=== PATIENT | female | born 1935 | race African-American/Black ===

== ENCOUNTER 2022-04-06 08:30 | Outpatient (CLI) | payer MEDICARE, SELFPAY ==
--- NOTE | ~2022-04-06 | XR_ITS ---
XR lumbar spine 2-3V 04/06/2022 09:54 Indication: Low back pain. Osteoporosis Procedure: 3 views lumbar spine Comparison: No prior studies for comparison. Findings: There is no mild disc narrowing at multiple levels. There is lower lumbar facet hypertrophy . There is grade 1 degenerative spondylolisthesis at L4-5. Sacral foramen are symmetric. There are ch olecystectomy clips. No acute fracture is identified. There is mild wedge deformity of T12 and L1, li robi chronic. Impression: 1: Mild wedge deformities of T12 and L1, most likely chronic. Consider correlation with CT or MRI if there is concern for acute fracture. 2: Moderate lumbar spondylosis. Reviewed, dictated and finalized at location B. Impression: 1: Mild wedge deformities of T12 and L1, most likely chronic. Consider correlat ion with CT or MRI if there is concern for acute fracture. 2: Moderate lumbar spondylosis.
--- NOTE | ~2022-04-06 | MM_ITS ---
EXAMINATION: MM screening keren BI w cem HISTORY: Screening mammogram TECHNIQUE: Craniocaudal and mediolateral oblique 3-D tomosynthesis images were obtained and synthetic 2-D images were generated. CAD analysis was submitted and interpreted. COMPARISON: No prior mammogram is available for comparison at this institution. BREAST PARENCHYMAL COMPOSITION: The breasts are almost entirely fatty. FINDINGS: There are scattered benign calcifications. There is no evidence of suspicious mass, calcifi cation, or architectural distortion to suggest malignancy in either breast. There has been no suspici ous interval change. IMPRESSION: 1. No mammographic evidence of malignancy. 2. Recommend routine screening mammography in one year. BI-RADS Category 2: Benign finding(s). Reviewed, dictated and finalized at location A.
--- NOTE | ~2022-04-06 | XR_ITS ---
EXAMINATION: XR foot LT standing 2V DATE: 04/06/2022 09:54 INDICATION: Age-related osteoporosis without current pathologic fracture. TECHNIQUE: 2 views of left foot standing were obtained. COMPARISON: None. FINDINGS: Pes planus is noted. No fracture. There is mild osteoarthritis of some of the midfoot joint s and interphalangeal joints. There is an enthesophyte at plantar aspect of calcaneal tuberosity. IMPRESSION: 1. Pes planus. 2. Mild polyarticular osteoarthritis. Reviewed, dictated and finalized at location A.
--- NOTE | ~2022-04-06 | XR_ITS ---
XR foot RT standing 2V 04/06/2022 09:54 Indication: Age-related osteoporosis. Procedure: 2 views of the right foot Comparison: No prior studies for comparison. Findings: Osteopenia. There is moderate osteoarthritis of the first MTP joint with hallux valgus. The re is a healed fifth metatarsal fracture. Lisfranc joint intact. There is pes planus. Small degenerat marixa calcaneal enthesophyte at the plantar surface. 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 2: Osteopenia. 3: Pes planus. Reviewed, dictated and finalized at location B. 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 2: Osteopenia. 3: Pes planus.
--- NOTE | ~2022-04-06 | XR_ITS ---
EXAMINATION: XR hand BI arthritis min 3V DATE: 04/06/2022 09:54 INDICATION: Age-related osteoporosis without current pathologic fracture. TECHNIQUE: 4 views of right hand and 4 views of left hand on a total of 7 radiographs were obtained. COMPARISON: None. FINDINGS: RIGHT HAND: There is radial subluxation of third distal phalanx with respect to the middle phalanx. N o fracture. There is mild osteoarthritis of triscaphe joint and severe osteoarthritis of first carpom etacarpal joint. There is mild osteoarthritis of many of the metacarpophalangeal joints and interphal angeal joints. There is moderate osteoarthritis of second metacarpophalangeal joint, fifth proximal i nterphalangeal joint, and second and fourth distal interphalangeal joints. There is severe osteoarthr itis of third distal interphalangeal joint. LEFT HAND: There is ulnar subluxation of second distal phalanx with respect to the middle phalanx and radial subluxation of third and fourth distal phalanges with respect to the middle phalanges. No fra cture. There is mild osteoarthritis of triscaphe joint and severe osteoarthritis of first carpometaca rpal joint. There is mild osteoarthritis of many of the metacarpophalangeal joints and interphalangea l joints. There is moderate osteoarthritis of third metacarpophalangeal joint and fourth distal inter phalangeal joint and severe osteoarthritis of second and third distal interphalangeal joints. IMPRESSION: 1. Particular osteoarthritis. Reviewed, dictated and finalized at location A.
[2022-04-06 10:48] LABS: Basophils Percent Auto 0.4 % (0.2-1.2); Eosinophils Absolute Auto 0.1 K/mm3 (0-0.3); Eosinophils Percent Auto 1.2 % (0-4.4); Hematocrit 35.9 % (37.0-47.0); Hemoglobin 10.9 g/dL (12.0-15.0); Immature Granulocyte Absolute 0.04 K/mm3 (0.00-0.031); Immature Granulocyte Percent A 0.8 % (0-0.5); Lymphocytes Absolute Auto 1.13 K/mm3 (0.9-3.2); Lymphocytes Percent Auto 22.3 % (18.3-44.2); Mean Corpuscular HGB Conc 30.4 g/dl (32-36); Mean Corpuscular Hemoglobin 29.3 pg (26-34); Mean Corpuscular Volume 96.5 fl (80-100); Mean Platelet Volume 9.9 fl (7.4-10.4); Monocytes Absolute Auto 0.6 K/mm3 (0.1-0.6); Monocytes Percent Auto 11.2 % (2.6-8.5); Neutrophils Absolute Auto 3.3 K/mm3 (1.3-6.7); Neutrophils Percent Auto 64.1 % (45.5-73.1); Platelet Count Result 209 k/mm3 (150-375); Red Blood Count 3.72 M/mm3 (4.2-5.4); Red Cell Distribution Width 15.2 % (11.5-14.5); White Blood Count 5.1 K/mm3 (4.5-10.0)
[2022-04-06 10:54] LABS: Alanine Aminotransferase 8 U/L (6-35); Albumin Level 3.8 g/dL (3.5-5.1); Alkaline Phosphatase 56 U/L (38-126); Anion Gap 6 mmol/L (8-16); Aspartate Amino Transferase 21 U/L (14-36); Bilirubin,Total 0.4 mg/dL (0.2-1.3); Blood Urea Nitrogen 15 mg/dL (7-17); CRP < 0.5 mg/dL (<1.0); Calcium 9.1 mg/dL (8.4-10.2); Carbon Dioxide 32 mmol/L (22-30); Chloride 102 mmol/L (98-107); Creatine Kinase 76 U/L (30-135); Estimated Glomerular Filt Rate > 60; Glucose 91 mg/dL (65-110); Lactate Dehydrogenase 180 U/L (120-246); Potassium 4.2 mmol/L (3.4-5.0); Sodium 140 mmol/L (137-145)
[2022-04-06 11:18] LABS: Vitamin D 25 Hydroxy 58.7 ng/mL
[2022-04-06 11:36] LABS: Rheumatoid Factor 14.1 IU/ML (<12)
[2022-04-06 11:51] LABS: Hepatitis C Virus Antibody Negative (Negative)
[2022-04-06 11:57] LABS: Folic Acid 19.7 ng/mL (2.76->20)
[2022-04-06 12:21] LABS: Erythrocyte Sedimentation Rate 47 mm/hr (0-20)
[2022-04-09 19:41] LABS: SM Antibody <1.0; SM/RNP Antibody <1.0; SS-A <1.0; SS-B <1.0
[2022-04-10 18:53] LABS: Hepatitis B Core Ab Total Nonreactive (Nonreactive)
[2022-04-10 22:07] LABS: Anti Cyclic Citrullinated Pept <16 Units (<20)
[2022-04-14 04:23] LABS: Aldolase 6.8 U/L (<=8.1)
== END 2022-04-06 08:31 | disposition home or self-care (01) ==
PROVIDERS: PCP Internal Medicine; Referring Provider Internal Medicine; Visit Provider Internal Medicine
DX: M05.79 Rheumatoid arthritis with rheumatoid factor of multiple sites without organ or systems involvement (principal); M81.0 Age-related osteoporosis without current pathological fracture; Z12.31 Encounter for screening mammogram for malignant neoplasm of breast; M21.42 Flat foot [pes planus] (acquired), left foot; M15.9 Polyosteoarthritis, unspecified; M21.41 Flat foot [pes planus] (acquired), right foot; M47.816 Spondylosis without myelopathy or radiculopathy, lumbar region; M43.8X4 Other specified deforming dorsopathies, thoracic region
CPT/HCPCS: 36415; 72100; 73130; 73620; 77063; 77067; 80053; 82085; 82306; 82550; 82746; 83615; 85025; 85652; 86038; 86140; 86200; 86225; 86235; 86430; 86704; 86803

== ENCOUNTER 2022-04-26 16:59 | Outpatient (CLI) | payer MEDICARE, SELFPAY ==
--- NOTE | ~2022-04-26 | DEXA_ITS ---
Bone Density Report Name: MELINDA MORALES Age: 86 Sex: Female Ethnicity: White Date of : 1935 Indication: hyperparathyroidism; height loss; inflammatory bowel disease; cancer; hysterectomy; rheumatoid arthritis; postmenopausal Referring Provider: LUCIO SEGURA Study: Bone densitometry was performed. Exam Date: April 26, 2022 Accession number: [id number] Bone Density: Region BMD T-score Z-score Classification AP Spine(L1-L4) 0.853 -1.8 1.1 Osteopenia Femoral Neck (Left) 0.695 -1.4 1.1 Osteopenia Total Hip (Left) 0.841 -0.8 1.5 Normal Femoral Neck (Right) 0.678 -1.5 1.0 Osteopenia Total Hip (Right) 0.830 -0.9 1.4 Normal Total Hip Mean 0.836 -0.9 1.5 Normal World Health Organization criteria for BMD impression classify patients as: Normal (T-score at or above -1.0), Osteopenia (T-score between -1.0 and -2.5), or Osteoporosis (T-score at or below -2.5). 10-year Fracture Risk: FRAX not reported because: Treated for osteoporosis Clinical Information Provided by Patient: Has rheumatoid arthritis Is being treated for osteoporosis Has used the following medications: Fosamax (i.e. alendronate), Vitamin D Has the following medical conditions: Cancer, Inflammatory bowel diseases, Hyperparathyroidism, Hysterectomy Patient maximum height was 62 Menopause Age: 51 No regular weight bearing exercise Drinks caffeinated beverages Onset of menses at age 15 Number of children 6 Impression: The patient has low bone mass, based on the Total Spine T-score. Discussion: It is important to ask patients whether they are taking their medications and to encourage continued and appropriate compliance with their osteoporosis therapies to reduce fracture risk. It is also important to review their risk factors and encourage appropriate calcium and vitamin D intakes, exercise, fall prevention and other lifestyle measures. Follow-Up: Consider a repeat BMD and Vertebral Fracture Assessment (VFA) exam in 2 years or sooner if medically necessary, to reassess this patient's status. Reported by: NICOLAS on 04/26/2022 5:29:00 PM. Reviewed, dictated and finalized at location APadmaja MACHADO
== END 2022-04-26 17:00 | disposition home or self-care (01) ==
PROVIDERS: Visit Provider Internal Medicine
DX: M81.0 Age-related osteoporosis without current pathological fracture (principal); M85.89 Other specified disorders of bone density and structure, multiple sites
CPT/HCPCS: 77080

== ENCOUNTER 2022-05-26 12:45 | Outpatient (CLI) | payer MEDICARE, SELFPAY ==
--- NOTE | ~2022-05-26 | XR_ITS ---
XR ankle RT min 3V 05/26/2022 13:10 Indication: Right ankle pain Procedure: 4 views right ankle Comparison: 04/06/2022 Findings: There is a large amount of soft tissue swelling. Osteopenia. There is a degenerative calcan eal enthesophyte at the plantar surface. There is atherosclerosis. Ankle mortise intact. Impression: 1: No acute bone or joint abnormality. Reviewed, dictated and finalized at location A. Impression: 1: No acute bone or joint abnormality.
[2022-05-26 13:47] LABS: Basophils Percent Auto 0.2 % (0.2-1.2); Eosinophils Absolute Auto 0.1 K/mm3 (0-0.3); Hematocrit 35.2 % (37.0-47.0); Hemoglobin 10.7 g/dL (12.0-15.0); Immature Granulocyte Absolute 0.04 K/mm3 (0.00-0.031); Immature Granulocyte Percent A 0.7 % (0-0.5); Immature Reticulocyte Fraction 6.9 % (3.0-15.9); Lymphocytes Absolute Auto 1.21 K/mm3 (0.9-3.2); Lymphocytes Percent Auto 19.9 % (18.3-44.2); Mean Corpuscular HGB Conc 30.4 g/dl (32-36); Mean Corpuscular Hemoglobin 29.9 pg (26-34); Mean Corpuscular Volume 98.3 fl (80-100); Monocytes Absolute Auto 0.4 K/mm3 (0.1-0.6); Monocytes Percent Auto 7.1 % (2.6-8.5); Neutrophils Absolute Auto 4.3 K/mm3 (1.3-6.7); Neutrophils Percent Auto 71.1 % (45.5-73.1); Platelet Count Result 164 k/mm3 (150-375); Red Blood Count 3.58 M/mm3 (4.2-5.4); Red Cell Distribution Width 14.3 % (11.5-14.5); Reticulocyte Hemoglobin Conten 32.4 pg (28.2-35.7); Reticulocytes Absolute 0.05 B/L (32.2-175.7); White Blood Count 6.1 K/mm3 (4.5-10.0)
[2022-05-26 14:07] LABS: Iron 80 ug/dL (37-170)
[2022-05-26 14:17] LABS: Percent Iron Saturation 29 % (20-50)
[2022-05-26 15:02] LABS: Folic Acid > 20.0 ng/mL (2.76->20)
== END 2022-05-26 12:46 | disposition home or self-care (01) ==
LOC: ANHIMG 12:51
PROVIDERS: PCP Internal Medicine; Referring Provider Internal Medicine; Visit Provider Internal Medicine Hematology & Oncology
DX: D64.9 Anemia, unspecified (principal); M25.571 Pain in right ankle and joints of right foot
CPT/HCPCS: 36415; 73610; 82607; 82728; 82746; 83540; 83550; 84443; 85025; 85046

== ENCOUNTER 2022-06-03 10:20 | Outpatient (CLI) | payer MEDICARE, SELFPAY ==
[2022-06-03 11:10] LABS: Basophils Percent Auto 0.4 % (0.2-1.2); Eosinophils Percent Auto 0.8 % (0-4.4); Hematocrit 35.1 % (37.0-47.0); Hemoglobin 10.6 g/dL (12.0-15.0); Immature Granulocyte Absolute 0.02 K/mm3 (0.00-0.031); Immature Granulocyte Percent A 0.4 % (0-0.5); Immature Reticulocyte Fraction 11.9 % (3.0-15.9); Lymphocytes Absolute Auto 1.11 K/mm3 (0.9-3.2); Lymphocytes Percent Auto 21.3 % (18.3-44.2); Mean Corpuscular HGB Conc 30.2 g/dl (32-36); Mean Corpuscular Hemoglobin 29.7 pg (26-34); Mean Corpuscular Volume 98.3 fl (80-100); Mean Platelet Volume 9.4 fl (7.4-10.4); Monocytes Absolute Auto 0.6 K/mm3 (0.1-0.6); Monocytes Percent Auto 11.7 % (2.6-8.5); Neutrophils Absolute Auto 3.4 K/mm3 (1.3-6.7); Neutrophils Percent Auto 65.4 % (45.5-73.1); Platelet Count Result 188 k/mm3 (150-375); Red Blood Count 3.57 M/mm3 (4.2-5.4); Red Cell Distribution Width 14.1 % (11.5-14.5); Reticulocyte Hemoglobin Conten 31.4 pg (28.2-35.7); Reticulocyte Percent 1.43 % (0.7-4.3); Reticulocytes Absolute 0.05 B/L (32.2-175.7); White Blood Count 5.2 K/mm3 (4.5-10.0)
[2022-06-03 11:23] LABS: Alanine Aminotransferase 13 U/L (6-35); Albumin Level 3.7 g/dL (3.5-5.1); Alkaline Phosphatase 56 U/L (38-126); Anion Gap 4 mmol/L (8-16); Aspartate Amino Transferase 22 U/L (14-36); Bilirubin,Total 0.4 mg/dL (0.2-1.3); Blood Urea Nitrogen 18 mg/dL (7-17); Carbon Dioxide 33 mmol/L (22-30); Chloride 106 mmol/L (98-107); Cholesterol 186 mg/dL (0-200); Estimated Glomerular Filt Rate > 60; Glucose 87 mg/dL (65-110); HDL Direct 47 mg/dL; Potassium 4.3 mmol/L (3.4-5.0); Sodium 143 mmol/L (137-145); Triglycerides 90 mg/dL (<150)
[2022-06-03 11:34] LABS: LDL Cholesterol Direct 93 mg/dL
[2022-06-06 13:32] LABS: NIL 0.06 IU/mL; Quantiferon TB Plus, 1T NEGATIVE (NEGATIVE); TB1-NIL <0.00 IU/mL; TB2-NIL <0.00 IU/mL
== END 2022-06-03 10:21 | disposition home or self-care (01) ==
PROVIDERS: PCP Internal Medicine; Referring Provider Internal Medicine Hematology & Oncology; Visit Provider Internal Medicine
DX: C20 Malignant neoplasm of rectum (principal); M81.0 Age-related osteoporosis without current pathological fracture; M05.79 Rheumatoid arthritis with rheumatoid factor of multiple sites without organ or systems involvement; E78.5 Hyperlipidemia, unspecified; D64.9 Anemia, unspecified
CPT/HCPCS: 36415; 80053; 80061; 82378; 85025; 85046; 86480

== ENCOUNTER 2022-10-07 09:10 | Outpatient (CLI) | payer MEDICARE, SELFPAY ==
[2022-10-07 10:32] LABS: Hematocrit 36.9 % (37.0-47.0); Hemoglobin 11.4 g/dL (12.0-15.0); Mean Corpuscular HGB Conc 30.9 g/dl (32-36); Mean Corpuscular Hemoglobin 29.7 pg (26-34); Mean Corpuscular Volume 96.1 fl (80-100); Mean Platelet Volume 9.9 fl (7.4-10.4); Platelet Count Result 186 k/mm3 (150-375); Red Blood Count 3.84 M/mm3 (4.2-5.4); Red Cell Distribution Width 14.1 % (11.5-14.5); White Blood Count 4.6 K/mm3 (4.5-10.0)
[2022-10-07 10:52] LABS: Alanine Aminotransferase 14 U/L (6-35); Albumin Level 4.1 g/dL (3.5-5.1); Alkaline Phosphatase 48 U/L (38-126); Anion Gap 2 mmol/L (8-16); Aspartate Amino Transferase 27 U/L (14-36); Bilirubin,Total 0.7 mg/dL (0.2-1.3); Blood Urea Nitrogen 19 mg/dL (7-17); Calcium 8.8 mg/dL (8.4-10.2); Carbon Dioxide 29 mmol/L (22-30); Chloride 105 mmol/L (98-107); Estimated Glomerular Filt Rate > 60; Glucose 86 mg/dL (65-110); Potassium 4.3 mmol/L (3.4-5.0); Sodium 136 mmol/L (137-145)
[2022-10-07 11:02] LABS: Appearance Urine Slightly Cloudy (Clear); Bilirubin Urine Negative (Negative); Blood Urine Negative (Negative); Color Urine Yellow (Yellow); Glucose Urine UA Negative (Negative); Ketones Urine Negative (Negative); Leukocyte Esterase Ur Trace LEU/UL (Negative); Nitrate Urine Negative (Negative); Protein Urine Trace mg/dL (Negative); Specific Grav Ur >= 1.030 (1.001-1.035); Urobilinogen Urine 0.2 mg/dL (<2.0); pH Urine 5.5 (5.0-9.0)
[2022-10-07 11:08] LABS: CRP < 0.5 mg/dL (<1.0)
[2022-10-07 11:10] LABS: Mucus Urine Rare /lpf; Squamous Epithelial Cell Urine Rare /hpf (Few); WBC Urine 0-3 /hpf
[2022-10-07 11:13] LABS: Add Urine Microscopic? YES
[2022-10-07 11:58] LABS: Erythrocyte Sedimentation Rate 25 mm/hr (0-20)
== END 2022-10-07 09:11 | disposition home or self-care (01) ==
LOC: ANHLAB 09:16
PROVIDERS: PCP Internal Medicine; Visit Provider Internal Medicine
DX: M05.79 Rheumatoid arthritis with rheumatoid factor of multiple sites without organ or systems involvement (principal); M19.90 Unspecified osteoarthritis, unspecified site
CPT/HCPCS: 36415; 80053; 81001; 85027; 85652; 86140

== ENCOUNTER 2022-10-24 13:31 | Outpatient (CLI) | payer MEDICARE, SELFPAY ==
[2022-10-24 14:38] LABS: Basophils Percent Auto 0.5 % (0.2-1.2); Eosinophils Absolute Auto 0.1 K/mm3 (0-0.3); Eosinophils Percent Auto 1.4 % (0-4.4); Hematocrit 35.4 % (37.0-47.0); Hemoglobin 10.8 g/dL (12.0-15.0); Immature Granulocyte Absolute 0.01 K/mm3 (0.00-0.031); Immature Granulocyte Percent A 0.2 % (0-0.5); Lymphocytes Absolute Auto 1.43 K/mm3 (0.9-3.2); Lymphocytes Percent Auto 32.2 % (18.3-44.2); Mean Corpuscular HGB Conc 30.5 g/dl (32-36); Mean Corpuscular Hemoglobin 28.9 pg (26-34); Mean Corpuscular Volume 94.7 fl (80-100); Mean Platelet Volume 9.8 fl (7.4-10.4); Monocytes Absolute Auto 0.6 K/mm3 (0.1-0.6); Monocytes Percent Auto 12.6 % (2.6-8.5); Neutrophils Absolute Auto 2.4 K/mm3 (1.3-6.7); Neutrophils Percent Auto 53.1 % (45.5-73.1); Platelet Count Result 204 k/mm3 (150-375); Red Blood Count 3.74 M/mm3 (4.2-5.4); Red Cell Distribution Width 14.4 % (11.5-14.5); White Blood Count 4.4 K/mm3 (4.5-10.0)
[2022-10-24 14:56] LABS: Appearance Urine Cloudy (Clear); Bacteria Urine None Seen /hpf; Bilirubin Urine Negative (Negative); Blood Urine Negative (Negative); Color Urine Dark Yellow (Yellow); Glucose Urine UA Negative (Negative); Hyaline Casts Urine Present /lpf; Ketones Urine Trace mg/dL (Negative); Leukocyte Esterase Ur 2+ LEU/UL (NEGATIVE); Need Manual Microscopic Reviewed; Nitrate Urine Negative (Negative); Protein Urine 1+ mg/dL (Negative); Specific Grav Ur 1.025 (1.001-1.035); Squamous Epithelial Cell Urine Occasional /hpf (Few); WBC Urine >100 /hpf (0-3); pH Urine 5.5 (5.0-9.0)
[2022-10-24 15:00] LABS: Add Urine Microscopic? YES
[2022-10-24 15:32] LABS: Iron 36 ug/dL (37-170)
[2022-10-24 15:41] LABS: Percent Iron Saturation 13 % (20-50)
[2022-10-26 23:23] LABS: Albumin 3.5 g/dL (3.8-4.8); Alpha 1 Globulin 0.3 g/dL (0.2-0.3); Alpha 2 Globulin 0.8 g/dL (0.5-0.9); Beta 1 Globulin 0.4 g/dL (0.4-0.6); Protein, Total 6.3 g/dL (6.1-8.1)
[2022-10-28 07:10] LABS: Creatinine, Random Urine 279 mg/dL (20-275); Total Protein/Creatinine Ratio 111 mg/g creat (24-184)
== END 2022-10-24 13:32 | disposition home or self-care (01) ==
PROVIDERS: PCP Internal Medicine; Visit Provider Internal Medicine
DX: R31.29 Other microscopic hematuria (principal); Z13.0 Encounter for screening for diseases of the blood and blood-forming organs and certain disorders involving the immune mechanism; R53.83 Other fatigue
CPT/HCPCS: 36415; 81001; 82570; 82728; 83540; 83550; 83880; 84155; 84156; 84165; 84166; 84443; 85025

== ENCOUNTER 2022-11-15 08:04 | Outpatient (CLI) | payer MEDICARE, SELFPAY ==
--- NOTE | ~2022-11-15 | CT_ITS ---
Clinical Indication: Rectal cancer CT Scan of the Chest, Abdomen, and Pelvis with Contrast: Technique: Contiguous sections were acquired throughout the chest, abdomen, and pelvis after intraven ous administration of 100 cc of Omnipaque 350. Dose reduction technique was used on this scan by sukhwinder houser automated exposure control and iterative reconstruction technique. The dose-length product (DL P) was 545.55 mGy-cm. Findings: There is no evidence of any significant mediastinal, hilar or axillary lymphadenopathy. No pulmonary embolus seen. No aortic aneurysm dissection. Coronary artery calcifications are present. There is no evidence of pleural or pericardial effusion. The lungs are clear. No pulmonary nodules or infiltrates are noted. The liver, spleen, pancreas, gallbladder, adrenals and kidneys are within normal limits. There are at herosclerotic calcifications of the aorta. No lymphadenopathy. No bowel obstruction or bowel wall thickening. There is evidence of prior partial colectomy with left lower quadrant ostomy present. Urinary bladder is unremarkable. No definite pelvic mass seen. No ascites. Impression: No evidence for active malignancy or metastatic disease. Prior partial colectomy with left lower quadrant ostomy. Reviewed, dictated and finalized at [facility]. Impression: No evidence for active malignancy or metastatic disease. Prior partial colectomy with left lower quadrant ostomy.
[2022-11-15 08:33] LABS: Estimated Glomerular Filt Rate > 60
== END 2022-11-15 08:05 | disposition home or self-care (01) ==
PROVIDERS: PCP Internal Medicine; Visit Provider Internal Medicine Hematology & Oncology
DX: C20 Malignant neoplasm of rectum (principal)
CPT/HCPCS: 71260; 74177; Q9967

== ENCOUNTER 2022-11-28 13:36 | Outpatient (CLI) | payer MEDICARE, SELFPAY ==
[2022-11-28 14:13] LABS: Basophils Percent Auto 0.5 % (0.2-1.2); Eosinophils Absolute Auto 0.1 K/mm3 (0-0.3); Eosinophils Percent Auto 1.6 % (0-4.4); Hematocrit 34.2 % (37.0-47.0); Hemoglobin 10.3 g/dL (12.0-15.0); Immature Granulocyte Absolute 0.02 K/mm3 (0.00-0.031); Immature Granulocyte Percent A 0.5 % (0-0.5); Lymphocytes Absolute Auto 1.21 K/mm3 (0.9-3.2); Lymphocytes Percent Auto 27.8 % (18.3-44.2); Mean Corpuscular HGB Conc 30.1 g/dl (32-36); Mean Corpuscular Hemoglobin 30.2 pg (26-34); Mean Corpuscular Volume 100.3 fl (80-100); Mean Platelet Volume 9.8 fl (7.4-10.4); Monocytes Absolute Auto 0.6 K/mm3 (0.1-0.6); Monocytes Percent Auto 14.5 % (2.6-8.5); Neutrophils Absolute Auto 2.4 K/mm3 (1.3-6.7); Neutrophils Percent Auto 55.1 % (45.5-73.1); Platelet Count Result 177 k/mm3 (150-375); Red Blood Count 3.41 M/mm3 (4.2-5.4); Red Cell Distribution Width 15.2 % (11.5-14.5); White Blood Count 4.4 K/mm3 (4.5-10.0)
[2022-11-28 14:16] LABS: Appearance Urine Clear (Clear); Bilirubin Urine 1+ (Negative); Blood Urine Trace-intact (Negative); Color Urine Yellow (Yellow); Glucose Urine UA Negative (Negative); Ketones Urine Trace mg/dL (Negative); Leukocyte Esterase Ur Trace LEU/UL (NEGATIVE); Nitrate Urine Negative (Negative); Protein Urine 1+ mg/dL (Negative); Specific Grav Ur >= 1.030 (1.001-1.035); pH Urine 5.5 (5.0-9.0)
[2022-11-28 14:25] LABS: Alanine Aminotransferase 14 U/L (6-35); Albumin Level 3.6 g/dL (3.5-5.1); Alkaline Phosphatase 53 U/L (38-126); Anion Gap 2 mmol/L (8-16); Aspartate Amino Transferase 23 U/L (14-36); Bilirubin,Total 0.4 mg/dL (0.2-1.3); Blood Urea Nitrogen 15 mg/dL (7-17); Calcium 8.6 mg/dL (8.4-10.2); Carbon Dioxide 36 mmol/L (22-30); Chloride 102 mmol/L (98-107); Estimated Glomerular Filt Rate > 60; Glucose 95 mg/dL (65-110); Potassium 4.2 mmol/L (3.4-5.0); Sodium 140 mmol/L (137-145)
[2022-11-28 14:34] LABS: Iron 54 ug/dL (37-170)
[2022-11-28 14:36] LABS: Add Urine Microscopic? YES; NT Pro B Type Natriuretic Pept 439 pg/mL (19.9-100); RBC Urine None seen /hpf (0-2); WBC Urine 0-3 /hpf (0-3)
[2022-11-28 14:37] LABS: Bacteria Urine None Seen /hpf; Squamous Epithelial Cell Urine Few /hpf (Few)
[2022-11-28 14:45] LABS: Percent Iron Saturation 19 % (20-50)
[2022-11-28 14:57] LABS: Carcinoembryonic Antigen 1.9 ng/mL (0.0-3.0); Thyroid Stimulating Hormone 0.047 uIU/mL (0.465-4.680)
[2022-11-30 18:14] LABS: Albumin 3.2 g/dL (3.8-4.8); Alpha 1 Globulin 0.3 g/dL (0.2-0.3); Alpha 2 Globulin 0.7 g/dL (0.5-0.9); Beta 1 Globulin 0.4 g/dL (0.4-0.6); Protein, Total 5.9 g/dL (6.1-8.1)
[2022-12-06 09:34] LABS: Creatinine, Random Urine 468 mg/dL (20-275); Total Protein/Creatinine Ratio 83 mg/g creat (24-184)
== END 2022-11-28 13:37 | disposition home or self-care (01) ==
LOC: ANHLAB 13:40
PROVIDERS: PCP Internal Medicine; Visit Provider Internal Medicine Hematology & Oncology
DX: R31.29 Other microscopic hematuria (principal); Z13.0 Encounter for screening for diseases of the blood and blood-forming organs and certain disorders involving the immune mechanism; R53.83 Other fatigue; D50.9 Iron deficiency anemia, unspecified
CPT/HCPCS: 36415; 80053; 81001; 82378; 82570; 82728; 83540; 83550; 83880; 84155; 84156; 84165; 84166; 84443; 85025

== ENCOUNTER 2022-12-20 00:22 | Day surgery (SDC) | payer MEDICARE, SELFPAY ==
[2022-12-16 10:52] VITALS: BMI 27.1
[2022-12-20 09:00] VITALS: BP 172/96; PULSE 77; RESP 20; TEMP 36.4; O2SAT 96
[2022-12-20] MEDS: LACTATED RINGERS 1,000 ML 150 ML IV CONT (09:13)
--- NOTE | 2022-12-20 09:29 | WPDHPUPDATE1 ---
History and Physical Update Update Date/Time: 12/20/22 09:29 History and Physical has been reviewed, including an updated exam of the patient. There are NO changes in the patient's condition. Risks, benefits, and alternatives have been discussed and questions answered. Patient agrees to proceed with procedure.
--- NOTE | 2022-12-20 09:52 | WPDANESEPPF ---
Anes - Initial Pre Proc Eval Procedure: Operation Date: 12/20/22 10:00 Proposed Procedures p Esophagogastroduodenoscopy - Fredis Clarke MD Date/Time: 12/20/22 09:52 Surgeon: Fredis Clarke MD Pre Op Diagnosis: hx of stomach ca, GAGAN Patient Data Age: 87 Gender: F Height: 1.55 m Weight: 67 kg Last Vital Signs Temp 97.5 F L 12/20/22 09:00 Pulse 77 12/20/22 09:00 Resp 20 12/20/22 09:00 BP 172/96 H 12/20/22 09:00 Pulse Ox 96 12/20/22 09:00 O2 Del Method Room Air 12/20/22 09:00 Allergies Allergy/AdvReac Type Severity Reaction Status Date / Time Penicillins AdvReac Intermediate Swelling Verified 12/20/22 08:59 of Lip/Tongue/Throat Home Medications Medication Instructions Recorded Confirmed Type acetaminophen 500 mg tablet 500 mg PO Q6H PRN Pain 03/29/22 12/16/22 History (Tylenol Extra Strength) ascorbic acid (vitamin C) 500 mg 500 mg PO DAILY 03/29/22 12/16/22 History capsule losartan 25 mg tablet 25 mg PO DAILY 03/29/22 12/16/22 History vitamin B complex (Vitamins B 1 cap PO DAILY 03/29/22 12/16/22 History Complex capsule) folic acid 1 mg tablet 1 mg PO DAILY #90 tabs 11/23/22 12/16/22 Rx methotrexate sodium 2.5 mg tablet 17.5 mg PO WEEKLY #28 tabs 11/23/22 12/16/22 Rx docusate sodium 100 mg capsule 100 mg PO DAILY 12/12/22 12/16/22 History vitamin B12 0.5 mg-folic acid 1 mg 1 tablet PO DAILY 12/12/22 12/16/22 History tablet hydroxychloroquine 200 mg tablet 200 mg PO DAILY #90 tabs 12/13/22 12/16/22 Rx (Plaquenil) calcium carbonate 600 mg-vitamin 1 tablet PO DAILY 12/16/22 12/16/22 History D3 20 mcg (800 unit) chewable tablet (Caltrate 600 plus D) ferrous sulfate 325 mg (65 mg 325 mg PO DAILY 12/16/22 12/16/22 History iron) tablet zczqvkvbyias-jhbodrpb-utdfzt tablet 1 tablet PO DAILY 12/16/22 12/16/22 History Patient hx anesthesia problems: none Family hx anesthesia problems: none Results Review: All pre-operative results and documents have been reviewed as part of the pre-operative evaluation. 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 Arthritis Cancer Congestive heart failure Encounter for medication adjustment GERD (gastroesophageal reflux disease) History of rectal cancer History of stomach cancer Hypertension GAGAN (iron deficiency anemia) Long-term use of immunosuppressant medication Rheumatoid arthritis with rheumatoid factor of multiple sites without organ or systems involvement Family History Family History Father Heart disease Alcoholism Mother Hypertension Heart disease Cerebrovascular accident Thyroid disorder Sibling Cancer Hypertension Heart disease Son Asthma Diabetes mellitus Hypertension Depression Heart disease Thyroid disorder Grandparent Cancer Social History Social History Smoking status: Never smoker Alcohol intake: never Living arrangements: with family Spiritual care concerns: No Anes - Eval Final PreProcedure Day of Procedure 12/20/22 09:52 Patient weight: normal Heart: regular rate and rhythm Lungs: clear to auscultation Airway: Mallampati scale class II Neurological: alert and oriented Last oral intake: >/= 8 hours ASA classification: III Emergent: no Anesthetic plan: proceed Anesthesia type and monitoring: general GIVS and standard monitoring Results Review: All pre-operative results and documents have been reviewed as part of the pre-operative evaluation. Informed Consent: The patient's anesthetic plan and its attendant risks and benefits were discussed with the patient/family/POA. Questions were solicited and answers prov
[2022-12-20] MEDS: SIMETHICONE ORAL SUSPENSION 20 MG/0.3 ML 30 ML BOTTLE 0.6 ML IRRIGATION (09:58)
[2022-12-20 10:03] VITALS: BP 143/72; PULSE 71; RESP 18; O2SAT 98
[2022-12-20 10:13] VITALS: BP 168/69; PULSE 76; RESP 18; O2SAT 98
[2022-12-20 10:23] VITALS: BP 153/66; PULSE 78; RESP 18; O2SAT 98
== END 2022-12-20 10:42 | disposition home or self-care (01) ==
PROVIDERS: PCP Internal Medicine; Visit Provider Internal Medicine Gastroenterology
PROC: 0DJ08ZZ Inspection of Upper Intestinal Tract, Via Natural or Artificial Opening Endoscopic (ICD-10-PCS; CPT 43235; principal; 2022-12-20 10:00)
DX: D64.9 Anemia, unspecified (principal); Z93.4 Other artificial openings of gastrointestinal tract status; Z90.3 Acquired absence of stomach [part of]; Z85.028 Personal history of other malignant neoplasm of stomach; K21.9 Gastro-esophageal reflux disease without esophagitis; M05.79 Rheumatoid arthritis with rheumatoid factor of multiple sites without organ or systems involvement; M81.0 Age-related osteoporosis without current pathological fracture; I11.0 Hypertensive heart disease with heart failure; I50.9 Heart failure, unspecified; Z92.21 Personal history of antineoplastic chemotherapy; Z85.048 Personal history of other malignant neoplasm of rectum, rectosigmoid junction, and anus
CPT/HCPCS: 43235; J2704; J7120

== ENCOUNTER 2023-01-04 09:51 | Outpatient (CLI) | payer MEDICARE, SELFPAY ==
[2023-01-04 10:36] LABS: Basophils Percent Auto 0.5 % (0.2-1.2); Eosinophils Absolute Auto 0.1 K/mm3 (0-0.3); Eosinophils Percent Auto 1.8 % (0-4.4); Hematocrit 34.8 % (37.0-47.0); Hemoglobin 10.5 g/dL (12.0-15.0); Immature Granulocyte Absolute 0.02 K/mm3 (0.00-0.031); Immature Granulocyte Percent A 0.5 % (0-0.5); Lymphocytes Absolute Auto 1.39 K/mm3 (0.9-3.2); Mean Corpuscular HGB Conc 30.2 g/dl (32-36); Mean Corpuscular Hemoglobin 29.4 pg (26-34); Mean Corpuscular Volume 97.5 fl (80-100); Mean Platelet Volume 9.9 fl (7.4-10.4); Monocytes Absolute Auto 0.5 K/mm3 (0.1-0.6); Monocytes Percent Auto 12.2 % (2.6-8.5); Neutrophils Absolute Auto 2.3 K/mm3 (1.3-6.7); Platelet Count Result 168 k/mm3 (150-375); Red Blood Count 3.57 M/mm3 (4.2-5.4); Red Cell Distribution Width 14.2 % (11.5-14.5); White Blood Count 4.4 K/mm3 (4.5-10.0)
[2023-01-04 11:58] LABS: Iron 55 ug/dL (37-170)
[2023-01-04 12:07] LABS: Percent Iron Saturation 18 % (20-50)
== END 2023-01-04 09:52 | disposition home or self-care (01) ==
PROVIDERS: PCP Internal Medicine; Visit Provider Internal Medicine
DX: D50.9 Iron deficiency anemia, unspecified (principal)
CPT/HCPCS: 36415; 82728; 83540; 83550; 85025

== ENCOUNTER 2023-04-11 14:45 | Emergency (ER) | payer MEDICARE, SELFPAY ==
--- NOTE | 2023-04-11 14:50 | ED.EAR ---
HPI - Ear Problem General Chief complaint: Ear Stated complaint: CLOGGED EAR/DIZZY/PAIN Source: patient and RN notes reviewed Mode of arrival: ambulatory Limitations: no limitations History of Present Illness HPI Narrative: Patient is an 87-year-old female who presents to the [facility] with ear pain for the past 2 weeks. Patient states that the pain is worse on the right than left. She states that she has a sensation of something being in her ear which causes decreased hearing. Patient states that she has been using organic ear oil for the past couple days which has helped. She denies ear drainage. Denies recent fevers. Denies recent illness, cough, congestion. Related Data Home Medications Medication Instructions Recorded Confirmed acetaminophen 500 mg tablet 500 mg PO Q6H PRN Pain 03/29/22 12/16/22 (Tylenol Extra Strength) ascorbic acid (vitamin C) 500 mg 500 mg PO DAILY 03/29/22 12/16/22 capsule losartan 25 mg tablet 25 mg PO DAILY 03/29/22 12/16/22 vitamin B complex (Vitamins B 1 cap PO DAILY 03/29/22 12/16/22 Complex capsule) docusate sodium 100 mg capsule 100 mg PO DAILY 12/12/22 12/16/22 vitamin B12 0.5 mg-folic acid 1 mg 1 tablet PO DAILY 12/12/22 12/16/22 tablet calcium carbonate 600 mg-vitamin 1 tablet PO DAILY 12/16/22 12/16/22 D3 20 mcg (800 unit) chewable tablet (Caltrate 600 plus D) ferrous sulfate 325 mg (65 mg 325 mg PO DAILY 12/16/22 12/16/22 iron) tablet ygxonovabtxa-oyoikbzd-awxvut tablet 1 tablet PO DAILY 12/16/22 12/16/22 Allergies Allergy/AdvReac Type Severity Reaction Status Date / Time Penicillins AdvReac Intermediate Swelling Verified 12/20/22 08:59 of Lip/Tongue/Throat Review of Systems Review of Systems: CONSTITUTIONAL: Denies fever, chills, or sweats. EYES: Denies visual changes, redness, or discharge. ENT: Denies sore throat. Reports bilateral ear pain. CARDIOVASCULAR: Denies chest pain, palpitations, or edema. RESPIRATORY: Denies cough or dyspnea. GASTROINTESTINAL: Denies abdominal pain, nausea, vomiting, or diarrhea. GENITOURINARY: Denies dysuria or hematuria. SKIN: Denies rash or itching. MUSCULOSKELETAL: Denies back pain, joint pain, or myalgia. NEUROLOGIC: Denies headache, numbness, or weakness. Pertinent positives per HPI. 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 Arthritis Cancer Congestive heart failure Encounter for medication adjustment GERD (gastroesophageal reflux disease) History of rectal cancer History of stomach cancer Hypertension GAGAN (iron deficiency anemia) Long-term use of immunosuppressant medication Rheumatoid arthritis with rheumatoid factor of multiple sites without organ or systems involvement Family History Family History Father Heart disease Alcoholism Mother Hypertension Heart disease Cerebrovascular accident Thyroid disorder Sibling Cancer Hypertension Heart disease Son Asthma Diabetes mellitus Hypertension Depression Heart disease Thyroid disorder Grandparent Cancer Social History Social History Smoking status: Never smoker Alcohol intake: never Living arrangements: with family Spiritual care concerns: No Comments At the time of my signature, I reviewed and agree with the nursing past medical, surgical, social, and family history. There is no relevant family history pertinent to the patient complaint. Exam Narrative: GENERAL: This is a well-nourished, well-developed patient, in no apparent distress. HEAD: normocephalic, atraumatic. EYES: Sclera clear/white. Vision is grossly intact. EARS: External ears normal. Right ear wit
[2023-04-11 14:56] VITALS: BP 136/64; PULSE 85; RESP 16; TEMP 36.7; O2SAT 100
== END 2023-04-11 15:11 | disposition home or self-care (01) ==
PROVIDERS: Emergency Provider Nurse Practitioner; PCP Internal Medicine
DX: H66.93 Otitis media, unspecified, bilateral (principal); H61.21 Impacted cerumen, right ear; M81.0 Age-related osteoporosis without current pathological fracture; M19.90 Unspecified osteoarthritis, unspecified site; I11.0 Hypertensive heart disease with heart failure; I10 Essential (primary) hypertension; M05.9 Rheumatoid arthritis with rheumatoid factor, unspecified; Z85.048 Personal history of other malignant neoplasm of rectum, rectosigmoid junction, and anus; Z85.028 Personal history of other malignant neoplasm of stomach; Z92.21 Personal history of antineoplastic chemotherapy; D50.9 Iron deficiency anemia, unspecified
CPT/HCPCS: 69210; 99213; G0463

== ENCOUNTER 2023-04-12 10:49 | Outpatient (CLI) | payer MEDICARE, SELFPAY ==
[2023-04-12 11:40] LABS: Appearance Urine Cloudy (Clear); Bacteria Urine Rare /hpf; Bilirubin Urine 1+ (Negative); Blood Urine Negative (Negative); Color Urine Dark Yellow (Yellow); Glucose Urine UA Negative (Negative); Ketones Urine Trace mg/dL (Negative); Leukocyte Esterase Ur 2+ LEU/UL (Negative); Need Manual Microscopic Reviewed; Nitrate Urine Negative (Negative); Protein Urine 1+ mg/dL (Negative); RBC Urine 0-2 /hpf (0-2); Specific Grav Ur 1.032 (1.001-1.035); Squamous Epithelial Cell Urine Few /hpf (Few); WBC Urine 21-50 /hpf
[2023-04-12 11:41] LABS: Add Urine Microscopic? YES
[2023-04-12 12:00] LABS: Basophils Percent Auto 0.4 % (0.2-1.2); Eosinophils Absolute Auto 0.1 K/mm3 (0-0.3); Eosinophils Percent Auto 2.9 % (0-4.4); Hematocrit 34.7 % (37.0-47.0); Hemoglobin 10.3 g/dL (12.0-15.0); Immature Granulocyte Absolute 0.01 K/mm3 (0.00-0.031); Immature Granulocyte Percent A 0.2 % (0-0.5); Lymphocytes Absolute Auto 1.11 K/mm3 (0.9-3.2); Lymphocytes Percent Auto 22.7 % (18.3-44.2); Mean Corpuscular HGB Conc 29.7 g/dl (32-36); Mean Corpuscular Hemoglobin 29.3 pg (26-34); Mean Corpuscular Volume 98.6 fl (80-100); Mean Platelet Volume 10.3 fl (7.4-10.4); Monocytes Absolute Auto 0.6 K/mm3 (0.1-0.6); Monocytes Percent Auto 11.5 % (2.6-8.5); Neutrophils Absolute Auto 3.1 K/mm3 (1.3-6.7); Neutrophils Percent Auto 62.3 % (45.5-73.1); Platelet Count Result 173 k/mm3 (150-375); Red Blood Count 3.52 M/mm3 (4.2-5.4); Red Cell Distribution Width 14.1 % (11.5-14.5); White Blood Count 4.9 K/mm3 (4.5-10.0)
[2023-04-12 12:21] LABS: Alanine Aminotransferase 15 U/L (6-35); Albumin Level 3.4 g/dL (3.5-5.1); Alkaline Phosphatase 55 U/L (38-126); Anion Gap 3 mmol/L (8-16); Aspartate Amino Transferase 22 U/L (14-36); Bilirubin,Total 0.5 mg/dL (0.2-1.3); Blood Urea Nitrogen 16 mg/dL (7-17); CRP 0.6 mg/dL (<1.0); Calcium 8.7 mg/dL (8.4-10.2); Carbon Dioxide 33 mmol/L (22-30); Chloride 105 mmol/L (98-107); Estimated Glomerular Filt Rate > 60; Glucose 102 mg/dL (65-110); Potassium 4.4 mmol/L (3.4-5.0); Sodium 141 mmol/L (137-145)
[2023-04-12 12:38] LABS: Hypochromasia 1+ (NORMAL); Platelet Estimate Adequate (Adequate); Schistocytes None Seen (NORMAL)
[2023-04-12 12:53] LABS: Erythrocyte Sedimentation Rate 28 mm/hr (0-20)
== END 2023-04-12 10:50 | disposition home or self-care (01) ==
LOC: ANHLAB 10:50
PROVIDERS: PCP Internal Medicine; Visit Provider Internal Medicine
DX: M06.9 Rheumatoid arthritis, unspecified (principal); Z11.59 Encounter for screening for other viral diseases; Z79.899 Other long term (current) drug therapy
CPT/HCPCS: 36415; 80053; 81001; 85025; 85652; 86140; 87086

== ENCOUNTER 2023-06-15 10:08 | Outpatient (CLI) | payer MEDICARE, SELFPAY ==
[2023-06-15 11:06] LABS: Basophils Percent Auto 0.3 % (0.2-1.2); Eosinophils Percent Auto 0.3 % (0-4.4); Hematocrit 35.2 % (37.0-47.0); Hemoglobin 10.6 g/dL (12.0-15.0); Immature Granulocyte Absolute 0.14 K/mm3 (0.00-0.031); Immature Granulocyte Percent A 1.5 % (0-0.5); Lymphocytes Absolute Auto 2.06 K/mm3 (0.9-3.2); Lymphocytes Percent Auto 22.7 % (18.3-44.2); Mean Corpuscular HGB Conc 30.1 g/dl (32-36); Mean Corpuscular Hemoglobin 29.2 pg (26-34); Mean Platelet Volume 9.9 fl (7.4-10.4); Monocytes Percent Auto 10.7 % (2.6-8.5); Neutrophils Absolute Auto 5.9 K/mm3 (1.3-6.7); Neutrophils Percent Auto 64.5 % (45.5-73.1); Platelet Count Result 248 k/mm3 (150-375); Red Blood Count 3.63 M/mm3 (4.2-5.4); Red Cell Distribution Width 14.7 % (11.5-14.5); White Blood Count 9.1 K/mm3 (4.5-10.0)
[2023-06-15 11:25] LABS: Alanine Aminotransferase 16 U/L (6-35); Albumin Level 3.6 g/dL (3.5-5.1); Alkaline Phosphatase 54 U/L (38-126); Anion Gap 2 mmol/L (8-16); Aspartate Amino Transferase 22 U/L (14-36); Bilirubin,Total 0.6 mg/dL (0.2-1.3); Blood Urea Nitrogen 29 mg/dL (7-17); Carbon Dioxide 34 mmol/L (22-30); Chloride 103 mmol/L (98-107); Estimated Glomerular Filt Rate > 60; Glucose 95 mg/dL (65-110); Potassium 4.2 mmol/L (3.4-5.0); Sodium 139 mmol/L (137-145)
[2023-06-15 11:26] LABS: Iron 71 ug/dL (37-170)
[2023-06-15 11:37] LABS: Percent Iron Saturation 26 % (20-50)
[2023-06-15 11:50] LABS: Carcinoembryonic Antigen 2.5 ng/mL (0.0-3.0)
== END 2023-06-15 10:09 | disposition home or self-care (01) ==
LOC: ANHLAB 10:13
PROVIDERS: PCP Internal Medicine; Visit Provider Internal Medicine Hematology & Oncology
DX: C20 Malignant neoplasm of rectum (principal); D64.9 Anemia, unspecified
CPT/HCPCS: 36415; 80053; 82378; 82607; 82728; 83540; 83550; 85025

== ENCOUNTER 2023-07-27 10:23 | Outpatient (CLI) | payer MEDICARE, SELFPAY ==
[2023-07-27 11:24] LABS: Alanine Aminotransferase 10 U/L (6-35); Albumin Level 3.6 g/dL (3.5-5.1); Alkaline Phosphatase 61 U/L (38-126); Anion Gap 1 mmol/L (8-16); Aspartate Amino Transferase 24 U/L (14-36); Bilirubin,Total 0.5 mg/dL (0.2-1.3); Blood Urea Nitrogen 15 mg/dL (7-17); Carbon Dioxide 34 mmol/L (22-30); Chloride 106 mmol/L (98-107); Cholesterol 203 mg/dL (0-200); Estimated Glomerular Filt Rate > 60; Glucose 92 mg/dL (65-110); HDL Direct 46 mg/dL; Potassium 4.2 mmol/L (3.4-5.0); Sodium 141 mmol/L (137-145); Triglycerides 101 mg/dL (<150)
[2023-07-27 11:35] LABS: LDL Cholesterol Direct 96 mg/dL
[2023-07-27 13:02] LABS: Free T4 Free Thyroxine 1.11 ng/mL (0.78-2.19)
[2023-07-27 14:15] LABS: Creatinine Urine 120.1 mg/dL
[2023-07-27 14:20] LABS: MALB Creatinine Ratio 12.9 mg/g (0-30); Microalbumin Urine Random 15.5 mg/L (0-16.7)
== END 2023-07-27 10:24 | disposition home or self-care (01) ==
PROVIDERS: PCP Internal Medicine; Visit Provider Internal Medicine
DX: E78.5 Hyperlipidemia, unspecified (principal); I10 Essential (primary) hypertension; M85.80 Other specified disorders of bone density and structure, unspecified site; R94.6 Abnormal results of thyroid function studies
CPT/HCPCS: 36415; 80053; 80061; 82043; 84439; 84443

== ENCOUNTER 2023-09-04 11:13 | Emergency (ER) | payer MEDICARE, SELFPAY ==
--- NOTE | ~2023-09-04 | XR_ITS ---
Clinical Indication: Shortness of breath PA and lateral views of the chest: Comparison: None Findings: There are extensive right middle lobe pneumonia. Left lung clear. Cardiomediastinal silhou ette is within normal limits. Bones and soft tissues are unremarkable. Impression: Extensive right middle lobe pneumonia. Possible right lower lobe involvement as well. Reviewed, dictated and finalized at location . ARTIS[facility] Impression: Extensive right middle lobe pneumonia. Possible right lower lobe involvement as well.
[2023-09-04 11:22] VITALS: BP 94/65; PULSE 123; RESP 16; TEMP 36.8; O2SAT 91
--- NOTE | 2023-09-04 12:15 | ED.SOB ---
HPI - SOB/Dyspnea General Chief Complaint: Shortness of Breath/Dyspnea Stated Complaint: Shortness of breath Time Seen by Provider: 09/04/23 11:35 Source: patient, RN notes reviewed and old records reviewed Mode of arrival: ambulatory Limitations: no limitations History of Present Illness HPI Narrative: 88-year-old female who [facility] accompanied by her daughter with complaints of increasing weakness and fatigue since . Daughter states today patient seemed to be more short of breath than usual and continues to be very weak, Patient does have a history of congestive heart failure, minimal swelling noted to left foot, no tachypnea noted,O2 saturation ranging 91-92 on room air. Patient does have crackles noted on auscultation 1/2 way up on right lung. Daughter states that mother has not had a cough or any sinus drainage or any temperatures. MD elicited complaint: shortness of breath (weakness and fatigue) Pertinent past history: congestive heart failure Onset (ago): day(s) (increased fatigue and weakness 5 days with increased dyspnea one day) Severity: moderate Known history of: congestive heart failure and other (Rheumatoid arthritis, stomach and rectal cancer) Treatment prior to arrival: none Related Data Home Medications Medication Instructions Recorded Confirmed acetaminophen 500 mg tablet 500 mg PO Q6H PRN Pain 03/29/22 09/04/23 (Tylenol Extra Strength) ascorbic acid (vitamin C) 500 mg 500 mg PO DAILY 03/29/22 09/04/23 capsule losartan 25 mg tablet 25 mg PO DAILY 03/29/22 09/04/23 vitamin B complex (Vitamins B 1 cap PO DAILY 03/29/22 09/04/23 Complex capsule) vitamin B12 0.5 mg-folic acid 1 mg 1 tablet PO DAILY 12/12/22 09/04/23 tablet calcium carbonate 600 mg-vitamin 1 tablet PO DAILY 12/16/22 09/04/23 D3 20 mcg (800 unit) chewable tablet (Caltrate 600 plus D) ferrous sulfate 325 mg (65 mg 325 mg PO DAILY 12/16/22 09/04/23 iron) tablet noutgadjgosc-lqldwxev-edklxc tablet 1 tablet PO DAILY 12/16/22 09/04/23 pantoprazole 20 mg tablet,delayed 20 mg PO QAM 08/01/23 09/04/23 release Allergies Allergy/AdvReac Type Severity Reaction Status Date / Time Penicillins AdvReac Intermediate Swelling Verified 09/04/23 11:24 of Lip/Tongue/Throat Review of Systems Review of Systems: CONSTITUTIONAL: Denies malaise, chills, sweats, or fever. EYES: Denies visual changes, redness, or discharge. ENT: Reports no rhinorrhea, congestion, sinus pain, otalgia or sore throat. CARDIOVASCULAR: Denies chest pain, palpitations, or edema. RESPIRATORY: Reports no acute cough.? Reports incereased dyspnea. GASTROINTESTINAL: Denies abdominal pain, nausea, vomiting, diarrhea SKIN: Denies rash or itching. MUSCULOSKELETAL: Denies myalgia. NEUROLOGIC: Denies headache. 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 Arthritis Cancer Congestive heart failure Encounter for medication adjustment GERD (gastroesophageal reflux disease) History of rectal cancer History of stomach cancer Hypertension GAGAN (iron deficiency anemia) Long-term use of immunosuppressant medication Rheumatoid arthritis with rheumatoid factor of multiple sites without organ or systems involvement Surgical History Surgical History (Updated 09/05/23 @ 20:47 by Nidia Mcnair NP) History of hysterectomy Family History Family History Father Heart disease Alcoholism Mother Hypertension Heart disease Cerebrovascular accident Thyroid disorder Sibling Cancer Hypertension Heart disease Son Asthma Diabetes mellitus Hypertension Depression
[2023-09-04 12:16] VITALS: PULSE 116; RESP 16; O2SAT 96
== END 2023-09-04 12:18 | disposition short-term general hospital (02) ==
LOC: EXPGOSH 11:16
PROVIDERS: Emergency Provider Registered Nurse; PCP Internal Medicine
DX: J18.1 Lobar pneumonia, unspecified organism (principal); I11.0 Hypertensive heart disease with heart failure; I50.9 Heart failure, unspecified; K21.9 Gastro-esophageal reflux disease without esophagitis; M81.0 Age-related osteoporosis without current pathological fracture; M05.79 Rheumatoid arthritis with rheumatoid factor of multiple sites without organ or systems involvement; Z85.028 Personal history of other malignant neoplasm of stomach; Z85.048 Personal history of other malignant neoplasm of rectum, rectosigmoid junction, and anus; D50.9 Iron deficiency anemia, unspecified
CPT/HCPCS: 71046; 99213; G0463

== ENCOUNTER 2023-11-06 09:51 | Outpatient (CLI) | payer MEDICARE, SELFPAY ==
[2023-11-06 10:10] LABS: Basophils Percent Auto 0.4 % (0.2-1.2); Eosinophils Absolute Auto 0.1 K/mm3 (0-0.3); Eosinophils Percent Auto 1.5 % (0-4.4); Hematocrit 38.3 % (37.0-47.0); Hemoglobin 11.8 g/dL (12.0-15.0); Immature Granulocyte Absolute 0.01 K/mm3 (0.00-0.031); Immature Granulocyte Percent A 0.2 % (0-0.5); Lymphocytes Absolute Auto 1.42 K/mm3 (0.9-3.2); Lymphocytes Percent Auto 26.7 % (18.3-44.2); Mean Corpuscular HGB Conc 30.8 g/dl (32-36); Mean Corpuscular Hemoglobin 29.4 pg (26-34); Mean Corpuscular Volume 95.5 fl (80-100); Mean Platelet Volume 9.8 fl (7.4-10.4); Monocytes Absolute Auto 0.5 K/mm3 (0.1-0.6); Neutrophils Absolute Auto 3.3 K/mm3 (1.3-6.7); Neutrophils Percent Auto 61.2 % (45.5-73.1); Platelet Count Result 166 k/mm3 (150-375); Red Blood Count 4.01 M/mm3 (4.2-5.4); White Blood Count 5.3 K/mm3 (4.5-10.0)
[2023-11-06 14:27] LABS: Alanine Aminotransferase 12 U/L (6-35); Albumin Level 3.8 g/dL (3.5-5.1); Alkaline Phosphatase 72 U/L (38-126); Anion Gap 1 mmol/L (8-16); Aspartate Amino Transferase 25 U/L (14-36); Bilirubin,Total 0.5 mg/dL (0.2-1.3); Blood Urea Nitrogen 17 mg/dL (7-17); Calcium 9.4 mg/dL (8.4-10.2); Carbon Dioxide 35 mmol/L (22-30); Chloride 105 mmol/L (98-107); Estimated Glomerular Filt Rate > 60; Glucose 98 mg/dL (65-110); Potassium 3.9 mmol/L (3.4-5.0); Sodium 141 mmol/L (137-145)
[2023-11-06 14:41] LABS: Iron 108 ug/dL (37-170)
[2023-11-06 14:51] LABS: Percent Iron Saturation 36 % (20-50)
[2023-11-06 14:59] LABS: Carcinoembryonic Antigen 2.7 ng/mL (0.0-3.0)
[2023-11-06 15:36] LABS: Folic Acid > 20.0 ng/mL (2.76->20)
== END 2023-11-06 09:52 | disposition home or self-care (01) ==
LOC: ANHLAB 09:53
PROVIDERS: PCP Internal Medicine; Visit Provider Internal Medicine Hematology & Oncology
DX: C20 Malignant neoplasm of rectum (principal); D64.9 Anemia, unspecified
CPT/HCPCS: 36415; 80053; 82378; 82607; 82728; 82746; 83540; 83550; 85025

== ENCOUNTER 2023-12-13 15:10 | Outpatient (CLI) | payer MEDICARE, SELFPAY ==
--- NOTE | ~2023-12-13 | XR_ITS ---
XR chest 2V 12/13/2023 15:36 Indication: Cough Procedure: 2 view chest Comparison: 09/04/2023 Findings: Improving right basilar airspace disease, consistent with resolving pneumonia. Borderline h eart size. No pleural effusion or pneumothorax. Impression: 1: Improving right basilar airspace disease, consistent with resolving pneumonia. Reviewed, dictated and finalized at location B. Impression: 1: Improving right basilar airspace disease, consistent with resolving pneumoni a.
[2023-12-13 16:01] LABS: Hematocrit 38.1 % (37.0-47.0); Hemoglobin 11.7 g/dL (12.0-15.0); Mean Corpuscular HGB Conc 30.7 g/dl (32-36); Mean Corpuscular Hemoglobin 28.6 pg (26-34); Mean Corpuscular Volume 93.2 fl (80-100); Mean Platelet Volume 9.5 fl (7.4-10.4); Platelet Count Result 157 k/mm3 (150-375); Red Blood Count 4.09 M/mm3 (4.2-5.4); Red Cell Distribution Width 14.4 % (11.5-14.5); White Blood Count 8.9 K/mm3 (4.5-10.0)
[2023-12-13 16:11] LABS: Anion Gap 5 mmol/L (4-12); Blood Urea Nitrogen 41 mg/dL (7-17); Calcium 10.4 mg/dL (8.4-10.2); Carbon Dioxide 28 mmol/L (22-30); Chloride 107 mmol/L (98-107); Estimated Glomerular Filt Rate 43; Glucose 101 mg/dL (65-110); Potassium 3.9 mmol/L (3.4-5.0); Sodium 140 mmol/L (137-145)
[2023-12-13 16:32] LABS: Band Neutrophils Percent 1 % (0-6); Eosinophils Absolute Manual 0.35 K/mm3 (0.02-0.50); Eosinophils Percent Manual 4 % (0-4); Lymphocytes Absolute Manual 2.67 K/mm3 (1.1-4.5); Monocytes Percent Manual 18 % (3-9); Neutrophils Absolute Manual 4.27 K/mm3 (1.7-7.2); Neutrophils Percent Manual 47 % (46-73); Platelet Estimate Adequate (Adequate); Schistocytes None Seen; Total Cells Counted 100
[2023-12-13 17:18] LABS: Folic Acid > 20.0 ng/mL (2.76->20); Vitamin B12 > 1000.0 pg/mL (239-931)
[2023-12-13 17:26] LABS: Iron 43 ug/dL (37-170)
[2023-12-13 17:37] LABS: Percent Iron Saturation 18 % (20-50)
== END 2023-12-13 15:11 | disposition home or self-care (01) ==
PROVIDERS: PCP Internal Medicine; Visit Provider Internal Medicine
DX: R05.9 Cough, unspecified (principal); D64.9 Anemia, unspecified; E86.0 Dehydration; L65.9 Nonscarring hair loss, unspecified; R91.8 Other nonspecific abnormal finding of lung field
CPT/HCPCS: 36415; 71046; 80048; 82607; 82728; 82746; 83540; 83550; 84443; 85025

== ENCOUNTER 2024-01-24 00:24 | Day surgery (SDC) | payer MEDICARE, SELFPAY ==
[2024-01-08 12:37] VITALS: BMI 28.3
[2024-01-24 06:25] VITALS: BP 169/79; PULSE 85; RESP 18; TEMP 36.3; O2SAT 100
[2024-01-24] MEDS: LACTATED RINGERS 1,000 ML 150 ML IV CONT (06:37)
--- NOTE | 2024-01-24 07:17 | WPDANESEPPF ---
Anes - Initial Pre Proc Eval Procedure: Operation Date: 01/24/24 07:30 Proposed Procedures p Esophagogastroduodenoscopy & Colonoscopy - Elvin Clark MD Date/Time: 01/24/24 07:17 Surgeon: Elvin Clark MD Pre Op Diagnosis: dysphagia unspecified, personal history malignant Patient Data Age: 88 Gender: F Height: 1.52 m Weight: 63.4 kg Last Vital Signs Temp 97.3 F L 01/24/24 06:25 Pulse 85 01/24/24 06:25 Resp 18 01/24/24 06:25 BP 169/79 H 01/24/24 06:25 Pulse Ox 100 01/24/24 06:25 O2 Del Method Room Air 01/24/24 06:25 Allergies Allergy/AdvReac Type Severity Reaction Status Date / Time Penicillins AdvReac Intermediate Swelling Verified 01/24/24 06:24 of Lip/Tongue/Throat Home Medications Medication Instructions Recorded Confirmed Type acetaminophen 500 mg tablet 500 mg PO Q6H PRN Pain 03/29/22 01/24/24 History (Tylenol Extra Strength) ascorbic acid (vitamin C) 500 mg 500 mg PO DAILY 03/29/22 01/08/24 History capsule losartan 25 mg tablet 25 mg PO DAILY 03/29/22 01/08/24 History vitamin B complex (Vitamins B 1 cap PO DAILY 03/29/22 01/08/24 History Complex capsule) vitamin B12 0.5 mg-folic acid 1 mg 1 tablet PO DAILY 12/12/22 01/08/24 History tablet calcium carbonate 600 mg-vitamin 1 tablet PO DAILY 12/16/22 01/08/24 History D3 20 mcg (800 unit) chewable tablet (Caltrate 600 plus D) ferrous sulfate 325 mg (65 mg 325 mg PO DAILY 12/16/22 01/08/24 History iron) tablet xnfxqnytcmmd-gfozxumj-xzmlfv tablet 1 tablet PO DAILY 12/16/22 01/08/24 History pantoprazole 20 mg tablet,delayed 20 mg PO QAM 08/01/23 01/08/24 History release folic acid 1 mg tablet 1 mg PO DAILY #90 tabs 12/07/23 01/08/24 Rx hydroxychloroquine 200 mg tablet 300 mg PO DAILY #135 tabs 04/18/24 05/20/24 Rx (Plaquenil) methotrexate sodium 2.5 mg tablet 25 mg PO WEEKLY #120 tabs 12/07/23 01/24/24 Rx prednisone 2.5 mg tablet 2.5 mg PO DAILY #40 tabs 12/07/23 01/08/24 Rx Patient hx anesthesia problems: none Family hx anesthesia problems: none Results Review: All pre-operative results and documents have been reviewed as part of the pre-operative evaluation. 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 treated with erythropoietin Arthritis Cancer Congestive heart failure Encounter for medication adjustment GERD (gastroesophageal reflux disease) History of rectal cancer History of stomach cancer Hypertension GAGAN (iron deficiency anemia) Long-term use of immunosuppressant medication Rheumatoid arthritis with rheumatoid factor of multiple sites without organ or systems involvement Surgical History Surgical History History of hysterectomy Family History Family History Father Heart disease Alcoholism Mother Hypertension Heart disease Cerebrovascular accident Thyroid disorder Sibling Cancer Hypertension Heart disease Son Asthma Diabetes mellitus Hypertension Depression Heart disease Thyroid disorder Grandparent Cancer Social History Social History Smoking status: Never smoker Alcohol intake: never Substance use: never Substance use type: does not use Living arrangements: with family Spiritual care concerns: No Anes - Eval Final PreProcedure Day of Procedure 01/24/24 07:17 Patient weight: normal Heart: regular rate and rhythm Lungs: clear to auscultation Airway: Mallampati scale class III Neurological: alert and oriented Last oral intake: >/= 8 hours ASA classification: III Emergent: no Anesthetic plan: proceed Anesthesia type and monitoring: g
--- NOTE | 2024-01-24 07:29 | PM.HPGS ---
History of Present Illness History of Present Illness Consent: Risks, benefits, and alternatives have been discussed and questions answered. Patient agrees to proceed with procedure. Chief complaint: dysphagia unspecified, personal history malignant Narrative: Kirti Barr is a 88 year old female here for egd and colonoscopy, history of of GAGAN s/p gastric and rectal cancer, PMH significant for hx of stomach adenocarcinoma in 2018 s/p subtotal colectomy and chemo, last colonoscopy 2021. EGD 2022 with sutbtotal gastrectomy, lately with dysphagia. Review of Systems Review of Systems: All systems reviewed & are unremarkable except as noted in HPI and below PMFSH Past Medical History Medical History (Updated 01/24/24 @ 07:33 by Elvin Clark MD) Age related osteoporosis Age-related osteoporosis without current pathological fracture Allergies Anemia due to chemotherapy for gastric cancer treated with erythropoietin Arthritis Cancer Congestive heart failure Dysphagia Encounter for medication adjustment GERD (gastroesophageal reflux disease) History of rectal cancer History of stomach cancer Hypertension GAGAN (iron deficiency anemia) Long-term use of immunosuppressant medication Rheumatoid arthritis with rheumatoid factor of multiple sites without organ or systems involvement Surgical History Surgical History History of hysterectomy Family History Family History Father Heart disease Alcoholism Mother Hypertension Heart disease Cerebrovascular accident Thyroid disorder Sibling Cancer Hypertension Heart disease Son Asthma Diabetes mellitus Hypertension Depression Heart disease Thyroid disorder Grandparent Cancer Social History Social History Smoking status: Never smoker Alcohol intake: never Substance use: never Substance use type: does not use Living arrangements: with family Spiritual care concerns: No Meds Home Medications and Allergies Home Medications Medication Instructions Recorded Confirmed Type acetaminophen 500 mg tablet 500 mg PO Q6H PRN Pain 03/29/22 01/24/24 History (Tylenol Extra Strength) ascorbic acid (vitamin C) 500 mg 500 mg PO DAILY 03/29/22 01/08/24 History capsule losartan 25 mg tablet 25 mg PO DAILY 03/29/22 01/08/24 History vitamin B complex (Vitamins B 1 cap PO DAILY 03/29/22 01/08/24 History Complex capsule) vitamin B12 0.5 mg-folic acid 1 mg 1 tablet PO DAILY 12/12/22 01/08/24 History tablet calcium carbonate 600 mg-vitamin 1 tablet PO DAILY 12/16/22 01/08/24 History D3 20 mcg (800 unit) chewable tablet (Caltrate 600 plus D) ferrous sulfate 325 mg (65 mg 325 mg PO DAILY 12/16/22 01/08/24 History iron) tablet lhspxyjkdbud-omxfrzcd-vwhurz tablet 1 tablet PO DAILY 12/16/22 01/08/24 History pantoprazole 20 mg tablet,delayed 20 mg PO QAM 08/01/23 01/08/24 History release folic acid 1 mg tablet 1 mg PO DAILY #90 tabs 12/07/23 01/08/24 Rx hydroxychloroquine 200 mg tablet 300 mg PO DAILY #135 tabs 12/07/23 01/08/24 Rx (Plaquenil) methotrexate sodium 2.5 mg tablet 25 mg PO WEEKLY #120 tabs 12/07/23 01/24/24 Rx prednisone 2.5 mg tablet 2.5 mg PO DAILY #40 tabs 12/07/23 01/08/24 Rx Allergies Allergy/AdvReac Type Severity Reaction Status Date / Time Penicillins AdvReac Intermediate Swelling Verified 01/24/24 06:24 of Lip/Tongue/Throat Vital Signs Vital Signs - 24 hr 01/24/24 06:25 Temperature 97.3 F L Pulse Rate 85 Respiratory Rate 18 Blood Pressure 169/79 H Pulse Oximetry 100 Oxygen Delivery Room Air Exam Const: General: comfortable and no acute distress HENMT: Face/Nose/Sinus: Normal nares present Eyes: General: appearance normal, both eyes and all related structures Neck: Neck: no JVD Resp: Auscultation: c
--- NOTE | 2024-01-24 07:43 | SUR.OPER ---
EGD start 738 end 740. Colonoscopy start 746.
--- NOTE | 2024-01-24 08:01 | SUR.OPER ---
Oral suction used by GLENROY Guerrero for excess secretions.
[2024-01-24 08:06] VITALS: BP 134/81; PULSE 79; RESP 24; O2SAT 100
[2024-01-24 08:16] VITALS: BP 130/80; PULSE 80; RESP 20; O2SAT 100
[2024-01-24 08:26] VITALS: BP 137/82; PULSE 79; RESP 23; O2SAT 100
== END 2024-01-24 08:56 | disposition home or self-care (01) ==
PROVIDERS: PCP Internal Medicine; Visit Provider Internal Medicine Gastroenterology
PROC: 0DJ08ZZ Inspection of Upper Intestinal Tract, Via Natural or Artificial Opening Endoscopic (ICD-10-PCS; CPT 43235; principal; 2024-01-24 07:30)
DX: Z08 Encounter for follow-up examination after completed treatment for malignant neoplasm (principal); K57.30 Diverticulosis of large intestine without perforation or abscess without bleeding; Z85.048 Personal history of other malignant neoplasm of rectum, rectosigmoid junction, and anus; K44.9 Diaphragmatic hernia without obstruction or gangrene; Z93.4 Other artificial openings of gastrointestinal tract status; Z85.028 Personal history of other malignant neoplasm of stomach; D64.81 Anemia due to antineoplastic chemotherapy; I11.0 Hypertensive heart disease with heart failure; I50.9 Heart failure, unspecified; M81.0 Age-related osteoporosis without current pathological fracture; K21.9 Gastro-esophageal reflux disease without esophagitis; M05.79 Rheumatoid arthritis with rheumatoid factor of multiple sites without organ or systems involvement; Z79.631 Long term (current) use of antimetabolite agent; Z90.49 Acquired absence of other specified parts of digestive tract; Z90.3 Acquired absence of stomach [part of]
CPT/HCPCS: 45378; 43235; J2704; J7120

== ENCOUNTER 2024-05-03 15:30 | Outpatient (CLI) | payer MEDICARE, SELFPAY ==
[2024-05-03 16:22] LABS: Albumin Level 3.8 g/dL (3.5-5.1); Anion Gap 6 mmol/L (4-12); Blood Urea Nitrogen 27 mg/dL (7-17); Calcium 9.4 mg/dL (8.4-10.2); Carbon Dioxide 33 mmol/L (22-30); Chloride 100 mmol/L (98-107); Estimated Glomerular Filt Rate 52; Glucose 101 mg/dL (65-110); Phosphorus 4.1 mg/dL (2.5-4.5); Potassium 4.3 mmol/L (3.4-5.0); Sodium 139 mmol/L (137-145)
== END 2024-05-03 15:31 | disposition home or self-care (01) ==
LOC: ANHLAB 15:34
PROVIDERS: PCP Internal Medicine; Visit Provider Internal Medicine
DX: N28.9 Disorder of kidney and ureter, unspecified (principal)
CPT/HCPCS: 36415; 80069

== ENCOUNTER 2024-06-12 13:13 | Outpatient (CLI) | payer MEDICARE, SELFPAY ==
--- NOTE | ~2024-06-12 | MM_ITS ---
EXAMINATION: MM screening kerne BI w cem HISTORY: Screening TECHNIQUE: Craniocaudal and mediolateral oblique 3-D tomosynthesis images were obtained and synthetic 2-D images were generated. CAD analysis was submitted and interpreted. COMPARISON: 04/06/2022 BREAST PARENCHYMAL COMPOSITION: Not dense: There are scattered areas of fibroglandular density. FINDINGS: There is no evidence of suspicious mass, calcification, or architectural distortion to sugg est malignancy in either breast. There has been no suspicious interval change. IMPRESSION: 1. No mammographic evidence of malignancy. 2. Recommend routine screening mammography in one year. BI-RADS Category 1: Negative Reviewed, dictated and finalized at location B.
== END 2024-06-12 13:14 | disposition home or self-care (01) ==
LOC: MICIMG 13:14
PROVIDERS: PCP Internal Medicine; Visit Provider Internal Medicine
DX: Z12.31 Encounter for screening mammogram for malignant neoplasm of breast (principal)
CPT/HCPCS: 77063; 77067

== ENCOUNTER 2024-06-15 09:31 | Outpatient (CLI) | payer MEDICARE, SELFPAY ==
--- NOTE | ~2024-06-15 | MR_ITS ---
EXAMINATION: MR MRCP wo/w con/w 3D wo ind DATE: 06/15/2024 11:19 INDICATION: Pancreatic lesion. TECHNIQUE: Magnetic resonance imaging (MRI) of the abdomen was performed without and with 12 mL Multi Sara intravenous contrast. Sequences included coronal T2-weighted FS FSE, coronal T2-weighted FSE, a xial T1-weighted LAVA, coronal FS FIESTA, axial dual-echo T1-weighted SPGR, coronal lava-FLEX, sagitt al T2-weighted FSE, axial T2-weighted FSE, and axial DWI. Thick-slab T2-weighted FSE images were obta ined for magnetic resonance cholangiopancreatography (MRCP). Maximum intensity projection 3-D reconst ructions of the volumetric data were created by the technologist. Postcontrast sequences included cor onal LAVA-flex and time course of axial T1-weighted LAVA. COMPARISON: CT 11/15/2022 FINDINGS: ABDOMEN MRI: There are at least 3 enhancing masses in right hepatic lobe measuring up to 12 mm. There are gallstones in the gallbladder, which is normal in size. There are multiple cysts in the pancreas measuring up to 7 mm. The pancreatic duct is normal in caliber. The spleen and adrenal glands are no rmal. There are cysts in the kidneys measuring up to 2.1 cm on the right. There is a small sliding hi atal hernia. There are no dilated loops of bowel. ABDOMEN MRCP: The common duct is normal and measures 6 mm. IMPRESSION: 1. At least 3 enhancing masses in the liver measuring up to 12 mm, consistent with metastatic disease . 2. Low-risk cystic lesions of the pancreas measuring up to 7 mm, likely benign. No follow-up is neede d. Reviewed, dictated and finalized at location A. IMPRESSION: 1. At least 3 enhancing masses in the liver measuring up to 12 mm, consistent w ith metastatic disease. 2. Low-risk cystic lesions of the pancreas measuring up to 7 mm, likely benign. No follow-up is needed.
== END 2024-06-15 09:32 | disposition home or self-care (01) ==
LOC: ANHIMG 09:37
PROVIDERS: PCP Internal Medicine; Visit Provider Internal Medicine
DX: K86.2 Cyst of pancreas (principal); R16.0 Hepatomegaly, not elsewhere classified
CPT/HCPCS: 74183; 76376; A9577

== ENCOUNTER 2024-06-21 15:44 | Outpatient (CLI) | payer MEDICARE, SELFPAY ==
[2024-06-21 16:23] LABS: Basophils Percent Auto 0.3 % (0.2-1.2); Eosinophils Absolute Auto 0.1 K/mm3 (0-0.3); Eosinophils Percent Auto 0.8 % (0-4.4); Hematocrit 35.4 % (37.0-47.0); Immature Granulocyte Absolute 0.02 K/mm3 (0.00-0.031); Immature Granulocyte Percent A 0.3 % (0-0.5); Lymphocytes Absolute Auto 1.54 K/mm3 (0.9-3.2); Lymphocytes Percent Auto 26.1 % (18.3-44.2); Mean Corpuscular HGB Conc 31.1 g/dl (32-36); Mean Corpuscular Hemoglobin 29.3 pg (26-34); Mean Corpuscular Volume 94.1 fl (80-100); Mean Platelet Volume 9.8 fl (7.4-10.4); Monocytes Absolute Auto 0.6 K/mm3 (0.1-0.6); Monocytes Percent Auto 10.3 % (2.6-8.5); Neutrophils Absolute Auto 3.7 K/mm3 (1.3-6.7); Neutrophils Percent Auto 62.2 % (45.5-73.1); Platelet Count Result 146 k/mm3 (150-375); Red Blood Count 3.76 M/mm3 (4.2-5.4); Red Cell Distribution Width 14.6 % (11.5-14.5); White Blood Count 5.9 K/mm3 (4.5-10.0)
[2024-06-21 16:37] LABS: Alanine Aminotransferase 29 U/L (6-35); Alkaline Phosphatase 157 U/L (38-126); Anion Gap 5 mmol/L (4-12); Aspartate Amino Transferase 38 U/L (14-36); Bilirubin,Total 0.5 mg/dL (0.2-1.3); Blood Urea Nitrogen 26 mg/dL (7-17); Calcium 9.4 mg/dL (8.4-10.2); Carbon Dioxide 34 mmol/L (22-30); Chloride 103 mmol/L (98-107); Estimated Glomerular Filt Rate 57; Glucose 80 mg/dL (65-110); Potassium 4.1 mmol/L (3.4-5.0); Sodium 142 mmol/L (137-145)
[2024-06-21 16:52] LABS: Iron 72 ug/dL (37-170)
[2024-06-21 17:01] LABS: Percent Iron Saturation 24 % (20-50)
[2024-06-21 17:07] LABS: Carcinoembryonic Antigen 3.7 ng/mL (0.0-3.0)
== END 2024-06-21 15:45 | disposition home or self-care (01) ==
PROVIDERS: PCP Internal Medicine; Visit Provider Internal Medicine
DX: C78.7 Secondary malignant neoplasm of liver and intrahepatic bile duct (principal); C20 Malignant neoplasm of rectum
CPT/HCPCS: 36415; 80053; 82378; 82728; 83540; 83550; 85025

== ENCOUNTER 2024-07-04 09:05 | Outpatient (CLI) | payer MEDICARE, SELFPAY ==
--- NOTE | ~2024-07-04 | PE_ITS ---
EXAMINATION: PET skull to mid thigh DATE: 07/04/2024 12:32 INDICATION: Cancer metastatic to liver. TECHNIQUE: Blood glucose level was 54 mg/dL. 10.540 mCi of 18-fluorodeoxyglucose (18-FDG) was adminis tered i.v. Low dose computed tomography (CT) images were acquired from the base of the brain to the p roximal thighs for attenuation correction and anatomic localization. Automated exposure control was e mployed. Dose-length product (DLP) was 816 mGy-cm. Positron emission tomography (PET) images were acq uired in the same distribution. COMPARISON: MRCP 06/15/2024 FINDINGS: Head/neck: There are no pathologically enlarged lymph nodes. Chest: The lungs demonstrate mild atelectasis. No pleural effusion. Cardiomegaly is noted. There are coronary artery calcifications. No pericardial effusion. There is a small sliding hiatal hernia. Abdomen/pelvis/proximal thighs: There are greater than 10 masses in the liver with increased activity . The largest mass measures 3.5 cm in left hepatic lobe with maximum SUV of 12.8. There are gallstone s in the gallbladder, which is normal in size. The spleen, pancreas, adrenal glands, and kidneys are normal. There are no dilated loops of bowel. There is an end colostomy on the left. There are no path ologically enlarged lymph nodes. There is no free intraperitoneal fluid. There is no osseous malignan cy. IMPRESSION: 1. Greater than 10 liver masses with increased activity, consistent with metastatic disease. Reviewed, dictated and finalized at location A. EL ARCHITECT IMPRESSION: 1. Greater than 10 liver masses with increased activity, consistent with metast atic disease.
[2024-07-04 11:04] LABS: Glucose Point of Care 54 mg/dl (65-105)
== END 2024-07-04 09:06 | disposition home or self-care (01) ==
LOC: ANHIMG 09:06
PROVIDERS: PCP Internal Medicine; Visit Provider Internal Medicine Hematology & Oncology
DX: C78.7 Secondary malignant neoplasm of liver and intrahepatic bile duct (principal)
CPT/HCPCS: 78815; A9552

== ENCOUNTER 2024-07-09 08:19 | Outpatient (CLI) | payer MEDICARE, SELFPAY ==
[2024-07-01 13:51] VITALS: BMI 26.6
--- NOTE | 2024-07-01 13:52 | PC.NURSE ---
Pre Radiology instructions Report to the outpatient feroz wallis on date __07/09/24___ at time __8:30AM for procedure Time: _10:30AM___ YOU MAY BE MONITORED AT HOSPITAL FOR UP TO 4 HOURS AFTER YOUR PROCEDURE. A visitor will be allowed to accompany the patient into the hospital. You and your visitor will be asked to self-screen and do not enter if you have any COVID symptoms. A mask is OPTIONAL within the hospital. Patients are to have no food or drink 6 hours prior to procedure time Driving will be restricted after the procedure, you must have a person to drive you home. Labs will be drawn in preop area and once reviewed, you will be taken to radiology area for procedure. When the procedure is completed, you will be taken to outpatient where you will be monitored for several hours. You may have one visitor in this area. Other than holding anti-coagulants, patient may take other medication(s) as scheduled. Prior to your appointment date patients are instructed to hold anti-coagulants after discussing with ordering provider to stop. If unable to discontinue anti-coagulants please notify radiologist. ? No aspirin or warfarin (Coumadin) for 7 days prior to the procedure. ? No clopidogrel (Plavix), ticagrelor (Brilinta), prasugrel (Effient) or dabigatran (Pradaxa) for 5 days prior to the procedure. ? No rivaroxaban (Xarelto), apixaban (Eliquis), dipyridamole (Aggrenox or Persantine) or cilostazol (Pletal) for 2 days prior to the procedure. Medications to discontinue per physician: ___NONE Date to take last dose: Please leave all valuables, including medications, at home the day of procedure. The hospital will not accept responsibility for valuables. Wear comfortable, loose fitting clothing.? Follow any additional instructions given to you from ordering provider. Telephone instructions given to ____PATIENT and asked if any additional questions and then verbalized understanding. Patient advised to call scheduling provider office or registration scheduling [phone] if any additional questions.
[2024-07-09] VITALS (13 sets, daily range): BP systolic 120–191; BP diastolic 55–93; PULSE 62–80; RESP 14–16; TEMP 36.1; O2SAT 97–100
--- NOTE | ~2024-07-09 | US_ITS ---
EXAMINATION: US biopsy liver DATE: 07/09/2024 12:57 INDICATION: Hepatic metastases TECHNIQUE: The procedure including the risks and benefits was discussed with the patient. Risks discu ssed included bleeding and infection. The patient understood the risks and agreed to proceed. The sk in overlying the right hepatic lobe was prepped and draped in usual sterile fashion. Anesthetic was administered with 1% lidocaine subcutaneously. An 18 gauge core biopsy needle was advanced under con tinuous ultrasound observation to the lesion of interest. 3 core biopsy specimens were obtained. The needle was removed and the entry site was cleaned and dressed. Post procedure ultrasound demonstra liseth no hemorrhage. FINDINGS: Ultrasound images demonstrate a 1.6 cm hypoechoic nodule at the lateral aspect of the infer ior right hepatic lobe. Subsequent images demonstrate biopsy needle advanced into the nodule. IMPRESSION: 1. Successful Ultrasound-guided biopsy of a 1.6 cm hypoechoic hepatic nodule suspicious for metastati c disease. Reviewed, dictated and finalized at location B. RECORDIST IMPRESSION: 1. Successful Ultrasound-guided biopsy of a 1.6 cm hypoechoic hepatic nodule morgan spicious for metastatic disease.
[2024-07-09 09:08] LABS: Mean Platelet Volume 10.6 fl (7.4-10.4); Platelet Count Result 170 k/mm3 (150-375)
[2024-07-09 09:19] LABS: Prothrombin Time 13.5 Seconds (11.1-14.7)
== END 2024-07-09 16:35 | disposition home or self-care (01) ==
PROVIDERS: Radiology Diagnostic Radiology; PCP Internal Medicine; Referring Provider Internal Medicine; Visit Provider Radiology Diagnostic Radiology
DX: Z01.812 Encounter for preprocedural laboratory examination (principal); C78.7 Secondary malignant neoplasm of liver and intrahepatic bile duct
CPT/HCPCS: 36415; 47000; 76942; 85049; 85610; 88307

== ENCOUNTER 2024-07-15 10:08 | Outpatient (CLI) | payer MEDICARE, SELFPAY ==
[2024-07-15 10:36] LABS: Kit Draw Collected
== END 2024-07-15 10:09 | disposition home or self-care (01) ==
LOC: ANHLAB 10:10
PROVIDERS: PCP Internal Medicine; Visit Provider Internal Medicine Hematology & Oncology
DX: C78.7 Secondary malignant neoplasm of liver and intrahepatic bile duct (principal)
CPT/HCPCS: 36415

== ENCOUNTER 2024-07-31 13:27 | Outpatient (CLI) | payer MEDICARE, SELFPAY ==
[2024-07-31 14:52] LABS: Basophils Percent Auto 0.4 % (0.2-1.2); Eosinophils Absolute Auto 0.1 K/mm3 (0-0.3); Eosinophils Percent Auto 2.6 % (0-4.4); Hematocrit 35.7 % (37.0-47.0); Hemoglobin 10.8 g/dL (12.0-15.0); Immature Granulocyte Absolute 0.02 K/mm3 (0.00-0.031); Immature Granulocyte Percent A 0.4 % (0-0.5); Lymphocytes Absolute Auto 1.14 K/mm3 (0.9-3.2); Lymphocytes Percent Auto 23.1 % (18.3-44.2); Mean Corpuscular HGB Conc 30.3 g/dl (32-36); Mean Corpuscular Hemoglobin 29.3 pg (26-34); Mean Corpuscular Volume 96.7 fl (80-100); Mean Platelet Volume 10.7 fl (7.4-10.4); Monocytes Absolute Auto 0.5 K/mm3 (0.1-0.6); Monocytes Percent Auto 9.7 % (2.6-8.5); Neutrophils Absolute Auto 3.1 K/mm3 (1.3-6.7); Neutrophils Percent Auto 63.8 % (45.5-73.1); Platelet Count Result 183 k/mm3 (150-375); Red Blood Count 3.69 M/mm3 (4.2-5.4); Red Cell Distribution Width 14.7 % (11.5-14.5); White Blood Count 4.9 K/mm3 (4.5-10.0)
[2024-07-31 15:03] LABS: INR 1.2
[2024-07-31 16:26] LABS: Alanine Aminotransferase 35 U/L (6-35); Albumin Level 3.9 g/dL (3.5-5.1); Alkaline Phosphatase 334 U/L (38-126); Anion Gap 0 mmol/L (4-12); Aspartate Amino Transferase 41 U/L (14-36); Bilirubin,Total 0.6 mg/dL (0.2-1.3); Blood Urea Nitrogen 26 mg/dL (7-17); Calcium 9.5 mg/dL (8.4-10.2); Carbon Dioxide 36 mmol/L (22-30); Chloride 102 mmol/L (98-107); Estimated Glomerular Filt Rate 51; Glucose 95 mg/dL (65-110); Phosphorus 3.7 mg/dL (2.5-4.5); Potassium 4.3 mmol/L (3.4-5.0); Sodium 138 mmol/L (137-145)
[2024-08-03 06:29] LABS: ANCA Screen NEGATIVE (NEGATIVE)
== END 2024-07-31 13:28 | disposition home or self-care (01) ==
LOC: ANHLAB 13:31
PROVIDERS: PCP Internal Medicine; Visit Provider Internal Medicine
DX: R23.3 Spontaneous ecchymoses (principal)
CPT/HCPCS: 36415; 80053; 80069; 82248; 85025; 85610; 85730; 86036

== ENCOUNTER 2024-08-29 14:36 | Outpatient (CLI) | payer MEDICARE, SELFPAY ==
[2024-08-29 14:56] LABS: Basophils Percent Auto 0.5 % (0.2-1.2); Eosinophils Absolute Auto 0.1 K/mm3 (0-0.3); Eosinophils Percent Auto 1.7 % (0-4.4); Hematocrit 32.7 % (37.0-47.0); Hemoglobin 10.1 g/dL (12.0-15.0); Immature Granulocyte Absolute 0.02 K/mm3 (0.00-0.031); Immature Granulocyte Percent A 0.3 % (0-0.5); Lymphocytes Absolute Auto 1.49 K/mm3 (0.9-3.2); Mean Corpuscular HGB Conc 30.9 g/dl (32-36); Mean Corpuscular Hemoglobin 30.6 pg (26-34); Mean Corpuscular Volume 99.1 fl (80-100); Mean Platelet Volume 9.9 fl (7.4-10.4); Monocytes Absolute Auto 0.7 K/mm3 (0.1-0.6); Monocytes Percent Auto 11.4 % (2.6-8.5); Neutrophils Absolute Auto 3.6 K/mm3 (1.3-6.7); Neutrophils Percent Auto 61.1 % (45.5-73.1); Platelet Count Result 137 k/mm3 (150-375); Red Cell Distribution Width 17.1 % (11.5-14.5)
[2024-08-29 17:14] LABS: Alanine Aminotransferase 25 U/L (6-35); Albumin Level 3.4 g/dL (3.5-5.1); Alkaline Phosphatase 253 U/L (38-126); Anion Gap 3 mmol/L (4-12); Aspartate Amino Transferase 35 U/L (14-36); Bilirubin,Total 0.5 mg/dL (0.2-1.3); Blood Urea Nitrogen 23 mg/dL (7-17); Calcium 9.3 mg/dL (8.4-10.2); Carbon Dioxide 32 mmol/L (22-30); Chloride 105 mmol/L (98-107); Estimated Glomerular Filt Rate > 60; Glucose 93 mg/dL (65-110); Potassium 4.4 mmol/L (3.4-5.0); Sodium 140 mmol/L (137-145)
== END 2024-08-29 14:37 | disposition home or self-care (01) ==
LOC: ANHLAB 14:37
PROVIDERS: PCP Internal Medicine; Visit Provider Internal Medicine Hematology & Oncology
DX: C78.7 Secondary malignant neoplasm of liver and intrahepatic bile duct (principal)
CPT/HCPCS: 36415; 80053; 85025

== ENCOUNTER 2024-09-30 09:14 | Outpatient (CLI) | payer MEDICARE, SELFPAY ==
[2024-09-30 09:27] LABS: Basophils Percent Auto 0.5 % (0.2-1.2); Eosinophils Absolute Auto 0.1 K/mm3 (0-0.3); Eosinophils Percent Auto 1.5 % (0-4.4); Hematocrit 34.5 % (37.0-47.0); Hemoglobin 10.7 g/dL (12.0-15.0); Immature Granulocyte Absolute 0.02 K/mm3 (0.00-0.031); Immature Granulocyte Percent A 0.3 % (0-0.5); Lymphocytes Percent Auto 33.3 % (18.3-44.2); Mean Corpuscular Hemoglobin 30.4 pg (26-34); Mean Platelet Volume 9.7 fl (7.4-10.4); Monocytes Absolute Auto 0.6 K/mm3 (0.1-0.6); Monocytes Percent Auto 8.3 % (2.6-8.5); Neutrophils Absolute Auto 3.7 K/mm3 (1.3-6.7); Neutrophils Percent Auto 56.1 % (45.5-73.1); Platelet Count Result 170 k/mm3 (150-375); Red Blood Count 3.52 M/mm3 (4.2-5.4); White Blood Count 6.6 K/mm3 (4.5-10.0)
[2024-09-30 09:32] LABS: Blood Urea Nitrogen 19 mg/dL (8-26); Carbon Dioxide 29 mmol/L (22-30); Chloride 104 mmol/L (98-109); Estimated Glomerular Filt Rate 57; Glucose 94 mg/dL (70-105); Ionized Calcium (POC) 1.22 mmol/L (1.11-1.31); Potassium 4.2 mmol/L (3.5-4.9); Sodium 142 mmol/L (138-146)
--- OUTSIDE RECORDS SUMMARY | 2024-09-30 09:41 | XMS_ITS ---
Author Organization [facility] Address [address] [place] [id number] Care Team Providers Care Elevator Examiner And Adjuster Name Role Phone Luis TsaiD Unavailable Zainab Moses MD Unavailable [phone] Pcp Outside [facility], Unknown Primary Care Provider U navailable Active Problems Problem Noted Date Diagnosed Date Nonrheumatic aortic valve stenosis 09/28/2021 Assessment & Plan (09/28/2021 11:01 AM SNUFF MAKER): Has mild aortic stenosis with mean gradient of 10 mmHg on 2D echo done July 2021 Chronic hypoxemic respiratory failure (CMD) 03/2022 Assessment & Plan (09/28/2021 10:46 AM SNUFF MAKER): On Home O2 Hospital discharge follow-up 08/11/2021 Obesity (BMI 30-39.9) 08/11/2021 Sinus tachycardia 08/11/2021 Hypoxia 08/11/2021 Rheumatoid arthritis with positive rheumatoid fa ctor (CMD) 08/11/2021 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 Sensorineural hearing loss (SNHL) of both ears 0 04/17/2020 Chronic diastolic (congestive) heart failure (CM D) 03/04/2020 Assessment & Plan (09/28/2021 11:01 AM SNUFF MAKER): Congestive heart failure compensated. There is no volume overload. 2D echo showed preserved ejection fraction with diastolic dysfunction Assessment & Plan (01/04/2021 10:08 AM CDT): Congestive heart failure compensated Assessment & Plan (03/04/2020 12:06 PM CDT): Congestive heart failure compensated Pulmonary hypertension, mild (CMD) 11/17/2019 Assessment & Plan (09/28/2021 11:01 AM SNUFF MAKER): WHO group 2 and 3 Assessment & Plan (01/04/2021 10:07 AM CDT): WHO 2 Assessment & Plan (03/04/2020 12:05 PM CDT): WHO 2 Rheumatoid arthritis involving ankle (CMD) 10/28 Gastroesophageal reflux disease without esophagi tis 10/28/2019 Osteoporosis 10/28/2019 Shortness of breath 10/28/2019 Gastric adenocarcinoma (CMD) 10/16/2017 Rectal adenocarcinoma (CMD) 10/16/2017 Labile blood pressure 01/30/2015 Assessment & Plan (09/28/2021 11:00 AM SNUFF MAKER): Patient does have history of hypertension but her blood pressure has been lately labile. I change losartan to 25 mg daily and advised her to hold it if systolic blood pressure is 100 or less Assessment & Plan (01/04/2021 10:06 AM CDT): BP controlled Assessment & Plan (03/04/2020 12:05 PM CDT): BP controlled Tinnitus 01/30/2015 Current Oncology Plans No current plan information found. Past Plans No past plan information found. Radiation Treatments * No radiation treatments are documented for this patient in [facility]. Treatments may have been administered in another system. Lifetime Dose Tracking * Chemical Lifetime Dose Automatic Entry Manual Entr y CTDI 57.16 mGy 57.16 mGy 0 mGy DLP 1,334.21 mGy-cm 1,334.21 mGy-cm 0 mGy-cm Resolved Problems Problem Noted Date Diagnosed Date Resolved Date Primary hypertension 08/11/2021 022
--- OUTSIDE RECORDS SUMMARY | 2024-09-30 09:41 | XMS_ITS | CCD ---
Author Name Interface, [id number] lity Address [address] [facility] [address] [place] [address] Organization [facility] Address [address] [facility] [address] [place] [address] Care Team Providers Care Service Attendant Cafeteria Name Role Phone Javier Peck Unavailable Unavailable Care Plan Date Type Value APPOINTMENT Lab APPOINTMENT Lab APPOINTMENT Lab APPOINTMENT RTC MD APPOINTMENT Lab APPOINTMENT RTC MD APPOINTMENT Lab APPOINTMENT RTC MD APPOINTMENT RTC MD APPOINTMENT Lab APPOINTMENT Lab APPOINTMENT CT abdomen/pelvi s w/ contrast APPOINTMENT RTC MD APPOINTMENT Lab APPOINTMENT RTC MD APPOINTMENT Lab APPOINTMENT RTC MD APPOINTMENT CT chest/abdomen /pelvis w/ contrast APPOINTMENT RTC MD APPOINTMENT Lab APPOINTMENT RTC MD APPOINTMENT Lab APPOINTMENT RTC MD APPOINTMENT RTC MD APPOINTMENT CT chest/abdomen /pelvis w/ contrast APPOINTMENT Lab APPOINTMENT RTC MD APPOINTMENT Lab APPOINTMENT CT chest/abdomen /pelvis w/ contrast APPOINTMENT RTC MD APPOINTMENT RTC MD APPOINTMENT PET/CT scan, sku ll base/mid thigh APPOINTMENT RTC MD APPOINTMENT CT chest/abdomen /pelvis w/ contrast APPOINTMENT CT chest/abdomen /pelvis w/ contrast APPOINTMENT RTC MD APPOINTMENT RTC MD APPOINTMENT Esophagogastrodu odenoscopy (procedure) APPOINTMENT Colonoscopy (pro cedure) APPOINTMENT RTC MD APPOINTMENT CT chest/abdomen /pelvis w/ contrast APPOINTMENT CT neck/chest/ab domen/pelvis w/ contrast to all areas APPOINTMENT Lab APPOINTMENT RTC MD APPOINTMENT Lab APPOINTMENT Lab 05/16/2024 APPOINTMENT Follow Up 11/06/2017 LABORDER PET/CT scan, sku ll base/mid thigh 03/08/[address] chest/abdomen /pelvis w/ contrast 06/07/[address] chest/abdomen /pelvis w/ contrast 08/30/2018 LABORDER Vitamin B12 08/30/2018 LABORDER Folate, serum 10/04/[address] chest/abdomen /pelvis w/ contrast 12/24/2018 LABORDER CMP 12/24/2018 LABORDER CBC w/ auto diff 03/04/2019 LABORDER Iron profile 03/04/2019 LABORDER CMP 03/04/2019 LABORDER Vitamin B12 03/04/2019 LABORDER CBC w/ auto diff 03/04/2019 LABORDER Ferritin 03/04/2019 LABORDER Folate, serum 06/03/[address] neck/chest/ab domen/pelvis w/ contrast to all areas 06/14/[address] chest/abdomen /pelvis w/ contrast 09/16/2019 LABORDER Ferritin 09/16/2019 LABORDER Vitamin B12 09/16/2019 LABORDER CMP 09/16/2019 LABORDER CBC w/ auto diff 09/16/2019 LABORDER Iron profile 09/16/2019 LABORDER Folate, serum 09/30/2019 LABORDER CBC w/ auto diff 09/30/2019 LABORDER LDH 09/30/2019 LABORDER CMP 01/17/2020 LABORDER Iron profile 01/17/2020 LABORDER LDH 01/17/2020 LABORDER CMP 01/17/2020 LABORDER CEA 01/17/2020 LABORDER CBC w/ auto diff 01/17/2020 LABORDER Folate, serum 01/17/2020 LABORDER Vitamin B12 01/17/2020 LABORDER Ferritin 04/02/2020 LABORDER Iron profile 04/02/2020 LABORDER Folate, serum 04/02/2020 LABORDER CBC w/ auto diff 04/02/2020 LABORDER CBC w/ man diff 04/02/2020 LABORDER CEA 04/02/2020 LABORDER Ferritin 04/02/2020 LABORDER Vitamin B12 04/16/2020 LABORDER Folate, serum 04/16/2020 LABORDER Ferritin 04/16/2020 LABORDER LDH 04/16/2020 LABORDER CMP 04/16/2020 LABORDER Vitamin B12 04/16/2020 LABORDER CEA 04/16/2020 LABORDER CBC w/ auto diff 04/16/2020 LABORDER Iron profile 07/13/2020 LABORDER CEA 07/13/2020 LABORDER Ferritin 07/13/2020 LABORDER Iron profile 07/13/2020 LABORDER Vitamin B12 07/13/2020 LABORDER CMP 07/13/2020 LABORDER CBC w/ auto diff 07/13/2020 LABORDER Folate, serum 10/12/2020 LABORDER CMP 10/12/2020 LABORDER CBC w/ auto diff 10/12/2020 LABORDER CEA 10/12/2020 LABORDER Ferritin 10/12/2020 LABORDER Vitamin B12 01/11/[address] abdomen/pelvi s w/ contrast 01/11/2021 LABORDER CMP 01/11/2021 LABORDER CBC w/ auto diff 01/11/2021 LABORDER CEA 04/12/2021 LABORDER CEA 04/12/2021 LABORDER Folate, serum 04/12/2021 LABORDER CBC w/ auto diff 04/12/2021 LABORDER Iron profile 04/12/2021 LABORDER Vitamin B12 04/12/2021 LABORDER Ferritin 04/12/2021 LABORDER CMP 06/10/2021 LABORDER CBC w/ auto diff 06/10/2021 LABORDER Ferritin 06/10/2021 LABORDER Vitamin B12 06/10/2021 LABORDER Folate, serum 06/10/2021 LABORDER CMP 06/10/2021 LABORDER LDH 06/10/2021 LABORDER CEA 09/09/2021 LABORDER CBC w/ auto diff 09/09/2021 LABORDER Vitamin B12 09/09/2021 LABORDER Ferritin 09/09/2021 LABORDER Folate, serum 09/09/2021 LABORDER CEA 09/09/[address] chest/abdomen /pelvis w/ contrast 09/09/2021 LABORDER CMP 05/16/2024 LABORDER CEA 05/16/2024 LABORDER CMP 05/16/2024 LABORDER LDH 05/16/2024 LABORDER CBC w/ auto diff Reason for Visit Follow Up Encounters Date Name 05/16/2024 Rectal cancer Functional Status Date Name Score 10/12/2020 ECOG performance status - grade 1 1 04/16/2020 ECOG performance status - grade 1 1 Diagnostic Results Date Type Test Units Lower Limit Upper Limit Result Flag Comments Status Ordered By Specimen Source Lab Address 05/17 ALT/S GPT IU/L 9.0 52.0 11 FINAL [facility], [address] [place] [address] 05/17 A/G ratio 1.4 FINAL [facility], [address] [place] [address] 05/17 ASPAR APOLLO AMINO TRANS FERAS E, SERUM - FINAL [facility], [address] [facility] [address] 05/17 Gluco se MG/DL 70.0 105.0 163 High FINAL [facility], [address] [facility] [address] 05/17 Globu jo ann G/DL 1.9 3.7 2.6 FINAL [facility], [address] [facility] [address] 05/17 Anion gap, mmol/ L MMOL/L 8.0 16.0 9.24 FINAL [facility], [address] [facility] [address] 05/17 Total prote in G/DL 6.2 8.1 6.1 Low FINAL [facility], [address] [facility] [address] 05/17 CREAT ININE , SERUM - FINAL [facility], [address] [facility] [address] 05/17 AST/S GOT IU/L 14.0 36.0 23 FINAL [facility], [address] [place] [address] 05/17 GLUCO SE, PLASM A OR SERUM - FINAL [facility], [address] [facility] [address] 05/17 BRANDON ZARATE AMINO TRANS FERAS E, SERUM - FINAL [facility], [address] [place] [address] 05/17 GFR Afric an Ameri can, estim ated 61 FINAL [facility], [address] [place] [address] 05/17 Bilir ubin, total MG/DL 0.0 1.0 0.5 FINAL [facility], [address] [place] [address] 05/17 TOTAL PROTE IN - FINAL [facility], [address] [place] [address] 05/17 Sodiu m MMOL/L 134.0 145.0 144 FINAL [facility], [address] [place] [address] 05/17 ALBUM IN, SERUM - FINAL [facility], [address] [place] [address] 05/17 BLOOD UREA NITRO GEN (BUN) - FINAL [facility], [address] [place] [address] 05/17 CALCI UM, TOTAL - FINAL [facility], [address] [place] [address] 05/17 Alkal ine phosp hatas e IU/L 33.0 130.0 70 FINAL [facility], [address] [place] [address] 05/17 GFR estim ate 50 Low FINAL [facility], [address] [place] [address] 05/17 Calci um MG/DL 8.2 10.4 9.4 FINAL [facility], [address] [place] [address] 05/17 Anion gap - FINAL [facility], [address] [place] [address] 05/17 CO2 MMOL/L 21.0 29.0 31 High FINAL [facility], [address] [place] [address] 05/17 BILIR UBIN, TOTAL - FINAL [facility], [address] [place] [address] 05/17 ALKAL INE PHOSP HATAS E - FINAL [facility], [address] [place] [address] 05/17 Chlor ilene MMOL/L 96.0 108.0 108 FINAL [facility], [address] [place] [address] 05/17 BUN MG/DL 0.0 23.0 21.5 FINAL [facility], [address] [place] [address] 05/17 CHELSY Chun, SERUM - FINAL [facility], [address] [place] [address] 05/17 Creat inine MG/DL 0.6 1.1 1.09 FINAL [facility], [address] [place] [address] 05/17 Album in G/DL 3.5 5.2 3.6 FINAL [facility], [address] [place] [address] 05/17 POTAS SIUM, SERUM - FINAL [facility], [address] [place] [address] 05/17 BUN/C reati nine ratio 20 FINAL [facility], [address] [place] [address] 05/17 CARBO N DIOXI DE - FINAL [facility], [address] [place] [address] 05/17 Potas sium MMOL/L 3.6 5.2 4.2 FINAL [facility], [address] [place] [address] 05/17 CHLOR ILENE - FINAL [facility], [address] [place] [address] 05/17 Sybil # (ANC) X103/U L 1.67 8.47 2.86 FINAL [facility], [address] [place] [address] 05/17 MCV FL 81.0 100.0 95 FINAL [facility], [address] [place] [address] 05/17 MO # X103/U L 0.27 0.98 0.48 FINAL [facility], [address] [place] [address] 05/17 IG % % 0.0 0.4 0.2 FINAL [facility], [address] [place] [address] 05/17 MO % % 4.0 13.0 9 FINAL [facility], [address] [place] [address] 05/17 IG # X103/U L 0.0 0.04 0.01 FINAL [facility], [address] [place] [address] 05/17 EO # X103/U L 0.11 0.55 0.08 Low FINAL [facility], [address] [place] [address] 05/17 EO % % 1.0 6.0 2 FINAL [facility], [address] [place] [address] 05/17 RBC X106/U L 3.7 5.4 3.88 FINAL [facility], [address] [place] [address] 05/17 MPV FL 9.4 12.4 10 FINAL [facility], [address] [place] [address] 05/17 BA % % 0.0 1.0 0 FINAL [facility], [address] [place] [address] 05/17 BA # X103/U L 0.02 0.1 0.02 FINAL [facility], [address] [place] [address] 05/17 HGB G/DL 11.4 15.4 11.6 FINAL [facility], [address] [place] [address] 05/17 MCHC G/DL 30.0 36.0 31.4 FINAL [facility], [address] [place] [address] 05/17 HCT % 35.0 47.0 36.9 FINAL [facility], [address] [place] [address] 05/17 WBC X103/U L 4.0 11.0 5.3 FINAL [facility], [address] [place] [address] 05/17 PLT X103/U L 150.0 450.0 154 FINAL [facility], [address] [place] [address] 05/17 RDW % 12.2 15.2 14 FINAL [facility], [address] [place] [address] 05/17 LY % % 23.0 44.0 35 FINAL [facility], [address] [place] [address] 05/17 MCH PG 27.0 34.0 29.9 FINAL [facility], [address] [place] [address] 05/17 LY # X103/U L 1.03 4.84 1.85 FINAL [facility], [address] [place] [address] 05/17 Sybil % % 37.0 77.0 54 FINAL [facility], [address] [place] [address] 05/17 CARCI NOEMB RYONI C ANTIG EN (CEA) - FINAL [facility], [address] [place] [address] 05/17 CEA, mg/dL MG/DL 0.0 5.0 2.56 FINAL [facility], [address] [place] [address] 05/17 LDH IU/L 100.0 250.0 183.7 FINAL [facility], [address] [place] [address] 05/17 LACTI C ACID DEHYD ROGEN ASE (LDH) - FINAL [facility], [address] [facility] [address] Medications Date Name Route Dose Frequency Instructions Start Date End Date Status Methotrexate Oral 6.0 weekly, on stopped Pantoprazole (Sodium ) Oral Delayed Release daily inactive Vitamin [id number] Ac id Oral 500 mcg-400 mcg daily active Methotrexate Oral daily inactive Alendronate Oral (Weekly) 75.0 weekly inactive Calcium-Cholecalcife ro l Oral 600 mg-10 mcg (400 unit) daily stopped Ferrous Sulfate Oral daily stopped Hydrocodone-Acetamin op hen Oral 5 mg-325 mg prn inactive Hydrochlorothiazide Oral daily inactive Lidocaine Topical Cream 4 % prn active Naproxen Oral prn sto pped Acetaminophen Oral prn inactive Alendronate Oral (Weekly) weekly stopped Ferrous Sulfate Oral tid stopped Folic Acid Oral daily a ctive Losartan Oral 2 in am, 1 in pm = 75mg daily active Methotrexate Oral active Amlodipine Oral daily i nactive Hydrocodone-Acetamin op hen Oral 5 mg-325 mg daily active Folic Acid Oral daily s topped Pantoprazole (Sodium ) Oral Delayed Release prn stopped Problems Diagnosis Status Date of Diagnosi s Congestive heart failure (disorder) Active Rectal pain Active Anemia Active Pancreatic cyst Active Supplemental oxygen dependence Active Pulmonary hypertension Active Folliculitis Active Anemia (disorder) Active Rectal cancer Active HTN Active Arthritis Active Gastric cancer Active Procedures Date Category Name Instructions Status 11/13/2024 Physician Order RTC MD Ordered Social History Date Name Value Sex Female Vital Signs Date Type Value 05/16/2024 Height 62.00 05/16/2024 Weight 137.60 05/16/2024 Intravascular Systolic 146 05/16/2024 Intravascular Diastolic 76 05/16/2024 Respiratory Rate 20.00 05/16/2024 Heart Beat 76.00 05/16/2024 Body Temperature 97.60 05/16/2024 Pain Scale 7.00 05/16/2024 Oxygen Saturation 99.00 05/16/2024 BMI 25.17
--- OUTSIDE RECORDS SUMMARY | 2024-09-30 09:41 | XMS_ITS | Encounter Summary ---
Author Organization [facility] Address [address] [place] [address] Care Team Providers Care Social Work Administrator Name Role Phone Smitha Harrison MD Primary Care Provider + Smitha Harrison MD Primary Care Provider + Smitha Harrison MD Unavailable [phone] Luis Tsai PHARMD Unavailable [phone] Zainab Moses MD Unavailable [phone] Pcp Outside [facility], Unknown Primary Care Provider U navailable Reason for Visit * Reason Comments Message Contact Ctr Nurse Triage Palpitations Hypertension Encounter Details Date Type Department Care Team (Late st Contact Info) Description 08/10/2021 Nurse Triage [facility] [address] [facility] [address] [place] [address] Group, [facility] [address] [place] [address] Message; Contact Ctr Nurse Triage; Palpitations; Hypertension Social History Tobacco Use Types Packs/Day Years Used Date Smoking Tobacco: Never Smokeless Tobacco: Never Alcohol Use Standard Drinks/Week Comments Not Currently 0 (1 standard drink = 0.6 oz pur e alcohol) PHQ-2 Answer Date Recorded PHQ-2 Score 0 04/30/2021 Interpersonal Safety Answer Date Record ed RETIRE In the past year, hav e you ever been physically hurt, threatened, controlled or made to feel afraid by someone close to you? No 08/11/2021 RETIRE Currently, are you in a relationship where you are being physically hurt, threatened, controlled or made to feel afraid? No 08/11/2021 Alcohol Use Answer Date Recorded Audit C Total Score 0 08/11/2021 Inadequate Housing Answer Date Recorded Social Determinants: Housing (Overall Score Help er) 0 04/19/2019 Sex and Gender Information Value Date Recorded Sex Assigned at Not on file Gender Identity Not on file Sexual Orientation Not on file Job Start Date Occupation Industry Not on file Not on file Not on file COVID-19 Exposure Response Date Recorded In the last month, have you been in contact with someone who was confirmed or suspected to have Coronavirus / COVID-19? No / Unsure 08/11/2021 9:48 PM CIVIL ENGINEERING INTERN documented as of this encounter Functional Status Functional Status Response Date of Assess ment RETIRED Are you deaf or do y ou have serious difficulty hearing? No 12/07/2020 RETIRED Are you blind or do you have serious difficulty seeing, even when wearing glasses? No 12/07/2020 Do you have serious difficul ty walking or climbing stairs? No 12/07/2020 Do you have difficulty dressing or bathing? No 12/07/2020 Because of a physical, menta l, or emotional condition, do you have difficulty doing errands alone? No 12/07/2020 Cognitive Status Response Date of Assessm ent Because of a physical, menta l, or emotional condition, do you have serious difficulty concentrating, remembering or making decisions? No 12/07/2020 documented as of this encounter Miscellaneous Notes * Telephone Encounter - Petrona Conklin RN - 08/10/2021 4:25 PM CST Onset: Today Location / description: Heart rate this morning 114 this afternoon 111 Precipitating Factors: Congestive heart failure Pain Scale (1-10), 10 highest: 2/10 - arthritis pain Associated Symptoms: chest pressure last night, shortness of breath on exertion, feels head pressure LMP : No LMP recorded. Patient is postmenopausal. PLAN: Advised to go to ER for further assessment. Patient/daughter verbalized understanding. Patient/Caller to follow recommendations. Reason for Disposition ??? History of heart disease (i.e., heart attack, bypass surgery, angina, angioplasty, CHF) (Exception: brief heartbeat symptoms that went away and now feels well) Protocols used: HEART RATE AND HEARTBEAT [id number] L ENGINEERING INTERN * Telephone Encounter - Patsy Ace - 08/10/2021 4:18 PM CST -- DO NOT REPLY / DO NOT REPLY ALL -- -- Message is from the [facility]-- General Patient Message Reason for Call: physical therapy from [facility] for assessment. Patient had elevated heart rate 114 and 4pm it is 111. Caller Information Type Contact Phone 08/10/2021 04:18 PM CIVIL ENGINEERING INTERN Phone (Incoming) ROSEANNE BARR (Emergency Contact) [phone] Alternative phone number: Did the caller agree that this message can wait until the office reopens in the morning? YES - The Message Can Wait Send a message to the provider???s clinical support pool. Turnaround time given to caller: This message will be sent to [state Provider's name]. The clinical team will fulfill your request as soon as they review your message when the office opens tomorrow. L ENGINEERING INTERN documented in this encounter Plan of Treatment Not on file documented as of this encounter Visit Diagnoses Not on filedocumented in this encounter Additional Health Concerns Infection Onset Date Last Indicated Resolved Time COVID/Flu/RSV (rule out) 08/11/2021 08/11/2021 12:31 PM CIVIL ENGINEERING INTERN documented as of this encounter Care Teams Social Work Administrator Relationship Specialty Start Date End Date Smitha Harrison MD [address] [place] [address] PCP - General Family Practice 03/04/20 08/10/21 Smitha Harrison MD [address] [place] [address] PCP - General Family Practice 08/11/21 05/17/22 Pcp Outside [facility], Unknown NO KNOWN ADDRESS ON FILE PCP - General 05/18/22 Smitha Harrison MD [address] [place] [address] Family Practice 08/11/21 05/17/22 Luis Tsai PHARMD [address] [place] [address] CDM Heart Failure Cardiology 04/28/20 Zainab Moses MD [address] [place] [address] Dementia Program Director Gastroenterology 12/16/20 documented as of this encounter
--- OUTSIDE RECORDS SUMMARY | 2024-09-30 09:41 | XMS_ITS | Encounter Summary ---
Author Organization [facility] Address [address] [place] [address] Care Team Providers Care Marketing/Sales Person Name Role Phone Smitha Harrison MD Primary Care Provider + Smitha Harrison MD Primary Care Provider + Smitha Harrison MD Unavailable [phone] Luis Tsai PHARMD Unavailable [phone] Zainab Moses MD Unavailable [phone] Pcp Outside [facility], Unknown Primary Care Provider U navailable Encounter Details Date Type Department Care Team (Late st Contact Info) Description 03/04/2020 Telephone [facility] [address] [facility] [address] [place] [address] Group, [facility] [address] [place] [address] Social History Tobacco Use Types Packs/Day Years Used Date Smoking Tobacco: Former Smokeless Tobacco: Never Alcohol Use Standard Drinks/Week Comments Not Currently 0 (1 standard drink = 0.6 oz pur e alcohol) PHQ-2 Answer Date Recorded PHQ-2 Score 0 11/22/2018 Inadequate Housing Answer Date Recorded Social Determinants: Housing (Overall Score Help er) 0 04/19/2019 Sex and Gender Information Value Date Recorded Sex Assigned at Not on file Gender Identity Not on file Sexual Orientation Not on file Job Start Date Occupation Industry Not on file Not on file Not on file documented as of this encounter Functional Status Functional Status Response Date of Assess ment RETIRED Are you deaf or do y ou have serious difficulty hearing? No 10/28/2019 RETIRED Are you blind or do you have serious difficulty seeing, even when wearing glasses? No 10/28/2019 Do you have serious difficul ty walking or climbing stairs? No 10/28/2019 Do you have difficulty dressing or bathing? No 10/28/2019 Because of a physical, menta l, or emotional condition, do you have difficulty doing errands alone? No 10/28/2019 Cognitive Status Response Date of Assessm ent Because of a physical, menta l, or emotional condition, do you have serious difficulty concentrating, remembering or making decisions? No 10/28/2019 documented as of this encounter Plan of Treatment Not on file documented as of this encounter Visit Diagnoses Not on filedocumented in this encounter Additional Health Concerns Infection Onset Date Last Indicated Resolved Time COVID/Flu/RSV (rule out) 08/11/2021 08/11/2021 12:31 PM SUPERVISOR ELECTRONICS TESTING documented as of this encounter Care Teams Marketing/Sales Person Relationship Specialty Start Date End Date Smitha Harrison MD [address] [place], [place] [address] PCP - General Family Practice 03/04/20 08/10/21 Smitha Harrison MD [address] [place] [address] PCP - General Family Practice 08/11/21 05/17/22 Pcp Outside [facility], Unknown NO KNOWN ADDRESS ON FILE PCP - General 05/18/22 Smitha Harrison MD [address] [place] [address] Family Practice 08/11/21 05/17/22 Luis Tsai PHARMD [address], [place] [address] CDM Heart Failure Cardiology 04/28/20 Zainab Moses MD [address] [place], [place] [id number] Black Oxide Operator Gastroenterology 12/16/20 documented as of this encounter
--- OUTSIDE RECORDS SUMMARY | 2024-09-30 09:41 | XMS_ITS | Encounter Summary ---
Author Organization [facility] Address [address] [place] [address] Care Team Providers Care Tower Air Traffic Control Specialist Name Role Phone Smitha Harrison MD Primary Care Provider + Encounter Details Date Type Department Care Team (Late st Contact Info) Description 03/14/2020 12:35 AM CDT [place] [address] [facility] [address] [place] [address] Social History Tobacco Use Types Packs/Day Years Used Date Smoking Tobacco: Former Cigarettes Q uit: 08/21/1954 Smokeless Tobacco: Never Alcohol Use Standard Drinks/Week [...] COVID/Flu/RSV (rule out) 08/11/2021 08/11/2021 12:31 PM WE[employer]ER [employer] documented as of this encounter Care Teams Tower Air Traffic Control Specialist Relationship Specialty Start Date End Date Smitha Harrison MD [address] [place] [address] PCP - General Family Practice 03/04/20 08/10/21 documented as of this encounter
--- OUTSIDE RECORDS SUMMARY | 2024-09-30 09:41 | XMS_ITS | Encounter Summary ---
Author Organization [facility] Address [address] [place] [address] Care Team Providers Care Geographic Information System Surveyor Name Role Phone Smitha Harrison MD Primary Care Provider + Smitha Harrison MD Primary Care Provider + Smitha Harrison MD Unavailable [phone] Luis Tsai PHARMD Unavailable [phone] Zainab Moses MD Unavailable [phone] Pcp Outside [facility], Unknown Primary Care Provider U navailable Encounter Details Date Type Department Care Team (Late st Contact Info) Description 04/29/2020 E-Advice [facility] [address] [place] [id number] Kristine Sanon CMA updated Referral Social History Tobacco Use Types Packs/Day Years [...] have Coronavirus / COVID-19? No / Unsure 04/17/2020 9:55 AM CDT documented as of this encounter Functional Status [...] COVID/Flu/RSV (rule out) 08/11/2021 08/11/2021 12:31 PM WREATH MAKER documented as of this encounter Care Teams Geographic Information System Surveyor Relationship Specialty Start Date End Date Smitha Harrison MD [address] [place] [address] PCP - General Family Practice 03/04/20 08/10/21 Smitha Harrison MD [address] [place] [address] PCP - General Family Practice 08/11/21 05/17/22 Pcp Outside [facility], Unknown NO KNOWN ADDRESS ON FILE PCP - General 05/18/22 Smitha Harrison MD [address] [place] [address] Family Practice 08/11/21 05/17/22 Luis Tsai, ANETTED [address] [place] [address] CDM Heart Failure Cardiology 04/28/20 Zainab Moses MD [address] [place], [place] [id number] Inventory Control Associate Gastroenterology 12/16/20 documented as of this encounter
--- OUTSIDE RECORDS SUMMARY | 2024-09-30 09:41 | XMS_ITS | Encounter Summary ---
Author Organization [facility] Address [address] [place] [address] Care Team Providers Care Solar Maintenance Technician Name Role Phone Smitha Harrison MD Primary Care Provider + Smitha Harrison MD Primary Care Provider + Smitha Harrison MD Unavailable [phone] Luis Tsai PHARMD Unavailable [phone] Zainab Moses MD Unavailable [phone] Pcp Outside [facility], Unknown Primary Care Provider U navailable Encounter Details Date Type Department Care Team (Late st Contact Info) Description 07/06/2021 Telephone [facility] [address] [facility] [address] [place] [address] Group, [facility] [address] [place] [address] Social History Tobacco Use Types Packs/Day Years Used Date Smoking Tobacco: Never Smokeless Tobacco: Never Alcohol Use Standard Drinks/Week Comments Not Currently 0 (1 standard drink = 0.6 oz pur e alcohol) PHQ-2 Answer Date Recorded PHQ-2 Score 0 04/30/2021 Inadequate Housing Answer Date Recorded Social Determinants: [...] encounter Miscellaneous Notes * Telephone Encounter - Gretta Munoz RN - 07/06/2021 6:31 PM CST Rn called patient back regarding physical therapy order. Pts daughter stated she was supposed to have physical therapy at home and wasnot started yet. Orderstate just physical therapy. Advised that I will speak to dr. Nasir marcelino regarding this matter and I will follow up tomorrow Pt daughter verbalized understanding ING TABLE OPERATOR FIRST * Telephone Encounter - Bouchra Callaway - 07/06/2021 12:13 PM CST -- DO NOT REPLY / DO NOT REPLY ALL -- -- Message is from the [facility]-- General Patient Message Reason for Call: daughter of patient calling to follow up with previous call in regards to patient receiving home physical therapy. Please contact Stephenie Morales. Caller Information Type Contact Phone 07/06/2021 12:10 PM CUTTING TABLE OPERATOR FIRST Phone (Incoming) STEPHENIE MORALES (Emergency Contact) [phone] Alternative phone number: none Turnaround time given to caller: This message will be sent to [state Provider's name]. The clinical team will fulfill your request as soon as they review your message. ING TABLE OPERATOR FIRST documented in this encounter Plan of Treatment Not on file documented as of this encounter Visit Diagnoses Not on filedocumented in this encounter Additional Health Concerns Infection Onset Date Last Indicated Resolved Time COVID/Flu/RSV (rule out) 08/11/2021 08/11/2021 12:31 PM CUTTING TABLE OPERATOR FIRST documented as of this encounter Care Teams Solar Maintenance Technician Relationship Specialty Start Date End Date Smitha Harrison MD [address] [place] [address] PCP - General Family Practice 03/04/20 08/10/21 Smitha Harrison MD [address] [place] [address] PCP - General Family Practice 08/11/21 05/17/22 Pcp Outside [facility], Unknown NO KNOWN ADDRESS ON FILE PCP - General 05/18/22 Smitha Harrison MD [address] [place] [address] Family Practice 08/11/21 05/17/22 Luis Tsai, ANETTED [address] [place] [address] CDM Heart Failure Cardiology 04/28/20 Zainab Moses MD [address] [place] [address] Jewel Bearing Driller Gastroenterology 12/16/20 documented as of this encounter
--- OUTSIDE RECORDS SUMMARY | 2024-09-30 09:41 | XMS_ITS | Encounter Summary ---
Author Organization [facility] Address [address] [place] [address] Care Team Providers Care Churn Operator Margarine Name Role Phone Smitha Harrison MD Primary Care Provider + Smitha Harrison MD Primary Care Provider + Smitha Harrison MD Unavailable [phone] Luis Tsai PHARMD Unavailable [phone] Zainab Moses MD Unavailable [phone] Pcp Outside [facility], Unknown Primary Care Provider U navailable Encounter Details Date Type Department Care Team (Late st Contact Info) Description 06/12/2020 Telephone [facility] [address] [employer] [facility] [address] [place] [address] Group, [facility] [address] [place] [address] Social History Tobacco Use Types Packs/Day Years [...] have Coronavirus / COVID-19? No / Unsure 06/04/2020 10:01 AM CDT documented as of this encounter [...] COVID/Flu/RSV (rule out) 08/11/2021 08/11/2021 12:31 PM STOREPERSON documented as of this encounter Care Teams Churn Operator Margarine Relationship Specialty Start Date End Date Smitha Harrison MD [address] [place] [address] PCP - General Family Practice 03/04/20 08/10/21 Smitha Harrison MD [address] [place] [address] PCP - General Family Practice 08/11/21 05/17/22 Pcp Outside [facility], Unknown NO KNOWN ADDRESS ON FILE PCP - General 05/18/22 Smitha Harrison MD [address] [place] [address] Family Practice 08/11/21 05/17/22 Luis Tsai, ANETTED [address] [place] [address] CDM Heart Failure Cardiology 04/28/20 Zainab Moses MD [address] [place], [place] [id number] Blueprint Duplicator Gastroenterology 12/16/20 documented as of this encounter
--- OUTSIDE RECORDS SUMMARY | 2024-09-30 09:41 | XMS_ITS | Encounter Summary ---
Author Organization [facility] Address [address] [place] [address] Care Team Providers Care Making Line Worker Name Role Phone Smitha Harrison MD Primary Care Provider + Luis Tsai PHARMD Unavailable [phone] Encounter Details Date Type Department Care Team (Late st Contact Info) Description 05/23/2020 12:31 AM CDT [facility]a Kamara MD [address] [place] [address] Social History Tobacco Use Types Packs/Day Years [...] COVID/Flu/RSV (rule out) 08/11/2021 08/11/2021 12:31 PM RECORD PRESS TENDER documented as of this encounter Care Teams Making Line Worker Relationship Specialty Start Date End Date Smitha Harrison MD [address] [place] [address] PCP - General Family Practice 03/04/20 08/10/21 Luis Tsai PHARMD [address] [place] [address] CDM Heart Failure Cardiology 04/28/20 documented as of this encounter
--- OUTSIDE RECORDS SUMMARY | 2024-09-30 09:41 | XMS_ITS | CCD ---
Author Name Interface, [id number] lity Address [address] [facility] [address] [place] [address] Organization [facility] Address [address] [facility] [address] [place] [address] Care Team Providers Care Rate Clerk Name Role Phone Javier Peck Unavailable Unavailable [...] ALT/S GPT IU/L 9.0 52.0 11 FINAL [facility], [address] [place] [address] 05/17 A/G ratio 1.4 FINAL [facility], [address] [place] [address] 05/17 ASPAR APOLLO AMINO TRANS FERAS E, SERUM - FINAL [facility], [address] [facility] [address] 05/17 Gluco se MG/DL 70.0 105.0 [address] [facility], [address] [facility] [address] 05/17 Globu jo ann G/DL 1.9 3.7 2.6 FINAL [facility], [address] [facility] [address] 05/17 Anion gap, mmol/ L MMOL/L 8.0 16.[address] [facility], [address] [facility] [address] 05/17 Total prote in G/DL 6.2 8.1 6.[address] [facility], [address] [facility] [address] 05/17 CREAT ININE , SERUM - FINAL [facility], [address] [facility] [address] 05/17 AST/S GOT IU/L 14.0 36.[address] [facility], [address] [place] [address] 05/17 GLUCO SE, PLASM A OR SERUM - FINAL [facility], [address] [facility] [address] 05/17 BRANDON ZARATE AMINO TRANS FERAS E, SERUM - FINAL [facility], [address] [place] [address] 05/17 GFR Afric an Ameri can, estim ated [address] [facility], [address] [place] [address] 05/17 Bilir ubin, total MG/DL 0.0 1.[address] [facility], [address] [place] [address] 05/17 TOTAL PROTE IN - FINAL [facility], [address] [place] [address] 05/17 Sodiu m MMOL/L 134.0 145.0 144 FINAL [facility], [address] [place] [address] 05/17 ALBUM IN, SERUM - FINAL [facility], [address] [place] [address] 05/17 BLOOD UREA NITRO GEN (BUN) - FINAL [facility], [address] [place] [address] 05/17 CALCI UM, TOTAL - FINAL [facility], [address] [place] [address] 05/17 Alkal ine phosp hatas e IU/L 33.0 130.0 70 FINAL [facility], [address] [place] [address] 05/17 GFR estim ate 50 Low FINAL [facility], [address] [place] [address] 05/17 Calci um MG/DL 8.2 10.4 9.4 FINAL [facility], [address] [place] [address] 05/17 Anion gap - FINAL [facility], [address] [place] [address] 05/17 CO2 MMOL/L 21.0 29.0 31 High FINAL [facility], [address] [place] [address] 05/17 BILIR UBIN, TOTAL - FINAL [facility], [address] [place] [address] 05/17 ALKAL INE PHOSP HATAS E - FINAL [facility], [address] [place] [address] 05/17 Chlor ilene MMOL/L 96.0 108.0 108 FINAL [facility], [address] [place] [address] 05/17 BUN MG/DL 0.0 23.0 21.5 FINAL [facility], [address] [place] [address] 05/17 CHELSY Chun, SERUM - FINAL [facility], [address] [place] [address] 05/17 Creat inine MG/DL 0.6 1.1 1.09 FINAL [facility], [address] [place] [address] 05/17 Album in G/DL 3.5 5.[address] [facility], [address] [place] [address] 05/17 POTAS SIUM, SERUM - FINAL [facility], [address] [place] [address] 05/17 BUN/C reati nine ratio 20 FINAL [facility], [address] [place] [address] 05/17 CARBO N DIOXI DE - FINAL [facility], [address] [place] [address] 05/17 Potas sium MMOL/L 3.6 5.2 4.2 FINAL [facility], [address] [place] [address] 05/17 CHLOR ILENE - FINAL [facility], [address] [place] [address] 05/17 Sybil # (ANC) X103/U L 1.67 8.[address] [facility], [address] [place] [address] 05/17 MCV FL 81.0 100.[address] [facility], [address] [place] [address] 05/17 MO # X103/U L 0.27 0.98 0.48 FINAL [facility], [address] [place] [address] 05/17 IG % % 0.0 0.4 0.2 FINAL [facility], [address] [place] [address] 05/17 MO % % 4.0 13.0 9 FINAL [facility], [address] [place] [address] 05/17 IG # X103/U L 0.0 0.04 0.01 FINAL [facility], [address] [place] [address] 05/17 EO # X103/U L 0.11 0.55 0.08 Low FINAL [facility], [address] [place] [address] 05/17 EO % % 1.0 6.0 2 FINAL [facility], [address] [place] [address] 05/17 RBC X106/U L 3.7 5.4 3.88 FINAL [facility], [address] [place] [address] 05/17 MPV FL 9.4 12.4 10 FINAL [facility], [address] [place] [address] 05/17 BA % % 0.0 1.0 0 FINAL [facility], [address] [place] [address] 05/17 BA # X103/U L 0.02 0.1 0.02 FINAL [facility], [address] [place] [address] 05/17 HGB G/DL 11.4 15.4 11.6 FINAL [facility], [address] [place] [address] 05/17 MCHC G/DL 30.0 36.0 31.4 FINAL [facility], [address] [place] [address] 05/17 HCT % 35.0 47.0 36.9 FINAL [facility], [address] [place] [address] 05/17 WBC X103/U L 4.0 11.0 5.3 FINAL [facility], [address] [place] [address] 05/17 PLT X103/U L 150.0 450.0 154 FINAL [facility], [address] [place] [address] 05/17 RDW % 12.2 15.[address] [facility], [address] [place] [address] 05/17 LY % % 23.0 44.[address] [facility], [address] [place] [address] 05/17 MCH PG 27.0 34.0 29.9 FINAL [facility], [address] [place] [address] 05/17 LY # X103/U L 1.03 4[address] [facility], [address] [place] [address] 05/17 Sybil % % 37.0 77.[address] [facility], [address] [place] [address] 05/17 CARCI NOEMB RYONI C ANTIG EN (CEA) - FINAL [facility], [address] [place] [address] 05/17 CEA, mg/dL MG/DL 0.0 5.[address] [facility], [address] [place] [address] 05/17 LDH IU/L 100.0 250.[address] [facility], [address] [place] [address] 05/17 LACTI C ACID DEHYD ROGEN ASE (LDH) - FINAL [facility], [address] [facility] [address] Medications Date Name Route Dose Frequency Instructions Start Date End Date Status Methotrexate Oral 6.0 weekly, on stopped Pantoprazole (Sodium ) Oral Delayed Release daily inactive Vitamin [id number] Ac id Oral 500 mcg-400 mcg daily [...]
--- OUTSIDE RECORDS SUMMARY | 2024-09-30 09:42 | XMS_ITS | Encounter Summary ---
Author Organization [facility] Address [address] [place] [address] Care Team Providers Care Tieing Machine Operator Name Role Phone Smitha Harrison MD Primary Care Provider + Smitha Harrison MD Unavailable [phone] Luis Tsai PHARMD Unavailable [phone] Zainab Moses MD Unavailable [phone] Pcp Outside [facility], Unknown [facility] Encounter Details Date Type Department Care Team (Late st Contact Info) Description 10/06/2021 Med Info Forms [facility] [address] [place] [address] [place] [address] Provider, Outside Social History Tobacco Use Types Packs/Day Years Used Date Smoking Tobacco: Former Cigarettes Q uit: 08/21/1954 Smokeless Tobacco: Never Alcohol Use Standard Drinks/Week Comments Not Currently 0 (1 standard drink = 0.6 oz pur e alcohol) PHQ-2 Answer Date Recorded PHQ-2 Score 0 08/15/2021 Interpersonal Safety Answer Date Record ed RETIRE [...] have Coronavirus / COVID-19? No / Unsure 09/24/2021 1:41 PM GAS TURBINE POWERPLANT MECHANIC documented as of this encounter Functional Status Functional Status Response Date of Assess ment RETIRED Are you deaf or do y ou have serious difficulty hearing? Yes 08/11/2021 RETIRED Are you blind or do you have serious difficulty seeing, even when wearing glasses? Yes 08/11/2021 Do you have serious difficul ty walking or climbing stairs? Yes 08/11/2021 Do you have difficulty dressing or bathing? Yes 08/11/2021 Because of a physical, menta l, or emotional condition, do you have difficulty doing errands alone? No 08/11/2021 Cognitive Status Response Date of Assessm ent Because of a physical, menta l, or emotional condition, do you have serious difficulty concentrating, remembering or making decisions? No 08/11/2021 documented as of this encounter Plan of Treatment Not on file documented as of this encounter Visit Diagnoses Not on filedocumented in this encounter Care Teams Tieing Machine Operator Relationship Specialty Start Date End Date Smitha Harrison MD [address] [place] [address] PCP - General Family Practice 08/11/21 05/17/22 Pcp Outside [facility], Unknown NO KNOWN ADDRESS ON FILE PCP - General 05/18/22 Smitha Harrison MD [address] [place] [address] Family Practice 08/11/21 05/17/22 Luis Tsai PHARMD [address] [place] [address] CDM Heart Failure Cardiology 04/28/20 Zainab Moses MD [address] [place] [address] Primer Powder Blender Wet Gastroenterology 12/16/20 documented as of this encounter
--- OUTSIDE RECORDS SUMMARY | 2024-09-30 09:42 | XMS_ITS | Encounter Summary ---
Author Organization [facility] Address [address] [place] [address] Care Team Providers Care Food Processing Scientist Name Role Phone Smitha Harrison MD Primary Care Provider + Smitha Harrison MD Primary Care Provider + Smitha Harrison MD Unavailable [phone] Luis Tsai PHARMD Unavailable [phone] Zainab Moses MD Unavailable [phone] Pcp Outside [facility], Unknown Primary Care Provider U navailable Encounter Details Date Type Department Care Team (Late st Contact Info) Description 01/05/2021 Telephone [facility] [address] [facility] [address] [place] [address] Group, [facility] [address] [place] [address] Social History Tobacco Use Types Packs/Day Years Used Date Smoking Tobacco: Never Smokeless Tobacco: Never Alcohol Use Standard Drinks/Week Comments Not Currently 0 (1 standard drink = 0.6 oz pur e alcohol) PHQ-2 Answer Date Recorded PHQ-2 Score 0 12/16/2020 Inadequate Housing Answer Date Recorded Social Determinants: [...] have Coronavirus / COVID-19? No / Unsure 12/07/2020 1:04 PM CDT documented as of this encounter Functional [...] No 12/07/2020 documented as of this encounter Plan of Treatment Not on file documented as of this encounter Visit Diagnoses Not on filedocumented in this encounter Additional Health Concerns Infection Onset Date Last Indicated Resolved Time COVID/Flu/RSV (rule out) 08/11/2021 08/11/2021 12:31 PM FISHING WORKER documented as of this encounter Care Teams Food Processing Scientist Relationship Specialty Start Date End Date Smitha Harrison MD [address] [place] [address] PCP - General Family Practice 03/04/20 08/10/21 Smitha Harrison MD [address] [place] [address] PCP - General Family Practice 08/11/21 05/17/22 Pcp Outside [facility], Unknown NO KNOWN ADDRESS ON FILE PCP - General 05/18/22 Smitha Harrison MD [address] [place] [address] Family Practice 08/11/21 05/17/22 Luis Tsai PHARMD [address] [place] [address] CDM Heart Failure Cardiology 04/28/20 Zainab Moses MD [address] [place] [address] Synthetic Filament Extruder Gastroenterology 12/16/20 documented as of this encounter
--- OUTSIDE RECORDS SUMMARY | 2024-09-30 09:42 | XMS_ITS | Encounter Summary ---
Author Organization [facility] Address [address] [place] [address] Care Team Providers Care German Professor Name Role Phone Smitha Harrison MD Primary Care Provider + Smitha Harrison MD Unavailable [phone] Luis Tsai PHARMD Unavailable [phone] Zainab Moses MD Unavailable [phone] Pcp Outside [facility], Unknown Primary Care Provider U navailable Encounter Details Date Type Department Care Team (Late st Contact Info) Description 08/17/2021 Telephone [facility] [address] [facility] [address] [place] [address] Group, [facility] [place] [address] Social History Tobacco Use Types Packs/Day Years [...] COVID-19? No / Unsure 08/11/2021 9:48 PM DOUBLE END SEWER documented as of this encounter Functional Status [...] on filedocumented in this encounter Care Teams German Professor Relationship Specialty Start Date End Date Smitha Harrison MD [address] [place] [address] PCP - General Family Practice 08/11/21 05/17/22 Pcp Outside [facility], Unknown NO KNOWN ADDRESS ON FILE PCP - General 05/18/22 Smitha Harrison MD [address] [place] [address] Family Practice 08/11/21 05/17/22 Luis Tsai, ANETTED [address] [place] [address] CDM Heart Failure Cardiology 04/28/20 Zainab Moses MD [address] [place], [place] [address] Body Straightener Gastroenterology 12/16/20 documented as of this encounter
--- OUTSIDE RECORDS SUMMARY | 2024-09-30 09:42 | XMS_ITS | Clinical Summary ---
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 Active losartan (COZAAR) 25 mg tablet Take 25 mg by mouth daily. Active ascorbic acid, vitamin C, (VITAMIN C) 500 mg tablet Take 500 mg by mouth daily. Active ferrous sulfate 325 mg (65 mg iron) tablet TAKE 1 TABLET BY MOUTH ON MONDAYS, WEDNESDAYS, AND Fridays10/28/2022 Active cholecalciferol , vitamin D3, 1,000 unit Take 25 mcg by mouth daily. Active hydroxychloroqu ine (PLAQUENIL) 200 mg tablet Take 200 mg by mouth daily. 06/10/2023 Active pantoprazole (PROTONIX) 20 mg Tablet, Delayed Release (E.C.) Take 1 Tablet by mouth daily. Active cyanocobalamin 1,000 mcg Tablet Take 1,000 mcg by mouth daily. Active megestroL (MEGACE) 400 mg/10 mL (40 mg/mL) suspension Take 5 mL (200 mg) by mouth daily. 150 mL 1 07/30/2024 Active sotorasib (LUMAKRAS) 320 mg Tablet Take 3 Tablets (960 mg) by mouth daily. 90 Tablet 3 08/12/2024 Active capecitabine (Xeloda) 500 mg tablet Take 2 Tablets (1,000 mg) by mouth 2 times daily with meals for 14 days on, 7 days off. Take along with 4-150mg tablets to equal 1,600mg twice daily. Repeat every 21 days. 56 Tablet 6 08/15/2024 Active capecitabine (XELODA) 150 mg tablet Take 4 Tablets (600 mg) by mouth 2 times daily with meals for 14 days on, 7 days off. Take along with 2-500mg tablets to equal 1,600mg twice daily. Repeat every 21 days. 112 Tablet 6 08/15/2024 Active Active Problems No known active problems Encounters Date Type Department Care Team Description 09/30/2024 9:00 AM BARREL WATERER Office Visit [facility] Oncology and Hematology - Michael [address] [place] [address] Catrachito Macias MD Arrived 09/17/2024 External Device Data STL ABSTRACTION Provider, Abstract 09/11/2024 External Device Data [facility] ABSTRACTION Provider, Abstract 09/11/2024 External Device Data ST[facility] ABSTRACTION Provider, Abstract 09/05/2024 Abstract [facility] Oncology and Hematology - [address] [place] [address] Catrachito Macias MD 09/02/2024 Orders Only [facility] Oncology and Hematology - [address] [place] [address] Catrachito Macias MD 08/30/2024 Orders Only [facility] Oncology and Hematology - Michael [address] [place] [address] Catrachito Macias MD 08/29/2024 2:00 PM BARREL WATERER Office Visit [facility] Oncology and Hematology - [address] [place] [address] Catrachito Macias MD Cancer, metastatic to liver (CMS/HCC) (Primary Dx) 08/27/2024 Orders Only [facility] Oncology and Hematology - [address] [place] [phone] Catrachito Macias MD Cancer, metastatic to liver (CMS/HCC) (Primary Dx) 08/15/2024 Specialty Pharmacy [facility] [address] [place] [address] [place] [address] Pennie Correa, PHARMACIST 08/15/2024 Specialty Pharmacy [facility] [address] [place] [address] [place] [address] Pennie Correa, PHARMACIST 08/15/2024 Refill [facility] Oncology and Hematology - [address] [place] [phone] Kaveh Vargas MD 08/15/2024 Telephone [facility] Oncology and Hematology - [address] [place] [address] Kaveh Vargas MD Medication Problem 08/12/2024 Refill [facility] Oncology and Hematology - [address] [place] [phone] Catrachito Macias MD 08/08/2024 Specialty Pharmacy [facility] [address] [place] [address] [place] [address] Pennie Correa, PHARMACIST Specialty Pharmacy Prior Auth Coordination 08/06/2024 Specialty Pharmacy [facility] [address] [place] [address] [place] [address] Coby Patricio PHARMACIST 08/02/2024 Telephone [facility] Oncology and Hematology - [address] [place] [address] Catrachito Macias MD Appointment follow up 08/01/2024 4:30 PM BARREL WATERER Telephone Check Up [facility] Oncology and Hematology - [address] [place] [phone] Catrachito Macias MD 07/30/2024 Telephone [facility] Oncology and Hematology - [address] [place] [phone] Catrachito Macias MD Medication Review 07/19/2024 Specialty Pharmacy [facility] [address] [place] [phone] Stephanie Rosen, PHARMACIST Specialty Pharmacy Clinical Assessment 07/19/2024 Specialty Pharmacy [facility] [address] [place] [phone] Stephanie Rosen, PHARMACIST Specialty Pharmacy Refill Coordination 07/19/2024 Specialty Pharmacy [facility] [address] [place] [phone] Stephanie Rosen, PHARMACIST Specialty Pharmacy Clinical Intervention 07/19/2024 Specialty Pharmacy [facility] [address] [place] [phone] Stephanie Rosen, PHARMACIST Specialty Pharmacy Prior Auth Coordination 07/16/2024 Orders Only [facility] Oncology and Hematology - [address] Catrachito Macias MD 07/15/2024 9:15 AM BARREL WATERER Office Visit [facility] Oncology and Hematology - [address] [place] [phone] Catrachito Macias MD Cancer, metastatic to liver (CMS/HCC) (Primary Dx) 07/11/2024 Orders Only [facility] Oncology and Hematology - [address] [place] [address] Catrachito Macias MD 07/05/2024 Orders Only [facility] Oncology and Hematology - [address] [place] [phone] Catrachito Macias MD from Last 3 Months Social History Tobacco Use Types Packs/Day Years Used Date Smoking Tobacco: Former Cigarettes Tobacco Cessation:Counseling Given: Not Answered Comments Unknown Sex and Gender Information Value Date Recorded Sex Assigned at Not on file Legal Sex Female 4:09 PM CDT Gender Identity Not on file Sexual Orientation Not on file Last Filed Vital Signs Vital Sign Reading Time Taken Comments Blood Pressure 122/74 09/30/2024 9:33 AM BARREL WATERER Pulse 91 09/30/2024 9:33 AM BARREL WATERER Temperature 37.3 C (99.2 F) 09/30/2024 9:33 AM BARREL WATERER Respiratory Rate 15 09/30/2024 9:33 AM BARREL WATERER Oxygen Saturation 96% 09/30/2024 9:33 AM BARREL WATERER Inhaled Oxygen Concentration - - Weight 58.3 kg (128 lb 9.6 oz) 09/30/2024 9:33 A M BARREL WATERER Height 154.9 cm (5' 1 ) 07/15/2024 9:17 AM BARREL WATERER Body Mass Index 24.3 07/15/2024 9:17 AM BARREL WATERER Plan of Treatment Health Maintenance Due Date Last Done Comments DTAP/TDAP/TD VACCINES (1 - Tdap) 1954 PNEUMOCOCCAL VACCINE 65+ YEA RS (1 of 2 - PCV) 1955 ZOSTER VACCINE (1 of 2) 1955 RSV VACCINE (60+ or ) (1 - 1-dose 75+ series) 2011 INFLUENZA VACCINE (#1) 2024 04/28/2020, 2018 COVID-19 Vaccine ( season) 2024 12/22/2021, 06/22/2021, 06/01/2021 [place] ([place]) Prev entative Visit/Annual Wellness Visit 08/21/2024 OSTEOPOROSIS SCREENING Completed 08/15/2020 Procedures Procedure Name Priority Date/Time Associated Diagnosis Comments COMPREHENSIVE METABOLIC PANEL Routine 08/29/2024 3:50 PM BARREL WATERER CBC WITH DIFFERENTIAL Routine 08/29/2024 9:51 AM BARREL WATERER [facility] XF Routine 07/26/2024 11:07 PM BARREL WATERER Cancer, metastatic to liver (CMS/HCC) [facility] XT DNA AND RNA Routine 07/15/2024 10:29 AM BARREL WATERER Cancer, metastatic to liver (CMS/HCC) [facility] NORMAL BLOOD Routine 10:29 AM BARREL WATERER Cancer, metastatic to liver (CMS/HCC) [facility] DNA AND RNA SOLID TUMOR Routine 07/15/2024 10:29 AM BARREL WATERER Cancer, metastatic to liver (CMS/HCC) US BIOPSY LIVER Routine 07/09/2024 1:38 PM BARREL WATERER GLUCOSE LEVEL Routine 07/04/2024 12:08 PM BARREL WATERER PET BONE IMG W CT SKL BSE MID THG Routine 07/04/2024 12:05 PM BARREL WATERER from Last 3 Months Results * COMPREHENSIVE METABOLIC PANEL (08/29/2024 3:50 PM BARREL WATERER) Blood us Catrachito Macias MD CHEMISTRY ORDERABLES Final Resu lt * CBC WITH DIFFERENTIAL (08/29/2024 9:51 AM BARREL WATERER) Blood us Catrachito Macias MD HEMATOLOGY ORDERABLES Final Res ult * [facility] XF (07/26/2024 11:07 PM BARREL WATERER) Reason for Study To identify mutations relevant to patient's cancer. 07/26/2024 11:07 PM BARREL WATERER [facility] Genetic Diseases Assessed Cancer 07/26/2024 11:07 PM BARREL WATERER [facility] Description of Ranges of DNA Sequences Examined 105 gene liquid biopsy 07/26/2024 11:07 PM BARREL WATERER [facility] Overall Interpretation positive 07/26/2024 11:07 PM BARREL WATERER [facility] [email or web address] 07/26/2024 11:07 PM BARREL WATERER [facility] Comment:[facility] link Low Coverage Regions ERRFI1, JAK1, MSH3, SPOP, TERT, TSC2 07/26/2024 11:07 PM BARREL WATERER [facility] Therapy Count 2 07/26/2024 11:07 PM BARREL WATERER [facility] Tempus: Potential Therapy 1 Gene: 6407^KRAS^HGNC Variant: p.G12C Match Type: snvIndel Match Type Description: KRAS p.G12C Agent: Adagrasib Drug Class: KRAS G12C Inhibitor Tissue: Non-Small Cell Lung Cancer Association: Response Evidence Status: Consensus Evidence ID: NCCN [id number] Variant: G12C - GOF Label: FDA Off Label FDA Approved?: Yes On label?: No 07/26/2024 11:07 PM BARREL WATERER [facility]: Potential Therapy 2 Gene: 6407^KRAS^HGNC Variant: p.G12C Match Type: snvIndel Match Type Description: KRAS p.G12C Agent: Sotorasib Drug Class: KRAS G12C Inhibitor Tissue: Non-Small Cell Lung Cancer Association: Response Evidence Status: Consensus Evidence ID: NCCN KDB Variant: G12C - GOF Label: FDA Off Label FDA Approved?: Yes On label?: No 07/26/2024 11:07 PM BARREL WATERER [facility] Trial Count 3 07/26/2024 11:07 PM BARREL WATERER [facility]: Clinical Trial Match 1 Clinical Trial NCT ID: [id number] Clinical Trial Title: Sotorasib Activity in Subjects With Advanced Solid Tumors With KRAS p.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 Mutation (CodeBreak 101) Clinical Trial URL: https://clinica ltrials.gov/ct2 /show/QKR474951 83 Clinical Phase: Phase 1 Clinical Trial Matches: KRAS p.G12C mutation Clinical Trial Distance and Location: [address] [place], [place] 07/26/2024 11:07 PM BARREL WATERER [facility]: Clinical Trial Match 2 Clinical Trial NCT ID: [id number] Clinical Trial Title: Tumor-Agnostic Precision Immuno-Oncology and Somatic Targeting Rational for You (TAPISTRY) Platform Study Clinical Trial URL: https://clinica ltrials.gov/ct2 /show/AQT246223 45 Clinical Phase: Phase 2 Clinical Trial Matches: KRAS p.G12C mutation Clinical Trial Distance and Location: [address] [place], [place] 07/26/2024 11:07 PM BARREL WATERER [facility]: Clinical Trial Match 3 Clinical Trial NCT ID: [id number] Clinical Trial Title: Study of ATRN-119 in Patients with Advanced Solid Tumors Clinical Trial URL: https://clinica [facility].gov/ct2 /show/[email or web address] 14 Clinical Phase: Phase 1/Phase 2 Clinical Trial Matches: TP53 p.Y205C mutation, TP53 p.E286K mutation Clinical Trial Distance and Location: [address] [place] [address] 07/26/2024 11:07 PM BARREL WATERER [facility] Tumor Mutational [place] 8.6 m/MB 07/26/2024 11:07 PM BARREL WATERER [facility] Microsatellite Instability Note MSI-High not detected 07/26/2024 11:07 PM BARREL WATERER [facility] Variants of Unknown Significance Note No reportable variants of unknown significance (VUSs) were found. 07/26/2024 11:07 PM BARREL WATERER [facility] Blood specimen (specimen) 07/19/2024 9:34 PM BARREL WATERER Narrative This result has genomic variants that were not included in this document. us Catrachito Macias MD MOLECULAR ORDERABLES Final Resu lt Performing Organization Address [facility]/ZIP Co de Phone Number [facility] [address], [address] [place] [address], [facility] [address], [address] [place] [phone] * [facility] NORMAL BLOOD (07/15/2024 10:29 AM BARREL WATERER) [facility] 07/15/2024 11:01 PM BARREL WATERER [facility] Comment:See NGS Report for R esults. Blood specimen (specimen) 07/15/2024 10:29 AM BARREL WATERER 07/15/2024 10:31 AM BARREL WATERER us Catrachito Macias MD MOLECULAR ORDERABLES Final Resu Performing Organization Address City/[facility]/ZIP Co de Phone Number [facility] [address], [address] [place] [address], [place] [phone] [facility] [address], [address] [place] [address] * [facility] DNA AND RNA SOLID TUMOR (07/15/2024 10:29 AM BARREL WATERER) Reason for Study To identify somatic and germline mutations relevant to patient's cancer. 07/30/2024 7:32 PM BARREL WATERER [facility] Genetic Diseases Assessed Cancer 07/30/2024 7:32 PM BARREL WATERER [facility] Description of Ranges of DNA Sequences Examined 648 gene panel 07/30/2024 7:32 PM BARREL WATERER [facility] Overall Interpretation positive 07/30/2024 7:32 PM BARREL WATERER [facility] MSI Stable 07/30/2024 7:32 PM BARREL WATERER [facility] TMB 1.1 m/MB 07/30/2024 7:32 PM BARREL WATERER [facility] [id number] [id number] 07/30/2024 7:32 PM BARREL WATERER [facility] Comment:[facility] link MMR Overall Result normal 07/30/2024 7:32 PM BARREL WATERER [facility] MLH1 Presence or Absence present 07/30/2024 7:32 PM BARREL WATERER [facility] PMS2 Presence or Absence present 07/30/2024 7:32 PM BARREL WATERER [facility] MSH2 Presence or Absence present 07/30/2024 7:32 PM BARREL WATERER [facility] MSH6 Presence or Absence present 07/30/2024 7:32 PM BARREL WATERER [facility] Low Coverage Regions KDM5D 07/30/2024 7:32 PM BARREL WATERER [facility] Therapy Count 2 07/30/2024 7:32 PM BARREL WATERER [facility]: Potential Therapy 1 Gene: 6407^KRAS^HGNC Variant: p.G12C Match Type: snvIndel Match Type Description: KRAS p.G12C Agent: Adagrasib Drug Class: KRAS G12C Inhibitor Tissue: Non-Small Cell Lung Cancer Association: Response Evidence Status: Consensus Evidence ID: NCCN KDB Variant: G12C - GOF Label: FDA Off Label FDA Approved?: Yes On label?: No 07/30/2024 7:32 PM BARREL WATERER [facility]: Potential Therapy 2 Gene: 6407^KRAS^HGNC Variant: p.G12C Match Type: snvIndel Match Type Description: KRAS p.G12C Agent: Sotorasib Drug Class: KRAS G12C Inhibitor Tissue: Non-Small Cell Lung Cancer Association: Response Evidence Status: Consensus Evidence ID: NCCN KDB Variant: G12C - GOF Label: FDA Off Label FDA Approved?: Yes On label?: No 07/30/2024 7:32 PM BARREL WATERER [facility] Trial Count 4 07/30/2024 7:32 PM BARREL WATERER [facility]: Clinical Trial Match 1 Clinical Trial NCT ID: [id number] Clinical Trial Title: Targeted Therapy Directed by Genetic Testing in Treating Patients With Locally Advanced or Advanced Solid Tumors, The [facility] [place] Screening Trial Clinical Trial URL: https://clinicalt rials.gov/ct2/rafael w/[email or web address] Clinical Phase: Phase 2 Clinical Trial Matches: KRAS p.G12C mutation Clinical Trial Distance and Location: [address] [place], [place] 07/30/2024 7:32 PM BARREL WATERER [facility]: Clinical Trial Match 2 Clinical Trial NCT ID: [id number] Clinical Trial Title: Sotorasib Activity in Subjects With Advanced Solid Tumors With KRAS p.G12C Mutation (CodeBreak 101) Clinical Trial URL: https://clinicalt rials.gov/ct2/rafael w/[email or web address] Clinical Phase: Phase 1 Clinical Trial Matches: KRAS p.G12C mutation Clinical Trial Distance and Location: [address] [place], [place] 07/30/2024 7:32 PM BARREL WATERER [facility]: Clinical Trial Match 3 Clinical Trial NCT ID: [id number] Clinical Trial Title: Study of ATRN-119 in Patients with Advanced Solid Tumors Clinical Trial URL: https://clinicalt rials.gov/ct2/rafael siegel/[email or web address] Clinical Phase: Phase 1/Phase 2 Clinical Trial Matches: TP53 p.Y205C mutation, MTAP deletion, CDKN2A deletion Clinical Trial Distance and Location: [address] [place], [place] 07/30/2024 7:32 PM BARREL WATERER [facility]: Clinical Trial Match 4 Clinical Trial NCT ID: [id number] Clinical Trial Title: Testing the Combination of Two Anti-cancer Drugs, Peposertib (M3814) and M1774 for Advanced Solid Tumors Clinical Trial URL: https://clinicalt rials.gov/ct2/rafael siegel/[email or web address] Clinical Phase: Phase 1 Clinical Trial Matches: ARID2 p.Q1404* mutation Clinical Trial Distance and Location: [address] 07/30/2024 7:32 PM BARREL WATERER [facility] xR Result 1 NEGATIVE Negative - This report is being issued to report the results of gene rearrangement and altered splicing analysis from RNA sequencing. No gene rearrangements nor reportable altered splicing events were identified from RNA sequencing. 07/30/2024 7:32 PM BARREL WATERER [facility] Germline Variant Note No potential germline variants were found in the limited set of genes on which we report. 07/30/2024 7:32 PM BARREL WATERER [facility] Variants of Unknown Significance Note No reportable variants of unknown significance (VUSs) were found. 07/30/2024 7:32 PM BARREL WATERER [facility] Tissue specimen (specimen) 07/15/2024 10:29 AM BARREL WATERER 07/17/2024 12:35 PM BARREL WATERER Narrative This result has genomic variants that were not included in this document. us Catrachito Macias MD MOLECULAR ORDERABLES Final Resu lt [facility] [address] [facility] [address], [address] [place] [address], [facility] [address], [address] [place] [address] * US BIOPSY LIVER (07/09/2024 1:38 PM BARREL WATERER) Anatomical Region Laterality Modality Abdomen Other us Catrachito Macias MD US ORDERABLES Final Result * GLUCOSE LEVEL (07/04/2024 12:08 PM BARREL WATERER) Blood us Catrachito Macias MD CHEMISTRY ORDERABLES Final Resu lt * PET BONE IMG W CT SKB TH (07/04/2024 12:05 PM BARREL WATERER) Anatomical Region Laterality Modality Other Catrachito Macias MD PE ORDERABLES Final Result from Last [address] [facility] [id number] RX [employer] RX Member Subscriber Plan / Payer (Ef fective 2023-Present) Name:Kirti Barr Relation to Subscriber:Self Name:Kirti Barr Payer ID:Not on file Group ID:[id number] Type:RX Medicare Part D Address: [place] Care Teams Microfilm Operator Relationship Specialty Start Date End Date Cindy Nguyen MD [address] [place] [phone] PCP - General Internal Medicine 06/01/22
--- OUTSIDE RECORDS SUMMARY | 2024-09-30 09:42 | XMS_ITS ---
Author Name Interface, [id number] lity Address [address] [facility] [address] [place] [address] Organization [facility] Address [address] [facility] [address] [place] [address] Care Team Providers Care Presentation Designer Name Role Phone Javier Peck Unavailable Unavailable Allergies and Adverse Reactions Medication/Group Name Reaction Severity Date Penicillins 05/16/2024 Plan Date Type Value 05/16/2024 APPOINTMENT Follow Up 05/16/2024 LABORDER CEA 05/16/2024 LABORDER CMP 05/16/2024 LABORDER LDH 05/16/2024 LABORDER CBC w/ auto diff Reason for Visit Follow Up Encounters Date Name 05/16/2024 Pancreatic cyst 05/16/2024 Pulmonary hypertensi on 05/16/2024 Rectal cancer Diagnostic Results Date Type Test Units Lower Limit Upper Limit Result Flag Comments Status Ordered By Specimen Source Lab Address 05/17 WBC X103/U L 4.0 11.0 5.3 FINAL Javier Peck [facility], [address] [place] [address] 05/17 RBC X106/U L 3.7 5.4 3.88 FINAL Javier Peck [facility], [address] [place] [address] 05/17 HGB G/DL 11.4 15.4 11.6 FINAL Javier Peck [facility], [address] [place] [address] 05/17 HCT % 35.0 47.0 36.9 FINAL Javier Peck [facility], [address] [place] [address] 05/17 MCV FL 81.0 100.0 95 FINAL [facility], [address] [place] [address] 05/17 MCH PG 27.0 34.0 29.9 FINAL [facility], [address] [place] [address] 05/17 MCHC G/DL 30.0 36.0 31.4 FINAL [facility], [address] [place] [address] 05/17 Sybil % % 37.0 77.0 54 FINAL [facility], [address] [place] [address] 05/17 LY % % 23.0 44.0 35 FINAL [facility], [address] [place] [address] 05/17 MO % % 4.0 13.0 9 FINAL [facility], [address] [place] [address] 05/17 EO % % 1.0 6.0 2 FINAL [facility], [address] [place] [address] 05/17 BA % % 0.0 1.[address] [facility], [address] [place] [address] 05/17 PLT X103/U L 150.0 450.0 154 FINAL [facility], [address] [place] [address] 05/17 RDW % 12.2 15.2 14 FINAL [facility], [address] [place] [address] 05/17 Sybil # (ANC) X103/U L 1.67 8.[address] [facility], [address] [place] [address] 05/17 LY # X103/U L 1.03 4.84 1.85 FINAL [facility], [address] [place] [address] 05/17 MO # X103/U L 0.27 0.98 0.48 FINAL [facility], [address] [place] [address] 05/17 EO # X103/U L 0.11 0.55 0.[address] [facility], [address] [place] [address] 05/17 BA # X103/U L 0.02 0.1 0.02 FINAL [facility], [address] [place] [address] 05/17 MPV FL 9.4 12.[address] [facility], [address] [place] [address] 05/17 IG % % 0.0 0.4 0.2 FINAL [facility], [address] [place] [address] 05/17 IG # X103/U L 0.0 0.04 0.01 FINAL [facility], [address] [place] [address] 05/17 CARCI NOEMB RYONI C ANTIG EN (CEA) - FINAL [facility], [address] [place] [address] 05/17 CEA, mg/dL MG/DL 0.0 5.0 2.56 FINAL [facility], [address] [place] [address] 05/17 LACTI C ACID DEHYD ROGEN ASE (LDH) - FINAL [facility], [address] [place] [address] 05/17 LDH IU/L 100.0 250.[address] [facility], [address] [place] [address] 05/17 GLUCO SE, PLASM A OR SERUM - FINAL [facility], [address] [place] [address] 05/17 BLOOD UREA NITRO GEN (BUN) - FINAL [facility], [address] [place] [address] 05/17 CREAT ININE , SERUM - FINAL [facility], [address] [place] [address] 05/17 BUN/C reati nine ratio 20 FINAL [facility], [address] [place] [address] 05/17 SODIU M, SERUM - FINAL [facility], [address] [place] [address] 05/17 POTAS SIUM, SERUM - FINAL [facility], [address] [place] [address] 05/17 CHLOR ILENE - FINAL [facility], [address] [place] [address] 05/17 CARBO N DIOXI DE - FINAL [facility], [address] [place] [address] 05/17 CALCI UM, TOTAL - FINAL [facility], [address] [place] [address] 05/17 TOTAL PROTE IN - FINAL [facility], [address] [place] [address] 05/17 ALBUM IN, SERUM - FINAL [facility], [address] [place] [address] 05/17 Globu jo ann G/DL 1.9 3.7 2.6 FINAL [facility], [address] [place] [address] 05/17 A/G ratio 1.[address] [facility], [address] [place] [address] 05/17 BILIR UBIN, TOTAL - FINAL [facility], [address] [place] [address] 05/17 ALKAL INE PHOSP HATAS E - FINAL [facility], [address] [place] [address] 05/17 ASPAR BUSTILLOS AMINO TRANS FERAS E, SERUM - FINAL [facility], [address] [place] [address] 05/17 BRANDON NE AMINO TRANS FERAS E, SERUM - FINAL [facility], [address] [place] [address] 05/17 GFR estim ate 50 Low FINAL [facility], [address] [place] [address] 05/17 GFR Afric an Ameri can, estim ated 61 FINAL [facility], [address] [place] [address] 05/17 Anion gap - FINAL [facility], [address] [place] [address] 05/17 BUN MG/DL 0.0 23.0 21.5 FINAL [facility], [address] [place] [address] 05/17 Creat inine MG/DL 0.6 1.1 1.09 FINAL [facility], [address] [place] [address] 05/17 Sodiu m MMOL/L 134.0 145.0 144 FINAL [facility], [address] [place] [address] 05/17 Potas sium MMOL/L 3.6 5.2 4.2 FINAL [facility], [address] [place] [address] 05/17 Chlor ilene MMOL/L 96.0 108.0 108 FINAL [facility], [address] [place] [address] 05/17 CO2 MMOL/L 21.0 29.0 31 High FINAL [facility], [address] [place] [address] 05/17 Total prote in G/DL 6.2 8.1 6.1 Low FINAL [facility], [address] [facility] [address] 05/17 Album in G/DL 3.5 5.2 3.6 FINAL [facility], [address] [facility] [address] 05/17 Bilir ubin, total MG/DL 0.0 1.0 0.5 FINAL [facility], [address] [facility] [address] 05/17 Alkal ine phosp hatas e IU/L 33.0 130.0 70 FINAL [facility], [address] [facility] [address] 05/17 AST/S GOT IU/L 14.0 36.0 23 FINAL [facility], [address] [facility] [address] 05/17 ALT/S GPT IU/L 9.0 52.0 11 FINAL [facility], [address] [facility] [address] 05/17 Anion gap, mmol/ L MMOL/L 8.0 16.[address] [facility], [address] [facility] [address] 05/17 Gluco se MG/DL 70.0 105.[address] [facility], [address] [facility] [address] 05/17 Calci um MG/DL 8.2 10.[address] [facility], [address] [facility] [address] Medications Date Name Route Dose Frequency Instructions Start Date End Date Status Folic Acid Oral daily a ctive Losartan Oral 2 in am, 1 in pm = 75mg daily active Hydrocodone-Neio taminophen Oral 5 mg-325 mg daily active Lidocaine Topical Cream 4 % prn active Vitamin E76-Bulpn Acid Oral 500 mcg-400 mcg daily active Methotrexate Oral active 018 capecitabine 500 MG Oral Tablet orally 2.0 tablet 2 times per day 05/24/20 18 active 018 capecitabine 500 MG Oral Tablet orally 500.0 mg 2 times per day 12/23/19 18 active Problems Diagnosis Status Date of Diagnosi s Congestive heart failure (disorder) Active Rectal pain Active Anemia Active Pancreatic cyst Active Supplemental oxygen dependence Active Pulmonary hypertension Active Folliculitis Active Anemia (disorder) Active Rectal cancer Active HTN Active Arthritis Active Gastric cancer Active Vital Signs Date Type Value 05/16/2024 Body Temperature 97.60 05/16/2024 Heart Beat 76.00 05/16/2024 Respiratory Rate 20.00 05/16/2024 Oxygen Saturation 99.00 05/16/2024 BSA 1.63 05/16/2024 Pain Scale 7.00 05/16/2024 Weight 137.60 05/16/2024 Height 62.00 05/16/2024 BMI 25.17 05/16/2024 Intravascular Systolic 146 05/16/2024 Intravascular Diastolic 76
--- OUTSIDE RECORDS SUMMARY | 2024-09-30 09:42 | XMS_ITS | Encounter Summary ---
Author Organization [facility] Address [address] [place] [address] Care Team Providers Care Drug Safety Physician Name Role Phone Tom Mueller MD Primary Care Provider [phone] Smitha Harrison MD Primary Care Provider + Smitha Harrison MD Primary Care Provider + Smitha Harrison MD Unavailable [phone] Luis Tsai PHARMD Unavailable [phone] Zainab Moses MD Unavailable [phone] Pcp Outside [facility], Unknown Primary Care Provider U navailable Encounter Details Date Type Department Care Team (Late st Contact Info) Description 11/28/2019 Telephone [facility] [address] [facility] [address] [place] [address] Group, [facility] [address] [place] [address] Social History Tobacco Use Types Packs/Day Years [...] No 10/28/2019 documented as of this encounter Miscellaneous Notes * Telephone Encounter - Susy Kruger - 11/28/2019 9:13 AM CDT -- DO NOT REPLY / DO NOT REPLY ALL -- -- Message is from the [facility]-- COVID-19 Cooks Screening: Negative General Patient Message Reason for Call: Pt is returning a call to Iman Townsend's nurse please call her when this message is received Caller Information Type Contact Phone 11/28/2019 09:13 AM Phone (Incoming) Kirti Barr (Self) [phone] (H) Alternative phone number: no Turnaround time given to caller: This message will be sent to [state Provider's name]. The clinical team will fulfill your request as soon as they review your message. 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 documented as of this encounter Care Teams Drug Safety Physician Relationship Specialty Start Date End Date Tom Mueller MD PCP - General 07/14/18 03/03/20 Smitha Harrison MD [address] [place] [address] PCP - General Family Practice 03/04/20 08/10/21 Smitha Harrison MD [address] [place] [address] PCP - General Family Practice 08/11/21 05/17/22 Pcp Outside [facility], Unknown NO KNOWN ADDRESS ON FILE PCP - General 05/18/22 Smitha Harrison MD [address] [place] [address] Family Practice 08/11/21 05/17/22 Luis Tsai, PHARMD [address] [place] [address] CDM Heart Failure Cardiology 04/28/20 Zainab Moses MD [address] [place], [place] [address] Tools Administrator Gastroenterology 12/16/20 documented as of this encounter
--- OUTSIDE RECORDS SUMMARY | 2024-09-30 09:42 | XMS_ITS ---
Author Name Interface, [id number] lity Address [address] [facility] [address] [place] [address] Organization [facility] Address [address] [facility] [address] [place] [address] Care Team Providers Care Insurance Collector Name Role Phone aJvier Peck Unavailable Unavailable Allergies and Adverse Reactions [...] L 4.0 11.0 5.3 FINAL Javier Peck [facility], [address] [place] [address] 05/17 RBC X106/U L 3.7 5.4 3.88 FINAL Javier Peck [facility], [address] [place] [address] 05/17 HGB G/DL 11.4 15.4 11.6 FINAL Javier Peck [facility], [address] [place] [address] 05/17 HCT % 35.0 47.0 36.9 FINAL Javier Peck [facility], [address] [place] [address] 05/17 MCV FL 81.0 100.0 95 FINAL [facility], [address] [place] [address] 05/17 MCH PG 27.0 34.0 29.9 FINAL [facility], [address] [place] [address] 05/17 MCHC G/DL 30.0 36.0 31.4 FINAL [facility], [address] [place] [address] 05/17 Sybil % % 37.0 77.0 54 FINAL [facility], [address] [place] [address] 05/17 LY % % 23.0 44.0 35 FINAL [facility], [address] [place] [address] 05/17 MO % % 4.0 13.0 9 FINAL [facility], [address] [place] [address] 05/17 EO % % 1.0 6.0 2 FINAL [facility], [address] [place] [address] 05/17 BA % % 0.0 1.0 0 FINAL [facility], [address] [place] [address] 05/17 PLT X103/U L 150.0 450.0 154 FINAL [facility], [address] [place] [address] 05/17 RDW % 12.2 15.2 14 FINAL [facility], [address] [place] [address] 05/17 Sybil # (ANC) X103/U L 1.67 8.47 2.86 FINAL [facility], [address] [place] [address] 05/17 LY # X103/U L 1.03 4.84 1.85 FINAL [facility], [address] [place] [address] 05/17 MO # X103/U L 0.27 0.98 0.48 FINAL [facility], [address] [place] [address] 05/17 EO # X103/U L 0.11 0.55 0.08 Low FINAL [facility], [address] [place] [address] 05/17 BA # X103/U L 0.02 0.1 0.02 FINAL [facility], [address] [place] [address] 05/17 MPV FL 9.4 12.4 10 FINAL [facility], [address] [place] [address] 05/17 IG % % 0.0 0.4 0.2 FINAL [facility], [address] [place] [address] 05/17 IG # X103/U L 0.0 0.04 0.01 FINAL [facility], [address] [place] [address] 05/17 CARCI NOEMB RYONI C ANTIG EN (CEA) - FINAL [facility], [address] [place] [address] 05/17 CEA, mg/dL MG/DL 0.0 5.0 2.56 FINAL [facility], [address] [place] [address] 05/17 LACTI C ACID DEHYD ROGEN ASE (LDH) - FINAL [facility], [address] [place] [address] 05/17 LDH IU/L 100.0 250.0 183.7 FINAL [facility], [address] [place] [address] 05/17 GLUCO SE, PLASM A OR SERUM - FINAL [facility], [address] [place] [address] 05/17 BLOOD UREA NITRO GEN (BUN) - FINAL [facility], [address] [place] [address] 05/17 CREAT ININE , SERUM - FINAL [facility], [address] [place] [address] 05/17 BUN/C reati nine ratio 20 FINAL [facility], [address] [place] [address] 05/17 SODIU M, SERUM - FINAL [facility], [address] [place] [address] 05/17 POTAS SIUM, SERUM - FINAL [facility], [address] [place] [address] 05/17 CHLOR ILENE - FINAL [facility], [address] [place] [address] 05/17 CARBO N DIOXI DE - FINAL [facility], [address] [place] [address] 05/17 CALCI UM, TOTAL - FINAL [facility], [address] [place] [address] 05/17 TOTAL PROTE IN - FINAL [facility], [address] [place] [address] 05/17 ALBUM IN, SERUM - FINAL [facility], [address] [place] [address] 05/17 Globu jo ann G/DL 1.9 3.7 2.6 FINAL [facility], [address] [place] [address] 05/17 A/G ratio 1.4 FINAL [facility], [address] [place] [address] 05/17 BILIR UBIN, TOTAL - FINAL [facility], [address] [place] [address] 05/17 ALKAL INE PHOSP HATAS E - FINAL [facility], [address] [place] [address] 05/17 ASPAR BUSTILLOS AMINO TRANS FERAS E, SERUM - FINAL [facility], [address] [place] [address] 05/17 BRANDON NE AMINO TRANS FERAS E, SERUM - FINAL [facility], [address] [place] [address] 05/17 GFR estim ate 50 Low FINAL [facility], [address] [place] [address] 05/17 GFR Afric an Ameri can, estim ated 61 FINAL [facility], [address] [place] [address] [place] [address] 05/17 Anion gap - FINAL [facility], [address] [place] [address] 05/17 BUN MG/DL 0.0 23.0 21.5 FINAL [facility], [address] [place] [address] 05/17 Creat inine MG/DL 0.6 1.1 1.09 FINAL [facility], [address] [place] [address] 05/17 Sodiu m MMOL/L 134.0 145.0 144 FINAL [facility], [address] [place] [address] 05/17 Potas sium MMOL/L 3.6 5.2 4.2 FINAL [facility], [address] [place] [address] 05/17 Chlor ilene MMOL/L 96.0 108.0 108 FINAL [facility], [address] [place] [address] 05/17 CO2 MMOL/L 21.0 29.0 31 High FINAL [facility], [address] [place] [address] 05/17 Total prote in G/DL 6.2 8.1 6.1 Low FINAL [facility], [address] [facility] [address] 05/17 Album in G/DL 3.5 5.2 3.6 FINAL [facility], [address] [facility] [address] 05/17 Bilir ubin, total MG/DL 0.0 1.0 0.5 FINAL [facility], [address] [facility] [address] 05/17 Alkal ine phosp hatas e IU/L 33.0 130.0 70 FINAL [facility], [address] [facility] [address] 05/17 AST/S GOT IU/L 14.0 36.0 23 FINAL [facility], [address] [facility] [address] 05/17 ALT/S GPT IU/L 9.0 52.0 11 FINAL [facility], [address] [facility] [address] 05/17 Anion gap, mmol/ L MMOL/L 8.0 16.0 9.24 FINAL [facility], [address] [facility] [address] 05/17 Gluco se MG/DL 70.0 105.0 163 High FINAL [facility], [address] [facility] [address] 05/17 Calci um MG/DL 8.2 10.4 9.4 FINAL [facility], [address] [facility] [address] Medications Date Name Route Dose Frequency Instructions Start Date End Date Status Folic Acid Oral daily a ctive Losartan Oral 2 in am, 1 in pm = 75mg daily active Hydrocodone-Enio taminophen Oral 5 mg-325 mg daily active Lidocaine Topical Cream 4 % prn active Vitamin S09-Pcdoy Acid Oral 500 mcg-400 mcg daily active [...]
--- OUTSIDE RECORDS SUMMARY | 2024-09-30 09:42 | XMS_ITS | Clinical Summary ---
Author Organization [facility] System Address [facility] [place] [address] Care Team Providers Care Director Business Development Name Role Phone Cindy Nguyen MD Primary Care Provider [phone] Allergies Active Allergy Reactions Criticality Noted Date Comments Penicillins Anaphylaxis High 09/04/2023 Medications losartan (COZAAR) 25 MG tabletIndicati ons:Hypertensi on Take 1 tablet by mouth every morning. Indications: High Blood Pressure Disorder 25 mg in AM & 50mg at HS Active methotrexate (TREXALL) 2.5 MG tabletIndicati ons:Rheumatoid Arthritis Take 10 tablets by mouth once a week. Indications: Rheumatoid Arthritis Monday's Patient currently holding for 2 weeks after COVID vaccine adminstration. Active vitamin C (ASCORBIC ACID) 1000 MG tabletIndicati ons:Vitamin C Imbalance Take 1 tablet by mouth daily. Indications: Excess or Deficiency of Vitamin C Active hydroxychloroq uine (PLAQUENIL) 200 MG tabletIndicati ons:Rheumatoid Arthritis Take 2 tablets by mouth every other day. Indications: Rheumatoid Arthritis Acti ve folic acid (FOLVITE) 1 MG tabletIndicati ons:Anemia Take 1 tablet by mouth daily. Indications: Anemia Activ e pantoprazole EC (PROTONIX) 20 MG tabletIndicati ons:Gastroesop hageal Reflux Disease Take 1 tablet by mouth daily. Indications: Gastroesophageal Reflux Disease Active ferrous sulfate, 65 mg elemental, 325 (65 FE) MG tabletIndicati ons:Anemia Take 1 tablet by mouth daily with breakfast. Indications: Anemia Activ e calcium carb-cholecalc iferol (CALTRATE 600+D) 600-20 MG-MCG tabletIndicati ons:Nutritiona l Support Take 1 tablet by mouth daily. Indications: Nutritional Support Caltrate 600 D-3 Active losartan (COZAAR) 25 MG tabletIndicati ons:Hypertensi on Take 2 tablets by mouth every evening. Indications: High Blood Pressure Disorder 25 mg in AM & 50mg at HS Active Cyanocobalamin (VITAMIN B-12) 50 MCG TabIndications :Anemia Take 1 tablet by mouth daily. Indications: Anemia Activ e Multiple Vitamins-Snead als (CENTRUM SILVER 50+WOMEN OR)Indications :Nutritional Support Take 1 tablet by mouth daily. Indications: Nutritional Support 09/15/19 24 Active acetaminophen (TYLENOL) 500 MG tabletIndicati ons:Pain Take 1,000 mg by mouth every 8 (eight) hours as needed. Indications: Pain 09/15/19 Active albuterol sulfate HFA 108 (90 Base) MCG/ACT inhalerIndicat ions:Wheezing Inhale 1 puff into the lungs every 4 (four) hours as needed. Inhale 1-2 puffs every 4-6 hours as needed for wheezing Indications: Wheezing 09/15/19 24 Active Active Problems Problem Noted Date Diagnosed Date Pneumonia 09/04/2023 Chronic hypoxemic respiratory failure ([facility]) 09/28/2021 Overview (09/05/2023): Last Assessment & Plan: On Home O2 Nonrheumatic aortic valve stenosis 09/28/2021 Overview (09/05/2023): Last Assessment & Plan: Has mild aortic stenosis with mean gradient of 10 mmHg on 2D echo done July 2021 Diastolic heart failure seco ndary to hypertension (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) 08/11/2021 Vertigo 12/07/2020 Sebaceous cyst 07/13/2020 Sensorineural hearing loss (SNHL) of both ears 0 04/17/2020 Chronic diastolic (congestiv e) heart failure ([facility]) 03/04/2020 Overview (09/05/2023): Last Assessment & Plan: Congestive heart failure compensated. There is no volume overload. 2D echo showed preserved ejection fraction with diastolic dysfunction Pulmonary hypertension, mild ([facility]) 0 11/17/2019 Overview (09/05/2023): Last Assessment & Plan: WHO group 2 and 3 Rheumatoid arthritis involving ankle ([facility]) 10/29/2019 Gastroesophageal reflux disease without esophagi tis 10/28/2019 Osteoporosis 10/28/2019 Gastric adenocarcinoma ([facility]) 018 Rectal adenocarcinoma ([facility]) 10/16/19 18 Labile blood pressure 01/30/2015 Overview (09/05/2023): Last Assessment & Plan: Patient does have history of hypertension but her blood pressure has been lately labile. I change losartan to 25 mg daily and advised her to hold it if systolic blood pressure is 100 or less Tinnitus 01/30/2015 Social History Tobacco Use Types Packs/Day Years Used Date Smoking Tobacco: Former Cigarettes Smokeless Tobacco: Never Alcohol Use Standard Drinks/Week Comments Never 0 (1 standard drink = 0.6 oz pur e alcohol) OASIS D0700: Social Isolation Answer Da te Recorded Frequency of experiencing loneliness or isolatio n Never 10/11/2023 OASIS A1250: Transportation Answer Date Recorded Lack of Transportation (Medical) No 10/11/2023 Lack of Transportation (Non-Medical) No 10/11/2023 Patient Unable or Declines to Respond No 10/11/2023 OASIS B1300: Health Literacy Answer Roberto e Recorded Frequency of needing help to read materials from doctor or pharmacy Rarely 10/11/2023 [facility] Utilities Answer Date Recorded In the past 12 months has th e [employer], gas, oil, or water [employer] threatened to shut off services in your home? No 09/04/2023 Humiliation, Afraid, Rape, and Kick questionnair e Answer Date Recorded Within the last year, have y ou been afraid of your partner or ex-partner? No 09/04/2023 Within the last year, have y ou been humiliated or emotionally abused in other ways by your partner or ex-partner? No Within the last year, have y ou been kicked, hit, slapped, or otherwise physically hurt by your partner or ex-partner? No 09/04/2023 Within the last year, have y ou been raped or forced to have any kind of sexual activity by your partner or ex-partner? No 09/04/2023 Overall Financial Resource Strain (CARDIA) Answe r Date Recorded How hard is it for you to pa y for the very basics like food, housing, medical care, and heating? Not hard at all 09/04/2023 Hunger Vital Sign Answer Date Recorded Within the past 12 months, y ou worried that your food would run out before you got the money to buy more. Never true 09/04/19 24 Within the past 12 months, t he food you bought just didn't last and you didn't have money to get more. Never true 09/04/2023 PRAPARE - Transportation Answer Date Re corded In the past 12 months, has l ack of transportation kept you from medical appointments or from getting medications? No 08/21 In the past 12 months, has l ack of transportation kept you from meetings, work, or from getting things needed for daily living? No 09/04/2023 Housing Stability Vital Sign Answer Roberto e Recorded In the last 12 months, was t here a time when you were not able to pay the mortgage or rent on time? No 09/04/2023 In the last 12 months, how many places have you lived? 1 09/04/2023 In the last 12 months, was t here a time when you did not have a steady place to sleep or slept in a alf (including now)? No 09/04/2023 Comments No Sex and Gender Information Value Date Recorded Sex Assigned at Not on file Legal Sex Female 12:54 PM [employer]IN CAN [employer] Gender Identity Not on file Sexual Orientation Not on file Last Filed Vital Signs Vital Sign Reading Time Taken Comments Blood Pressure 143/70 12/08/2023 8:00 PM CDT Pulse 88 12/08/2023 6:00 PM CDT Temperature 36.7 C (98 F) 12/08/2023 5:41 PM CDT Respiratory Rate 16 12/08/2023 5:41 PM CDT Oxygen Saturation 91% 12/08/2023 8:00 PM CDT Inhaled Oxygen Concentration - - Weight 66.2 kg (146 lb) 12/08/2023 5:41 PM CDT Height 154.9 cm (5' 1 ) 12/08/2023 5:41 PM CDT Body Mass Index 27.59 12/08/2023 5:41 PM CDT Plan of Treatment Health Maintenance Due Date Last Done Comments Pneumococcal Vaccine: 65+ Years (1 of 2 - PCV) 1942 DTaP, Tdap and Td Vaccines (1 - Tdap) 1955 Zoster Vaccines (1 of 2) 1986 Annual Medicare Wellness Visit 2001 RSV Immunization or 60+ Years (1 - 1-dose 75+ series) 2011 COVID-19 Vaccine ( season) 2024 08/30/2023, 06/25/2022, 12/22/2021, Additional history exists Influenza Adult (#1) 2024 04/28/2020, 05/27/20 19 Meningococcal B Vaccine Aged Out No l onger eligible based on patient's age to complete this topic Meningococcal Vaccine Aged Out No han valeria eligible based on patient's age to complete this topic RSV Immunizations Under 20 Months Aged Out No longer eligible based on patient's age to complete this topic Insurance [facility] Advance Directives * Full Code (Latest Code Status on File) Date Activated Date Inactivated Comments 09/15/2023 9:53 PM 12/08/2023 5:25 PM * Full Code Date Activated Date Inactivated Comments 09/04/2023 4:48 PM 09/07/2023 3:05 PM Care Teams Director Business Development Relationship Specialty Start Date End Date Cindy Nguyen MD [address] [address] PCP - General INTERNAL MEDICINE 09/06/23
--- OUTSIDE RECORDS SUMMARY | 2024-09-30 09:42 | XMS_ITS | Encounter Summary ---
Author Organization [facility] Info [facility] Address [address] [place] [address] Care Team Providers Care Calculus Professor Name Role Phone Cindy Nguyen MD Primary Care Provider [phone] Encounter Details Date Type Department Care Team (Late st Contact Info) Description 09/30/2024 9:00 AM MATCHER Office Visit [facility] Oncology and Hematology - Michael [address] [facility] [address] [address] Catrachito Macias MD [address] [facility] [address] [place] [address] Arrived Social History Tobacco Use Types Packs/Day Years Used Date Smoking Tobacco: Former Cigarettes Tobacco Cessation:Counseling Given: Not Answered Comments Unknown Sex and Gender Information Value Date Recorded Sex Assigned at Not on file Legal Sex Female 4:09 PM CDT Gender Identity Not on file Sexual Orientation Not on file documented as of this encounter Last Filed Vital Signs Vital Sign Reading Time Taken Comments Blood Pressure 122/74 09/30/2024 9:33 AM MATCHER Pulse 91 09/30/2024 9:33 AM MATCHER Temperature 37.3 C (99.2 F) 09/30/2024 9:33 AM MATCHER Respiratory Rate 15 09/30/2024 9:33 AM MATCHER Oxygen Saturation 96% 09/30/2024 9:33 AM MATCHER Inhaled Oxygen Concentration - - Weight 58.3 kg (128 lb 9.6 oz) 09/30/2024 9:33 A M MATCHER Height - - Body Mass Index 24.3 07/15/2024 9:17 AM MATCHER documented in this encounter Plan of Treatment Not on file documented as of this encounter Visit Diagnoses Not on filedocumented in this encounter Care Teams Calculus Professor Relationship Specialty Start Date End Date Cindy Nguyen MD [address] [place] [address] PCP - General Internal Medicine 06/01/22 documented as of this encounter
--- OUTSIDE RECORDS SUMMARY | 2024-09-30 09:42 | XMS_ITS | Encounter Summary ---
Author Organization [facility] Address [address] [place] [address] Care Team Providers Care Religion Teacher Name Role Phone Smitha Harrison MD Primary Care Provider + Smitha Harrison MD Unavailable [phone] Luis Tsai PHARMD Unavailable [phone] Zainab Moses MD Unavailable [phone] Pcp Outside [facility], Unknown Primary Care Provider U navailable Reason for Visit * Reason Comments Transitional Care Management Encounter Details Date Type Department Care Team (Late st Contact Info) Description 08/17/2021 Nurse Triage [facility] [address] [facility] [facility] [address] [place] [address] Group, [facility] [place] [address] Transitional Care Management Social History Tobacco Use Types Packs/Day Years [...] COVID-19? 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 Appointment date: TCM appointment scheduled on 08/26/[address] Smitha Alexander ANICAL SERVICE TECHNICIAN documented in this encounter Plan of Treatment Not on file documented as of this encounter Visit Diagnoses Not on filedocumented in this encounter Care Teams Religion Teacher Relationship Specialty Start Date End Date Smitha Harrison MD [address] [place] [address] PCP - General Family Practice 08/11/21 05/17/22 Pcp Outside [facility], Unknown NO KNOWN ADDRESS ON FILE PCP - General 05/18/22 Smitha Harrison MD [address] [place] [address] Family Practice 08/11/21 05/17/22 Luis Tsai, ANETTED [address] [place], [place] [id number] CDM Heart Failure Cardiology 04/28/20 Zainab Moses MD [address] [place] [address] Ged Instructor Gastroenterology 12/16/20 documented as of this encounter
--- OUTSIDE RECORDS SUMMARY | 2024-09-30 09:42 | XMS_ITS | Referral Summary ---
Author Organization [facility] Address [address] [place] [address] Care Team Providers Care Diver Assistant Name Role Phone Luis TsaiD Unavailable [phone] Zainab Moses MD Unavailable [phone] Pcp Outside [facility], Unknown Primary Care Provider U navailable Allergies Active Allergy Reactions Criticality Noted Date Comments Penicillins Other (See Comments) 06/25/2014 Tongue swell Penicillins ANAPHYLAXIS High 08/11/2021 Medications Medication Sig Dispensed Refills Start Date End Date Status alendronate (FOSAMAX) 70 MG tablet Take 70 mg by mouth every 7 days. Active methotrexate 2.5 MG Tab Take 7 tablets by mouth 1 day a week. Active folic acid (FOLATE) 1 MG tablet Take 1 mg by mouth daily. Active Multiple Vitamins-Minerals (MULTIVITAMIN ADULT PO) Take 1 tablet by mouth daily. Active losartan (COZAAR) 25 MG tablet TAKE 2 TABLETS IN THE AM AND 1 TABLET IN THE PM 270 tablet 3 08/31/2021 Active alendronate (FOSAMAX) 70 MG tablet Take 70 mg by mouth every 7 days. Takes on Active folic acid (FOLATE) 1 MG tablet Take 1 mg by mouth daily. Active methotrexate (RHEUMATREX) 2.5 MG tablet Take 17.5 mg by mouth 1 day a week. Takes on Monday Active acetaminophen (TYLENOL) 500 MG tablet Take 500 mg by mouth every 6 hours as needed for Pain. Do not start before August 15, 2021. 08/15/2021 Active B Cjteqfc-[id number]-Zn (EQL STRESS B-COMPLEX C/ZINC PO) Take 1 tablet by mouth daily. Active cholecalciferol (cholecalciferol) 25 mcg (1,000 units) tablet Take 25 mcg by mouth daily. Active losartan (COZAAR) 25 MG tablet Take 25 mg by mouth every evening. Active oxygen (O2) gas Inhale 2 L/min into the lungs continuous. 08/14/2021 Active Active Problems Problem Noted Date Diagnosed Date Nonrheumatic aortic valve stenosis 09/28/2021 Assessment & Plan (09/28/2021 11:01 AM OPTICIAN APPRENTICE DISPENSING): Has mild aortic stenosis with mean gradient of 10 mmHg on 2D echo done July 2021 Chronic hypoxemic respiratory failure (CMD) 03/2022 Assessment & Plan (09/28/2021 10:46 AM OPTICIAN APPRENTICE DISPENSING): On Home O2 Hospital discharge follow-up 08/11/2021 [...] 03/04/2020 Assessment & Plan (09/28/2021 11:01 AM OPTICIAN APPRENTICE DISPENSING): Congestive heart failure compensated. There is no volume overload. 2D echo showed preserved ejection fraction with diastolic dysfunction Assessment & Plan (01/04/2021 10:08 AM CDT): Congestive heart failure compensated Assessment & Plan (03/04/2020 12:06 PM CDT): Congestive heart failure compensated Pulmonary hypertension, mild (CMD) 11/17/2019 Assessment & Plan (09/28/2021 11:01 AM OPTICIAN APPRENTICE DISPENSING): WHO group 2 and 3 Assessment & Plan (01/04/2021 10:07 AM CDT): WHO 2 Assessment & Plan (03/04/2020 12:05 PM CDT): WHO 2 Rheumatoid arthritis involving ankle (CMD) 10/28 Gastroesophageal reflux disease without esophagi tis 10/28/2019 Osteoporosis 10/28/2019 Shortness of breath 10/28/2019 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 I change losartan to 25 mg daily and advised her to hold it if systolic blood pressure is 100 or less Assessment & Plan (01/04/2021 10:06 AM CDT): BP controlled Assessment & Plan (03/04/2020 12:05 PM CDT): BP controlled Tinnitus 01/30/2015 Resolved Problems Problem Noted Date Diagnosed Date Resolved Date Primary hypertension 08/11/2021 022 Immunizations Name Administration Dates Next Due COVID Pfizer 12Y+ 12/22/2021 COVID Pfizer 12Y+ (Requires Dilution) 06/22/2021 ,06/01/2021 Influenza, high-dose, trivalent, PF 04/28/2020,1 Social History Tobacco Use Types Packs/Day Years [...] file Not on file Not on file Last Filed Vital Signs Vital Sign Reading Time Taken Comments Blood Pressure 96/56 09/28/2021 10:47 AM OPTICIAN APPRENTICE DISPENSING only took 1 tab of Losartan Pulse 80 09/28/2021 10:38 AM OPTICIAN APPRENTICE DISPENSING Temperature 36.4 C (97.5 F) 09/27/2021 11:38 AM OPTICIAN APPRENTICE DISPENSING Respiratory Rate 14 09/27/2021 12:0 8 PM OPTICIAN APPRENTICE DISPENSING Oxygen Saturation 99% 09/27/2021 12: 08 PM OPTICIAN APPRENTICE DISPENSING Inhaled Oxygen Concentration - - Weight 72.1 kg (159 lb) 09/28/2021 10:3 8 AM OPTICIAN APPRENTICE DISPENSING Height 152.4 cm (5') 09/28/2021 10:38 AM OPTICIAN APPRENTICE DISPENSING Body Mass Index 31.05 09/28/2021 10:38 AM OPTICIAN APPRENTICE DISPENSING Functional Status Functional Status Response Date of [...] concentrating, remembering or making decisions? 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 Expl anation [id number] 01/01/2019 3:56 PM MISSING PAGE 4 * Full Resuscitation (Latest Code Status on File) Date Activated Date Inactivated Comments 08/15/2021 3:52 PM [place] Call 911 a nd attempt Resuscitation/CPR as indicated by: Patient Verbalized Wishes (contact provider) * Full Resuscitation Date Activated Date Inactivated Comments 08/11/2021 9:13 PM 08/13/2021 11:15 PM Care Teams Diver Assistant Relationship Specialty Start Date End Date Pcp Outside [facility], Unknown NO KNOWN ADDRESS ON FILE PCP - General 05/18/22 Luis Tsai PHARMD [address] [place] [address] CDM Heart Failure Cardiology 04/28/20 Zainab Moses MD [address] [place] [address] Tunnel Elastic Operator Lockstitch Gastroenterology 12/16/20
--- OUTSIDE RECORDS SUMMARY | 2024-09-30 09:42 | XMS_ITS | Continuity of Care Document ---
Author Organization [facility] Address [address] [place] [address] Care Team Providers Care Air Tank Assembler Name Role Phone Luis TsaiD Unavailable Zainab Moses MD Unavailable Pcp Outside [facility], Unknown Primary Care Provider U navailable Encounters Date Type Department Care Team Description 04/18/2022 Telephone [facility] [address] [place] [phone] Group, [facility] Message 12/22/2021 4:45 PM CDT Immunization [facility] [place] [address] [place] [phone] Need for vaccination (Primary Dx) 11/01/2021 7:47 AM CDT - 11/01/2021 11:59 PM CDT Hospital Encounter [facility] SCAN [address] [place] [address] Javier Peck MD Discharge Disposition: Home or Self Care 10/12/2021 Telephone [facility] [address] [place] [address] Group, [facility] Message 10/11/2021 Telephone [facility] [address] [place] [phone] Group, [facility] Message 10/08/2021 Telephone [facility] [address] [place] [phone] Smitha Harrison MD 10/06/2021 Med Info Forms [address] [place] [phone] Provider, Outside 09/28/2021 10:30 AM BONE CHAR OPERATOR Office Visit [facility] [address] [place] [phone] Isaac Roberts MD Chronic diastolic (congestive) heart failure (CMS/HCC) (Primary Dx); Nonrheumatic aortic valve stenosis; Chronic hypoxemic respiratory failure (CMS/HCC); Labile blood pressure; Pulmonary hypertension, mild (CMS/HCC) 09/27/2021 11:15 AM BONE CHAR OPERATOR Anesthesia Event [facility] [address] [place] [phone] Nurys Germain MD 09/27/2021 10:35 AM BONE CHAR OPERATOR - 09/27/2021 12:59 PM BONE CHAR OPERATOR Hospital Encounter [facility] [address] [place] [phone] Zainab Moses MD Discharge Disposition: Home or Self Care 09/25/2021 11:30 AM BONE CHAR OPERATOR Lab Services ACL Lab - [facility] [place] [address] [place] [address] Pre-procedural laboratory examination (Primary Dx) 09/24/2021 Travel 09/20/2021 Telephone [facility] [address] [place] [address] [place] [phone] Munoz, Gretta, utility bill complaints investigator PreAuthorization (Losartan) 09/11/2021 1:25 PM BONE CHAR OPERATOR - 09/11/2021 3:14 PM BONE CHAR OPERATOR Hospital Encounter [facility] [address] [place] [phone] Panfilo Fragoso CNP Discharge Disposition: Home or Self Care 09/10/2021 Telephone [facility] [address] [place] [address] Group, [facility] Appointment 09/09/2021 10:30 AM BONE CHAR OPERATOR Lab Services ACL Lab - [facility] [place] [address] [place] [address] Pre-procedural laboratory examination (Primary Dx) 09/02/2021 Telephone [facility] [address] [place] [address] Group, [facility] Message 09/01/2021 Refill [facility] [place] [address] [place] [address] [place] [phone] Smitha Harrison MD Refill Request 09/01/2021 Telephone [facility] [address] [place] [address] Group, [facility] Refill Request; Message 08/31/2021 Refill [facility] [address] [place] [phone] Smitha Harrison MD Refill Request 08/29/2021 Refill [facility] [place] [address] [facility] [address] [place] [phone] Isaac Roberts MD Refill Request 08/25/2021 Telephone [facility] [place] [address] [address] Yazmin Robledo, NERY Telemonitoring (clinical outreach) 08/25/2021 6:00 PM BONE CHAR OPERATOR Home Care Visit [facility] [address] [facility] [address] [place] [address] Lane Holden, PT PT - DISCIPLINE DISCHARGE 08/25/2021 9:00 AM BONE CHAR OPERATOR Home Care Visit [place] [address] [address] Vernon Romero, RN SN - OASIS DISCHARGE 08/23/2021 3:00 PM BONE CHAR OPERATOR Home Care Visit [place] [address] [address] Holden, PT PT - HOME VISIT 08/23/2021 1:30 PM BONE CHAR OPERATOR Home Care Visit [place] [address] [address] Shonna Becker, RN RN - VV VIDEO ASSESSMENT 08/20/2021 10:30 AM BONE CHAR OPERATOR Home Care Visit [place] [address] [address], PT PT - HOME VISIT 08/19/2021 2:00 PM BONE CHAR OPERATOR Home Care Visit [place] [address] [address] Vernon Romero, RN SN - ROUTINE VISIT 08/17/2021 Home Care Visit [place] [address] [address] Dalia Smiley, RN CARE CONFERENCE 08/17/2021 Telephone [facility] [address] [place] [address] Group, [facility] 08/17/2021 Nurse Triage [facility] [address] [place] [address] Group, [facility] Transitional Care Management 08/17/2021 10:00 AM BONE CHAR OPERATOR Home Care Visit [place] [address] [address] [address], PT PT - INITIAL EVALUATION 08/16/2021 Telephone [facility] [address] [place] [address] Group, [facility] Appointment (post hosp follow, pcp not available and message sent for sooner appt.) 08/15/2021 Plan of Care Documentation [facility] [address] [address] 08/15/2021 10:00 AM BONE CHAR OPERATOR Home Care Visit [facility] [address] [address] Sierra Oleary RN SN - OASIS START OF CARE 08/14/2021 Telephone [facility] Smitha Harrison MD 08/11/2021 10:57 AM BONE CHAR OPERATOR - 08/13/2021 8:30 PM BONE CHAR OPERATOR Hospital [facility] 2 MEDICAL SURGICAL [address] [phone] Miguel Montez, Jailene Rincon MD Degenhardt, NERY Jain, Virginie Lopez, NERY Martinez, Josefa Ayala, Renetta Pelaez Ruth A, RN Murray, Olivia L, RN Rosalba Saucedo, NERY Norris, Negar Lopez RN Tadros, Zaid M Lofton, Khalilah R, [facility] Milana Easton, Kamille Castañeda, Sony Baker Deborah, Yaquelin Garcia, INFORMATION ENGINEER Angi Martinez, MATERNAL FETAL PHYSICIAN Gina Leonard, MATERNAL FETAL PHYSICIAN Boubacar Carroll MD Corley, Cheree A, RN Wrobel, Kinga, Marquis Jordan, [facility] Mable Sotelo RN Rodriguez, Leslieann A, RN Aguirre, Julian, [facility] Joann Hi, [facility] Barbara Husain RN Acosta, Elaine, MATERNAL FETAL PHYSICIAN Cheryle German, [facility] Kelly Cardoso, INFORMATION ENGINEER Haily Bills, MATERNAL FETAL PHYSICIAN Steve Malone MD Rivera, Brenda I, [facility] Discharge Disposition: Home-Health Care Services 08/11/2021 Telephone [facility] [address] [place] [address] Group, [facility] 08/11/2021 Travel 08/11/2021 9:30 AM BONE CHAR OPERATOR Office Visit [facility] [address] [place] [phone] Maribel Stanley CNP Hospital discharge follow-up (Primary Dx); Chronic diastolic (congestive) heart failure (CMS/HCC); Essential hypertension; Pulmonary hypertension, mild (CMS/HCC); Obesity (BMI 30-39.9); Sinus tachycardia 08/10/2021 7:21 PM BONE CHAR OPERATOR - 08/11/2021 8:21 AM BONE CHAR OPERATOR Emergency [facility] [address] [place] [phone] Discharge Disposition: Home or Self Care 08/10/2021 Travel 08/10/2021 Nurse Triage [facility] [address] [place] [address] Group, [facility] Message; Contact Ctr Nurse Triage; Palpitations; Hypertension 08/02/2021 Telephone [facility] [address] [place] [phone] Group, [facility] Information Only 08/02/2021 9:30 AM BONE CHAR OPERATOR Telephonic Visit [facility] [address] [place] [phone] Luis Tsai, PHARMD Essential hypertension (Primary Dx) 07/10/2021 11:02 AM BONE CHAR OPERATOR - 07/10/2021 11:59 PM BONE CHAR OPERATOR Hospital Encounter [facility] [address] [place] [phone] Smitah Harrison MD Discharge Disposition: Home or Self Care 07/07/2021 Orders Only [facility] [address] [place] [address] Smitha Harrison MD Dizziness (Primary Dx); Vertigo 07/06/2021 Telephone [facility] [address] [place] [address] [facility] 07/01/2021 Telephone [facility] [address] [place] [address] [facility] Message 06/24/2021 8:00 AM CDT Office Visit [facility] [address] [place] [address] Smitha Harrison MD Chronic diastolic (congestive) heart failure (CMS/HCC) (Primary Dx); Essential hypertension; Gastroesophageal reflux disease without esophagitis; Gastric adenocarcinoma (CMS/HCC) 06/22/2021 11:15 AM CDT Pharmacist Clinic Visit [facility] [address] [place] [address] Luis Tsai, ANETTED Essential hypertension (Primary Dx) 06/22/2021 11:00 AM CDT Immunization [facility] [address] [place] [address] Estevan Molina MD Need for vaccination (Primary Dx) 06/08/2021 Refill [facility] [address] [place] [address] Isaac Roberts MD Refill Request 06/01/2021 1:00 PM CDT Immunization [facility] [address] [place] [address] Need for vaccination (Primary Dx) 05/31/2021 Orders Only [facility] [address] [place] [phone] Javier Peck MD Rectal cancer (CMS/HCC) (Primary Dx); Anemia, unspecified type; Malignant neoplasm of stomach, unspecified location (CMS/HCC) 05/31/2021 12:30 PM CDT - 05/31/2021 11:59 PM CDT Hospital Encounter [facility] [address] [place] [phone] Javier Peck MD Discharge Disposition: Home or Self Care 05/20/2021 Telephone [facility] [address] [place] [address] Gretta Munoz RN 05/14/2021 1:30 PM CDT Telephonic Visit [facility] [address] [place] [address] Luis Tsai, ANETTED Chronic diastolic (congestive) heart failure (CMS/HCC) (Primary Dx) 05/10/2021 7:54 AM CDT - 05/10/2021 11:59 PM CDT Hospital Encounter [facility] SCAN [address] [place] [phone] Smitha Harrison MD Discharge Disposition: Home or Self Care 05/07/2021 Telephone [facility] [address] [address] Group, [facility] Information Only 05/07/2021 1:00 PM CDT Telephonic Visit [facility] [address] [place] [address] [place] [address] Luis Tsai, PHARMRohan Chronic diastolic (congestive) heart failure (CMS/HCC) (Primary Dx) 05/04/2021 Telephone [facility] [address] [facility] [address] [place] [address] Group, [facility] Appointment 04/30/2021 Telephone [facility] [facility] [address] [place] [address] Group, [facility] Information Only 04/30/2021 Telephone [facility] [address] [address] Group, [facility] Message 04/30/2021 10:00 AM CDT Office Visit [facility] [address] [place] [address] Luis Tsai PHARMD Chronic diastolic (congestive) heart failure (CMS/HCC) (Primary Dx) 04/30/2021 9:40 AM CDT Office Visit [facility] [place] [address] [place] [address] Smitha Harrison MD Essential hypertension (Primary Dx); Right upper quadrant abdominal tenderness, rebound tenderness presence not specified; Gastroesophageal reflux disease without esophagitis; Gastric adenocarcinoma (CMS/HCC); Vertigo 04/29/2021 Refill [facility] [place] [address] [place] [address] Smitha Harrison MD Refill Request 04/27/2021 8:26 AM CDT - 04/27/2021 11:59 PM CDT Hospital Encounter [facility] MRI [address] [place] [phone] Zainab Moses MD Discharge Disposition: Home or Self Care 04/21/2021 11:50 AM CDT - 04/21/2021 11:59 PM CDT Hospital Encounter [facility] [address] [place] [phone] Javier Peck MD Discharge Disposition: Home or Self Care 04/19/2021 Telephone [facility] [address] [facility] [address] [place] [address] Group, [facility] Information Only 04/19/2021 10:30 AM CDT Office Visit [facility] [place] [address] [facility] [place] [address] Tyrone Moore MD Sensorineural hearing loss (SNHL) of both ears (Primary Dx); Tinnitus of both ears 04/19/2021 11:00 AM CDT Office Visit [facility] [address] [facility] [place] [address] Allie Prince AUD Sensorineural hearing loss (SNHL) of both ears (Primary Dx) 04/01/2021 Refill [facility] [address] [place] [address] [place] [address] Smitha Harrison MD Refill Request 03/30/2021 7:44 AM CDT - 03/30/2021 11:59 PM CDT Hospital Encounter [facility] SCAN [address] [place] [phone] Javier Peck MD Discharge Disposition: Home or Self Care 03/06/2021 11:40 AM CDT - 03/06/2021 11:59 PM CDT Hospital Encounter [facility] [address] [place] [phone] Javier Peck MD Discharge Disposition: Home or Self Care 03/03/2021 [facility] [address] [place] [address] Smitha Harrison MD Refill Request 02/05/2021 Travel 02/05/2021 6:35 AM CDT - 02/05/2021 8:01 AM CDT Hospital Encounter [facility] [address] [place] [phone] Zainab Moses MD Rudnick, David A, MD Discharge Disposition: Home or Self Care 02/05/2021 6:58 AM CDT Anesthesia Event [facility] [address] [place] [phone] Tian Ashley MD 02/04/2021 Travel 02/03/2021 11:00 AM CDT Lab Services ACL Lab - [facility] [place] [address] [place] [address] Pre-procedure lab exam (Primary Dx) 02/02/2021 Refill [facility] [address] [place] [address] Smitha Harrison MD Refill Request 01/27/2021 [facility] [address] [place] [address] Group, [facility] Appointment 01/12/2021 8:30 AM CDT Office Visit [facility] [place] [address] [place] [address] Tyrone Moore MD Sensorineural hearing loss (SNHL) of both ears (Primary Dx) 01/08/2021 Telephone [facility] [address] [place] [address] Group, [facility] Appointment 01/07/2021 Refill [facility] [address] [place] [phone] Smitha Harrison MD Refill Request 01/05/2021 Telephone [facility] [address] [place] [address] Group, [facility] 01/04/2021 10:00 AM CDT Office Visit [facility] [address] [place] [address] Isaac Roberts MD Essential hypertension (Primary Dx); Pulmonary hypertension, mild (CMS/HCC); Chronic diastolic (congestive) heart failure (CMS/HCC) 12/26/2020 11:20 AM CDT - 12/26/2020 11:59 PM CDT Hospital Encounter [facility] [address] [place] [address] Smitha Harrison MD Discharge Disposition: Home or Self Care 12/25/2020 Orders Only [facility] Scheduling Javier Peck MD Rectal cancer (CMS/HCC) (Primary Dx) 12/16/2020 9:00 AM CDT Office Visit [facility] [address] [place] [phone] Rafia Mckinney CNP Gastroesophageal reflux disease, unspecified whether esophagitis present (Primary Dx); Disorder of right eustachian tube; Chronic diastolic (congestive) heart failure (CMS/HCC) 12/15/2020 Telephone [facility] [address] [facility] [address] [place] [address] Group, [facility] Appointment 12/14/2020 Telephone [facility] [place] [address] [place] [address] Isaac Roberts MD 12/14/2020 Telephone [facility] [address] [facility] [address] [place] [address] Group, [facility] Message 12/14/2020 12:10 PM CDT Nurse Only [facility] [place] [address] [place] [address] [place] [address] Problem of both ears (Primary Dx) 12/11/2020 Telephone [facility] [address] [place] [address] Group, [facility] Triage 12/07/2020 Travel 12/07/2020 12:30 PM CDT Office Visit [facility] [place] [address] [place] [address] Hilario Mohan MD Dizziness (Primary Dx); Essential hypertension; 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); Impacted cerumen of right ear 12/07/2020 Telephone [facility] [address] [place] [address] Group, [facility] Appointment 10/29/2020 Orders Only [facility] [address] [place] [address] Rod Rondon MD Need for vaccination 10/10/2020 9:29 AM BONE CHAR OPERATOR - 10/10/2020 11:59 PM BONE CHAR OPERATOR Hospital Encounter [facility] [address] [place] [phone] Smitha Harrison MD Discharge Disposition: Home or Self Care 10/07/2020 3:07 PM BONE CHAR OPERATOR - 10/07/2020 11:59 PM BONE CHAR OPERATOR Hospital Encounter [facility] [address] [place] [phone] Andree Hansen CNP Discharge Disposition: Home or Self Care 09/15/2020 Telephone [facility] [address] [place] [address] Group, [facility] 09/14/2020 Travel 09/14/2020 9:35 AM BONE CHAR OPERATOR Anesthesia Event [facility] [address] [place] [phone] Charles Larsen MD 09/14/2020 9:02 AM BONE CHAR OPERATOR - 09/14/2020 10:45 AM BONE CHAR OPERATOR Hospital Encounter [facility] [address] [place] [phone] Zainab Moses MD Discharge Disposition: Home or Self Care 09/13/2020 External Record Outside Facility Provider, Outside 09/12/2020 8:40 AM BONE CHAR OPERATOR Lab Services [facility] [address] [place] [phone] Pre-procedural laboratory examination (Primary Dx) 09/11/2020 Travel 08/21/2020 External Record [address] [place] [address] Provider, Outside 08/19/2020 Telephone [facility] [address] [place] [address] [place] [address] Gretta Munoz RN 08/19/2020 Telephone [facility] [address] [place] [address] Gretta Munoz RN 08/15/2020 9:54 AM BONE CHAR OPERATOR - 08/15/2020 11:59 PM BONE CHAR OPERATOR Hospital Encounter [facility] MAMMOGRAPHY [address] [place] [address] Smitha Harrison MD Discharge Disposition: Home or Self Care 08/07/2020 Telephone [facility] [address] [place] [address] [facility], [facility] Information Only 08/07/2020 Travel 08/07/2020 3:20 PM BONE CHAR OPERATOR Telephonic Visit [facility] [address] [place] [address] Smitha Harrison MD Chronic diastolic (congestive) heart failure (CMS/HCC) (Primary Dx); Essential hypertension; Sensorineural hearing loss (SNHL) of both ears; Pulmonary hypertension, mild (CMS/HCC); Gastroesophageal reflux disease without esophagitis; 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); Gastric adenocarcinoma (CMS/HCC) 08/05/2020 Telephone [facility] [address] [place] [address] Smitha Harrison MD 08/03/2020 Telephone [facility] [address] [place] [phone] Group, [facility] Message 07/14/2020 9:15 AM BONE CHAR OPERATOR Office Visit [facility] [address] [place] [phone] Lito Haynes MD Sebaceous cyst (Primary Dx); Postop check 07/07/2020 Refill [facility] [address] [place] [phone] Isaac Roberts MD Refill Request 07/06/2020 10:45 AM BONE CHAR OPERATOR Office Visit [facility] [address] [place] [address] Isaac Roberts MD Chronic diastolic (congestive) heart failure (CMS/HCC) (Primary Dx); Pulmonary hypertension, mild (CMS/HCC); Essential hypertension 06/30/2020 7:00 AM BONE CHAR OPERATOR - 06/30/2020 8:00 AM BONE CHAR OPERATOR [facility] [address] [place] [phone] Lito Haynes MD excision sebaceous cyst abdominal wall 06/30/2020 5:51 AM BONE CHAR OPERATOR - 06/30/2020 7:26 AM BONE CHAR OPERATOR Hospital Encounter [facility] [address] [place] [phone] Lito Haynes MD Discharge Disposition: Home or Self Care 06/29/2020 Travel 06/28/2020 9:40 AM BONE CHAR OPERATOR Lab Services [facility] UN[facility] [address] [place] [phone] Encounter for preprocedure screening laboratory testing for COVID-19 (Primary Dx) 06/17/2020 Prep for Building Services Engineer [facility] [address] [place] [address] [address] [place] [address] Lito Haynes MD Sebaceous cyst (Primary Dx) 06/17/2020 Prep for Building Services [facility] [address] [place] [address] [address] [place] [address] Lito Haynes MD 06/16/2020 12:30 PM CDT Office Visit [facility] [address] [place] [address] [address] [place] [address] Lito Haynes MD Gastric adenocarcinoma (CMS/HCC) (Primary Dx) 06/12/2020 Telephone [facility] [address] [facility] [address] [place] [address] Group, [facility] 06/12/2020 Telephone [facility] [address] [facility] [address] [place] [address] Group, [facility] Information Only 06/11/2020 Telephone [facility] [address] [place] [address] Isaac Roberts MD 06/10/2020 2:20 PM CDT Imaging Services [facility] [address] [address] [place] [address] Javier Peck MD Rectal cancer (CMS/HCC); Gastric cancer (CMS/HCC) 06/10/2020 2:00 PM CDT Imaging Services [facility] [address] [place] [address] Javier Peck MD Rectal cancer (CMS/HCC); Gastric cancer (CMS/HCC) 06/06/2020 Telephone [facility] [address] [place] [address] Group, [facility] Message 06/05/2020 Telephone [facility] [address] [place] [address] Group, [facility] Message 06/04/2020 Orders Only [facility] [place] [address] [place] [address] Smitha Harrison MD Rectal adenocarcinoma ([facility]/HCC) (Primary Dx); Gastric adenocarcinoma ([facility]/HCC) 06/04/2020 Telephone [facility] [address] [place] [address] Group, [facility] Triage 06/04/2020 Telephone [facility] [address] [facility] [address] [place] [address] Group, [facility] Triage 06/04/2020 Travel 06/04/2020 9:42 AM CDT - 06/04/2020 11:40 AM CDT Emergency [facility] [address] [phone] Soy Flynn, Reji Vora, RN Thiago Cardoso Angelina L Local skin infection (Primary Dx) Discharge Disposition: Home or Self Care 06/03/2020 Travel 06/03/2020 6:45 PM CDT Office Visit [facility] [address] [address] Glenny Rodrigez, ELLYN Right upper quadrant abdominal tenderness without rebound tenderness (Primary Dx) 06/03/2020 Telephone [facility] [address] [place] [address] Group, [facility] Appointment 05/25/2020 Telephone [facility] [address] [place] [address] Group, [facility] Referral 05/23/2020 12:31 AM CDT Hospital [facility] Smitha Kamara MD 04/29/2020 E-Advice [facility] [address] [place] [address] Kristine Sanon CMA updated Referral 04/29/2020 Telephone [facility] [address] [place] [address] Group, [facility] Message 04/28/2020 10:45 AM CDT Office Visit [facility] [address] [place] [address] Luis Tsai, PHARMD Chronic diastolic (congestive) heart failure (CMS/HCC) (Primary Dx) 04/28/2020 9:40 AM CDT Office Visit [facility] [address] [place] [address] Smitha Harrison MD Need for influenza vaccination (Primary Dx); Abnormal gait; 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); Essential hypertension; Pulmonary hypertension, mild (CMS/HCC) 04/17/2020 Travel 04/17/2020 11:00 AM CDT Office Visit [facility] [place] [address] [facility] [place] [address] Allie Prince AUD Sensorineural hearing loss (SNHL) of both ears (Primary Dx); Tinnitus of both ears 04/17/2020 10:30 AM CDT Office Visit [facility] [place] [address] [facility] [place] [address] Tyrone Moore MD Bilateral impacted cerumen (Primary Dx); Sensorineural hearing loss (SNHL) of both ears 04/11/2020 Orders Only [facility] [address] [place] [address] Smitha Harrison MD 04/11/2020 Orders Only [facility] [address] [place] [address] Smitha Harrison MD 04/11/2020 Orders Only [facility] [address] [place] [address] Smitha Harrison MD 04/11/2020 Orders Only [facility] [address] [place] [address] Smitha Harrison MD 04/11/2020 Orders Only [facility] [address] [place] [address] Smitha Harrison MD 04/11/2020 12:45 AM CDT Hospital [facility] Smitha Ordaz MD Discharge Disposition: Home or Self Care 03/26/2020 Telephone [facility] [address] [place] [address] Luis Tsai, PHARMD CHF; Referral 03/19/2020 Telephone [facility] [address] [facility] [address] [place] [address] Group, [facility] Information Only 03/17/2020 Telephone [facility] [address] [facility] [address] [place] [address] Group, [facility] Information Only 03/17/2020 9:20 AM CDT Office Visit [facility] [address] [place] [address] Smitha Harrison MD Need for vaccination (Primary Dx); Postmenopausal status (age-related) (natural); Essential hypertension; Pulmonary hypertension, mild (CMS/HCC); Chronic diastolic (congestive) heart failure (CMS/HCC); Gastroesophageal reflux disease without esophagitis; 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) 03/14/2020 12:35 AM CDT Hospital [facility] Javier Norton MD 03/06/2020 Telephone [facility] [place] [address] [place] [address] Kim Rod RN 03/06/2020 Telephone [facility] [address] [place] [address] Group, [facility] Information Only 03/04/2020 Telephone [facility] [address] [place] [address] Group, [facility] Message 03/04/2020 Telephone [facility] [address] [place] [address] Group, [facility] 03/04/2020 Telephone [facility] [address] [place] [address] Group, [facility] Message ([place] COVID-19 Screening-Negative) 03/04/2020 11:15 AM CDT Office Visit [facility] [place] [address] [place] [address] Isaac Roberts MD Essential hypertension (Primary Dx); Shortness of breath; Chronic diastolic (congestive) heart failure (CMS/HCC); Pulmonary hypertension, mild (CMS/HCC) 03/02/2020 Telephone [facility] [address] [place] [address] Group, [facility] Message ([place] COVID-19 Screening Negative) 03/02/2020 E-Advice [facility] [place] [address] [place] [address] Kristine Sanon CMA Medical information 03/02/2020 Telephone [facility] [address] [place] [address] Group, [facility] Information Only 03/02/2020 E-Advice [facility] [address] [place] [address] Smitha Harrison MD Upcoming Appointment 03/02/2020 Telephone [facility] [address] [place] [address] Group, [facility] Information Only (COVID-19 Screening [NEGATIVE}) 03/02/2020 2:20 PM CDT V-Visit [facility] [address] [place] [address] [place] [address] Smitha Harrison MD Heart failure, unspecified HF chronicity, unspecified heart failure type (CMS/HCC) (Primary Dx) 03/01/2020 Telephone [facility] [address] [place] [address] Group, [facility] Appointment (COVID_NEGATIVE) 02/18/2020 Telephone [facility] [address] [place] [address] Group, [facility] Transitional Care Management 02/15/2020 Telephone [facility] Nurse Navigator [address] [place] [address] Laz Judd MD Convey Results (COVID-19) 02/14/2020 Telephone [facility] [address] [place] [address] Group, [facility] Message ([place] COVID-19 Screening negative) 02/13/2020 Diagnostic Trans [facility] CONVERSION Soy Flynn DO 02/13/2020 Orders Only [facility] CONVERSION System, Provider Not In 02/13/2020 7:40 PM CDT Hospital [facility] TAMARA CONVERSION Provider, [facility] Historical Conversion Laz Judd MD Salman, Alicja, MD Discharge Disposition: Home or Self Care 02/13/2020 Telephone [facility] [address] [place] [address] Group, [facility] Contact Ctr Nurse Triage ([place] COVID-19 Screening Negative); Appointment 01/22/2020 Travel 01/22/2020 2:00 PM CDT Office Visit [facility] [place] [address] [facility] [facility] [place] [address] Tom Mueller MD Arthritis of left shoulder region (Primary Dx); Essential hypertension 01/21/2020 Telephone [facility] [address] [facility] [address] [place] [address] Group, [facility] Information Only (COVID-19 Screening [NEGATIVE];) 01/21/2020 Telephone [facility] [address] [place] [address] [address] [place] [address] Group, [facility] Appointment (COVID SCREENING-NEGATIVE ) 01/17/2020 [facility] [address] [place] [address] [place] [address] Group, [facility] Message (COVID-19 Screening [NEGATIVE]; Call Patient @ [id number]; [insert reason for visit] INFORMED OF ZOOM); Message (UNIVERS[place] COVID-19 SCREENING NEGATIVE) 01/09/2020 Telephone [facility] [address] [place] [address] [address] [place] [address] Group, [facility] Message (UNIVERS[place] COVID-19 SCREENING POSITIVE) 01/09/2020 [facility] [address] [place] [address] [place] [address] Group, [facility] Appointment (COVID-19 Screening [POSITIVE];) 01/09/2020 [facility] [address] [place] [address] [address] [place] [address] Group, [facility] Appointment (COVID-19 Screening [NEGATIVE];) 01/07/2020 Orders Only [facility] CONVERSION Javier Peck MD 01/07/2020 Orders Only [facility] CONVERSION Javier Peck MD 01/07/2020 Orders Only [facility] Javier Lazcano MD 01/07/2020 12:53 AM CDT Hospital [facility] CERNER CONVERSION Javier Peck MD Discharge Disposition: Home or Self Care 12/16/2019 Telephone [facility] [address] [place] [address] Group, [facility] Information Only ([place] COVID-19 Screening - Negative) 11/29/2019 12:45 PM CDT Office Visit [facility] [address] [place] [address] Christin Townsend MD 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); PAH (pulmonary artery hypertension) (CMS/HCC); Hypertension secondary to other renal disorders; Rectal adenocarcinoma (CMS/HCC); Gastric adenocarcinoma (CMS/HCC) 11/28/2019 Telephone [facility] [address] [place] [address] Group, [facility] 11/27/2019 Telephone [facility] [address] [facility] [address] [place] [address] Group, [facility] Message 11/27/2019 Telephone [facility] [address] [phone] Group, [facility] Information Only 11/25/2019 Refill [facility] [address] [facility] [address] [place] [address] Cecile Alcantara CMA 11/15/2019 Telephone [facility] [address] [place] [address] Group, [facility] Appointment ([place] Screening COVID-19: Negative ) 11/11/2019 Telephone [facility] [address] [place] [address] Ro Martini RN 11/08/2019 1:15 PM CDT Office Visit [facility] [address] [place] [address] Christin Townsend MD 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); Osteoporosis with current pathological fracture, unspecified osteoporosis type, initial encounter; Hypertension, unspecified type; Rectal adenocarcinoma (CMS/HCC); Gastric adenocarcinoma (CMS/HCC); Shortness of breath; PAH (pulmonary artery hypertension) (CMS/HCC) 11/07/2019 Telephone [facility] [address] [place] [address] [place] [address] Ro Martini RN 11/04/2019 1:00 PM CDT Ancillary Procedure [facility] [address] [place] [address] Shortness of breath 10/31/2019 7:25 PM CDT Lab Services [address] [address] Shortness of breath (Primary Dx); Hypertension due to endocrine disorder; Gastroesophageal reflux disease without esophagitis; Osteoporosis with current pathological fracture, unspecified osteoporosis type, initial encounter; Rheumatoid arthritis involving ankle, unspecified laterality, unspecified rheumatoid factor presence (CMS/HCC); Gastric adenocarcinoma (CMS/HCC); Rectal adenocarcinoma (CMS/HCC) 10/31/2019 8:15 AM CDT Imaging Services [facility] [address] [place] [address] [place] [address] Rheumatoid arthritis involving ankle, unspecified laterality, unspecified rheumatoid factor presence ([facility]/HCC); Shortness of breath 10/31/2019 8:10 AM CDT Lab Services [facility] [address] [place] [address] [place] [address] Gastric adenocarcinoma (CMS/HCC); Shortness of breath; Rheumatoid arthritis involving ankle, unspecified laterality, unspecified rheumatoid factor presence (CMS/HCC) 10/29/2019 Telephone [facility] [address] [facility] [address] [place] [address] [facility], [facility] [facility] 10/28/2019 1:30 PM CDT Office Visit [facility] [address] [place] [address] Christin Townsend MD Shortness of breath (Primary Dx); Gastric adenocarcinoma (CMS/HCC); Rheumatoid arthritis involving ankle, unspecified laterality, unspecified rheumatoid factor presence (CMS/HCC); Rectal adenocarcinoma (CMS/HCC); Osteoporosis with current pathological fracture, unspecified osteoporosis type, initial encounter; Hypertension, unspecified type 10/21/2019 Telephone [facility] [address] [place] [address] Group, [facility] Information Only 10/09/2019 Telephone [facility] [address] [place] [address] Group, [facility] Appointment 09/19/2019 Orders Only [facility]VERSION Javier Peck MD 09/19/2019 Orders Only [facility] CONVERSION Javier Peck MD 09/19/2019 Orders Only [facility] CONVERSION Javier Peck MD 09/19/2019 Orders Only [facility] CONVERSION Javier Peck MD 09/19/2019 Orders Only [facility] CON[facility] Javier Peck MD 09/19/2019 1:24 PM [facility] Hospital [facility] CERNER CONVERSION Javier Peck MD Discharge Disposition: Home or Self Care 09/10/2019 Telephone [facility] [address] [facility] [address] [place] [address] Group, [facility] Other 08/26/2019 Orders Only [facility] CON[facility] Zainab Moses MD 08/26/2019 1:01 AM [facility] Hospital [facility] CERNER CONVERSION Zainab Moses MD Discharge Disposition: Home or Self Care 08/21/2019 External Record [facility] [address] [place] [address] [place] [address] Provider, Outside 07/17/2019 Orders Only [facility] [address] [place] [address] Tom Mueller MD 07/17/2019 12:42 AM [facility] Hospital ADVOCATE CERNER Javier Lazcano MD Provider, [employer] [employer] Historical Conversion Discharge Disposition: Home or Self Care 06/14/2019 Orders Only [facility] CON[facility] Andree Hansen CNP 06/14/2019 12:51 AM T Hospital [facility] CERNER CONVERSION Provider, [employer] Historical Conversion Andree Hansen CNP Discharge Disposition: Home or Self Care 05/28/2019 External Record [facility] [address] [place] [address] [place] [address] Provider, Outside 05/28/2019 Orders Only [facility] CONVERSION Javier Peck MD 05/28/2019 Orders Only [facility] CONVERSION Javier Peck MD 05/28/2019 Orders Only [facility] CONVERSION Javier Peck MD 05/28/2019 Orders Only [facility] CONVERSION Javier Peck MD 05/28/2019 Orders Only [facility] CONVERSION Javier Peck MD 05/28/2019 10:44 AM [facility] Hospital AD[facility]ATE CERNER CONVERSION Javier Peck MD Discharge Disposition: Home or Self Care 05/27/2019 Orders Only [facility] [address] [facility] [address] [place] [address] Erica Noble [facility] 05/27/2019 9:00 AM CDT Office Visit [facility] [address] [facility] [place] [address] [place] [address] Tom Mueller MD Chronic left shoulder pain (Primary Dx); Breast screening; Essential hypertension; Rheumatoid arthritis, involving unspecified site, unspecified rheumatoid factor presence (CMS/HCC); History of rectal cancer; History of gastric cancer; Need for immunization against influenza 03/07/2019 11:20 AM CDT Office Visit [facility] [address] [facility] [address] [place] [address] Tom Mueller MD Acute right-sided low back pain without sciatica (Primary Dx); Back strain, initial encounter 03/04/2019 Telephone [facility] [address] [facility] [place] [address] [place] [address] Tom Mueller MD Message (Back pain) 01/21/2019 10:16 AM [facility] Hospital [facility] CERNER CONVERSION Javier Peck MD Discharge Disposition: Home or Self Care 01/21/2019 Orders Only [facility] CONVERSION Javier Peck MD 01/21/2019 Orders Only [facility] CONVERSION Javier Peck MD 11/22/2018 1:00 PM CDT Office Visit [facility] [address] [place] [address] Tom Mueller MD Essential hypertension (Primary Dx); Rheumatoid arthritis, involving unspecified site, unspecified rheumatoid factor presence (CMS/HCC); History of gastric cancer; History of rectal cancer 11/01/2018 5:49 AM [facility] Hospital AD[facility]ATE CERNER CONVERSION Javier Peck MD Discharge Disposition: Home or Self Care 11/01/2018 Orders Only [facility] CONVERSION Javier Peck MD 10/22/2018 Orders Only [facility] CONVERSION Javier Peck MD 10/22/2018 Orders Only [facility] CONVERSION Javier Peck MD 10/22/2018 Orders Only [facility] CONVERSION Javier Peck MD 10/19/2018 7:00 AM [facility] Hospital ADVOCATE CERNER CONVERSION Javier Peck MD Discharge Disposition: Home or Self Care 10/15/2018 Orders Only [facility] CONVERSION Javier Peck MD 10/08/2018 Orders Only [facility] CONVERSION Javier Peck MD 10/01/2018 Orders Only [facility] CONVERSION Javier Peck MD 10/01/2018 Orders Only [facility] CONVERSION Javier Peck MD 10/01/2018 Orders Only [facility] CONVERSION Javier Peck MD 09/24/2018 Abstract [facility] [address] [place] [address] Provider, [facility] Historical Conversion 09/24/2018 Orders Only [facility] Javier Lazcano MD 09/21/2018 7:00 AM [facility] Hospital ADVOCATE CERNER Javier Lazcano MD Discharge Disposition: Home or Self Care 09/17/2018 Orders Only [facility] CONVERSION Javier Peck MD 09/10/2018 Orders Only [facility] CONVERSION Javier Peck MD 09/10/2018 Orders Only [facility] CONVERSION Javier Peck MD 09/10/2018 Orders Only [facility] CONVERSION Javier Peck MD 09/04/2018 Orders Only [facility] CONVERSION Javier Peck MD 09/04/2018 Orders Only [facility] CONVERSION Javier Peck MD 08/28/2018 Orders Only [facility] CONVERSION Javier Peck MD 08/22/2018 Orders Only [facility] CONVERSION Javier Peck MD 08/22/2018 Orders Only [facility] CONVERSION Javier Peck MD 08/22/2018 Orders Only [facility] CONVERSION Javier Peck MD 08/21/2018 7:00 AM [facility] Hospital ADVOCATE CERNER Javier Lazcano MD Discharge Disposition: Home or Self Care 08/21/2018 External Record [facility] [address] [place] [address] [place] [address] Provider, Outside 08/17/2018 Orders Only [facility] [place] [address] [place] [address] Erica Noble, ACACIA Hypertension, unspecified type (Primary Dx) 08/17/2018 Orders Only [facility] [place] [address] [place] [address] Erica Noble CMA 08/17/2018 Telephone [facility] [place] [address] [place] [address] Tom Mueller MD Refill Request 08/15/2018 Orders Only [facility] CONVERSION Javier Peck MD 08/07/2018 Orders Only [facility] CONVERSION Javier Peck MD 07/31/2018 Orders Only [facility] CONVERSION Javier Peck MD 07/31/2018 Orders Only [facility] CONVERSION Javier Peck MD 07/31/2018 Orders Only [facility] CONVERSION Javier Peck MD 07/24/2018 Orders Only [facility] CONVERSION Javier Peck MD 07/24/2018 Orders Only [facility] CONVERSION Javier Peck MD 07/24/2018 Orders Only [facility] CONVERSION Javier Peck MD 07/21/2018 1:00 AM [facility] Hospital ADVOCATE CERNER Javier Lazcano MD Discharge Disposition: Home or Self Care 07/21/2018 Prior Original Records [facility] [address] [place] [address] [place] [address] Provider, Outside 07/09/2018 6:58 AM [facility] ADVOCATE CERNER Javier Lazcano MD Discharge Disposition: Home or Self Care 07/09/2018 Imaging Services [facility] CONVERSION Javier Peck MD 06/30/2018 1:40 PM [facility] ADVOCATE CERNER Javier Lazcano MD Discharge Disposition: Home or Self Care 05/28/2018 Prior Original Records [facility] MOSAIQ CONVERSION Donald Ware MD 05/28/2018 Prior Original Records [facility] MOSAIQ CONVERSION Provider, [facility] Historical Conversion Provider 05/28/2018 1:27 AM [facility] ADVOCATE CERNER CONVERSION Donald Ware MD Discharge Disposition: Home or Self Care 05/01/2018 8:15 AM [facility] ADVOCATE CERNER CONVERSION Fidel Bhatia MD Prasad, Neenu, MD Balash, Paul R, MD Discharge Disposition: Home-Health Care Services 04/04/2018 10:54 AM [facility] ADVOCATE CERNER CONVERSION Donald [place] MD Discharge Disposition: Home or Self Care 04/04/2018 Diagnostic Trans [facility] CONVERSION Donald [place] MD 04/04/2018 Lab Services [facility] CONVERSION Donald [place] MD 04/04/2018 Lab Services [facility] CONVERSION Donald [place] MD 03/19/2018 12:46 AM T Hospital ADVOCATE CERNER CONVERSION Javier Peck MD Discharge Disposition: Home or Self Care 03/12/2018 Prior Original Records [facility] MOSAIQ CONVERSION Donald Ware MD 03/12/2018 Prior Original Records [facility] MOSAIQ CONVERSION Provider, [facility] Historical Conversion Provider 03/05/2018 Prior Original Records [facility] MOSAIQ CONVERSION Donald Ware MD 02/26/2018 Prior Original Records [facility] MOSAIQ CONVERSION Donald Ware MD 02/26/2018 Prior Original Records [facility] MOSAIQ CONVERSION Provider, [facility] Historical Conversion Provider 02/19/2018 Prior Original Records [facility] MOSAIQ CONVERSION Donald Ware MD 02/19/2018 Prior Original Records [facility] MOSAIQ CONVERSION Provider, [facility] Historical Conversion Provider 02/18/2018 1:00 AM T Hospital ADVOCATE CERNER CONVERSION Javier Peck MD Discharge Disposition: Home or Self Care 02/18/2018 1:00 AM [facility] Hospital ADVOCATE CERNER CONVERSION Donald Ware MD Discharge Disposition: Home or Self Care 02/12/2018 Prior Original Records [facility] MOSAIQ CONVERSION Donald Ware MD 02/12/2018 Prior Original Records [facility] MOSAIQ CONVERSION Provider, [facility] Historical Conversion Provider 02/05/2018 Prior Original Records [facility] MOSAIQ CONVERSION Doanld Ware MD 02/05/2018 Prior Original Records [facility] MOSAIQ CONVERSION Provider, [facility] Historical Conversion Provider 02/01/2018 Prior Original Records [facility] MOSAIQ CONVERSION Provider, [facility] Historical Conversion Provider 01/29/2018 Prior Original Records [facility] MOSAIQ CONVERSION Donald Ware MD 01/29/2018 Prior Original Records [facility] MOSAIQ CONVERSION Provider, [facility]mg [facility] Historical Conversion Provider 01/24/2018 Prior Original Records ADVOCATE MOS[facility] CONVERSION Provider, [facility] Historical Conversion Provider 01/22/2018 Prior Original Records ADVOCATE [facility] CONVERSION Donald Ware MD 01/22/2018 Prior Original Records ADVOCATE [facility] CONVERSION Provider, [facility] Historical Conversion Provider 01/19/2018 9:13 AM T Hospital ADV[facility]ATE [facility] CONVERSION Javier Peck MD Discharge Disposition: Home or Self Care 01/19/2018 1:00 AM CDT Hospital ADVOCATE [facility] CONVERSION Donald Ware MD Discharge Disposition: Home or Self Care 01/18/2018 Prior Original Records ADVOCATE MOS[facility] CONVERSION Donald Ware MD 01/18/2018 Prior Original Records AD[facility]ATE [facility] [facility] [place] Conversion Provider 12/28/2017 Prior Original Records ADVOCATE MOS[facility] CONVERSION Donald Ware MD 12/21/2017 Prior Original Records ADVOCATE [facility] CONVERSION Donald Ware MD 12/21/2017 Prior Original Records ADVOCATE [facility] CON[place] [facility] [place] Conversion Provider 12/21/2017 12:44 PM [facility] ADVOCATE CERNER CONVERSION Donald Ware MD Discharge Disposition: Home or Self Care 12/14/2017 Diagnostic Trans [facility]IPTS CONVERSION Provider, [facility] Historical Conversion 12/14/2017 Imaging Services [facility]CRIPTS CONVERSION Provider, [facility] Historical Conversion 12/13/2017 9:53 PM [facility] ADVOCATE CERNER CONVERSION Smiley Garcia MD Provider, [facility] Historical Conversion Discharge Disposition: Home-Health Care Services 12/13/2017 Lab Services ALLSCRIPTS CONVERSION Soy Flynn, DO 12/13/2017 Lab Services ALLSCRIPTS CONVERSION Soy Flynn, DO 12/13/2017 Lab Services ALLSCRIPTS CONVERSION Soy Flynn, DO 11/25/2017 Imaging Services ALLSCRIPTS CONVERSION Provider, [facility] Historical Conversion 11/23/2017 10:11 AM [facility] ADVOCATE CERNER CONVERSION Kirstie Edwards MD Mesleh, Marc G, MD Discharge Disposition: [facility] Facility Including SNF Care for Subacute and Rehab 11/09/2017 1:07 AM [facility] ADVOCATE CERNER CONVERSION Javier Peck MD Discharge Disposition: Home or Self Care 11/06/2017 1:00 PM [facility] ADVOCATE CERNER CONVERSION Donald Sevilla MD Discharge Disposition: Home or Self Care 11/06/2017 Diagnostic Trans ALLSCRIPTS CONVERSION Donald Sevilla MD 11/06/2017 Lab Services ALLSCRIPTS CONVERSION Donald Sevilla MD 10/27/2017 12:51 AM [facility] Hospital ADVOCATE CERNER CONVERSION Donald Sevilla MD Discharge Disposition: Home or Self Care 10/27/2017 Imaging Services ALLSCRIPTS CONVERSION Donald Sevilla MD 10/23/2017 12:56 AM [facility] Hospital ADVOCATE [facility] Willy Griffin MD Discharge Disposition: Home or Self Care 10/17/2017 Lab Services Donald Valentin MD 10/17/2017 Lab Services ANIA CONVERSION Donald Sevilla MD 10/05/2017 12:27 AM [facility] Hospital ADVOCATE [facility] Karen Fox MD Discharge Disposition: Home or Self Care Allergies Active Allergy Reactions Criticality Noted Date [...] before August 15, 2021. 08/15/2021 Active B [id number] (EQL STRESS B-COMPLEX C/ZINC PO) Take 1 [...] 09/28/2021 Assessment & Plan (09/28/2021 11:01 AM [facility]): Has mild aortic stenosis with mean gradient of 10 mmHg on 2D echo done July 2021 Chronic hypoxemic respiratory failure (CMD) 02/0 03/2022 Assessment & Plan (09/28/2021 10:46 AM BONE CHAR OPERATOR): On Home O2 Hospital discharge follow-up 08/11/2021 [...] 03/04/2020 Assessment & Plan (09/28/2021 11:01 AM BONE CHAR OPERATOR): Congestive heart failure compensated. There is no volume overload. 2D echo showed preserved ejection fraction with diastolic dysfunction Assessment & Plan (01/04/2021 10:08 AM CDT): Congestive heart failure compensated Assessment & Plan (03/04/2020 12:06 PM CDT): Congestive heart failure compensated Pulmonary hypertension, mild (CMD) 11/17/2019 Assessment & Plan (09/28/2021 11:01 AM BONE CHAR OPERATOR): WHO group 2 and 3 Assessment & Plan (01/04/2021 10:07 AM CDT): WHO 2 Assessment & Plan (03/04/2020 12:05 PM CDT): WHO 2 Rheumatoid arthritis involving ankle (CMD) 10/28 Gastroesophageal reflux disease without esophagi tis 10/28/2019 Osteoporosis 10/28/2019 Shortness of breath 10/28/2019 Gastric adenocarcinoma (CMD) 10/16/2017 Rectal adenocarcinoma (CMD) 10/16/2017 Labile blood pressure 01/30/2015 Assessment & Plan (09/28/2021 11:00 AM BONE CHAR OPERATOR): Patient does have history of hypertension but [...] 06/22/2021 ,06/01/2021 Influenza, high-dose, trivalent, PF 04/28/2020,1 Family History Medical History Relation Comments Heart disease Father Heart disease Mother Hypertension Mother Relation Status Comments Father Mother Social History Smoking Status as of 09/30/2024 Tobacco Use Types Packs/Day Years Used Date Smoking Tobacco: Never Assessed PHQ-2 Answer Date Recorded PHQ-2 Score 0 [...] Comments Blood Pressure 96/56 09/28/2021 10:47 AM BONE CHAR OPERATOR only took 1 tab of Losartan Pulse 80 09/28/2021 10:38 AM BONE CHAR OPERATOR Temperature 36.4 C (97.5 F) 09/27/2021 11:38 AM BONE CHAR OPERATOR Respiratory Rate 14 09/27/2021 12:0 8 PM BONE CHAR OPERATOR Oxygen Saturation 99% 09/27/2021 12: 08 PM BONE CHAR OPERATOR Inhaled Oxygen Concentration - - Weight 72.1 kg (159 lb) 09/28/2021 10:3 8 AM BONE CHAR OPERATOR Height 152.4 cm (5') 09/28/2021 10:38 AM BONE CHAR OPERATOR Body Mass Index 31.05 09/28/2021 10:38 AM BONE CHAR OPERATOR Plan of Treatment Not on file Procedures Procedure Name Priority Date/Time Associated Diagnosis Comments CT CHEST ABDOMEN PELVIS W CONTRAST Routine 11/01/2021 8:18 AM CDT Rectal cancer (CMS/HCC) Pancreas cyst Gastric cancer (CMS/HCC) CBC WITH AUTOMATED DIFFERENTIAL (PERFORMABLE ONLY) Routine 10/30/2021 10:28 AM BONE CHAR OPERATOR Malignant neoplasm of rectum (CMS/HCC) 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 VITAMIN B12 AND FOLATE Routine 10:28 AM BONE CHAR OPERATOR Malignant neoplasm of rectum (CMS/HCC) 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 FERRITIN Routine 10/30/2021 10:28 AM BONE CHAR OPERATOR Malignant neoplasm of rectum (CMS/HCC) 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 COMPREHENSIVE METABOLIC PANEL Routine 10:28 AM BONE CHAR OPERATOR Malignant neoplasm of rectum (CMS/HCC) 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 CARCINOEMBRYONIC ANTIGEN Routine 022 10:28 AM BONE CHAR OPERATOR Malignant neoplasm of rectum (CMS/HCC) 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 CBC WITH DIFFERENTIAL Routine 10/30/2021 10:28 AM BONE CHAR OPERATOR Malignant neoplasm of rectum (CMS/HCC) 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 COLONOSCOPY Routine 09/27/2021 11:33 AM BONE CHAR OPERATOR Personal history of colonic polyps SURGICAL PATHOLOGY Routine 09/27/2021 11:28 AM BONE CHAR OPERATOR Personal history of colonic polyps 2019 NOVEL CORONAVIRUS (SARS-COV-2) Routine 09/25/2021 11:30 AM BONE CHAR OPERATOR Pre-procedural laboratory examination 2019 NOVEL CORONAVIRUS (SARS-COV-2) Routine 09/09/2021 10:08 AM BONE CHAR OPERATOR Pre-procedural laboratory examination STRESS TEST, REGADENOSON W MYOCARDIAL PERFUSION SPECT (MULTI STUDY) Routine 08/13/2021 12:08 PM BONE CHAR OPERATOR TRANSTHORACIC ECHO (TTE) COMPLETE W/ DOPPLER & COLOR Routine 08/12/2021 1:31 PM BONE CHAR OPERATOR URINE, BACTERIAL CULTURE STAT 021 2:24 AM BONE CHAR OPERATOR URINALYSIS WITH MICROSCOPY & CULTURE IF INDICATED STAT 08/12/2021 2:24 AM BONE CHAR OPERATOR CTA CHEST PULMONARY EMBOLISM STAT 1:20 PM BONE CHAR OPERATOR XR CHEST AP OR PA STAT 08/11/2021 11:27 AM BONE CHAR OPERATOR COVID/FLU/RSV PANEL STAT 08/11/2021 11:17 AM BONE CHAR OPERATOR ABO/RH GROUP AND TYPE (D) STAT 2020 11:16 AM BONE CHAR OPERATOR RAINBOW DRAW STAT 08/11/2021 11:16 AM BONE CHAR OPERATOR CBC WITH AUTOMATED DIFFERENTIAL (PERFORMABLE ONLY) STAT 08/11/2021 11:16 AM BONE CHAR OPERATOR NT PROBNP STAT 08/11/2021 11:16 AM BONE CHAR OPERATOR PARTIAL THROMBOPLASTIN TIME (PTT) STAT 08/11/2021 11:16 AM BONE CHAR OPERATOR PROTHROMBIN TIME (INR/PT) STAT 2020 11:16 AM BONE CHAR OPERATOR TROPONIN I, HIGH SENSITIVITY STAT 11:16 AM BONE CHAR OPERATOR LACTIC ACID VENOUS WITH REFLEX STAT 08/11/2021 11:16 AM BONE CHAR OPERATOR COMPREHENSIVE METABOLIC PANEL STAT 11:16 AM BONE CHAR OPERATOR CBC WITH DIFFERENTIAL STAT 08/11/2021 11:16 AM BONE CHAR OPERATOR BLOOD CULTURE STAT 08/11/2021 11:15 AM BONE CHAR OPERATOR TYPE/SCREEN STAT 08/11/2021 11:11 AM BONE CHAR OPERATOR ELECTROCARDIOGRAM 12-LEAD STAT 2020 11:00 AM BONE CHAR OPERATOR CBC WITH AUTOMATED DIFFERENTIAL (PERFORMABLE ONLY) STAT 08/10/2021 9:22 PM BONE CHAR OPERATOR NT PROBNP STAT 08/10/2021 9:22 PM BONE CHAR OPERATOR TROPONIN I, HIGH SENSITIVITY STAT 9:22 PM BONE CHAR OPERATOR COMPREHENSIVE METABOLIC PANEL STAT 9:22 PM BONE CHAR OPERATOR CBC WITH DIFFERENTIAL STAT 08/10/2021 9:22 PM BONE CHAR OPERATOR XR CHEST PA AND LATERAL 2 VIEWS STAT 08/10/2021 8:06 PM BONE CHAR OPERATOR ELECTROCARDIOGRAM 12-LEAD STAT 2020 7:35 PM BONE CHAR OPERATOR CBC WITH AUTOMATED DIFFERENTIAL (PERFORMABLE ONLY) Routine 07/10/2021 11:21 AM BONE CHAR OPERATOR Rectal adenocarcinoma (CMS/HCC) Anemia, unspecified type Pancreatic cyst VITAMIN B12 Routine 07/10/2021 11:21 AM BONE CHAR OPERATOR Rectal adenocarcinoma (CMS/HCC) Anemia, unspecified type Pancreatic cyst LACTATE DEHYDROGENASE Routine 07/10/2021 11:21 AM BONE CHAR OPERATOR Rectal adenocarcinoma (CMS/HCC) Anemia, unspecified type Pancreatic cyst FOLATE Routine 07/10/2021 11:21 AM BONE CHAR OPERATOR Rectal adenocarcinoma (CMS/HCC) Anemia, unspecified type Pancreatic cyst FERRITIN Routine 07/10/2021 11:21 AM BONE CHAR OPERATOR Rectal adenocarcinoma (CMS/HCC) Anemia, unspecified type Pancreatic cyst COMPREHENSIVE METABOLIC PANEL Routine 11:21 AM BONE CHAR OPERATOR Rectal adenocarcinoma (CMS/HCC) Anemia, unspecified type Pancreatic cyst CARCINOEMBRYONIC ANTIGEN Routine 021 11:21 AM BONE CHAR OPERATOR Rectal adenocarcinoma (CMS/HCC) Anemia, unspecified type Pancreatic cyst CBC WITH DIFFERENTIAL Routine 07/10/2021 11:21 AM BONE CHAR OPERATOR Rectal adenocarcinoma (CMS/HCC) Anemia, unspecified type Pancreatic cyst COVID VACCINE PFIZER MENDOZA 06/22/2021 10:36 AM CDT CBC WITH AUTOMATED DIFFERENTIAL (PERFORMABLE ONLY) Routine 05/31/2021 1:52 PM CDT Rectal cancer (CMS/HCC) Anemia, unspecified type Malignant neoplasm of stomach, unspecified location (CMS/HCC) IRON AND TOTAL IRON BINDING CAPACITY Routine 05/31/2021 1:52 PM CDT Rectal cancer (CMS/HCC) Anemia, unspecified type Malignant neoplasm of stomach, unspecified location (CMS/HCC) VITAMIN B12 AND FOLATE Routine 1:52 PM CDT Rectal cancer (CMS/HCC) Anemia, unspecified type Malignant neoplasm of stomach, unspecified location (CMS/HCC) FERRITIN Routine 05/31/2021 1:52 PM CDT Rectal cancer (CMS/HCC) Anemia, unspecified type Malignant neoplasm of stomach, unspecified location (CMS/HCC) COMPREHENSIVE METABOLIC PANEL Routine 1:52 PM CDT Rectal cancer (CMS/HCC) Anemia, unspecified type Malignant neoplasm of stomach, unspecified location (CMS/HCC) CARCINOEMBRYONIC ANTIGEN Routine 021 1:52 PM CDT Rectal cancer (CMS/HCC) Anemia, unspecified type Malignant neoplasm of stomach, unspecified location (CMS/HCC) CBC WITH DIFFERENTIAL Routine 05/31/2021 1:52 PM CDT Rectal cancer (CMS/HCC) Anemia, unspecified type Malignant neoplasm of stomach, unspecified location (CMS/HCC) CT HEAD W WO CONTRAST Routine 05/10/2021 9:06 AM CDT Gastric adenocarcinoma (CMS/HCC) MRI MRCP AND ABDOMEN W WO CONTRAST Routine 04/27/2021 9:[address] scan CBC WITH AUTOMATED DIFFERENTIAL (PERFORMABLE ONLY) Routine 04/21/2021 12:33 PM CDT Rectal cancer (CMS/HCC) Cancer of fundus of stomach (CMS/HCC) IRON AND TOTAL IRON BINDING CAPACITY Routine 04/21/2021 12:33 PM CDT Rectal cancer (CMS/HCC) Cancer of fundus of stomach (CMS/HCC) VITAMIN B12 AND FOLATE Routine 12:33 PM CDT Rectal cancer (CMS/HCC) Cancer of fundus of stomach (CMS/HCC) FERRITIN Routine 04/21/2021 12:33 PM CDT Rectal cancer (CMS/HCC) Cancer of fundus of stomach (CMS/HCC) COMPREHENSIVE METABOLIC PANEL Routine 12:33 PM CDT Rectal cancer (CMS/HCC) Cancer of fundus of stomach (CMS/HCC) CARCINOEMBRYONIC ANTIGEN Routine 021 12:33 PM CDT Rectal cancer (CMS/HCC) Cancer of fundus of stomach (CMS/HCC) CBC WITH DIFFERENTIAL Routine 04/21/2021 12:33 PM CDT Rectal cancer (CMS/HCC) Cancer of fundus of stomach (CMS/HCC) CT ABDOMEN PELVIS W CONTRAST Routine 05/2021 8:50 AM CDT Rectal cancer (CMS/HCC) CBC WITH AUTOMATED DIFFERENTIAL (PERFORMABLE ONLY) Routine 03/06/2021 11:57 AM CDT Rectal cancer (CMS/HCC) COMPREHENSIVE METABOLIC PANEL Routine 11:57 AM CDT Rectal cancer (CMS/HCC) CARCINOEMBRYONIC ANTIGEN Routine 021 11:57 AM CDT Rectal cancer (CMS/HCC) CBC WITH DIFFERENTIAL Routine 03/06/2021 11:57 AM CDT Rectal cancer (CMS/HCC) SURGICAL PATHOLOGY Routine 02/05/2021 7:07 AM CDT Vomiting without nausea, intractability of vomiting not specified, unspecified vomiting type Gastroesophageal reflux disease without esophagitis Malignant neoplasm of stomach, unspecified location (CMS/HCC) ESOPHAGOGASTRODUODENOSCOPY (EGD) Routine 02/05/2021 7:06 AM CDT Vomiting without nausea, intractability of vomiting not specified, unspecified vomiting type Gastroesophageal reflux disease without esophagitis Malignant neoplasm of stomach, unspecified location (CMS/HCC) 2019 NOVEL CORONAVIRUS (SARS-COV-2) Routine 02/03/2021 11:00 AM CDT Pre-procedure lab exam CBC WITH AUTOMATED DIFFERENTIAL (PERFORMABLE ONLY) Routine 12/26/2020 11:34 AM CDT Rectal adenocarcinoma (CMS/HCC) Gastric adenocarcinoma (CMS/HCC) VITAMIN B12 Routine 12/26/2020 11:34 AM CDT Rectal adenocarcinoma (CMS/HCC) Gastric adenocarcinoma (CMS/HCC) FERRITIN Routine 12/26/2020 11:34 AM CDT Rectal adenocarcinoma (CMS/HCC) Gastric adenocarcinoma (CMS/HCC) COMPREHENSIVE METABOLIC PANEL Routine 11:34 AM CDT Rectal adenocarcinoma (CMS/HCC) Gastric adenocarcinoma (CMS/HCC) CARCINOEMBRYONIC ANTIGEN Routine 021 11:34 AM CDT Rectal adenocarcinoma (CMS/HCC) Gastric adenocarcinoma (CMS/HCC) CBC WITH DIFFERENTIAL Routine 12/26/2020 11:34 AM CDT Rectal adenocarcinoma (CMS/HCC) Gastric adenocarcinoma (CMS/HCC) MAMMO SCREENING BILATERAL W WINSOME Routine 10/10/2020 9:42 AM BONE CHAR OPERATOR Screening mammogram, encounter for CBC WITH AUTOMATED DIFFERENTIAL (PERFORMABLE ONLY) Routine 10/07/2020 3:16 PM BONE CHAR OPERATOR Rectal cancer (CMS/HCC) IRON AND TOTAL IRON BINDING CAPACITY Routine 10/07/2020 3:16 PM BONE CHAR OPERATOR Rectal cancer (CMS/HCC) VITAMIN B12 AND FOLATE Routine 3:16 PM BONE CHAR OPERATOR Rectal cancer (CMS/HCC) FERRITIN Routine 10/07/2020 3:16 PM BONE CHAR OPERATOR Rectal cancer (CMS/HCC) COMPREHENSIVE METABOLIC PANEL Routine 3:16 PM BONE CHAR OPERATOR Rectal cancer (CMS/HCC) CARCINOEMBRYONIC ANTIGEN Routine 021 3:16 PM BONE CHAR OPERATOR Rectal cancer (CMS/HCC) CBC WITH DIFFERENTIAL Routine 10/07/2020 3:16 PM BONE CHAR OPERATOR Rectal cancer (CMS/HCC) COLONOSCOPY Routine 09/14/2020 9:51 AM BONE CHAR OPERATOR Personal history of malignant neoplasm SURGICAL PATHOLOGY Routine 09/14/2020 9:47 AM BONE CHAR OPERATOR Personal history of malignant neoplasm 2019 NOVEL CORONAVIRUS (SARS-COV-2) Routine 09/12/2020 8:54 AM BONE CHAR OPERATOR Pre-procedural laboratory examination BD DEXA AXIAL SKELETON Routine 0 10:18 AM BONE CHAR OPERATOR Postmenopausal status (age-related) (natural) 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) SURGICAL PATHOLOGY Routine 06/30/2020 7:39 AM BONE CHAR OPERATOR EXCISION, LESION 06/30/2020 6:58 AM BONE CHAR OPERATOR Sebaceous cyst Special Needs LOCAL 2019 NOVEL CORONAVIRUS (SARS-COV-2) Routine 06/28/2020 9:37 AM BONE CHAR OPERATOR Encounter for preprocedure screening laboratory testing for COVID-19 CT CHEST W CONTRAST Routine 06/10/2020 2:37 PM CDT Rectal cancer (CMS/HCC) Gastric cancer (CMS/HCC) CT ABDOMEN PELVIS W CONTRAST Routine 2:37 PM CDT Rectal cancer (CMS/HCC) Gastric cancer (CMS/HCC) LIPASE STAT 06/04/2020 2:03 AM CDT COMPREHENSIVE METABOLIC PANEL Today 2:03 AM CDT HB CBC W/AUTO DIFF STAT 06/04/2020 2:03 AM CDT VITAMIN B12 AND FOLATE Routine 0 11:06 AM CDT CARCINOEMBRYONIC ANTIGEN Routine 020 11:06 AM CDT IRON AND TIBC Routine 04/11/2020 11:06 AM CDT FERRITIN Routine 04/11/2020 11:06 AM CDT CBC & AUTO DIFFERENTIAL Routine 04/11/20 11:06 AM CDT XR ADVOCATE PROCEDURE Routine 04/11/2020 10:37 AM CDT XR ADVOCATE PROCEDURE Routine 04/11/2020 10:37 AM CDT THYROID STIMULATING HORMONE Routine 01/20 8:01 AM CDT FERRITIN Routine 02/14/2020 8:01 AM CDT URINALYSIS WITH MICRO & CULTURE IF INDICATED Routine 02/14/2020 7:27 AM CDT BASIC METABOLIC PANEL Routine 02/14/2020 6:20 AM CDT 2019 NOVEL CORONAVIRUS (SARS-COV-2) Routine 02/13/2020 9:45 PM CDT CD ADVOCATE PROCEDURE Routine 02/13/2020 9:27 PM CDT TROPONIN I ULTRA SENSITIVE Routine 02/12 7:20 PM CDT XR ADVOCATE PROCEDURE Routine 02/13/2020 6:56 PM CDT XR ADVOCATE PROCEDURE Routine 02/13/2020 6:56 PM CDT NT PROBNP Routine 02/13/2020 6:10 PM CDT MAGNESIUM LEVEL Routine 02/13/2020 6:10 PM CDT COMPREHENSIVE METABOLIC PANEL Routine 6:10 PM CDT TROPONIN I ULTRA SENSITIVE Routine 02/12 6:10 PM CDT CBC & AUTO DIFFERENTIAL Routine 02/13/20 6:10 PM CDT ELECTROCARDIOGRAM 12-LEAD 2019 5:09 PM CDT LACTATE DEHYDROGENASE TOTAL Routine 12/19 9:54 AM CDT COMPREHENSIVE METABOLIC PANEL Routine 9:54 AM CDT CBC & AUTO DIFFERENTIAL Routine 01/07/20 9:54 AM CDT TRANSTHORACIC ECHO (TTE) COMPLETE W/ DOPPLER & COLOR W/ STRAIN Routine 11/04/2019 2:29 PM CDT Shortness of breath XR ADVOCATE PROCEDURE Routine 10/31/2019 8:30 AM CDT XR ADVOCATE PROCEDURE Routine 10/31/2019 8:30 AM CDT CYCLIC CITRULLINATED PEPTIDE ANTIBODY IGG & IGA Routine 10/31/2019 8:08 AM CDT Shortness of breath Hypertension due to endocrine disorder Gastroesophageal reflux disease without esophagitis Osteoporosis with current pathological fracture, unspecified osteoporosis type, initial encounter Rheumatoid arthritis involving ankle, unspecified laterality, unspecified rheumatoid factor presence (CMS/HCC) Gastric adenocarcinoma (CMS/HCC) Rectal adenocarcinoma (CMS/HCC) RHEUMATOID FACTOR Routine 10/31/2019 8:08 AM CDT Rheumatoid arthritis involving ankle, unspecified laterality, unspecified rheumatoid factor presence (CMS/HCC) VITAMIN D -25 HYDROXY Routine 10/31/2019 8:08 AM CDT Shortness of breath Gastric adenocarcinoma (CMS/HCC) Rheumatoid arthritis involving ankle, unspecified laterality, unspecified rheumatoid factor presence (CMS/HCC) THYROID STIMULATING HORMONE REFLEX Routine 10/31/2019 8:08 AM CDT Gastric adenocarcinoma (CMS/HCC) LIPID PANEL WITH REFLEX Routine 10/31/19 8:08 AM CDT Gastric adenocarcinoma (CMS/HCC) COMPREHENSIVE METABOLIC PANEL Routine 8:08 AM CDT Gastric adenocarcinoma (CMS/HCC) CBC NO DIFFERENTIAL Routine 10/31/2019 8:08 AM CDT Gastric adenocarcinoma (CMS/HCC) VITAMIN B12 AND FOLATE Routine 0 2:03 PM BONE CHAR OPERATOR IRON AND TIBC Routine 09/19/2019 2:03 PM BONE CHAR OPERATOR FERRITIN Routine 09/19/2019 2:03 PM BONE CHAR OPERATOR COMPREHENSIVE METABOLIC PANEL Routine 2:03 PM BONE CHAR OPERATOR CBC & AUTO DIFFERENTIAL Routine 09/19/19 20 2:03 PM BONE CHAR OPERATOR SURGICAL PATHOLOGY Routine 08/26/2019 12:30 PM BONE CHAR OPERATOR MAMMO ADVOCATE PROCEDURE Routine 019 9:14 AM BONE CHAR [address] ADVOCATE PROCEDURE Routine 06/14/2019 4:20 PM CDT VITAMIN B12 AND FOLATE Routine 9 11:08 AM CDT COMPREHENSIVE METABOLIC PANEL Routine 11:08 AM CDT IRON AND TIBC Routine 05/28/2019 11:08 AM CDT FERRITIN Routine 05/28/2019 11:08 AM CDT CBC & AUTO DIFFERENTIAL Routine 05/28/20 19 11:08 AM CDT LAB Routine 05/28/2019 COMPREHENSIVE METABOLIC PANEL Routine 10:43 AM CDT CBC & AUTO DIFFERENTIAL Routine 01/22/20 19 10:[address] ADVOCATE PROCEDURE Routine 11/01/2018 11:45 AM CDT CBC & AUTO DIFFERENTIAL Routine 10/23/19 7:30 PM BONE CHAR OPERATOR COMPREHENSIVE METABOLIC PANEL Routine 7:30 PM BONE CHAR OPERATOR LACTATE DEHYDROGENASE TOTAL Routine 11/2018 7:30 PM BONE CHAR OPERATOR LACTATE DEHYDROGENASE TOTAL Routine 11/2018 1:30 PM BONE CHAR OPERATOR COMPREHENSIVE METABOLIC PANEL Routine 1:30 PM BONE CHAR OPERATOR CBC & AUTO DIFFERENTIAL Routine 10/23/19 1:30 PM BONE CHAR OPERATOR CBC & AUTO DIFFERENTIAL Routine 10/15/19 4:00 PM BONE CHAR OPERATOR CBC & AUTO DIFFERENTIAL Routine 10/15/19 10:00 AM BONE CHAR OPERATOR CBC & AUTO DIFFERENTIAL Routine 10/08/19 4:50 PM BONE CHAR OPERATOR CBC & AUTO DIFFERENTIAL Routine 10/08/19 10:50 AM BONE CHAR OPERATOR CBC & AUTO DIFFERENTIAL Routine 10/01/19 6:16 PM BONE CHAR OPERATOR COMPREHENSIVE METABOLIC PANEL Routine 6:16 PM BONE CHAR OPERATOR LACTATE DEHYDROGENASE TOTAL Routine 09/21 6:16 PM BONE CHAR OPERATOR LACTATE DEHYDROGENASE TOTAL Routine 09/21 12:16 PM BONE CHAR OPERATOR COMPREHENSIVE METABOLIC PANEL Routine 12:16 PM BONE CHAR OPERATOR CBC & AUTO DIFFERENTIAL Routine 10/01/19 12:16 PM BONE CHAR OPERATOR CBC & AUTO DIFFERENTIAL Routine 09/24/19 5:40 PM BONE CHAR OPERATOR CBC & AUTO DIFFERENTIAL Routine 09/24/19 11:40 AM BONE CHAR OPERATOR CBC & AUTO DIFFERENTIAL Routine 09/17/19 6:20 PM BONE CHAR OPERATOR CBC & AUTO DIFFERENTIAL Routine 09/17/19 12:20 PM BONE CHAR OPERATOR CBC & AUTO DIFFERENTIAL Routine 09/10/19 11:15 AM BONE CHAR OPERATOR COMPREHENSIVE METABOLIC PANEL Routine 11:15 AM BONE CHAR OPERATOR LACTATE DEHYDROGENASE TOTAL Routine 08/22 11:15 AM BONE CHAR OPERATOR LACTATE DEHYDROGENASE TOTAL Routine 08/22 11:15 AM BONE CHAR OPERATOR COMPREHENSIVE METABOLIC PANEL Routine 11:15 AM BONE CHAR OPERATOR CBC & AUTO DIFFERENTIAL Routine 09/10/19 11:15 AM BONE CHAR OPERATOR CBC & AUTO DIFFERENTIAL Routine 09/04/19 1:25 PM BONE CHAR OPERATOR VITAMIN B12 AND FOLATE Routine 9 1:25 PM BONE CHAR OPERATOR VITAMIN B12 AND FOLATE Routine 9 1:25 PM BONE CHAR OPERATOR CBC & AUTO DIFFERENTIAL Routine 09/04/19 1:25 PM BONE CHAR OPERATOR CBC & AUTO DIFFERENTIAL Routine 08/28/19 11:40 AM BONE CHAR OPERATOR CBC & AUTO DIFFERENTIAL Routine 08/28/19 11:40 AM BONE CHAR OPERATOR CBC & AUTO DIFFERENTIAL Routine 08/22/19 1:00 PM BONE CHAR OPERATOR COMPREHENSIVE METABOLIC PANEL Routine 1:00 PM BONE CHAR OPERATOR LACTATE DEHYDROGENASE TOTAL Routine 09/2018 1:00 PM BONE CHAR OPERATOR LACTATE DEHYDROGENASE TOTAL Routine 09/2018 1:00 PM BONE CHAR OPERATOR COMPREHENSIVE METABOLIC PANEL Routine 1:00 PM BONE CHAR OPERATOR CBC & AUTO DIFFERENTIAL Routine 08/22/19 1:00 PM BONE CHAR OPERATOR CBC & AUTO DIFFERENTIAL Routine 08/15/20 12:49 PM BONE CHAR OPERATOR CBC & AUTO DIFFERENTIAL Routine 08/15/20 12:49 PM BONE CHAR OPERATOR CBC & AUTO DIFFERENTIAL Routine 08/07/20 12:34 PM BONE CHAR OPERATOR CBC & AUTO DIFFERENTIAL Routine 08/07/20 12:34 PM BONE CHAR OPERATOR CBC & AUTO DIFFERENTIAL Routine 07/31/20 10:33 AM BONE CHAR OPERATOR COMPREHENSIVE METABOLIC PANEL Routine 10:33 AM BONE CHAR OPERATOR LACTATE DEHYDROGENASE TOTAL Routine 07/21 10:33 AM BONE CHAR OPERATOR LACTATE DEHYDROGENASE TOTAL Routine 07/21 10:33 AM BONE CHAR OPERATOR COMPREHENSIVE METABOLIC PANEL Routine 10:33 AM BONE CHAR OPERATOR CBC & AUTO DIFFERENTIAL Routine 07/31/20 10:33 AM BONE CHAR OPERATOR COMPREHENSIVE METABOLIC PANEL Routine 10:43 AM BONE CHAR OPERATOR LACTATE DEHYDROGENASE TOTAL Routine 11/2017 10:43 AM BONE CHAR OPERATOR CBC & AUTO DIFFERENTIAL Routine 07/24/20 10:43 AM BONE CHAR OPERATOR LACTATE DEHYDROGENASE TOTAL Routine 11/2017 10:43 AM BONE CHAR OPERATOR COMPREHENSIVE METABOLIC PANEL Routine 10:43 AM BONE CHAR OPERATOR CBC & AUTO DIFFERENTIAL Routine 07/24/20 10:43 AM BONE CHAR O[address] CT ADVOCATE PROCEDURE Routine 07/09/2018 9:45 AM BONE CHAR O[address] CT HISTORICAL PROCEDURE Routine 07/09/20 9:45 AM BONE CHAR OPERATOR CBC & AUTO DIFFERENTIAL Routine 06/30/20 1:55 PM BONE CHAR OPERATOR COMPREHENSIVE METABOLIC PANEL Routine 1:55 PM BONE CHAR OPERATOR LACTATE DEHYDROGENASE TOTAL Routine 06/21 1:55 PM BONE CHAR OPERATOR CBC NO DIFFERENTIAL Routine 05/04/2018 6:20 AM CDT BASIC METABOLIC PANEL Routine 05/04/2018 6:20 AM CDT CBC & AUTO DIFFERENTIAL Routine 05/03/20 7:08 AM CDT BASIC METABOLIC PANEL Routine 05/03/2018 7:08 AM CDT MAGNESIUM LEVEL Routine 05/03/2018 7:08 AM CDT SURGICAL PATHOLOGY Routine 05/02/2018 7:07 AM CDT CBC & AUTO DIFFERENTIAL Routine 05/02/20 6:50 AM CDT BASIC METABOLIC PANEL Routine 05/02/2018 6:50 AM CDT MAGNESIUM LEVEL Routine 05/02/2018 6:50 AM CDT PHOSPHORUS LEVEL Routine 05/02/2018 6:50 AM CDT ELECTROCARDIOGRAM 12-LEAD Routine 2017 12:00 AM CDT ELECTROCARDIOGRAM 12-LEAD 2017 12:46 PM CDT HB ECG TRACING ONLY Routine 04/04/2018 12:36 PM CDT COMPREHENSIVE METABOLIC PANEL Routine 11:15 AM CDT CBC & AUTO DIFFERENTIAL Routine 04/04/20 11:15 AM CDT CBC & AUTO DIFFERENTIAL Routine 04/04/20 11:15 AM CDT COMPREHENSIVE METABOLIC PANEL Routine 11:[address] HISTORICAL PROCEDURE Routine 03/19/20 4:26 PM CDT CBC & AUTO DIFFERENTIAL Routine 03/02/20 9:51 AM CDT COMPREHENSIVE METABOLIC PANEL Routine 9:51 AM CDT LACTATE DEHYDROGENASE TOTAL Routine 02/18 9:51 AM CDT CBC & AUTO DIFFERENTIAL Routine 02/24/20 11:35 AM CDT CBC & AUTO DIFFERENTIAL Routine 02/17/20 11:29 AM CDT COMPREHENSIVE METABOLIC PANEL Routine 11:42 AM CDT LACTATE DEHYDROGENASE TOTAL Routine 01/20 11:42 AM CDT CBC & AUTO DIFFERENTIAL Routine 02/10/20 11:42 AM CDT CBC & AUTO DIFFERENTIAL Routine 02/03/20 11:14 AM CDT COMPREHENSIVE METABOLIC PANEL Routine 11:35 AM CDT LACTATE DEHYDROGENASE TOTAL Routine 03/2018 11:35 AM CDT CBC & AUTO DIFFERENTIAL Routine 01/27/20 11:35 AM CDT CBC & AUTO DIFFERENTIAL Routine 01/20/20 9:40 AM CDT ELECTROCARDIOGRAM 12-LEAD Routine 2017 12:00 AM CDT XR HISTORICAL PROCEDURE Routine 12/15/19 18 10:55 AM CDT XR HISTORICAL PROCEDURE Routine 12/15/19 18 10:55 AM CDT ELECTROCARDIOGRAM 12-LEAD 2017 9:05 AM CDT CBC & AUTO DIFFERENTIAL Routine 12/15/19 18 7:00 AM CDT MAGNESIUM LEVEL Routine 12/14/2017 7:00 AM CDT COMPREHENSIVE METABOLIC PANEL Routine 7:00 AM CDT HB ECG TRACING ONLY Routine 12/13/2017 9:58 PM CDT URINALYSIS WITH MICRO & CULTURE IF INDICATED Routine 12/13/2017 9:[address] HISTORICAL PROCEDURE Routine 12/14/19 18 7:52 PM CDT COMPREHENSIVE METABOLIC PANEL Routine 5:35 PM CDT LIPASE LEVEL Routine 12/13/2017 5:35 PM CDT CBC & AUTO DIFFERENTIAL Routine 12/14/19 18 5:35 PM CDT TROPONIN I ULTRA SENSITIVE Routine 12/13 5:35 PM CDT COMPREHENSIVE METABOLIC PANEL Routine 5:35 PM CDT LIPASE LEVEL Routine 12/13/2017 5:35 PM CDT CBC & AUTO DIFFERENTIAL Routine 12/14/19 18 5:35 PM CDT ELECTROCARDIOGRAM 12-LEAD Routine 2017 12:00 AM CDT CBC & AUTO DIFFERENTIAL Routine 11/29/19 5:42 AM CDT PHOSPHORUS LEVEL Routine 11/28/2017 5:42 AM CDT BASIC METABOLIC PANEL Routine 11/28/2017 5:42 AM CDT MAGNESIUM LEVEL Routine 11/28/2017 5:42 AM CDT BASIC METABOLIC PANEL Routine 11/26/2017 5:35 AM CDT CBC NO DIFFERENTIAL Routine 11/26/2017 5:35 AM CDT XR HISTORICAL PROCEDURE Routine 11/26/19 11:33 AM CDT XR HISTORICAL PROCEDURE Routine 11/26/19 18 11:33 AM CDT CBC NO DIFFERENTIAL Routine 11/25/2017 6:00 AM CDT BASIC METABOLIC PANEL Routine 11/25/2017 6:00 AM CDT MAGNESIUM LEVEL Routine 11/25/2017 6:00 AM CDT PHOSPHORUS LEVEL Routine 11/25/2017 6:00 AM CDT CBC & AUTO DIFFERENTIAL Routine 11/25/19 18 6:10 AM CDT BASIC METABOLIC PANEL Routine 11/24/2017 6:10 AM CDT MAGNESIUM LEVEL Routine 11/24/2017 6:10 AM CDT PHOSPHORUS LEVEL Routine 11/24/2017 6:10 AM CDT PLATELET COUNT Routine 11/23/2017 6:58 PM CDT SURGICAL PATHOLOGY Routine 11/23/2017 1:17 PM CDT PET HISTORICAL PROCEDURE Routine 018 1:35 PM CDT POCT METERED BLOOD GLUCOSE Routine 11/09 11:47 AM CDT HB ECG TRACING ONLY Routine 11/06/2017 1:55 PM CDT COMPREHENSIVE METABOLIC PANE L WITH CBCA, LIPID PANEL AND TSH Routine 11/06/2017 1:20 PM CDT ELECTROCARDIOGRAM 12-LEAD 2017 12:[address] HISTORICAL PROCEDURE Routine 10/28/19 18 2:52 PM BONE CHAR OPERATOR CT HISTORICAL PROCEDURE Routine 10/28/19 18 2:52 PM BONE CHAR OPERATOR CARCINOEMBRYONIC ANTIGEN Routine 018 12:54 PM BONE CHAR OPERATOR CBC & AUTO DIFFERENTIAL Routine 10/17/19 18 12:54 PM BONE CHAR OPERATOR COMPREHENSIVE METABOLIC PANEL Routine 12:54 PM BONE CHAR OPERATOR PTINR & PTT COMBINATION Routine 10/17/19 18 12:54 PM BONE CHAR OPERATOR CA19-9 CANCER ANTIGEN Routine 10/17/2017 12:54 PM BONE CHAR OPERATOR SURGICAL PATHOLOGY Routine 10/05/2017 11:22 AM BONE CHAR OPERATOR RHYTHM STRIP Routine 10/05/2017 12:00 AM BONE CHAR OPERATOR Results * CT CHEST ABDOMEN PELVIS W CONTRAST (11/01/2021 8:18 AM CDT) Anatomical Region Laterality Modality Chest/Thorax Computed Tomogra phy 11/01/2021 11:0 4 AM CDT Impressions 11/01/2021 11:11 AM CDT 1. Cardiomegaly with heavy calcific disease of the aortic arch and coronary arteries. 2. Postsurgical changes of a partial gastrectomy and hemicolectomy. 3. No evidence of metastatic disease within the chest, abdomen, or pelvis. Electronically Signed by: BLANQUITA KRAMER MD Signed on: 11/01/2021 11:11 AM Narrative 11/01/2021 11:[address] CHEST ABDOMEN PELVIS W CONTRAST: 11/01/2021 8:13 AM HISTORY: Rectal cancer COMPARISON: March 30, 2021 TECHNIQUE: CT chest, abdomen and pelvis with 95 mL Omnipaque 300 IV contrast. Multiplanar reformats. Dose reduction techniques were utilized. FINDINGS: CHEST: Heart and great vessels: Moderate cardiomegaly. Calcific disease of the aortic arch and coronary arteries. Pericardium: No fluid or thickening. Lymph nodes: No evidence for pathologic axillary, mediastinal, or hilar lymphadenopathy. Esophagus: Normal. Pleura and lung parenchyma: Minimal bibasilar scarring. No evidence of suspicious pulmonary masses, consolidation, or pleural effusions. ABDOMEN: Liver: No focal lesion or intrahepatic bile duct dilatation. Portal venous system is patent. Gallbladder: No evidence for wall thickening or inflammation. Spleen: Normal size without focal findings. Pancreas: No focal lesion or pancreatic ductal dilatation. Adrenal glands: No focal nodule. Kidneys: Stable simple cyst noted within both kidneys. Abdominal aorta and IVC: Abdominal aorta is normal in caliber. IVC is grossly normal. Retroperitoneum: Normal Mesentery/Peritoneum: Normal. Stomach and small bowel: Stable postsurgical changes of a partial gastrectomy. PELVIS: Free fluid: No free fluid or fluid collection. Reproductive: Uterus and adnexa are grossly normal. Bladder: Normal contour and wall thickness. Lymphadenopathy: No pathologic lymphadenopathy. Colon: Left lower quadrant ostomy in place. Scattered colonic diverticula. Postsurgical thickening noted within the presacral space, not significant change compared to previous study Appendix: Normal. Skeletal structures and soft tissues: Age-appropriate degenerative changes. No suspicious osseous lytic or blastic process. No soft tissue abnormality. Procedure Note Blanquita Kramer MD - 11/01/2021 CT CHEST ABDOMEN PELVIS W CONTRAST: 11/01/2021 8:13 AM HISTORY: Rectal cancer COMPARISON: March 30, 2021 TECHNIQUE: CT chest, abdomen and pelvis with 95 mL Omnipaque 300 IV contrast. Multiplanar reformats. Dose reduction techniques were utilized. FINDINGS: CHEST: Heart and great vessels: Moderate cardiomegaly. Calcific disease of the aortic arch and coronary arteries. Pericardium: No fluid or thickening. Lymph nodes: No evidence for pathologic axillary, mediastinal, or hilar lymphadenopathy. Esophagus: Normal. Pleura and lung parenchyma: Minimal bibasilar scarring. No evidence of suspicious pulmonary masses, consolidation, or pleural effusions. ABDOMEN: Liver: No focal lesion or intrahepatic bile duct dilatation. Portalvenous system is patent. Gallbladder: No evidence for wall thickening or inflammation. Spleen: Normal size without focal findings. Pancreas: No focal lesion or pancreatic ductal dilatation. Adrenal glands: No focal nodule. Kidneys: Stable simple cyst noted within both kidneys. Abdominal aorta and IVC: Abdominal aorta is normal in caliber. IVC is grossly normal. Retroperitoneum: Normal Mesentery/Peritoneum: Normal. Stomach and small bowel: Stable postsurgical changes of a partial gastrectomy. PELVIS: Free fluid: No free fluid or fluid collection. Reproductive: Uterus and adnexa are grossly normal. Bladder: Normal contour and wall thickness. Lymphadenopathy: No pathologic lymphadenopathy. Colon: Left lower quadrant ostomy in place. Scattered colonicdiverticula. Postsurgical thickening noted within the presacral space, notsignificant change compared to previous study Appendix: Normal. Skeletal structures and soft tissues: Age-appropriate degenerativechanges. No suspicious osseous lytic or blastic process. No soft tissueabnormality. IMPRESSION: 1. Cardiomegaly with heavy calcific disease of the aortic arch andcoronary arteries. 2. Postsurgical changes of a partial gastrectomy and hemicolectomy. 3. No evidence of metastatic disease within the chest, abdomen, orpelvis. Electronically Signed by: BLANQUITA KRAMER MD Signed on: 11/01/2021 11:11 AM Javier Peck MD IMG CT PROCEDURES * (ABNORMAL) CBC with Automated Differential (performable only) (10/30/2021 10:28 AM BONE CHAR OPERATOR) Only the most recent of9 resultswithin the time period is included. WBC 5.4 4.2 - 11.0 K/mcL 10/30/2021 10:43 AM BONE CHAR OPERATOR [facility] RBC 3.56(L) 4.00 - 5.20 mil/mcL 10/30/2021 10:43 AM BONE CHAR OPERATOR [facility] HGB 10.6(L) 12.0 - 15.5 g/dL 10/30/2021 10:43 AM [facility] HCT 34.3(L) 36.0 - 46.5 % 10/30/2021 10:43 AM [facility] MCV 96.3 78.0 - 100.0 fl 10/30/2021 10:43 AM [facility] MCH 29.8 26.0 - 34.0 pg 10/30/2021 10:43 AM [facility] MCHC 30.9(L) 32.0 - 36.5 g/dL 10/30/2021 10:43 AM [facility] RDW-CV 15.1(H) 11.0 - 15.0 % 10/30/2021 10:43 AM [facility] RDW-SD 52.6(H) 39.0 - 50.0 fL 10/30/2021 10:43 AM [facility] PLT 200 140 - 450 K/mcL 10/30/2021 10:43 AM [facility] NRBC 0 <=0 /100 WBC 10/30/2021 10:43 AM [facility] Neutrophil, Percent 65 % 10/30/2021 10:43 AM [facility] Lymphocytes, Percent 22 % 10/30/2021 10:43 AM [facility] [place], Percent 11 % 10/30/2021 10:43 AM [facility] Eosinophils, Percent 1 % 10/30/2021 10:43 AM [facility] Basophils, Percent 0 % 10/30/2021 10:43 AM [facility] Immature Granulocytes 1 % 10/30/2021 10:43 AM [facility] Absolute Neutrophils 3.5 1.8 - 7.7 K/mcL 10/30/2021 10:43 AM [facility] Absolute Lymphocytes 1.2 1.0 - 4.0 K/mcL 10/30/2021 10:43 AM [facility] Absolute Monocytes 0.6 0.3 - 0.9 K/mcL 10/30/2021 10:43 AM [facility] Absolute Eosinophils 0.1 0.0 - 0.5 K/mcL 10/30/2021 10:43 AM [facility] Absolute Basophils 0.0 0.0 - 0.3 K/mcL 10/30/2021 10:43 AM 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 These results have been appended to a previously verified report. Delma Matamoros CNP BKR LAB BLOOD ORDER NUVIA Performing Organization Address City/[facility]/ZIP Co de Phone Number [facility] [address] [address] * Carcinoembryonic Antigen (10/30/2021 10:28 AM BONE CHAR OPERATOR) Only the most recent of7 resultswithin the time period is included. CEA 1.4 0.0 - 5.0 ng/mL 10/30/2021 4:27 PM BONE CHAR OPERATOR [facility] Comment:[employer] [facility] Chemiluminescence Immunoassay Blood VENOUS BLOOD SPECIMEN / Unknown Venipuncture / Unknown 10/30/2021 10:28 AM BONE CHAR OPERATOR 10/30/2021 10:28 AM BONE CHAR OPERATOR Delma Matamoros CNP BKR LAB BLOOD ORDER NUVIA Performing Organization Address City/[facility]/ZIP Co de Phone Number [facility] [address] [place] [address] * Ferritin (10/30/2021 10:28 AM BONE CHAR OPERATOR) Only the most recent of6 resultswithin the time period is included. Ferritin 166 8 - 252 ng/mL 10/30/2021 11:14 AM BONE CHAR OPERATOR [facility] Blood VENOUS BLOOD SPECIMEN / Unknown Venipuncture / Unknown 10/30/2021 10:28 AM BONE CHAR OPERATOR 10/30/2021 10:28 AM BONE CHAR OPERATOR Delma Matamoros CNP BKR LAB BLOOD ORDER NUVIA [facility] [address] [address] * (ABNORMAL) Comprehensive Metabolic Panel (10/30/2021 10:28 AM [facility]) Only the most recent of11 resultswithin the time period is included. Fasting Status 10/30/2021 11:14 AM [facility] Sodium 145 135 - 145 mmol/L 10/30/2021 11:14 AM [facility] Potassium 5.0 3.4 - 5.1 mmol/L 10/30/2021 11:14 AM [facility] Chloride 109(H) 98 - 107 mmol/L 10/30/2021 11:14 AM [facility] Carbon Dioxide 33(H) 21 - 32 mmol/L 10/30/2021 11:14 AM [facility] Anion Gap 8(L) 10 - 20 mmol/L 10/30/2021 11:14 AM [facility] Glucose 86 70 - 99 mg/dL 10/30/2021 11:14 AM [facility] BUN 20 6 - 20 mg/dL 10/30/2021 11:14 AM [facility] Creatinine 1.25(H) 0.51 - 0.95 mg/dL 10/30/2021 11:14 AM [facility] Glomerular Filtration Rate 45(L) >=60 10/30/2021 11:14 AM [facility] Comment:eGFR 30-59 mL/min/1. 73m2 = Moderate decrease in kidney function. Stage 3 CKD (chronic kidney disease) or moderate kidney disease. Estimated GFR calculated using the 2009 CKD-EPI creatinine equation. BUN/Cr 16 7 - 25 10/30/2021 11:14 AM [facility] Calcium 9.4 8.4 - 10.2 mg/dL 10/30/2021 11:14 AM [facility] Bilirubin, Total 0.5 0.2 - 1.0 mg/dL 10/30/2021 11:14 AM [facility] GOT/AST 14 <=37 Units/L 10/30/2021 11:14 AM [facility] GPT/ALT 16 <64 Units/L 10/30/2021 11:14 AM [facility] Alkaline Phosphatase 55 45 - 117 Units/L 10/30/2021 11:14 AM [facility] Albumin 3.3(L) 3.6 - 5.1 g/dL 10/30/2021 11:14 AM [facility] Protein, Total 6.3(L) 6.4 - 8.2 g/dL 10/30/2021 11:14 AM [facility] Globulin 3.0 2.0 - 4.0 g/dL 10/30/2021 11:14 AM [facility] A/G Ratio 1.1 1.0 - 2.4 10/30/2021 11:14 AM [facility] Blood VENOUS BLOOD SPECIMEN / Unknown Venipuncture / Unknown 10/30/2021 10:28 AM BONE CHAR OPERATOR 10/30/2021 10:28 AM BONE CHAR OPERATOR Delma Matamoros CNP BKR LAB BLOOD ORDER NUVIA Performing Organization Address City/[facility]/ZIP Co de Phone Number [facility] [address] [address] * (ABNORMAL) Vitamin B12 And Folate (10/30/2021 10:28 AM BONE CHAR OPERATOR) Only the most recent of4 resultswithin the time period is included. Vitamin B12 1,083(H) 211 - 911 pg/mL 10/30/2021 4:27 PM BONE CHAR OPERATOR [facility] [place] [facility] Folate >24.0 >=5.5 ng/mL 10/30/2021 4:27 PM BONE CHAR OPERATOR [facility] [place] [facility] Blood VENOUS BLOOD SPECIMEN / Unknown Venipuncture / Unknown 10/30/2021 10:28 AM BONE CHAR OPERATOR 10/30/2021 10:28 AM BONE CHAR OPERATOR Delma Matamoros CNP BKR LAB BLOOD ORDER NUVIA [facility] [place] [facility] [address] [place] [address] * Colonoscopy (09/27/2021 11:33 AM BONE CHAR OPERATOR) Anatomical Region Laterality Modality Endoscopy Impressions 09/27/2021 11:41 AM BONE CHAR OPERATOR 3 polyps Pancolonic diverticulosis RECOMMENDATIONS: Follow pathology results, please call our office in 1 week to obtain them Repeat colonoscopy in 1 year, or sooner if there is change in symptoms Zainab Moses MD 09/27/2021 11:40 AM Narrative 09/27/2021 11:41 AM BONE CHAR OPERATOR Colonoscopy Procedure Note Kirti Barr Patient Status: @MARY@ 1935 N [id number] [facility] Attending @ATTPROV@ DATE OF OPERATION: 09/27/2021 PREOPERATIVE DIAGNOSIS: Personal history of colon cancer POSTOPERATIVE DIAGNOSIS: 3 polyps Diverticulosis PROCEDURE PERFORMED: Colonoscopy with biopsy ANESTHESIA: MAC anesthesia REPORT OF OPERATION: After the risks, benefits and alternatives of the procedure were thoroughly explained (risks including but not limited to bleeding, infection, reaction to medications, perforation, requiring surgery, anesthesia related complications, requiring hospitalization, missed lesions, failure of treatment, need for repeat procedure pain, disability and ), Informed consent was obtained, verified and timeout was successfully executed by the treatment team. After the patient was placed in supine position. Olympus video colonoscope was inserted thru the stoma, advanced to the cecum, confirmed by the Ileo-Cecal valve and the Appendical orifice. The scope was then slowly withdrawn as the mucosa was fully examined Cecal withdrawal time was 7 minutes 4 seconds Quality of prep was good Patient's pulse, BP, and O2 saturation were monitored throughout the procedure After completion of procedure, patient was discharged to recovery In stable condition, he was cared for as planned FINDINGS: 2 polyps measuring 4 to 5 mm in the ascending colon, removed using cold biopsy forceps 5 mm polyp in the descending colon, removed using cold biopsy forceps Pancolonic diverticulosis Zainab Moses MD GI PROCEDURE ORDERAB LES * Surgical Pathology (09/27/2021 11:28 AM BONE CHAR OPERATOR) Only the most recent of3 resultswithin the time period is included. Case Report Surgical Pathology Case: [id number] Authorizing Provider: Zainab Moses MD Collected: 09/27/2021 1128 Ordering Location: [facility] Received: 09/27/2021 1224 GASTROENTEROLOGY Pathologist: Daniel Bruno MD Specimens: A) - Colon, cecal polyp B) - Colon, ascending colon polyp C) - Colon, descending colon polyp 09/28/2021 3:40 PM [facility] Pathologic Diagnosis A. Cecal polyp; colonoscopic biopsy: -Polypoid colonic mucosa, without diagnostic abnormality. B. Ascending colon polyp; colonoscopic biopsy: -Tubular adenoma. C. Descending colon polyp; colonoscopic biopsy: -Tubular adenoma. 09/28/2021 3:40 PM [facility] Clinical Information Order / Surgery Diagnosis: Z86.010 - Personal history of colonic polyps [ICD-10-CM] Radiology Diagnosis: No Dx found. 09/28/2021 3:40 PM [facility] Gross Description A. The specimen is received in formalin labeled with the patient's name and cecal polyp . It consists of one pozo soft tissue fragment measuring 0.2 x 0.2 x 0.1 cm. Sections: A1: Entire specimen B. The specimen is received in formalin labeled with the patient's name and ascending colon polyp . It consists of two pozo soft tissue fragments measuring 0.2 cm in greatest dimension and 0.5 x 0.3 x 0.2 cm. Sections: B1: Entire specimen C. The specimen is received in formalin labeled with the patient's name and descending colon polyp . It consists of two pozo soft tissue fragments measuring 0.2 cm in great dimension and 0.3 x 0.3 x 0.2 cm. Sections: C1: Entire specimen Cale Saucedauzair 09/27/21 1:50 PM 09/28/2021 3:40 PM [facility] Disclaimer The attending pathologist whose signature appears on this report has reviewed the diagnostic studies and has edited the gross and/or microscopic portion of the report in rendering the final diagnosis. The immunohistochemical, FISH, or PRIETO reagents (if any) were developed and their performance characteristics determined by [facility]. Some of the immunohistochemical reagents (if utilized) have not been cleared or approved by the US Food and Drug Administration. The FDA does not require this test to go through premarket FDA review. This test is used for clinical purposes. It should not be regarded as investigational or for research. This laboratory is certified under the Clinical Laboratory Improvement Amendments (CLIA) as qualified to perform high complexity clinical laboratory testing. All controls show appropriate reactivity. 09/28/2021 3:40 PM BONE CHAR OPERATOR [facility] Polyp COLON STRUCTURE / Unknown 09/27/2021 11:28 AM BONE CHAR OPERATOR 09/27/2021 12:24 PM BONE CHAR OPERATOR Polyp (morphologic abnormality) COLON STRUCTURE / Unknown 09/27/2021 11:28 AM BONE CHAR OPERATOR 09/27/2021 12:24 PM BONE CHAR OPERATOR Polyp (morphologic abnormality) COLON STRUCTURE / Unknown 09/27/2021 11:30 AM BONE CHAR OPERATOR 09/27/2021 12:24 PM BONE CHAR OPERATOR Zainab Moses MD BKR LAB PATHOLOGY OR DERABLES [facility] [address] [address] * 2019 Novel Coronavirus (SARS-CoV-2) (09/25/2021 11:30 AM BONE CHAR OPERATOR) Only the most recent of6 resultswithin the time period is included. SARS-CoV-2 by PCR Not Detected Not Detected / Detected / Inhibitor Present [facility] 09/26/2021 12:28 PM BONE CHAR OPERATOR [facility] Isolation Guidelines Do not use this test result as the sole decision-maker for discontinuation of isolation. Clinical evaluation should be considered for other respiratory illness requiring transmission-based isolation. - No fever (<99.0 F/37.2 C) for at least 24 hours without the use of fever-reducing medications AND - Respiratory symptoms have improved or resolved (e.g. cough, shortness of breath) AND - COVID-19 negative test See COVID-19 Deisolation Resource Guide [facility] - PNTH5 09/26/2021 12:28 PM BONE CHAR OPERATOR [facility] Procedural Notes Negative for SARS-CoV-2 (2019-nCoV) nucleic acid in the specimen, consider other viruses. A negative result does not preclude Coronavirus (COVID-19) infection and should not be used as sole basis for treatment or patient management decisions. Negative results must be combined with clinical observations, patient history, and epidemiological information. This test is an [facility] LDT/EUA validated assay, based on TMA or real-time PCR methodology intended for the qualitative detection of SARS-CoV-2 (2019-nCoV) nucleic acid. Performance characteristics for the LDT/EUA test has been determined by [facility] and are incorporated as part of FDA Emergency Use Authorization (EUA). This test was performed by [facility] using the FDA cleared Emergency Use Authorization (EUA) Aptima SARS-CoV-2 () from [employer]. This laboratory is certified under the Clinical Laboratory Improvement Amendments (CLIA) as qualified to perform high complexity clinical laboratory testing. COVID-19 Test Results - What you need to know and do [facility] PNTH5 09/26/2021 12:28 PM BONE CHAR OPERATOR [facility] Swab MID-TURBINATE NASAL SWAB / Unknown Non-blood Collection / Unknown 09/25/2021 11:30 AM BONE CHAR OPERATOR 09/25/2021 11:30 AM BONE CHAR OPERATOR Zainab Moses MD BKR LAB MOLEC DIAGN ORD [facility] [address] [place] [address] * STRESS TEST, REGADENOSON W MYOCARDIAL PERFUSION SPECT (MULTI STUDY) (08/13/2021 12:08 PM BONE CHAR OPERATOR) Predicted HR Max 135 BPM [facility] RADIOLOGY 08/13/2021 8:37 AM BONE CHAR OPERATOR 08/16/2021 11:52 AM BONE CHAR OPERATOR Impressions [facility] RAD[facility]OLOG[facility] - 08/13/2021 11:44 AM BONE CHAR OPERATOR *[facility]* [address] [address] Myocardial Perfusion Imaging Regadenoson (Lexiscan) Rest/Stress Patient: Kirti Barr Study Date/Time: Aug 13 2021 8:00AM : 1935 Ht/Wt: Age: 86 BSA/BMI: Gender: F Baseline BP: Ordering Physician: Jailene Chester Referring Physician: Jailene Chester Attending Physician: Jailene Chester Diagnostic Physician: Dolly Hung DO Nurse: Federica Lizama Indications: Shortness of breath. Study Conclusions Summary: 1. Myocardial perfusion imaging: Left ventricular size is normal. There is no transient ischemic dilation of the left ventricle during stress. The TID ratio is 1.13. No significant perfusion abnormalities. 2. Gated SPECT: The calculated left ventricular ejection fraction is 76%. LV global systolic function is normal. Ejection fraction is overestimated due to small heart size. No left ventricular regional motion abnormality. 3. Stress ECG conclusions: The stress ECG is negative for ischemia. 4. Baseline ECG: Normal sinus rhythm. Nonspecific T wave changes. Impressions: 1. Normal study after pharmacologic stress. 2. Study suggests low probability of significant obstructive coronary artery disease. 3. Left ventricular global systolic function is normal. Study data: Nuclear components: Rest/stress imaging. Consent: The risks, benefits, and alternatives to the procedure were explained to the patient. Study completion: The patient tolerated the procedure well. Procedure data: Initial setup. The patient was brought to the laboratory. A baseline ECG was recorded. Intravenous access was obtained. Surface ECG leads and manual cuff blood pressure measurements were monitored. Regadenoson (Lexiscan) stress test. Regadenoson (Lexiscan) was administered by intravenous bolus, followed by a 5ml saline flush. The total dose was 0.4mgover 10.00sec. Isotope administration: + + + + !Stage !Rest !Stress ! + + + + !Agent !Tc-99m sestamibi!Tc-99m sestamibi! + + + + !Injected dose !11mCi !33mCi ! + + + + !Date !08/13/2021 !08/13/2021 ! + + + + !Injection time!08:14 AM !09:35 AM ! + + + + !Route !IV !IV ! + + + + Image properties: Gated imaging was performed. Baseline ECG: Normal sinus rhythm. Nonspecific T wave changes. Cardiac stress table: + +---+ + + + !Stage !HR !BP !Symptoms !Comments ! + +---+ + + + !PREINFSN SUPINE !75 !126/70 (89)! !100% Sp02 on 2L, no ! ! ! ! ! !symptoms. ! + +---+ + + + !INFUSION INFUSION !116! ! !100% Sp02 on 2L. ! + +---+ + + + !POSTINFSN RECOVERY1!114! ! ! ! + +---+ + + + !POSTINFSN RECOVERY2!108!141/73 (96)! !headache. Headache. ! + +---+ + + + !POSTINFSN RECOVERY3!102!127/78 (94)! ! ! + +---+ + + + !POSTINFSN RECOVERY4!104!127/78 (94)! !100% Sp02 on 2L. ! + +---+ + + + !POSTINFSN RECOVERY5!99 ! ! ! ! + +---+ + + + !POSTINFSN RECOVERY6!100!133/71 (92)! !pt feels better, ! ! ! ! ! !symptoms resolved. ! + +---+ + + + !Baseline !---! !No symptoms.! ! + +---+ + + + Stress results: Maximal heart rate during stress was 121bpm (89% of maximal predicted heart rate). The maximal predicted heart rate was 135bpm.The target heart rate was 115bpm.The target heart rate was not achieved. The rate-pressure product for the peak heart rate and blood pressure was [id number] Hg/min. Stress ECG: The stress ECG is negative for ischemia. Myocardial perfusion imaging: Left ventricular size is normal. There is no transient ischemic dilation of the left ventricle during stress. The TID ratio is 1.13. No significant perfusion abnormalities. Gated SPECT: The calculated left ventricular ejection fraction is 76%. LV global systolic function is normal. Ejection fraction is overestimated due to small heart size. No left ventricular regional motion abnormality. Prepared and electronically signed by: Dolly Hung DO 08/13/2021 11:43 Narrative Procedure Note Dolly Hung DO - 08/13/2021 *[facility]* [address] [address] Myocardial Perfusion Imaging Regadenoson (Lexiscan) Rest/Stress Patient: Kirti Barr Study Date/Time: Aug 13 2021 8:00AM : 1935 Ht/Wt: Age: 86 BSA/BMI: Gender: F Baseline BP: Ordering Physician: Jailene Chester Referring Physician: Jailene Chester Attending Physician: Jailene Chester Diagnostic Physician: Dolly Hung DO Nurse: Federica Lizama Indica tions : Shortness of breath. Study Conclusions Summary: 1. Myocardial perfusion imaging: Left ventricular size is normal. Thereis no transient ischemic dilation of the left ventricle during stress.The TID ratio is 1.13. No significant perfusion abnormalities. 2. Gated SPECT: The calculated left ventricular ejection fraction is76%. LV global systolic function is normal. Ejection fraction is overestimated due to small heart size. No left ventricular regional motion abnormality. 3. Stress ECG conclusions: The stress ECG is negative for ischemia. 4. Baseline ECG: Normal sinus rhythm. Nonspecific T wave changes. Impressions: 1. Normal study after pharmacologic stress. 2. Study suggests low probability of significant obstructive coronary artery disease. 3. Left ventricular global systolic function is normal. Study data: Nuclear components: Rest/stress imaging. Consent: The risks, benefits, and alternatives to the procedure were explained to the patient. Study completion: The patient tolerated the procedure well. Proced ure data: Initial setup. The patient was brought to thelaboratory. A baseline ECG was recorded. Intravenous access was obtained. SurfaceECG leads and manual cuff blood pressure measurements were monitored. Regadenoson (Lexiscan) stress test. Regadenoson (Lexiscan) was administered by intravenous bolus, followed by a 5ml saline flush. The total dose was 0.4mgover 10.00sec. Isotop e administration: + + + + !Stage !Rest !Stress ! + + + + !Agent !Tc-99m sestamibi!Tc-99m sestamibi! + + + + !Injected dose !11mCi !33mCi ! + + + + !Date !08/13/2021 !08/13/2021 ! + + + + !Injection time!08:14 AM !09:35 AM ! + + + + !Route !IV !IV ! + + + + Image properties: Gated imaging was performed. Baseli ne ECG: Normal sinus rhythm. Nonspecific T wave changes. Cardia c stress table: + +---+ + + +!Stage !HR !BP !Symptoms !Comments! + +---+ + + +!PREIN FSN SUPINE !75 !126/70 (89)! !100% Sp02 on 2L, no! ! ! ! ! !symptoms.! + +---+ + + +!INFUS ION INFUSION !116! ! !100% Sp02 on 2L.! + +---+ + + +!POSTI NFSNR ECOVERY1!114! ! ! ! + +---+ + + +!POSTI NFSN RECOVERY2!108!141/73 (96)! !headache. Headache.! + +---+ + + +!POSTI NFSN RECOVERY3!102!127/78(94)! ! ! + +---+ + + +!POSTI NFSN RECOVERY4!104!127/78 (94)! !100% Sp02 on 2L.! + +---+ + + +!POSTI NFSN RECOVERY5!99! ! ! ! + +---+ + + +!POSTI NFSN RECOVERY6!100!133/71 (92)! !pt feels better,! ! ! ! ! !symptoms resolved.! + +---+ + + +!Basel ine !---! !Nosymptoms.! ! + +---+ + + +Stress results: Maximal heart rate during stress was 121bpm (89% of maximal predicted heart rate). The maximal predicted heart rate was 135bpm.The target heart rate was 115bpm.The target heart rate was not achieved. The rate-pressure product for the peak heart rate and blood pressure was 01310rk Hg/min. Stress ECG: The stress ECG is negative for ischemia. Myocar dial perfusion imaging: Left ventricular size is normal. Thereis no transient ischemic dilation of the left ventricle during stress. The TID ratio is 1.13. No significant perfusion abnormalities. Gated SPECT: The calculated left ventricular ejection fraction is 76%. LV global systolic function is normal. Ejection fraction isoverestimated due to small heart size. No left ventricular regional motion abnormality. Prepared and electronically signed by: Dolly Hung DO 08/13/2021 11:43 Jailene Chester MD CV [email or web address] * TRANSTHORACIC ECHO (TTE) COMPLETE W/ DOPPLER & COLOR (08/12/2021 1:31 PM BONE CHAR OPERATOR) Impressions [facility] - 08/12/2021 3:38 PM BONE CHAR OPERATOR *[facility]* [address] [address] Transthoracic Echocardiogram (TTE) Patient: Kirti Barr Study Date/Time: Aug 12 2021 12:53PM [facility]#: [id number] : 1935 Ht/Wt: 152.4cm 74.4kg Age: 86 BSA/BMI: 1.72m^2 32kg/m^2 Gender: F Baseline BP: 124 / 73 Ordering Physician: Jailene Chester Attending Physician: Jailene Chester Diagnostic Physician: Dolly Hung DO Wood Gouger: Vane Dugan INDICATIONS: Congestive heart failure. STUDY CONCLUSIONS SUMMARY: 1. Left ventricle: The cavity size is normal. Wall thickness is mildly increased. There is concentric hypertrophy. The ejection fraction was measured by visual estimation. The ejection fraction is 65%. 2. Aortic valve: There is very mild stenosis. The mean systolic gradient is 10mm Hg. 3. Left atrium: The atrium is severely dilated. STUDY DATA: Procedure: Transthoracic echocardiography was performed. Image quality was good. M-mode, complete 2D, complete spectral Doppler, and color Doppler. Study status: Routine. Study completion: There were no complications. FINDINGS LEFT VENTRICLE: The cavity size is normal. Wall thickness is mildly increased. There is concentric hypertrophy. Systolic function is normal. Wall motion is normal; there are no regional wall motion abnormalities. The ejection fraction was measured by visual estimation. The ejection fraction is 65%. The tissue Doppler parameters are abnormal. Left ventricular diastolic function parameters are indeterminate at present time. AORTIC VALVE: The annulus is normal-sized and mildly calcified. The valve is trileaflet. The leaflets are mildly calcified. Doppler: There is very mild stenosis. No regurgitation. The LVOT to aortic valve VTI ratio is 0.75. The valve area by the velocity-time integral method is 1.3cm^2. The valve area index by the velocity-time integral method is 0.75cm^2/m^2. The ratio of LVOT to aortic valve peak velocity is 0.68. The valve area by the peak velocity method is 1.2cm^2. The valve area index by the peak velocity method is 0.68cm^2/m^2. The mean systolic gradient is 10mm Hg. The peak systolic gradient is 21mm Hg. AORTA: Aortic root: The aortic root is normal in size. Ascending aorta: The ascending aorta is normal in size. MITRAL VALVE: The annulus is normal-sized. The annulus is moderately calcified. The leaflets are mildly thickened. Doppler: Transvalvular velocity is within the normal range. There is no evidence for stenosis. Trivial regurgitation. The peak diastolic gradient is 2mm Hg. ATRIAL SEPTUM: The septum is normal. LEFT ATRIUM: The atrium is severely dilated. RIGHT VENTRICLE: The cavity size is normal. Systolic function is normal. PULMONIC VALVE: The annulus is normal-sized. The leaflets are normal thickness. Doppler: Transvalvular velocity is within the normal range. There is no evidence for stenosis. No regurgitation. TRICUSPID VALVE: The annulus is normal-sized. The leaflets are normal thickness. Doppler: Transvalvular velocity is within the normal range. There is no evidence for stenosis. Trivial regurgitation. RIGHT ATRIUM: The atrium is dilated. PERICARDIUM: There is no pericardial effusion. SYSTEMIC VEINS: Inferior vena cava: The vessel is normal in size. The respirophasic diameter changes are in the normal range (greater than or equal to 50%). BASELINE ECG: Normal sinus rhythm. Measurements Left ventricle Value Ref Left atrium Value Ref DHIRAJ, LAX chord (L) 3.7 cm 3.8 - 5.2 AP dim, ES 3.4 cm 2.7 - 3.8 ESD, LAX chord 2.5 cm 2.2 - 3.5 AP dim index 2.0 cm/m^2 1.5 - 2.3 DHIRAJ/bsa, LAX chord (L) 2.1 cm/m^2 2.3 - 3.1 Area ES, A4C (H) 30 cm^2 <=20 ESD/bsa, LAX chord 1.5 cm/m^2 1.3 - 2.1 Area ES, A2C 28 cm^2 --------- PW, ED, LAX (H) 1.2 cm 0.6 - 0.9 Vol, S (H) 98 ml 22 - 52 DHIRAJ major ax, A4C 6.5 cm --------- Vol/bsa, S (H) 57 ml/m^2 16 - 34 ESD major ax, A4C 5.8 cm --------- Vol, ES, 1-p A4C (H) 97 ml 22 - 52 FS major axis, A4C 10 % --------- Vol/bsa, ES, 1-p A4C (H) 56 ml/m^2 11 - 40 DHIRAJ/bsa major ax, A4C 3.8 cm/m^2 --------- Vol, ES, 1-p A2C (H) 94 ml 22 - 52 ESD/bsa major ax, A4C 3.4 cm/m^2 --------- Vol/bsa, ES, 1-p A2C (H) 55 ml/m^2 13 - 40 FIDEL, A4C 18.6 cm^2 --------- Vol, ES, 2-p 98 ml --------- YANA, A4C 11.6 cm^2 --------- Vol/bsa, ES, 2-p (H) 57 ml/m^2 16 - 34 FAC, A4C 38 % --------- PW, ED (H) 1.2 cm 0.6 - 0.9 Aortic valve Value Ref IVS/PW, ED 1.19 --------- Peak v, S 2.2 m/sec --------- EDV 50 ml 46 - 106 Mean v, S 1.41 m/sec --------- ESV 16 ml 14 - 42 Mean grad, S 10 mm Hg --------- EF 65 % 54 - 74 Peak grad, S 21 mm Hg --------- SV 34 ml --------- LVOT/AV, VTI ratio 0.75 --------- EDV/bsa 29 ml/m^2 29 - 61 ALBERTA, VTI 1.3 cm^2 --------- ESV/bsa 9 ml/m^2 8 - 24 ALBERTA/bsa, VTI 0.75 cm^2/m^2 --------- SV/bsa 20 ml/m^2 --------- LVOT/AV, Vpeak ratio 0.68 --------- SV, 1-p A4C 25 ml --------- ALBERTA, Vmax 1.2 cm^2 --------- SV/bsa, 1-p A4C 15 ml/m^2 --------- ALBERTA/bsa, Vmax 0.68 cm^2/m^2 --------- ESV, 2-p 20 ml 14 - 42 ESV/bsa, 2-p 12 ml/m^2 8 - 24 Mitral valve Value Ref E', lat pb, TDI (L) 7.7 cm/sec >=10 Peak E 0.73 m/sec --------- E/e', lat pb, TDI 9 --------- Peak A 0.55 m/sec --------- E', med pb, TDI 8.68 cm/sec >=7 Decel time 173 ms --------- E/e', med pb, TDI 8 --------- Peak grad, D 2 mm Hg --------- E', avg, TDI 8.19 cm/sec --------- Peak E/A ratio 1.3 --------- E/e', avg, TDI 9 <=14 Tricuspid valve Value Ref LVOT Value Ref TR peak v 1.8 m/sec <=2.8 Diam, S 1.5 cm --------- Peak RV-RA grad, S 13 mm Hg --------- Area 1.8 cm^2 --------- Max TR ghassan 1.82 m/sec --------- Peak ghassan, S 1.51 m/sec --------- Peak grad, S 9 mm Hg --------- Ascending aorta Value Ref AAo AP diam, ED 3.1 cm 1.9 - 3.5 Ventricular septum Value Ref AAo AP diam/bsa, ED 1.8 cm/m^2 1.0 - 2.2 IVS, ED (H) 1.3 cm 0.6 - 0.9 Pulmonary artery Value Ref Right ventricle Value Ref Pressure, S 18 mm Hg --------- DHIRAJ, LAX 3.0 cm --------- Pressure, S 18 mm Hg --------- Systemic veins Value Ref Estimated CVP 5 mm Hg --------- Legend: (L) and (H) fransisca values outside specified reference range. Electronically signed by Dolly Hung DO 08/12/2021 17:43 Narrative Procedure Note Dolly Hung DO - 08/12/2021 *[facility]* [address] [address] Transthoracic Echocardiogram (TTE) Patient: Kirti Barr Study Date/Time: Aug 12 2021 12:53PM : 1935 Ht/Wt: 152.4cm 74.4kg Age: 86 BSA/BMI: 1.72m^2 32kg/m^2 Gender: F Baseline BP: 124 / 73 Ordering Physician: Jailene Chester Attending Physician: Jailene Chester Diagnostic Physician: Dolly Hung DO Wood Gouger: Vane Dugan INDICA TIONS : Congestive heart failure. STUDY CONCLUSIONS SUMMARY: 1. Left ventricle: The cavity size is normal. Wall thickness is mildly increased. There is concentric hypertrophy. The ejection fraction was measured by visual estimation. The ejection fraction is 65%. 2. Aortic valve: There is very mild stenosis. The mean systolic gradient is 10mm Hg. 3. Left atrium: The atrium is severely dilated. STUDY DATA: Procedure: Transthoracic echocardiography was performed. Image quality was good. M-mode, complete 2D, complete spectral Doppler, and color Doppler. Study status: Routine. Study completion: Therewere no complications. FINDINGS LEFT VENTRICLE: The cavity size is normal. Wall thickness is mildly increased. There is concentric hypertrophy. Systolic function is normal. Wall motion is normal; there are no regional wall motion abnormalities. The ejection fraction was measured by visual estimation. The ejection fraction is 65%. The tissue Doppler parameters are abnormal. Left ventricular diastolic function parameters are indeterminate at present time. AORTIC VALVE: The annulus is normal-sized and mildly calcified. Thevalve is trileaflet. The leaflets are mildly calcified. Doppler: There is very mild stenosis. No regurgitation. The LVOT to aortic valve VTI ratio is 0.75. The valve area by the velocity-time integral method is 1.3cm^2. The valve area index by the velocity-time integral method is 0.75cm^2/m^2. The ratio of LVOT to aortic valve peak velocity is 0.68.The valve area by the peak velocity method is 1.2cm^2. The valve area indexby the peak velocity method is 0.68cm^2/m^2. The mean systolic gradientis 10mm Hg. The peak systolic gradient is 21mm Hg. AORTA: Aortic root: The aortic root is normal in size. Ascending aorta: The ascending aorta is normal in size. MITRAL VALVE: The annulus is normal-sized. The annulus is moderately calcified. The leaflets are mildly thickened. Doppler: Transvalvular velocity is within the normal range. There is no evidence for stenosis. Trivial regurgitation. The peak diastolic gradient is 2mm Hg. ATRIAL SEPTUM: The septum is normal. LEFT ATRIUM: The atrium is severely dilated. RIGHT VENTRICLE: The cavity size is normal. Systolic function isnormal. PULMONIC VALVE: The annulus is normal-sized. The leaflets are normal thickness. Doppler: Transvalvular velocity is within the normal range. There is no evidence for stenosis. No regurgitation. TRICUSPID VALVE: The annulus is normal-sized. The leaflets are normal thickness. Doppler: Transvalvular velocity is within the normal range. There is no evidence for stenosis. Trivial regurgitation. RIGHT ATRIUM: The atrium is dilated. PERICARDIUM: There is no pericardial effusion. SYSTEMIC VEINS: Inferior vena cava: The vessel is normal in size. The respirophasic diameter changes are in the normal range (greater than or equal to 50%). BASELINE ECG: Normal sinus rhythm. Measur ement s Left ventricle Value Ref Left atriumValue Ref DHIRAJ, LAX chord (L) 3.7 cm 3.8 - 5.2 AP dim, ES3.4 cm 2.7 - 3.8 ESD, LAX chord 2.5 cm 2.2 - 3.5 AP dim index2.0 cm/m^2 1.5 - 2.3 DHIRAJ/bsa, LAX chord (L) 2.1 cm/m^2 2.3 - 3.1 Area ES, A4C(H) 30 cm^2 <=20 ESD/bsa, LAX chord 1.5 cm/m^2 1.3 - 2.1 Area ES, A2C28 cm^2 --------- PW, ED, LAX (H) 1.2 cm 0.6 - 0.9 Vol, S(H) 98 ml 22 - 52 DHIRAJ major ax, A4C 6.5 cm --------- Vol/bsa, S(H) 57 ml/m^2 16 - 34 ESD major ax, A4C 5.8 cm --------- Vol, ES, 1-p A4C(H) 97 ml 22 - 52 FS major axis, A4C 10 % --------- Vol/bsa, ES, 1-pA4C (H) 56 ml/m^2 11 - 40 DHIRAJ/bsa major ax, A4C 3.8 cm/m^2 --------- Vol, ES, 1-p A2C(H) 94 ml 22 - 52 ESD/bsa major ax, A4C 3.4 cm/m^2 --------- Vol/bsa, ES, 1-pA2C (H) 55 ml/m^2 13 - 40 FIDEL, A4C 18.6 cm^2 --------- Vol, ES, 2-p98 ml --------- YANA, A4C 11.6 cm^2 --------- Vol/bsa, ES, 2-p(H) 57 ml/m^2 16 - 34 FAC, A4C 38 % --------- PW, ED (H) 1.2 cm 0.6 - 0.9 Aortic valveValue Ref IVS/PW, ED 1.19 --------- Peak v, S2.2 m/sec --------- EDV 50 ml 46 - 106 Mean v, S1.41 m/sec --------- ESV 16 ml 14 - 42 Mean grad, S10 mm Hg --------- EF 65 % 54 - 74 Peak grad, S21 mm Hg --------- SV 34 ml --------- LVOT/AV, VTI ratio0.75 --------- EDV/bsa 29 ml/m^2 29 - 61 ALBERTA, VTI1.3 cm^2 --------- ESV/bsa 9 ml/m^2 8 - 24 ALBERTA/bsa, VTI0.75 cm^2/m^2 --------- SV/bsa 20 ml/m^2 --------- LVOT/AV, Vpeakratio 0.68 --------- SV, 1-p A4C 25 ml --------- ALBERTA, Vmax1.2 cm^2 --------- SV/bsa, 1-p A4C 15 ml/m^2 --------- ALBERTA/bsa, Vmax0.68 cm^2/m^2 --------- ESV, 2-p 20 ml 14 - 42 ESV/bsa, 2-p 12 ml/m^2 8 - 24 Mitral valveValue Ref E', lat pb, TDI (L) 7.7 cm/sec >=10 Peak E0.73 m/sec --------- E/e', lat pb, TDI 9 --------- Peak A0.55 m/sec --------- E', med pb, TDI 8.68 cm/sec >=7 Decel qrep794 ms --------- E/e', med pb, TDI 8 --------- Peak grad, D2 mm Hg --------- E', avg, TDI 8.19 cm/sec --------- Peak E/A ratio1.3 --------- E/e', avg, TDI 9 <=14 Tricuspid valveValue Ref LVOT Value Ref TR peak v1.8 m/sec <=2.8 Diam, S 1.5 cm --------- Peak RV-RA grad, S13 mm Hg --------- Area 1.8 cm^2 --------- Max TR vel1.82 m/sec --------- Peak ghassan, S 1.51 m/sec --------- Peak grad, S 9 mm Hg --------- Ascending aortaValue Ref AAo AP diam, ED3.1 cm 1.9 - 3.5 Ventricular septum Value Ref AAo AP diam/bsa, ED1.8 cm/m^2 1.0 - 2.2 IVS, ED (H) 1.3 cm 0.6 - 0.9 Pulmonary arteryValue Ref Right ventricle Value Ref Pressure, S18 mm Hg --------- DHIRAJ, LAX 3.0 cm --------- Pressure, S 18 mm Hg --------- Systemic veinsValue Ref Estimated CVP5 mm Hg --------- Legend: (L) and (H) fransisca values outside specified reference range. Electronically signed by Dolly Hung DO 08/12/2021 17:43 Jailene Chester MD CV ECHO ORDERABLES Performing Organization Address [facility] Phone Number [facility] * (ABNORMAL) Urine, Bacterial Culture (08/12/2021 2:24 AM BONE CHAR OPERATOR) Urine, Bacterial Culture 10,000 TO 50,000 CFU/mL Streptococcus agalactiae (Strep Group B)(A) MIAH 08/13/2021 5:01 PM BONE CHAR OPERATOR [facility] Urine URINE SPECIMEN OBTAINED BY CLEAN CATCH PROCEDURE / Unknown Non-blood Collection / Unknown 08/12/2021 2:24 AM BONE CHAR OPERATOR 08/12/2021 2:45 AM BONE CHAR OPERATOR Narrative [facility] - 08/13/2021 5:01 PM BONE CHAR OPERATOR Additional Comment Critical Care Response Miguel Montez DO [facility] MICRO-GEN OR DERABLES [facility] [address] [place] [address] * (ABNORMAL) Urinalysis With Microscopy & Culture If Indicated (08/12/2021 2:24 AM BONE CHAR OPERATOR) COLOR, URINALYSIS Yellow 08/12/2021 3:01 AM [facility] APPEARANCE, URINALYSIS Clear 08/12/2021 3:01 AM [facility] GLUCOSE, URINALYSIS Negative Negative mg/dL 08/12/2021 3:01 AM [facility] BILIRUBIN, URINALYSIS Negative Negative 08/12/2021 3:01 AM [facility] KETONES, URINALYSIS 20(A) Negative mg/dL 08/12/2021 3:01 AM [facility] SPECIFIC GRAVITY, URINALYSIS 1.017 1.005 - 1.030 08/12/2021 3:01 AM [facility] OCCULT BLOOD, URINALYSIS Small(A) Negative 08/12/2021 3:01 AM [facility] PH, URINALYSIS 5.0 5.0 - 7.0 08/12/2021 3:01 AM [facility] PROTEIN, URINALYSIS Negative Negative mg/dL 08/12/2021 3:01 AM [facility] UROBILINOGEN, URINALYSIS 0.2 0.2, 1.0 mg/dL 08/12/2021 3:01 AM [facility] NITRITE, URINALYSIS Negative Negative 08/12/2021 3:01 AM [facility] LEUKOCYTE ESTERASE, URINALYSIS Trace(A) Negative 08/12/2021 3:01 AM [facility] SQUAMOUS EPITHELIAL, URINALYSIS 1 to 5 None Seen, 1 to 5 /hpf 08/12/2021 3:01 AM [facility] ERYTHROCYTES, URINALYSIS 1 to 2 None Seen, 1 to 2 /hpf 08/12/2021 3:01 AM [facility] LEUKOCYTES, URINALYSIS 1 to 5 None Seen, 1 to 5 /hpf 08/12/2021 3:01 AM [facility] BACTERIA, URINALYSIS None Seen None Seen /hpf 08/12/2021 3:01 AM [facility] HYALINE CASTS, URINALYSIS None Seen None Seen, 1 to 5 /lpf 08/12/2021 3:01 AM BONE CHAR OPERATOR [facility] MUCUS Present 08/12/2021 3:01 AM BONE CHAR OPERATOR [facility] Urine URINE SPECIMEN OBTAINED BY CLEAN CATCH PROCEDURE / Unknown Non-blood Collection / Unknown 08/12/2021 2:24 AM BONE CHAR OPERATOR 08/12/2021 2:45 AM BONE CHAR OPERATOR Miguel Lay Tc [facility] URINE ORDERA BLES [facility] [address] [address] * CTA CHEST PULMONARY EMBOLISM W CONTRAST (08/11/2021 1:20 PM BONE CHAR OPERATOR) Anatomical Region Laterality Modality Chest Computed Tomogra phy 08/11/2021 1:23 PM BONE CHAR OPERATOR Impressions 08/11/2021 1:41 PM BONE CHAR OPERATOR No evidence of acute pulmonary embolism to segmental pulmonary embolism. Cardiomegaly. Multiple images of the [place] coronary arteries. Electronically Signed by: LANEY JOSEPH MD Signed on: 08/11/2021 1:41 PM Narrative 08/11/2021 1:41 PM BONE CHAR OPERATOR EXAM: CTA CHEST PULMONARY EMBOLISM W CONTRAST HISTORY: Hypoxia. COMPARISON: CXR dated 08/11/2021. TECHNIQUE: CT angiogram of the chest was performed with IV contrast as per pulmonary embolus protocol. 3-D Maximum Intensity Projections were performed on an independent workstation with concurrent supervision of a radiologist. Multiplanar reformats were performed and evaluated. Contrast: Patient was administered 100 ml of Omnipaque 350without immediate complications. FINDINGS: The thyroid is unremarkable. No enlarged paratracheal nodes. The heart is enlarged. 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 There is no pericardial effusion. The mid ascending aorta measures 3.2 cm. There is no evidence of acute pulmonary embolism to the segmental pulmonary arterial level. Evaluation for pulmonary embolism distal to this region is not adequately performed on this exam secondary to contrast bolus timing and breathing motion. The main pulmonary artery measures 2.9 cm. The esophagus is decompressed. Limited visualization of the upper abdomen organs is unremarkable. Evaluation lung parenchyma demonstrates subsegmental region of atelectasis in the medial left lower lobe. No suspicious pulmonary mass. Central airways are patent. No pleural effusion. No pneumothorax. Changes of degenerative disc disease is noted. No aggressive osseous findings. Procedure Note Laney Joseph MD - 08/11/2021 EXAM: CTA CHEST PULMONARY EMBOLISM W CONTRAST HISTORY: Hypoxia. COMPARISON: CXR dated 08/11/2021. TECHNIQUE: CT angiogram of the chest was performed with IV contrast as perpulmonary embolus protocol. 3-D Maximum Intensity Projections were performed xochilt independent workstation with concurrent supervision of a radiologist. Multiplanar reformats were performed and evaluated. Contrast: Patient was administered 100 ml of Omnipaque 350withoutimmediate complications. FINDINGS: The thyroid is unremarkable. No enlarged paratracheal nodes. The heart is enlarged. 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 There is no pericardial effusion. The mid ascending aorta measures 3.2 cm. There is no evidence of acute pulmonary embolism to the segmental pulmonary arterial level. Evaluation for pulmonary embolism distal to this region is not adequately performed on this exam secondaryto contrast bolus timing and breathing motion. The main pulmonary artery measures 2.9 cm. The esophagus is decompressed. Limited visualization of the upper abdomen organs is unremarkable. Evaluation lung parenchyma demonstrates subsegmental region ofatelectasis in the medial left lower lobe. No suspicious pulmonary mass. Central airways are patent. No pleural effusion. No pneumothorax. Changes of degenerative disc disease is noted. No aggressive osseous findings. IMPRESSION: No evidence of acute pulmonary embolism to segmental pulmonaryembolism. Cardiomegaly. Multiple images of the [place] coronary arteries. Electronically Signed by: LANEY JOSEPH MD Signed on: 08/11/2021 1:41 PM Miguel Montez DO IMG CT PROCEDURES * XR CHEST PA OR AP 1 VIEW (08/11/2021 11:27 AM BONE CHAR OPERATOR) Anatomical Region Laterality Modality Chest N/A Digital Radiogra phy 08/11/2021 11:3 2 AM BONE CHAR OPERATOR Impressions 08/11/2021 11:33 AM BONE CHAR OPERATOR Mild cardiomegaly. No acute pulmonary process. Electronically Signed by: DONALD ORDOÑEZ MD Signed on: 08/11/2021 11:33 AM Narrative 08/11/2021 11:33 AM BONE CHAR OPERATOR EXAMINATION: Chest Radiograph, AP view HISTORY: Critical Care Response, tachycardia FINDINGS: No prior study is available for comparison. No abnormal pulmonary opacity is identified. No pleural effusion or pneumothorax is seen. Mild cardiomegaly. Tortuous aorta. The osseous structures are intact. Postoperative clips the right upper quadrant, likely secondary to prior cholecystectomy. Procedure Note Donald Ordoñez MD - 08/11/2021 EXAMINATION: Chest Radiograph, AP view HISTORY: Critical Care Response, tachycardia FINDINGS: No prior study is available for comparison. No abnormal pulmonary opacity is identified. No pleural effusion or pneumothorax is seen. Mild cardiomegaly. Tortuous aorta. The osseous structures are intact. Postoperative clips the right upper quadrant, likely secondary to prior cholecystectomy. IMPRESSION: Mild cardiomegaly. No acute pulmonary process. Electronically Signed by: DONALD ORDOÑEZ MD Signed on: 08/11/2021 11:33 AM Miguel Montez DO IMG XR PROCEDURES * COVID/Flu/RSV panel (08/11/2021 11:17 AM BONE CHAR OPERATOR) Rapid SARS-COV-2 by PCR Not Detected Not Detected / Detected / Presumptive Positive / Inhibitors present [facility] 08/11/2021 12:31 PM [facility] Influenza A by PCR Not Detected Not Detected [facility] 08/11/2021 12:31 PM [facility] Influenza B by PCR Not Detected Not Detected [facility] 08/11/2021 12:31 PM [facility] RSV BY PCR Not Detected Not Detected [facility] 08/11/2021 12:31 PM [facility] Isolation Guidelines [facility] 08/11/2021 12:31 PM [facility] Comment: Do not use this test result as the sole decision-maker for discontinuation of isolation. Clinical evaluation should be considered for other respiratory illness requiring transmission-based isolation. - No fever (<99.0 F/37.2 C) for at least 24 hours without the use of fever- reducing medications AND - Respiratory symptoms have improved or resolved (e.g. cough, shortness of breath) AND - COVID-19 negative test See COVID-19 Deisolation Resource Guide Procedural Comment [facility] 08/11/2021 12:31 PM BONE CHAR OPERATOR [facility] Comment: SARS-COV-2 nucleic acid has not been detected indicating the absence of COVID- 19. This test was performed using the [employer] Xpert Xpress SARS-CoV-2/Flu/RSV RT-PCR test that has been given Emergency Use Authorization (EUA) by the [place] Food and Drug Administration (FDA). These tests are considered definitive and do not need to be confirmed by another method. Swab MID-TURBINATE NASAL SWAB / Unknown Non-blood Collection / Unknown 08/11/2021 11:17 AM BONE CHAR OPERATOR 08/11/2021 11:20 AM BONE CHAR OPERATOR Miguel Montez DO BKR LAB BLOOD ORDERA BLES Performing Organization Address [facility] [place] [address] * Gold Top (08/11/2021 11:17 AM BONE CHAR OPERATOR) Extra Tube Hold for Add Ons 08/11/2021 8:03 PM BONE CHAR OPERATOR [facility] Blood VENOUS BLOOD SPECIMEN / Unknown Venipuncture / Unknown 08/11/2021 11:17 AM BONE CHAR OPERATOR 08/11/2021 11:21 AM BONE CHAR OPERATOR Soy Flynn DO BKR LAB BLOOD ORDERA BLES Performing Organization Address [facility] de Phone Number [address] [address] * TROPONIN I, HIGH SENSITIVITY (08/11/2021 11:16 AM BONE CHAR OPERATOR) Only the most recent of2 resultswithin the time period is included. Troponin I, High Sensitivity 18 <52 ng/L 08/11/2021 11:45 AM BONE CHAR OPERATOR [facility] Blood VENOUS BLOOD SPECIMEN / Unknown Venipuncture / Unknown 08/11/2021 11:16 AM BONE CHAR OPERATOR 08/11/2021 11:21 AM BONE CHAR OPERATOR Miguel Montez DO BKR LAB BLOOD ORDERA BLES Performing Organization Address [facility] Co de Phone Number [place] [address] [place] [address] * Lactic Acid Venous With Reflex (08/11/2021 11:16 AM BONE CHAR OPERATOR) Lactate, Venous 1.0 0.0 - 2.0 mmol/L 08/11/2021 12:03 PM BONE CHAR OPERATOR [facility] Blood VENOUS BLOOD SPECIMEN / Unknown Venipuncture / Unknown 08/11/2021 11:16 AM BONE CHAR OPERATOR 08/11/2021 11:22 AM BONE CHAR OPERATOR Miguel Montez DO BKR LAB BLOOD ORDERA BLES Performing Organization Address City/[facility] Co de Phone Number [address] [address] * Ballard Top Tube (08/11/2021 11:16 AM BONE CHAR OPERATOR) Extra Tube Hold for Add Ons 08/11/2021 8:03 PM BONE CHAR OPERATOR [facility] Blood VENOUS BLOOD SPECIMEN / Unknown Venipuncture / Unknown 08/11/2021 11:16 AM BONE CHAR OPERATOR 08/11/2021 11:21 AM BONE CHAR OPERATOR Soy Flynn DO BKR LAB BLOOD ORDERA BLES Performing Organization Address City/[facility] Co de Phone Number [address] [address] * Lavender Top (08/11/2021 11:16 AM BONE CHAR OPERATOR) Only the most recent of2 resultswithin the time period is included. Extra Tube Hold for Add Ons 08/11/2021 8:03 PM BONE CHAR OPERATOR [facility] Blood VENOUS BLOOD SPECIMEN / Unknown Venipuncture / Unknown 08/11/2021 11:16 AM BONE CHAR OPERATOR 08/11/2021 11:21 AM BONE CHAR OPERATOR Soy Flynn DO BKR LAB BLOOD ORDERA BLES Performing Organization Address City/[facility] Co de Phone Number [address] [address] * Light Green Top (08/11/2021 11:16 AM BONE CHAR OPERATOR) Only the most recent of2 resultswithin the time period is included. Extra Tube Hold for Add Ons 08/11/2021 8:03 PM BONE CHAR OPERATOR [facility] Blood VENOUS BLOOD SPECIMEN / Unknown Venipuncture / Unknown 08/11/2021 11:16 AM BONE CHAR OPERATOR 08/11/2021 11:21 AM BONE CHAR OPERATOR Soy Flynn DO BKR LAB BLOOD ORDERA BLES Performing Organization Address [facility] [place] [address] * Partial Thromboplastin Time (08/11/2021 11:16 AM BONE CHAR OPERATOR) PTT 25 22 - 30 sec 08/11/2021 11:46 AM BONE CHAR OPERATOR [facility] Blood VENOUS BLOOD SPECIMEN / Unknown Venipuncture / Unknown 08/11/2021 11:16 AM BONE CHAR OPERATOR 08/11/2021 11:21 AM BONE CHAR OPERATOR Narrative [facility] - 08/11/2021 11:46 AM BONE CHAR OPERATOR PTT Therapeutic Range: 45-65 seconds. Miguel Montez DO BKR LAB BLOOD ORDERA BLES Performing Organization Address [facility] de Phone Number [address] [address] * Prothrombin Time (08/11/2021 11:16 AM BONE CHAR OPERATOR) Protime- PT 10.9 9.7 - 11.8 sec 08/11/2021 11:46 AM BONE CHAR OPERATOR [facility] INR 1.0 08/11/2021 11:46 AM BONE CHAR OPERATOR [facility] Comment:INR Therapeutic Rang e: 2.0 to 3.0 (2.5 to 3.5 recommended for recurrent thrombotic episodes and mechanical prosthetic heart valves.) Blood VENOUS BLOOD SPECIMEN / Unknown Venipuncture / Unknown 08/11/2021 11:16 AM BONE CHAR OPERATOR 08/11/2021 11:21 AM BONE CHAR OPERATOR Miguel Montez DO BKR LAB BLOOD ORDERA BLES Performing Organization Address [facility] Co de Phone Number [address] [address] * NT proBNP (08/11/2021 11:16 AM BONE CHAR OPERATOR) Only the most recent of2 resultswithin the time period is included. NT-proBNP 418 <=450 pg/mL 08/11/2021 11:45 AM BONE CHAR OPERATOR [facility] Blood VENOUS BLOOD SPECIMEN / Unknown Venipuncture / Unknown 08/11/2021 11:16 AM BONE CHAR OPERATOR 08/11/2021 11:21 AM BONE CHAR OPERATOR Miguel Montez DO BKR LAB BLOOD ORDERA BLES Performing Organization Address [facility] de Phone Number [address] [address] * ABO/RH GROUP AND TYPE (D) (08/11/2021 11:16 AM BONE CHAR OPERATOR) ABO/RH(D) A Rh Positive 08/11/2021 12:43 PM BONE CHAR OPERATOR [facility] Blood VENOUS BLOOD SPECIMEN / Unknown Venipuncture / Unknown 08/11/2021 11:16 AM BONE CHAR OPERATOR 08/11/2021 11:21 AM BONE CHAR OPERATOR Miguel OLIVARESR LAB BLOOD BANK T EST ORDER Performing Organization Address [facility] de Phone Number [address] [address] * Blood Culture (08/11/2021 11:15 AM BONE CHAR OPERATOR) Culture, Blood or Bone Marrow No Growth 5 Days. 08/16/2021 2:08 AM BONE CHAR OPERATOR [facility] Blood BLOOD SPECIMEN / Unknown Venipuncture / Unknown 08/11/2021 11:15 AM BONE CHAR OPERATOR 08/11/2021 11:21 AM BONE CHAR OPERATOR Narrative [facility] - 08/16/2021 2:08 AM BONE CHAR OPERATOR Additional Comment Critical Care Response Miguel Montez DO BKR LAB MICRO-GEN OR DERABLES Performing Organization Address [facility] Co de Phone Number [facility] [address] [place] [address] * TYPE/SCREEN (08/11/2021 11:11 AM BONE CHAR OPERATOR) ABO/RH(D) A Rh Positive 08/11/2021 12:42 PM BONE CHAR OPERATOR [facility] ANTIBODY SCREEN Negative 08/11/2021 12:42 PM BONE CHAR OPERATOR [facility] TYPE AND SCREEN EXPIRATION DATE 08/14/2021 23:59 08/11/2021 12:42 PM BONE CHAR OPERATOR [facility] Blood VENOUS BLOOD SPECIMEN / Unknown Venipuncture / Unknown 08/11/2021 11:11 AM BONE CHAR OPERATOR 08/11/2021 11:21 AM BONE CHAR OPERATOR Miguel Montez DO BKR LAB BLOOD BANK T EST ORDER Performing Organization Address [facility] de Phone Number [facility] [address] [address] * Electrocardiogram 12-Lead (08/11/2021 11:00 AM BONE CHAR OPERATOR) Only the most recent of9 resultswithin the time period is included. Ventricular Rate EKG/Min (BPM) 102 MUSE Atrial Rate (BPM) 102 MUSE NM-Interval (MSEC) 130 MUSE QRS-Interval (MSEC) 96 MUSE QT-Interval (MSEC) 346 MUSE QTc 451 MUSE P [place] (Degrees) 35 MUSE R [place] (Degrees) -26 MUSE T [place] (Degrees) -9 MUSE REPORT TEXT Sinus tachycardia Possible Left atrial enlargement Left ventricular hypertrophy Abnormal ECG No previous ECGs available Confirmed by ALLEY CHAIDEZ MD ([id number]) on 08/11/2021 3:54:33 PM MUSE 08/11/2021 11:0 0 AM BONE CHAR OPERATOR Miguel Montez DO ECG ORDERABLES Performing Organization Address [facility] de Phone Number MUSE * XR CHEST PA AND LATERAL 2 VIEWS (08/10/2021 8:06 PM BONE CHAR OPERATOR) Anatomical Region Laterality Modality Chest N/A Digital Radiogra phy 08/10/2021 8:12 PM BONE CHAR OPERATOR Impressions 08/10/2021 8:13 PM BONE CHAR OPERATOR No evidence of active disease in the chest Electronically Signed by: JAD PETERSON M.D Signed on: 08/10/2021 8:13 PM Narrative 08/10/2021 8:13 PM BONE CHAR OPERATOR CHEST, TWO VIEW 1958 CLINICAL INDICATION: Chest Pain COMPARISON: 02/13/2020 TECHNIQUE: PA and lateral views of the chest obtained. FINDINGS: The heart size and pulmonary vascularity are unremarkable. There is no evidence for infiltrate. The mediastinal silhouette, bones and remaining soft tissues are within normal limits. Procedure Note Jad Peterson MD - 08/10/2021 CHEST, TWO VIEW 1958 CLINICAL INDICATION: Chest Pain COMPARISON: 02/13/2020 TECHNIQUE: PA and lateral views of the chest obtained. FINDINGS: The heart size and pulmonary vascularity are unremarkable.There is no evidence for infiltrate. The mediastinal silhouette, bones and remaining soft tissues are within normal limits. IMPRESSION: No evidence of active disease in the chest Electronically Signed by: JAD PETERSON M.D Signed on: 08/10/2021 8:13 PM Soy Flynn DO IMG XR PROCEDURES * Vitamin B12 (07/10/2021 11:21 AM BONE CHAR OPERATOR) Only the most recent of2 resultswithin the time period is included. Vitamin B12 624 211 - 911 pg/mL 07/10/2021 5:01 PM BONE CHAR OPERATOR [facility] Blood VENOUS BLOOD SPECIMEN / Unknown Venipuncture / Unknown 07/10/2021 11:21 AM BONE CHAR OPERATOR 07/10/2021 11:21 AM BONE CHAR OPERATOR Smitha Harrison MD BKR LAB BLOOD OR DERABLES [facility] [address] [place] [address] * Lactate Dehydrogenase (07/10/2021 11:21 AM BONE CHAR OPERATOR) LD, Total 172 82 - 240 Units/L 07/10/2021 11:54 AM BONE CHAR OPERATOR [facility] Blood VENOUS BLOOD SPECIMEN / Unknown Venipuncture / Unknown 07/10/2021 11:21 AM BONE CHAR OPERATOR 07/10/2021 11:21 AM BONE CHAR OPERATOR Smitha Harrison MD BKR LAB BLOOD OR DERABLES [facility] [address] [address] * Folate (07/10/2021 11:21 AM BONE CHAR OPERATOR) Folate 18.5 >=5.5 ng/mL 07/10/2021 5:01 PM BONE CHAR OPERATOR [facility] Blood VENOUS BLOOD SPECIMEN / Unknown Venipuncture / Unknown 07/10/2021 11:21 AM BONE CHAR OPERATOR 07/10/2021 11:21 AM BONE CHAR OPERATOR Smitha Harrison MD BKR LAB BLOOD OR DERABLES Performing Organization Address City/[facility] Co de Phone Number [facility] [address] [place] [address] * Iron And total Iron Binding Capacity (05/31/2021 1:52 PM CDT) Only the most recent of3 resultswithin the time period is included. Iron 65 50 - 170 mcg/dL 05/31/2021 2:42 PM CDT [facility] Iron Binding Capacity 282 250 - 450 mcg/dL 05/31/2021 2:42 PM CDT [facility] Iron, Percent Saturation 23 15 - 45 % 05/31/2021 2:42 PM CDT [facility] Blood VENOUS BLOOD SPECIMEN / Unknown Venipuncture / Unknown 05/31/2021 1:52 PM CDT 05/31/2021 1:52 PM CDT Javier Peck MD BKR LAB BLOOD ORDERA BLES Performing Organization Address City/[facility]/ZIP Co de Phone Number [facility] [address] [address] * CT HEAD W WO CONTRAST (05/10/2021 9:06 AM CDT) Anatomical Region Laterality Modality Head Computed Tomogra phy 05/11/2021 8:14 AM CDT Impressions 05/11/2021 8:21 AM CDT No acute intracranial abnormality. Specifically, no evidence of abnormal enhancement to suggest intracranial metastatic disease. Please note that small metastatic implants may not be visualized on CT modality and if there is continued concern for intra-cranial metastasis, consider further evaluation with dedicated MRI brain with and without contrast. Electronically Signed by: DONALD ORDOÑEZ MD Signed on: 05/11/2021 8:21 AM Narrative 05/11/2021 8:21 AM CDT EXAMINATION: Computed tomography (CT) of the head without and with contrast HISTORY: Metastatic disease evaluation TECHNIQUE: CT of the head was performed prior to and following the uneventful administration of 75 mL IV contrast according to standard protocol. FINDINGS: No prior study is available for comparison at the time of this dictation. No acute intra- or extra-axial fluid collections are identified. The ventricles are nondilated. The basilar cisterns are patent. No mass effect or midline shift is seen. The white-white matter differentiation is normal. 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 Periventricular white matter hypoattenuation is indicative of chronic small vessel ischemic disease. There is vascular calcification of the carotid siphons. No abnormal enhancing lesions are identified. The visualized portions of the orbits, paranasal sinuses, and mastoids appear normal. No acute fracture is identified. Procedure Note Donald Ordoñez MD - 05/11/2021 EXAMINATION: Computed tomography (CT) of the head without and withcontrast HISTORY: Metastatic disease evaluation TECHNIQUE: CT of the head was performed prior to and following the uneventful administration of 75 mL IV contrast according to standard protocol. FINDINGS: No prior study is available for comparison at the time of this dictation. No acute intra- or extra-axial fluid collections are identified. The ventricles are nondilated. The basilar cisterns are patent. No masseffect or midline shift is seen. The white-white matter differentiation is normal. 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 Periventricular white matter hypoattenuation is indicative of chronicsmall vessel ischemic disease. There is vascular calcification of the carotid siphons. No abnormal enhancing lesions are identified. The visualized portions of the orbits, paranasal sinuses, and mastoids appear normal.No acute fracture is identified. IMPRESSION: No acute intracranial abnormality. Specifically, no evidence ofabnormal enhancement to suggest intracranial metastatic disease. Please notethat small metastatic implants may not be visualized on CT modality and ifthere is continued concern for intra-cranial metastasis, consider further evaluation with dedicated MRI brain with and without contrast. Electronically Signed by: DONALD ORDOÑEZ MD Signed on: 05/11/2021 8:21 AM Smitha Harrison MD IMG CT PROCEDURE S * MRI MRCP WO CONTRAST AND ABDOMEN W WO CONTRAST (04/27/2021 9:44 AM CDT) Anatomical Region Laterality Modality Abdomen Magnetic Resonan ce 04/28/2021 10:3 9 AM CDT Narrative 04/28/2021 10:59 AM CDT PROCEDURE: MRI MRCP WO CONTRAST AND ABDOMEN W WO CONTRAST HISTORY: Prominence of the main pancreatic duct. TECHNIQUE: Multiplanar, multisequence MRI of the abdomen was performed before and after administration of intravenous contrast. 15 cc of MultiHance administered intravenously. COMPARISON: CT abdomen and pelvis 03/30/2021 *FINDINGS* LIVER & BILIARY TRACT: Liver: Normal in size and morphology. No evidence of steatosis. No focal lesions. Biliary Tree: No biliary ductal dilatation. Gallbladder: Several stones in the gallbladder. Hepatic Vasculature: Patent portal and hepatic veins. SPLEEN: Normal in size. PANCREAS: Normal in signal intensity and enhancement. Several T2 hyperintense cystic lesions which communicate with the main duct, the largest in the pancreatic body measuring 10 mm (). Mild diffuse dilatation of the pancreatic duct measuring up to 5 mm, not substantially changed from the CT on 10/27/2017. No focal lesions. GASTROINTESTINAL TRACT: No bowel dilatation. Surgical changes of Billroth II gastrojejunostomy. Diverticulosis of the visualized colon without evidence of diverticulitis. There is a partially imaged colostomy in the left hemiabdomen. PERITONEUM: No free fluid in the upper abdomen. ADRENAL GLANDS: Normal in size and morphology. KIDNEYS: Normal in size and morphology. No hydronephrosis. Simple cyst in the anterior interpolar right kidney measuring 1.7 cm. Subcentimeter T2 hyperintense foci in the left kidney. VASCULATURE: No aortic aneurysm in the upper abdomen. LYMPH NODES: No adenopathy. BODY WALL: No aggressive osseous lesion. OTHER: No additional findings. Landry: #/# = Series number / Image number *IMPRESSION* 1. Several pancreatic cystic lesions which communicate with the main duct consistent with branch duct intraductal papillary mucinous neoplasms, largest measuring 1 cm. Consider MRI follow-up in two years. 2. Mild diffuse dilatation of the pancreatic duct, not substantially changed from 2018. This likely relates to age-related ectasia. Main duct IPMN or an obstructing lesion are less likely. Consider follow-up or ERCP as clinically warranted. 3. Surgical changes of the abdomen and other findings as above. Electronically Signed by: DONALD OLVERA M.D. Signed on: 04/28/2021 10:59 AM Procedure Note Donald Olvera MD - 04/28/2021 PROCEDURE: MRI MRCP WO CONTRAST AND ABDOMEN W WO CONTRAST HISTORY: Prominence of the main pancreatic duct. TECHNIQUE: Multiplanar, multisequence MRI of the abdomen was performed before and after administration of intravenous contrast. 15 cc of MultiHance administered intravenously. COMPARISON: CT abdomen and pelvis 03/30/2021 *FINDINGS* LIVER & BILIARY TRACT: Liver: Normal in size and morphology. No evidence of steatosis. No focal lesions. Biliary Tree: No biliary ductal dilatation. Gallbladder: Several stones in the gallbladder. Hepatic Vasculature: Patent portal and hepatic veins. SPLEEN: Normal in size. PANCREAS: Normal in signal intensity and enhancement. Several T2 hyperintense cystic lesions which communicate with the main duct, the largest in the pancreatic body measuring 10 mm (). Mild diffuse dilatation of the pancreatic duct measuring up to 5 mm, notsubstantially changed from the CT on 10/27/2017. No focal lesions. GASTROINTESTINAL TRACT: No bowel dilatation. Surgical changes ofBillroth II gastrojejunostomy. Diverticulosis of the visualized colon without evidence of diverticulitis. There is a partially imaged colostomy inthe left hemiabdomen. PERITONEUM: No free fluid in the upper abdomen. ADRENAL GLANDS: Normal in size and morphology. KIDNEYS: Normal in size and morphology. No hydronephrosis. Simple cystin the anterior interpolar right kidney measuring 1.7 cm. Subcentimeter T2 hyperintense foci in the left kidney. VASCULATURE: No aortic aneurysm in the upper abdomen. LYMPH NODES: No adenopathy. BODY WALL: No aggressive osseous lesion. OTHER: No additional findings. Landry: #/# = Series number / Image number *IMPRESSION* 1. Several pancreatic cystic lesions which communicate with the mainduct consistent with branch duct intraductal papillary mucinous neoplasms, largest measuring 1 cm. Consider MRI follow-up in two years. 2. Mild diffuse dilatation of the pancreatic duct, not substantially changed from 2018. This likely relates to age-related ectasia. Mainduct IPMN or an obstructing lesion are less likely. Consider follow-up orERCP as clinically warranted. 3. Surgical changes of the abdomen and other findings as above. Electronically Signed by: DONALD OLVERA M.D. Signed on: 04/28/2021 10:59 AM Zainab Moses MD [facility] * CT ABDOMEN PELVIS W CONTRAST (03/30/2021 8:50 AM CDT) Anatomical Region Laterality Modality Abdomen, Pelvis, Abdomen/Pelvis Computed Tomography 03/30/2021 9:53 AM CDT Impressions 03/30/2021 10:13 AM CDT 1. Stable postsurgical changes of abdominal perineal resection and subtotal gastrectomy without evidence of recurrent or metastatic disease in the abdomen or pelvis. 2. Mild prominence of the main pancreatic duct with dilation of a proximal side branch, which may represent a intraductal papillary mucinous neoplasm. Consider MRCP for further evaluation. Electronically Signed by: Jose Miranda Signed on: 03/30/2021 10:13 AM Narrative 03/30/2021 10:[address] ABDOMEN AND PELVIS WITH CONTRAST: 03/30/2021 8:28 AM CLINICAL HISTORY: 85 years of age, Female, rectal cancer. COMPARISON: CT of the chest, abdomen, and pelvis with contrast dated 06/10/2020 PROCEDURE COMMENTS: CT of the abdomen and pelvis was performed following administration of 98 mL IV contrast. Oral contrast was administered prior to the examination. FINDINGS: Lower thorax: There is minimal bibasilar atelectasis without mass, effusion, or pneumothorax. Heart size is normal without pericardial effusion. Liver and biliary tree: Normal. Gallbladder: Decompressed without radiopaque stone, wall thickening, or pericholecystic fluid Spleen: Normal. Pancreas: There is mild prominence of the proximal pancreatic duct measuring up to 6 mm, with a dilated side branch measuring 5 mm (4/49). No pancreatic mass is appreciated. Adrenal glands: Normal. Kidneys and ureters: A 1.8 cm simple cyst is noted in the right kidney. A hypoattenuating lesion that is too small to characterize is noted in the mid zone left kidney, likely representing a cyst. There is no hydronephrosis. Gastrointestinal tract: Surgical changes of abdominoperineal resection and end colostomy are noted. There is diverticulosis of the colon without diverticulitis. Postsurgical changes of partial gastrectomy are again noted. Small bowel is normal in caliber. Peritoneal cavity: There is no free fluid or gas in the abdomen or pelvis. Bladder: The bladder is decompressed. Uterus and ovaries: Normal. Vasculature: There is atherosclerotic disease throughout the abdominal aorta without dissection or occlusive thrombus. Lymph nodes: Normal. Abdominal wall: There is a small fat-containing ventral hernia. Musculoskeletal: Multilevel degenerative disc disease of the thoracic spine. No suspicious lytic or blastic lesions are noted. Procedure Note Jose Miranda MD - 03/30/2021 CT ABDOMEN AND PELVIS WITH CONTRAST: 03/30/2021 8:28 AM CLINICAL HISTORY: 85 years of age, Female, rectal cancer. COMPARISON: CT of the chest, abdomen, and pelvis with contrast dated 06/10/2020 PROCEDURE COMMENTS: CT of the abdomen and pelvis was performed following administration of 98 mL IV contrast. Oral contrast was administeredprior to the examination. FINDINGS: Lower thorax: There is minimal bibasilar atelectasis without mass, effusion, or pneumothorax. Heart size is normal without pericardial effusion. Liver and biliary tree: Normal. Gallbladder: Decompressed without radiopaque stone, wall thickening, or pericholecystic fluid Spleen: Normal. Pancreas: There is mild prominence of the proximal pancreatic duct measuring up to 6 mm, with a dilated side branch measuring 5 mm (4/49).No pancreatic mass is appreciated. Adrenal glands: Normal. Kidneys and ureters: A 1.8 cm simple cyst is noted in the right kidney.A hypoattenuating lesion that is too small to characterize is noted in the mid zone left kidney, likely representing a cyst. There is no hydronephrosis. Gastrointestinal tract: Surgical changes of abdominoperineal resectionand end colostomy are noted. There is diverticulosis of the colon without diverticulitis. Postsurgical changes of partial gastrectomy are again noted. Small bowel is normal in caliber. Peritoneal cavity: There is no free fluid or gas in the abdomen orpelvis. Bladder: The bladder is decompressed. Uterus and ovaries: Normal. Vasculature: There is atherosclerotic disease throughout the abdominal aorta without dissection or occlusive thrombus. Lymph nodes: Normal. Abdominal wall: There is a small fat-containing ventral hernia. Musculoskeletal: Multilevel degenerative disc disease of the thoracic spine. No suspicious lytic or blastic lesions are noted. IMPRESSION: 1. Stable postsurgical changes of abdominal perineal resection and subtotal gastrectomy without evidence of recurrent or metastatic diseasein the abdomen or pelvis. 2. Mild prominence of the main pancreatic duct with dilation of a proximal side branch, which may represent a intraductal papillarymucinous neoplasm. Consider MRCP for further evaluation. Electronically Signed by: Jose Miranda Signed on: 03/30/2021 10:13 AM Javier Peck MD IMG CT PROCEDURES * EGD (02/05/2021 7:06 AM CDT) Anatomical Region Laterality Modality Endoscopy Impressions 02/05/2021 7:14 AM CDT Postsurgical changes Gastritis RECOMMENDATIONS: Follow pathology results, please call our office in 1 week to obtain them Follow-up with oncology as scheduled Zainab Moses MD 02/05/2021 7:13 AM Narrative 02/05/2021 7:14 AM CDT History of gastric cancer status post surgery, undergoing surveillance EGD EGD Procedure Note Kirti Barr Patient Status: @PETELASS@ 1935 [facility] Attending @ATTPROV@ DATE OF OPERATION: 02/05/2021 PREOPERATIVE DIAGNOSIS: History of gastric cancer status post surgery, undergoing surveillance EGD POSTOPERATIVE DIAGNOSIS: Postsurgical changes with mild erythema of the gastric mucosa PROCEDURE PERFORMED: EGD with biopsy ANESTHESIA: MAC anesthesia REPORT OF OPERATION: After the risks, benefits and alternatives of the procedure were thoroughly explained (risks including but not limited to bleeding, infection, reaction to medications, perforation, requiring surgery, damage to face, teeth, jaw, anesthesia related complications, requiring hospitalization, failure of treatment, missed lesions, need for repeat procedure, pain, disability and ), Informed consent was obtained, verified and timeout was successfully executed by the treatment team. Patient was placed in the left lateral decubitus position,sedation was administered by anesthesia service The Olympus video gastroscope was inserted thru the mouth, advanced to the second portion of the duodenum. The scope was then slowly withdrawn as the mucosa was fully examined Patient's pulse, BP, and O2 saturation were monitored throughout the procedure After completion of procedure, patient was discharged to recovery In stable condition, he was cared for as planned FINDINGS: Esophagus: Unremarkable Stomach: Postsurgical changes with partial gastrectomy was noted, the gastric mucosa appeared erythematous, biopsies obtained Small bowel: The examined part of the small bowel appeared unremarkable Zainab Moses MD GI PROCEDURE ORDERAB LES * MAMMO SCREENING BILATERAL W WINSOME (10/10/2020 9:42 AM BONE CHAR OPERATOR) Anatomical Region Laterality Modality Breast Bilateral Mammography 10/10/2020 9:42 AM BONE CHAR OPERATOR Impressions 10/12/2020 7:43 AM BONE CHAR OPERATOR MAMMOGRAPHY BENIGN There is no mammographic evidence of malignancy. A 1 year screening mammogram is recommended. MAMMOGRAPHY BI-RADS: 2 BENIGN Electronically Signed by: Jad Peterson M.D. ag/penrad:10/12/2020 07:43:04 Fish Straightener: RT Viraj(Flori)(M), [facility] letter sent: Normal Single Exam Narrative 10/12/2020 7:43 AM BONE CHAR OPERATOR #[id number] - MAMMO SCREENING BILATERAL W WINSOME BILATERAL DIGITAL SCREENING MAMMOGRAM WITH CAD: 10/10/2020 CLINICAL HISTORY:Routine annual screening mammogram - tomosynthesis. COMPARISON: Comparison is made to exams dated: 07/17/2019 mammogram - [facility] and 12/30/2010 mammogram - [facility]. FINDINGS: There are scattered fibroglandular elements in both breasts. There are benign calcifications in both breasts. There also are benign vascular calcifications in both breasts. No significant masses, calcifications, or other findings are seen in either breast. Current study was also evaluated with a Computer Aided Detection (CAD) system. There has been no significant interval change. Procedure Note Jad Peterson MD - 10/12/2020 #[id number] - MAMMO SCREENING BILATERAL W WINSOME BILATERAL DIGITAL SCREENING MAMMOGRAM WITH CAD: 10/10/2020 CLINICAL HISTORY:Routine annual screening mammogram - tomosynthesis. COMPARISON: Comparison is made to exams dated: 07/17/2019 [place] [facility] [place] and 12/30/2010 mammogram - [facility]. FINDINGS: There are scattered fibroglandular elements in both breasts. There are benign calcifications in both breasts. There also are benignvascular calcifications in both breasts. No significant masses, calcifications, or other findings are seen ineither breast. Current study was also evaluated with a Computer Aided Detection (CAD)system. There has been no significant interval change. IMPRESSION: MAMMOGRAPHY BENIGN There is no mammographic evidence of malignancy. A 1 year screeningmammogram is recommended. MAMMOGRAPHY BI-RADS: 2 BENIGN Electronically Signed by: Jad Peterson M.D. ag/penrad:10/12/2020 07:43:04 Fish Straightener: RT Viraj(Flori)(M), [facility] letter sent: Normal Single Exam Smitha Harrison MD IMG BI PROCEDURE S * Colonoscopy (09/14/2020 9:51 AM BONE CHAR OPERATOR) Anatomical Region Laterality Modality Endoscopy Impressions 09/14/2020 10:02 AM BONE CHAR OPERATOR Small colon polyp Diverticulosis RECOMMENDATIONS: Follow pathology results, please call our office in 1 week to obtain them Repeat colonoscopy in 1 year, or sooner if there is change in symptoms Zainab Moses MD 09/14/2020 10:00 AM Narrative 09/14/2020 10:02 AM BONE CHAR OPERATOR Colonoscopy Procedure Note Kirti Barr Patient Status: @PTCLASS@ 1935 [facility] Attending @ATTPROV@ DATE OF OPERATION: 09/14/2020 PREOPERATIVE DIAGNOSIS: History of rectal cancer POSTOPERATIVE DIAGNOSIS: Descending colon polyp Mild diverticulosis PROCEDURE PERFORMED: Colonoscopy via stoma with biopsy ANESTHESIA: MAC anesthesia REPORT OF OPERATION: After the risks, benefits and alternatives of the procedure were thoroughly explained (risks including but not limited to bleeding, infection, reaction to medications, perforation, requiring surgery, anesthesia related complications, requiring hospitalization, missed lesions, failure of treatment, need for repeat procedure pain, disability and ), Informed consent was obtained, verified and timeout was successfully executed by the treatment team. After the patient was placed in supine position, on exam, the anus appeared sealed Olympus video colonoscope was inserted thru the stoma, advanced to the cecum, confirmed by the Ileo-Cecal valve and the Appendical orifice. The scope was then slowly withdrawn as the mucosa was fully examined Quality of prep was good Patient's pulse, BP, and O2 saturation were monitored throughout the procedure After completion of procedure, patient was discharged to recovery In stable condition, he was cared for as planned FINDINGS: 5 mm polyp in the descending colon, removed using cold biopsy forceps Nonspecific erythema throughout the colon, random biopsies obtained Left-sided diverticulosis Zainab Moses MD GI PROCEDURE ORDERAB LES * BD DEXA SCAN AXIAL SKELETON (08/15/2020 10:18 AM BONE CHAR OPERATOR) Anatomical Region Laterality Modality Bone Density Dual-energy X-ra y Absorptiometry 08/16/2020 3:05 PM BONE CHAR OPERATOR Impressions 08/16/2020 3:12 PM BONE CHAR OPERATOR Osteopenia World Health Organization Criteria: Normal:T-score above -1 SD. Osteopenia:T-score between -1 and -2.5 SD. Osteoporosis:T-score below -2.5 SD. Severe Osteoporosis:T-score below -2.5 with the presence of fractures. Although bone density is the most important predictor of future fracture, there may be other indicators which influence the decision to treat, i.e. age, history of post-menopausal fragility fracture in female patients, etc. Although post-menopausal estrogen deficiency is the most common cause of low bone mass (females), other disorders such as hyperparathyroidism, hyperthyroidism, sprue, multiple myeloma, osteomalacia, renal disorders and male hypogonadism should be excluded when clinically indicated. Electronically Signed by: JAD PETERSON M.D Signed on: 08/16/2020 3:12 PM Narrative 08/16/2020 3:12 PM BONE CHAR OPERATOR BD DEXA AXIAL SKELETON HISTORY: POSTMENOPAUSAL REFERENCE EXAMINATION(S): None available. LUMBAR SPINE: Bone Mineral Density (BMD) as determined from L1 through L4 is 0.791 gm/cm2. T-score is -2.3 (standard deviation of young-adult mean). Z-score is -0.1 (standard deviation of age-matched mean). Comments: Of note L1 is markedly osteoporotic when compared to the more normal-appearing lumbar spine vertebral bodies. Plain films may be of value PROXIMAL FEMUR: BMD as determined in the right femoral neck is 0.642 gm/cm2. T-score is -1.9. Z-score is -0.2. Comments: None. TOTAL HIP: BMD as determined in the right hip (total) is 0.775 gm/cm2. T-score is -1.4. Z-score is 0.1. Comments: None. The 10-year probability of fracture: Major osteoporotic is 8.5% Hip is 2.1%. Procedure Note Jad Peterson MD - 08/16/2020 BD DEXA AXIAL SKELETON HISTORY: POSTMENOPAUSAL REFERENCE EXAMINATION(S): None available. LUMBAR SPINE: Bone Mineral Density (BMD) as determined from L1 through L4 is 0.791gm/cm2. T-score is -2.3 (standard deviation of young-adult mean). Z-score is -0.1 (standard deviation of age-matched mean). Comments: Of note L1 is markedly osteoporotic when compared to the morenormal-appearing lumbar spine vertebral bodies. Plain films may be ofvalue PROXIMAL FEMUR: BMD as determined in the right femoral neck is 0.642 gm/cm2. T-score is -1.9. Z-score is -0.2. Comments: None. TOTAL HIP: BMD as determined in the right hip (total) is 0.775 gm/cm2. T-score is -1.4. Z-score is 0.1. Comments: None. The 10-year probability of fracture: Major osteoporotic is 8.5% Hip is 2.1%. IMPRESSION: Osteopenia World Health Organization Criteria: Normal:T-score above -1 SD. Osteopenia:T-score between -1 and -2.5 SD. Osteoporosis:T-score below -2.5 SD. Severe Osteoporosis:T-score below -2.5 with the presence of fractures. Although bone density is the most important predictor of future fracture,there may be other indicators which influence the decision to treat, i.e.age, history of post-menopausal fragility fracture in female patients,etc. Although post-menopausal estrogen deficiency is the most common cause oflow bone mass (females), other disorders such as hyperparathyroidism,hyperthyroidism, sprue, multiple myeloma, osteomalacia, renal disordersand male hypogonadism should be excluded when clinically indicated. Electronically Signed by: JAD PETERSON M.D Signed on: 08/16/2020 3:12 PM Smitha Harrison MD IMG DXA PROCEDUR ES * Surgical Pathology (06/30/2020 7:39 AM BONE CHAR OPERATOR) Only the most recent of5 resultswithin the time period is included. Pathology Report Name: KIRTI BARR /Age:10 1935 (Age: 85) Sex:F Surgical Pathology Report Client: [facility] Submitting Physician: Lito Haynes MD Date Specimen Collected: 06/30/20 Date Specimen Received: 06/30/20 Date Reported: 07/02/2020 10:26 [place] [facility] [place] Diagnosis : A: Sebaceous cyst abdominal wall; excision: - Ruptured epidermal inclusion cyst with associated histiocytic reaction including foreign body type giant cell reaction and chronic inflammation. Gladys George MD Electronic Signature (RG) 07/02/2020 10:26 Clinical Information: Excision sebaceous abdominal wall Sebaceous cyst Previous history of malignancy: Gastric and rectal CA Specimen(s) Submitted: Sebaceous cyst abdominal wall Gross Description: A: Received in formalin labeled sebaceous cyst abdominal wall and consists of a brown an ellipse without orientation measuring 2.6 x 1 cm overlying bulging subcutaneous tissue excised to the greatest depth of 1.1 cm. The excisional margin is inked green and the specimen is serially sectioned to demonstrate a cyst filled with a white-white grumous material with surrounding fibrosis. Sections submitted: A1-A2: Entire specimen TAS 06/30/2020 11:01 AM Microscopic Description: The attending pathologist whose signature appears on this report has reviewed the diagnostic studies and has edited the gross and/or microscopic portion of the report rendering the final diagnosis. The immunohistochemical, FISH, or PRIETO reagents (if any) utilized in this test were developed and their performance characteristics determined by [facility]. Some of the immunohistochemical reagents have not been cleared or approved by the U.S. Food and Drug Administration. The FDA has determined that such clearance or approval is not necessary. This test is used for clinical purposes. It should not be regarded as investigational or for research. This laboratory is certified under the Clinical Laboratory Improvement Amendments of 1988 (CLIA) as qualified to perform high complexity clinical laboratory testing. The appropriate controls were run and show appropriate reactivity. Since FISH and/or immunohistochemistry for estrogen receptor, progesterone receptor, and HER2/shelli have not been validated on decalcified tissue, such results should be interpreted with caution given the likelihood of false negativity. Fee Codes: A: [id number], [id number] Performing Lab Location (Unless otherwise specified): [facility] [address] [id number] AG VYAS 06/30/2020 7:39 AM BONE CHAR OPERATOR 06/30/2020 7:39 AM BONE CHAR OPERATOR Comment:SEBACEOUS CYST ABDOM INAL WALL Lito Haynes MD PATHOLOGY/CYTOLOGY O RDERAMIKALA AG - * CT CHEST W CONTRAST (06/10/2020 2:37 PM CDT) Anatomical Region Laterality Modality Chest Computed Tomogra phy 06/10/2020 4:22 PM CDT Impressions 06/10/2020 4:43 PM CDT COMBINED IMPRESSION: 1. Stable postsurgical changes of a subtotal gastrectomy, gastrojejunostomy, and APR with left lower quadrant end colostomy. No evidence of metastatic disease in the chest, abdomen, or pelvis. 2. Colonic diverticulosis without evidence of diverticulitis. 3. Spondylolisthesis as above. Electronically Signed by: SUSHILA MOORE M.D. Signed on: 06/10/2020 4:43 PM Narrative 06/10/2020 4:43 PM CDT PROCEDURE:CT ABDOMEN PELVIS W CONTRAST, CT CHEST W CONTRAST HISTORY: Gastric and colon cancer. Chemotherapy and radiation. Upper abdominal cellulitis on antibiotics. TECHNIQUE: CT of the chest, abdomen and pelvis was performed with IV contrast. Multiplanar reformats and reconstructions were performed and assessed. Delayed images were also obtained. COMPARISON: Multiple prior CT chest, abdomen/pelvis, most recently 06/14/2019. FINDINGS CT CHEST: Support Devices: None. Heart/Pericardium/Great Vessels: Cardiac size is normal. There is extensive calcific coronary artery atherosclerosis. There is no pericardial effusion. There is mild calcific aortic and branch vessel atherosclerosis. The main pulmonary artery is normal in diameter. Pleural Spaces: The pleural spaces are clear. Mediastinum/Radha: There is no mediastinal or hilar lymph node enlargement. Neck Base/Chest Wall/Diaphragm: There is no supraclavicular or axillary lymph node enlargement. Mild degenerative change is present in the spine. Lungs/Central Airways: The trachea and central bronchi are clear. No suspicious lung nodules or masses are seen. FINDINGS CT ABDOMEN/PELVIS: Liver: unremarkable Biliary tree: The gallbladder is present. There is no biliary ductal dilatation. Spleen: unremarkable Pancreas: Unremarkable. Adrenal glands: Unremarkable. Kidneys: There are bilateral symmetric nephrograms without hydronephrosis. There is a 1.5 cm fluid density lesion in the interpolar right kidney. Lymph nodes: Abdomen: There is no abdominal adenopathy. Pelvis: There is no pelvic adenopathy. Vasculature: There is no abdominal aortic aneurysm. Atherosclerotic calcification is seen. Peritoneum/mesentery/omentum: There is no free fluid or free air. GI tract: There are postsurgical changes of a subtotal gastrectomy and gastrojejunostomy. The anastomosis is widely patent without obstruction. The patient is also status post APR with a left lower quadrant end colostomy. There is no bowel obstruction. Scattered colonic diverticulosis is present. The appendix is unremarkable. Pelvic urogenital structures:The bladder is grossly unremarkable. The uterus is present. There is no adnexal mass. Body wall: There is exaggerated lumbar lordosis with grade 1 stepwise anterolisthesis from L4 through S1. There is a small, fat-containing umbilical hernia. No significant skin thickening is appreciated. Landry: (S/I) = series number / image number Procedure Note Sushila Moore MD - 06/10/2020 PROCEDURE:CT ABDOMEN PELVIS W CONTRAST, CT CHEST W CONTRAST HISTORY: Gastric and colon cancer. Chemotherapy and radiation. Upperabdominal cellulitis on antibiotics. TECHNIQUE: CT of the chest, abdomen and pelvis was performed with IVcontrast. Multiplanar reformats and reconstructions were performed andassessed. Delayed images were also obtained. COMPARISON: Multiple prior CT chest, abdomen/pelvis, most medtzudj15/25/2019. FINDINGS CT CHEST: Support Devices: None. Heart/Pericardium/Great Vessels: Cardiac size is normal. There is extensive calcific coronary artery atherosclerosis. There is no pericardial effusion. There is mild calcific aortic and branch vessel atherosclerosis. The main pulmonary artery is normal in diameter. Pleural Spaces: The pleural spaces are clear. Mediastinum/Radha: There is no mediastinal or hilar lymph nodeenlargement. Neck Base/Chest Wall/Diaphragm: There is no supraclavicular or axillarylymph node enlargement. Mild degenerative change is present in the spine. Lungs/Central Airways: The trachea and central bronchi are clear. Nosuspicious lung nodules or masses are seen. FINDINGS CT ABDOMEN/PELVIS: Liver: unremarkable Biliary tree: The gallbladder is present. There is no biliary ductaldilatation. Spleen: unremarkable Pancreas: Unremarkable. Adrenal glands: Unremarkable. Kidneys: There are bilateral symmetric nephrograms withouthydronephrosis. There is a 1.5 cm fluid density lesion in the interpolarright kidney. Lymph nodes: Abdomen: There is no abdominal adenopathy. Pelvis: There is no pelvic adenopathy. Vasculature: There is no abdominal aortic aneurysm. Atheroscleroticcalcification is seen. Peritoneum/mesentery/omentum: There is no free fluid or free air. GI tract: There are postsurgical changes of a subtotal gastrectomy andgastrojejunostomy. The anastomosis is widely patent without obstruction.The patient is also status post APR with a left lower quadrant endcolostomy. There is no bowel obstruction. Scattered colonic diverticulosis is present. The appendixis unremarkable. Pelvic urogenital structures:The bladder is grossly unremarkable. Theuterus is present. There is no adnexal mass. Body wall: There is exaggerated lumbar lordosis with grade 1 stepwiseanterolisthesis from L4 through S1. There is a small, fat-containingumbilical hernia. No significant skin thickening is appreciated. Landry: (S/I) = series number / image number IMPRESSION: COMBINED IMPRESSION: 1. Stable postsurgical changes of a subtotal gastrectomy,gastrojejunostomy, and APR with left lower quadrant end colostomy. Noevidence of metastatic disease in the chest, abdomen, or pelvis. 2. Colonic diverticulosis without evidence of diverticulitis. 3. Spondylolisthesis as above. Electronically Signed by: SUSHILA MOORE M.D. Signed on: 06/10/2020 4:43 PM Javier Peck MD IMG CT PROCEDURES * CT ABDOMEN PELVIS W CONTRAST (06/10/2020 2:37 PM CDT) Anatomical Region Laterality Modality Abdomen, Pelvis, Abdomen/Pelvis Computed Tomography 06/10/2020 4:22 PM CDT Impressions 06/10/2020 4:43 PM CDT COMBINED IMPRESSION: 1. Stable postsurgical changes of a subtotal gastrectomy, gastrojejunostomy, and APR with left lower quadrant end colostomy. No evidence of metastatic disease in the chest, abdomen, or pelvis. 2. Colonic diverticulosis without evidence of diverticulitis. 3. Spondylolisthesis as above. Electronically Signed by: SUSHILA MOORE M.D. Signed on: 06/10/2020 4:43 PM Narrative 06/10/2020 4:43 PM CDT PROCEDURE:CT ABDOMEN PELVIS W CONTRAST, CT CHEST W CONTRAST HISTORY: Gastric and colon cancer. Chemotherapy and radiation. Upper abdominal cellulitis on antibiotics. TECHNIQUE: CT of the chest, abdomen and pelvis was performed with IV contrast. Multiplanar reformats and reconstructions were performed and assessed. Delayed images were also obtained. COMPARISON: Multiple prior CT chest, abdomen/pelvis, most recently 06/14/2019. FINDINGS CT CHEST: Support Devices: None. Heart/Pericardium/Great Vessels: Cardiac size is normal. There is extensive calcific coronary artery atherosclerosis. There is no pericardial effusion. There is mild calcific aortic and branch vessel atherosclerosis. The main pulmonary artery is normal in diameter. Pleural Spaces: The pleural spaces are clear. Mediastinum/Radha: There is no mediastinal or hilar lymph node enlargement. Neck Base/Chest Wall/Diaphragm: There is no supraclavicular or axillary lymph node enlargement. Mild degenerative change is present in the spine. Lungs/Central Airways: The trachea and central bronchi are clear. No suspicious lung nodules or masses are seen. FINDINGS CT ABDOMEN/PELVIS: Liver: unremarkable Biliary tree: The gallbladder is present. There is no biliary ductal dilatation. Spleen: unremarkable Pancreas: Unremarkable. Adrenal glands: Unremarkable. Kidneys: There are bilateral symmetric nephrograms without hydronephrosis. There is a 1.5 cm fluid density lesion in the interpolar right kidney. Lymph nodes: Abdomen: There is no abdominal adenopathy. Pelvis: There is no pelvic adenopathy. Vasculature: There is no abdominal aortic aneurysm. Atherosclerotic calcification is seen. Peritoneum/mesentery/omentum: There is no free fluid or free air. GI tract: There are postsurgical changes of a subtotal gastrectomy and gastrojejunostomy. The anastomosis is widely patent without obstruction. The patient is also status post APR with a left lower quadrant end colostomy. There is no bowel obstruction. Scattered colonic diverticulosis is present. The appendix is unremarkable. Pelvic urogenital structures:The bladder is grossly unremarkable. The uterus is present. There is no adnexal mass. Body wall: There is exaggerated lumbar lordosis with grade 1 stepwise anterolisthesis from L4 through S1. There is a small, fat-containing umbilical hernia. No significant skin thickening is appreciated. Landry: (S/I) = series number / image number Procedure Note Sushila Moore MD - 06/10/2020 PROCEDURE:CT ABDOMEN PELVIS W CONTRAST, CT CHEST W CONTRAST HISTORY: Gastric and colon cancer. Chemotherapy and radiation. Upperabdominal cellulitis on antibiotics. TECHNIQUE: CT of the chest, abdomen and pelvis was performed with IVcontrast. Multiplanar reformats and reconstructions were performed andassessed. Delayed images were also obtained. COMPARISON: Multiple prior CT chest, abdomen/pelvis, most [id number]. FINDINGS CT CHEST: Support Devices: None. Heart/Pericardium/Great Vessels: Cardiac size is normal. There is extensive calcific coronary artery atherosclerosis. There is no pericardial effusion. There is mild calcific aortic and branch vessel atherosclerosis. The main pulmonary artery is normal in diameter. Pleural Spaces: The pleural spaces are clear. Mediastinum/Radha: There is no mediastinal or hilar lymph nodeenlargement. Neck Base/Chest Wall/Diaphragm: There is no supraclavicular or axillarylymph node enlargement. Mild degenerative change is present in the spine. Lungs/Central Airways: The trachea and central bronchi are clear. Nosuspicious lung nodules or masses are seen. FINDINGS CT ABDOMEN/PELVIS: Liver: unremarkable Biliary tree: The gallbladder is present. There is no biliary ductaldilatation. Spleen: unremarkable Pancreas: Unremarkable. Adrenal glands: Unremarkable. Kidneys: There are bilateral symmetric nephrograms withouthydronephrosis. There is a 1.5 cm fluid density lesion in the interpolarright kidney. Lymph nodes: Abdomen: There is no abdominal adenopathy. Pelvis: There is no pelvic adenopathy. Vasculature: There is no abdominal aortic aneurysm. Atheroscleroticcalcification is seen. Peritoneum/mesentery/omentum: There is no free fluid or free air. GI tract: There are postsurgical changes of a subtotal gastrectomy andgastrojejunostomy. The anastomosis is widely patent without obstruction.The patient is also status post APR with a left lower quadrant endcolostomy. There is no bowel obstruction. Scattered colonic diverticulosis is present. The appendixis unremarkable. Pelvic urogenital structures:The bladder is grossly unremarkable. Theuterus is present. There is no adnexal mass. Body wall: There is exaggerated lumbar lordosis with grade 1 stepwiseanterolisthesis from L4 through S1. There is a small, fat-containingumbilical hernia. No significant skin thickening is appreciated. Landry: (S/I) = series number / image number IMPRESSION: COMBINED IMPRESSION: 1. Stable postsurgical changes of a subtotal gastrectomy,gastrojejunostomy, and APR with left lower quadrant end colostomy. Noevidence of metastatic disease in the chest, abdomen, or pelvis. 2. Colonic diverticulosis without evidence of diverticulitis. 3. Spondylolisthesis as above. Electronically Signed by: SUSHILA MOORE M.D. Signed on: 06/10/2020 4:43 PM Javier Peck MD IMG CT PROCEDURES * (ABNORMAL) CBC with Automated Differential (06/04/2020 2:03 AM CDT) WBC 4.5 4.2 - 11.0 K/mcL [facility] RBC 3.76(L) 4.00 - 5.20 mil/mcL [facility] HGB 11.4(L) 12.0 - 15.5 g/dL [facility] HCT 37.8 36.0 - 46.5 % [facility] MCV 100.5(H) 78.0 - 100.0 fl [facility] MCH 30.3 26.0 - 34.0 pg [facility] MCHC 30.2(L) 32.0 - 36.5 g/dL [facility] RDW-CV 14.4 11.0 - 15.0 % [facility] PLT 190 140 - 450 K/mcL [facility] NRBC 0 0 /100 WBC [facility] DIFF TYPE AUTOMATED DIFFERENTIAL [facility] Neutrophil 58 % [facility] LYMPH 25 % [facility] MONO 15 % [facility] EOSIN 1 % [facility] BASO 0 % [facility] Percent Immature Granuloctyes 1 % [facility] Absolute Neutrophil 2.6 1.8 - 7.7 K/mcL [facility] Absolute Lymph 1.1 1.0 - 4.0 K/mcL [facility] Absolute [place] 0.7 0.3 - 0.9 K/mcL [facility] Absolute Eos 0.1 0.1 - 0.5 K/[facility] Absolute Baso 0.0 0.0 - 0.3 K/[facility] Absolute Immature Granulocytes 0.0 0 - 0.2 K/[facility] Blood VENOUS BLOOD SPECIMEN / Unknown 06/04/2020 2:03 AM CDT 06/04/2020 2:28 AM CDT Soy Flynn DO BKR LAB BLOOD ORDERA BLES Performing Organization Address [facility] Co de Phone Number [address] [address] * Lipase (06/04/2020 2:03 AM CDT) Lipase 121 73 - 393 Units/L [facility] Blood VENOUS BLOOD SPECIMEN / Unknown 06/04/2020 2:03 AM CDT 06/04/2020 2:28 AM CDT Soy Flynn DO BKR LAB BLOOD ORDERA BLES Performing Organization Address [facility] de Phone Number [address] [address] * (ABNORMAL) Vitamin B12 and Folate (04/11/2020 11:06 AM CDT) Only the most recent of5 resultswithin the time period is included. B12 1,553(H) 211 - 911 pg/mL [facility] [place] FOLATE >24.0 >5.4 ng/mL [facility] [place] 04/11/2020 11:0 6 AM CDT 04/11/2020 11:11 AM CDT Smitha Harrison MD LAB BLOOD ORDERA BLES Performing Organization Address [facility] Co de Phone Number [facility] [place] [address] [place] [address] * Iron and TIBC (04/11/2020 11:06 AM CDT) Only the most recent of3 resultswithin the time period is included. IRON 61 50 - 170 mcg/dL [facility] Total Iron Binding Capacity 306 250 - 450 mcg/dL [facility] PERCENT IRON SATURATION 20 15 - 45 % [facility] 04/11/2020 11:0 6 AM CDT 04/11/2020 11:11 AM CDT Smitha Harrison MD LAB BLOOD ORDERA BLES ACL - ADVOCATE [facility] [address] [address] * (ABNORMAL) CBC & Auto Differential (04/11/2020 11:06 AM CDT) Only the most recent of52 resultswithin the time period is included. WBC 4.9 4.2 - 11.0 K/mcL [facility] RBC 3.95(L) 4.00 - 5.20 mil/mcL [facility] HGB 11.7(L) 12.0 - 15.5 g/dL [facility] HCT 38.0 36.0 - 46.5 % [facility] MCV 96.2 78.0 - 100.0 fl [facility] MCH 29.6 26.0 - 34.0 pg [facility] MCHC 30.8(L) 32.0 - 36.5 g/dL [facility] RDW-CV 14.2 11.0 - 15.0 % [facility] PLT 187 140 - 450 K/[facility] Analyzer ANC NOT APPLICABLE AD [facility] NRBC 0 0 /100 WBC [facility] DIFF TYPE AUTOMATED DIFFERENTIAL [facility] SEG NOT APPLICABLE [facility] Neutrophil 70 % [facility] LYMPH 18 % [facility] MONO 11 % [facility] EOSIN 1 % [facility] BASO 0 % [facility] Percent Immature Granuloctyes 0 % [facility] Absolute Neutrophil 3.4 1.8 - 7.7 K/mcL [facility] Absolute Lymph 0.9(L) 1.0 - 4.0 K/[facility] Absolute [place] 0.6 0.3 - 0.9 [facility] Eos 0.1 0.1 - 0.5 K/[facility] Absolute Baso 0.0 0.0 - 0.3 [facility] Immature Granulocytes 0.0 0 - 0.2 [facility] 04/11/2020 11:0 6 AM CDT 04/11/2020 11:11 AM CDT Smitha Harrison MD LAB BLOOD ORDERA BLES Performing Organization Address [facility] Co de Phone Number [address] [address] * Ferritin (04/11/2020 11:06 AM CDT) Only the most recent of4 resultswithin the time period is included. Ferritin 195 8 - 252 ng/mL [facility] 04/11/2020 11:0 6 AM CDT 04/11/2020 11:11 AM CDT Smitha Harrison MD LAB BLOOD ORDERA BLES Performing Organization Address [facility] de Phone Number [address] [address] * Carcinoembryonic Antigen (04/11/2020 11:06 AM CDT) Only the most recent of2 resultswithin the time period is included. CEA 1.1 0.0 - 5.0 ng/mL [facility] [place] CEA [employer] [facility] Chemiluminescence Immunoassay [facility] [place] 04/11/2020 11:0 6 AM CDT 04/11/2020 11:11 AM CDT Smitha Harrison MD LAB BLOOD ORDERA BLES Performing Organization Address [facility] de Phone Number [facility] [place] [address] [place] [address] * XR ADVOCATE PROCEDURE (04/11/2020 10:37 AM CDT) Anatomical Region Laterality Modality Radiographic Sherry ging 04/11/2020 10:3 7 AM CDT Impressions 04/12/2020 4:17 AM CDT 1. NEGATIVE FOR ACUTE FRACTURE, DISLOCATION/TRAUMATIC MALALIGNMENT OR GEOGRAPHIC BONY ABNORMALITY. 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 RHEUMATOID ARTHRITIS INVOLVING RIGHT ANKLE WITH POSITIV TECHNIQUE: XR ELBOW LT 2V COMPARISON: None. FINDINGS: Elbow joint spaces are adequately maintained. No elbow joint effusion or fat pad sign No fracture is identified. No focal soft tissue abnormality. No calcium deposits in the soft tissues or joint spaces No dislocation No geographic bony abnormality. No erosions. No radiopaque foreign body No aggressive periostitis, focal bone lysis or cortical bone loss to suggest osteomyelitis. No identifiable gas in the soft tissues Procedure Note Indu Conklin MD - 04/12/2020 EXAM: XR ELBOW LT 2V PROVIDED CLINICAL INFORMATION: Rheumatoid arthritis involving right anklewith positive rheumatoid factor. RHEUMATOID ARTHRITIS INVOLVING RIGHT ANKLE WITHPOSITIV TECHNIQUE: XR ELBOW LT 2V COMPARISON: None. FINDINGS: Elbow joint spaces are adequately maintained. No elbow joint effusion orfat pad sign No fracture is identified. No focal soft tissue abnormality. No calcium deposits in the soft tissues or joint spaces No dislocation No geographic bony abnormality. No erosions. No radiopaque foreign body No aggressive periostitis, focal bone lysis or cortical bone loss tosuggest osteomyelitis. No identifiable gas in the soft tissues IMPRESSION: 1. NEGATIVE FOR ACUTE FRACTURE, DISLOCATION/TRAUMATIC MALALIGNMENT ORGEOGRAPHIC BONY ABNORMALITY. ----- F I N A L ----- Transcribed By: KALIA 04/12/20 4:13 am Dictated By: INDU COTA MD Electronically Reviewed and Approved By: INDU COTA MD04/12/20 4:14 am Smitha Harrison MD IMG XR PROCEDURE S * XR ADVOCATE PROCEDURE (04/11/2020 10:37 AM CDT) Anatomical Region Laterality Modality Radiographic Sherry ging 04/11/2020 10:3 7 AM CDT Impressions 04/11/2020 3:26 PM CDT 1. Unremarkable left shoulder joint. ----- F I N A L ----- Transcribed By: KALIA 04/11/20 3:22 pm Dictated By: OLLIE CHOI md Electronically Reviewed and Approved By: OLLIE CHOI md 04/11/20 3:23 pm Narrative 04/11/2020 3:26 PM CDT EXAM: XR SHOULDER LT 3V CLINICAL INDICATION: Chronic left shoulder and elbow pain, rheumatoid arthritis COMPARISON: None. FINDINGS: The left shoulder joint shows no fracture subluxation or degenerative changes. Procedure Note Ollie Chowdhury MD - 04/11/2020 EXAM: XR SHOULDER LT 3V CLINICAL INDICATION: Chronic left shoulder and elbow pain, rheumatoidarthritis COMPARISON: None. FINDINGS: The left shoulder joint shows no fracture subluxation ordegenerative changes. IMPRESSION: 1. Unremarkable left shoulder joint. ----- F I N A L ----- Transcribed By: KALIA 04/11/20 3:22 pm Dictated By: OLLIE CHOI md Electronically Reviewed and Approved By: OLLIE CHOI md04/11/20 3:23 pm Smitha Harrison MD IMG XR PROCEDURE S * Thyroid Stimulating Hormone (02/14/2020 8:01 AM CDT) [facility] TSH 2.186 0.350 - 5.000 mcUnits/mL [facility] 02/14/2020 8:01 AM CDT 02/14/2020 8:09 AM CDT Laz Judd MD LAB BLOOD ORDERABLES [facility] [address] [address] * (ABNORMAL) Urinalysis with Micro & Culture if Indicated (02/14/2020 7:27 AM CDT) Only the most recent of2 resultswithin the time period is included. COLOR STRAW(A) YEL [facility] APPEARANCE CLEAR [facility] GLUCOSE(URINE) NEGATIVE NEG mg/dL [facility] BILIRUBIN NEGATIVE NEG [facility] KETONES NEGATIVE NEG mg/dL [facility] SPECIFIC GRAVITY <1.005(L) 1.005 - 1.030 [facility] BLOOD SMALL(A) NEG [facility] pH 7.0 5.0 - 7.0 Units [facility] PROTEIN(URINE) NEGATIVE NEG mg/dL [facility] UROBILINOGEN 0.2 0.0 - 1.0 mg/dL [facility] NITRITE NEGATIVE NEG [facility] LEUKOCYTE ESTERASE NEGATIVE NEG [facility] SPECIMEN TYPE URINE, CLEAN CATCH/MIDSTREA M [facility] Squamous EPI'S NONE SEEN 0 - 5 /hpf [facility] RBC 1 to 2 0 - 2 /hpf [facility] WBC 1 to 5 0 - 5 /hpf [facility] BACTERIA FEW(A) NSN /hpf [facility] Hyaline Casts NONE SEEN 0 - 5 /lpf [facility] RENAL EPI'S NOT APPLICABLE ADV [facility] YEAST NOT APPLICABLE [facility] HYPH YEAST, URINE NOT APPLICABLE [facility] MUCOUS NOT APPLICABLE [facility] SPERMATOZOA NOT APPLICABLE ADV [facility] Trichomonas NOT APPLICABLE [facility] EPITHELIAL CASTS NOT APPLICABLE [facility] WBC CASTS NOT APPLICABLE [facility] RBC CASTS NOT APPLICABLE [facility] GRANULAR CASTS NOT APPLICABLE [facility] CELLULAR CASTS NOT APPLICABLE [facility] FATTY CASTS NOT APPLICABLE [facility] WAXY CASTS NOT APPLICABLE [facility] TRIPLE PHOS CRYSTALS NOT APPLICABLE [facility] CA OXALATE CRYSTALS NOT APPLICABLE [facility] URIC ACID CRYSTALS NOT APPLICABLE [facility] Amorphous Material NOT APPLICABLE [facility] 02/14/2020 7:27 AM CDT 02/14/2020 7:39 AM CDT Laz Jdud MD URINE ORDERABLES Performing Organization Address City/State/[facility] Co de Phone Number [facility] [address] [address] * Basic Metabolic Panel (02/14/2020 6:20 AM CDT) Only the most recent of8 resultswithin the time period is included. Sodium 141 135 - 145 mmol/L [facility] Potassium 4.2 3.4 - 5.1 mmol/L [facility] Potassium Slight hemolysis, result may be falsely increased. [facility] Chloride 105 98 - 107 mmol/L [facility] Carbon Dioxide 29 21 - 32 mmol/L [facility] Anion Gap 11 10 - 20 mmol/L [facility] Glucose 83 65 - 99 mg/dL [facility] BUN 16 6 - 20 mg/dL [facility] Creatinine 0.80 0.51 - 0.95 mg/dL [facility] GFR Estimate, 79 [facility] GFR Estimate, eGFR 60 - 89 mL/min/1.73m 2 = Mild decrease in kidney function. [facility] GFR Estimate, Non 68 [facility] GFR Estimate, Non eGFR 60 - 89 mL/min/1.73m 2 = Mild decrease in kidney function. [facility] BUN/Creatinine Ratio 20 7 - 25 [facility] CALCIUM 9.2 8.4 - 10.2 mg/dL [facility] 02/14/2020 6:20 AM CDT 02/14/2020 6:42 AM CDT Brenda Fall MD LAB BLOOD ORDERABLES Performing Organization Address City/State/[facility] Co de Phone Number [facility] [address] [place] [id number] * CD Advocate Procedure (02/13/2020 9:27 PM CDT) 02/13/2020 9:27 PM CDT Narrative RADNET - ADVOCATE - 02/14/2020 6:17 AM CDT *[facility]* [address] [address] Transthoracic Echocardiogram (TTE) Patient: Kirti Barr Study Date/Time: Feb 13 2020 8:50PM [facility]#: [id number] : 1935 Ht/Wt: 152.4cm 74kg Age: 84 BSA/BMI: 1.71m^2 31.9kg/m^2 Gender: F Baseline BP: 177 / 96 Ordering Physician: Laz Hager Referring Physician: Laz Hager Attending Physician: Laz Hager Diagnostic Physician: Simon Avendano MD Wood Gouger: Savannah Rutledge RDCS INDICATIONS: Shortness of breath. Congestive heart failure. STUDY CONCLUSIONS SUMMARY: 1. Left ventricle: The cavity size is normal. Wall thickness is mildly increased. Hypertrophy is noted. Systolic function is normal. The estimated ejection fraction is 70-75%, by single plane method of disks. 2. Left atrium: The atrium is moderately to severely dilated. STUDY DATA: Patient room number: ER. Procedure: Transthoracic echocardiography was performed. Image quality was good. M-mode, complete 2D, complete spectral Doppler, and color Doppler. Study status: Routine. Study completion: There were no complications. FINDINGS LEFT VENTRICLE: The cavity size is normal. Wall thickness is mildly increased. Hypertrophy is noted. Systolic function is normal. The estimated ejection fraction is 70-75%, by single plane method of disks. Wall motion is normal; there are no regional wall motion abnormalities. Left ventricular diastolic function parameters are indeterminate at present time. AORTIC VALVE: The annulus is moderately calcified. The valve is trileaflet. The leaflets are moderately calcified. Doppler: Transvalvular velocity is within the normal range. There is no stenosis. No regurgitation. The LVOT to aortic valve VTI ratio is 1. The valve area by the velocity-time integral method is 2.1cm^2. The valve area index by the velocity-time integral method is 1.2cm^2/m^2. The ratio of LVOT to aortic valve peak velocity is 0.84. The valve area by the peak velocity method is 1.9cm^2. The valve area index by the peak velocity method is 1.09cm^2/m^2. The mean systolic gradient is 5mm Hg. The peak systolic gradient is 9mm Hg. AORTA: Aortic root: The aortic root is normal in size. Ascending aorta: The ascending aorta is normal in size. MITRAL VALVE: The annulus is mildly calcified. Leaflet separation is normal. Doppler: Transvalvular velocity is within the normal range. There is no evidence for stenosis. Trivial regurgitation. ATRIAL SEPTUM: The septum is normal. LEFT ATRIUM: The atrium is moderately to severely dilated. RIGHT VENTRICLE: The cavity size is normal. Wall thickness is normal. Systolic function is normal. PULMONIC VALVE: The leaflets are normal thickness. Doppler: No regurgitation. TRICUSPID VALVE: The leaflets are normal thickness. Leaflet separation is normal. Doppler: Trivial regurgitation. RIGHT ATRIUM: The atrium is normal in size. PERICARDIUM: There is no pericardial effusion. SYSTEMIC VEINS: Inferior vena cava: The vessel is normal in size. The respirophasic diameter changes are in the normal range (greater than or equal to 50%). Measurements Left ventricle Value Ref Left atrium Value Ref DHIRAJ, LAX chord 4.0 cm 3.8 - 5.2 AP dim, ES 3.5 cm 2.7 - 3.8 ESD, LAX chord 2.4 cm 2.2 - 3.5 AP dim index 2.0 cm/m^2 1.5 - 2.3 DHIRAJ/bsa, LAX chord 2.4 cm/m^2 2.3 - 3.1 Area ES, A4C (H) 27 cm^2 <=20 ESD/bsa, LAX chord 1.4 cm/m^2 1.3 - 2.1 Area ES, A2C 19 cm^2 --------- PW, ED, LAX 0.9 cm 0.6 - 0.9 Vol/bsa, S (H) 50 ml/m^2 16 - 34 DHIRAJ major ax, A4C 6.9 cm --------- Vol, ES, 1-p A4C (H) 85 ml 22 - 52 ESD major ax, A4C 5.9 cm --------- Vol/bsa, ES, 1-p A4C (H) 50 ml/m^2 11 - 40 FS major axis, A4C 14 % --------- Vol, ES, 1-p A2C 51 ml 22 - 52 DHIRAJ/bsa major ax, A4C 4.0 cm/m^2 --------- Vol/bsa, ES, 1-p A2C 30 ml/mS 2 13 - 40 ESD/bsa major ax, A4C 3.5 cm/m^2 --------- Vol, ES, 2-p 71 ml --------- FIDEL, A4C 21.7 cm^2 --------- Vol/bsa, ES, 2-p (H) 42 ml/mS 2 16 - 34 YANA, A4C 9.2 cm^2 --------- FAC, A4C 57 % --------- Aortic valve Value Ref PW, ED 0.9 cm 0.6 - 0.9 Peak v, S 1.6 m/sec --------- IVS/PW, ED 1.18 --------- Mean v, S 1.03 m/sec --------- EDV 66 ml 46 - 106 Mean grad, S 5 mm Hg --------- ESV (L) 13 ml 14 - 42 Peak grad, S 9 mm Hg --------- SV 52 ml --------- LVOT/AV, VTI ratio 1 --------- EDV/bsa 38 ml/m^2 29 - 61 ALBERTA, VTI 2.1 cm^2 --------- ESV/bsa 8 ml/m^2 8 - 24 ALBERTA/bsa, VTI 1.2 cm^2/ m^2 --------- SV/bsa 30 ml/m^2 --------- LVOT/AV, Vpeak ratio 0.84 --------- SV, 1-p A4C 44 ml --------- ALBERTA, Vmax 1.9 cm^2 --------- SV/bsa, 1-p A4C 26 ml/m^2 --------- ALBERTA/bsa, Vmax 1.09 cm^2/ m^2 --------- ESV, 2-p (L) 12 ml 14 - 42 ESV/bsa, 2-p (L) 7 ml/m^2 8 - 24 Mitral valve Value Ref E', lat pb, TDI 10.3 cm/sec >=10 Peak E 0.69 m/sec --------- E/e', lat pb, TDI 7 --------- Peak A 0.56 m/sec --------- E', med pb, TDI 7.51 cm/sec >=7 Decel time 180 ms --------- E/e', med pb, TDI 9 --------- Peak E/A ratio 1.2 --------- E', avg, TDI 8.905 cm/sec --------- E/e', avg, TDI 8 <=14 Tricuspid valve Value Ref TR peak v (H) 2.9 m/sec <=2.8 LVOT Value Ref Peak RV-RA grad, S 33 mm Hg --------- Diam, S 1.6 cm --------- Max TR ghassan 2.89 m/sec --------- Area 2.0 cm^2 --------- Peak ghassan, S 1.36 m/sec --------- Pulmonary artery Value Ref Peak grad, S 7 mm Hg --------- Pressure, S 36 mm Hg --------- Ventricular septum Value Ref Systemic veins Value Ref IVS, ED (H) 1.1 cm 0.6 - 0.9 Estimated CVP 3 mm Hg --------- Right ventricle Value Ref DHIRAJ, LAX 2.5 cm --------- Pressure, S 36 mm Hg --------- Legend: (L) and (H) fransisca values outside specified reference range. Prepared and electronically signed by Simon Avendano MD 02/14/2020 06:17 ----- FINAL ----- Performing Technologists: Savannah Rutledge Transcribed By : KALIA 02/14/2020 6:17 am Dictated By: SIMON DELATORRE Approved By : SIMON DELATORRE 02/14/2020 6:17 am Procedure Note Simon Avendano MD - 02/14/2020 *[facility]* [address] [address] Transthoracic Echocardiogram (TTE) Patient: Kirti Barr Study Date/Time: Feb 13 2020 8:50PM : 1935 Ht/Wt: 152.4cm 74kg Age: 84 BSA/BMI: 1.71m^2 31.9kg/m^2 Gender: F Baseline BP: 177 / 96 Ordering Physician: Laz Hager Referring Physician: Laz Hager Attending Physician: Laz Hager Diagnostic Physician: Simon Avendano MD Wood Gouger: Savannah Rutledge RDCS INDICA TIONS : Shortness of breath. Congestive heart failure. STUDY CONCLUSIONS SUMMARY: 1. Left ventricle: The cavity size is normal. Wall thickness is mildly increased. Hypertrophy is noted. Systolic function is normal. The estimated ejection fraction is 70-75%, by single plane method ofdisks. 2. Left atrium: The atrium is moderately to severely dilated. STUDY DATA: Patient room number: ER. Procedure: Transthoracic echocardiography was performed. Image quality was good. M-mode,complete 2D, complete spectral Doppler, and color Doppler. Study status:Routine. Study completion: There were no complications. FINDINGS LEFT VENTRICLE: The cavity size is normal. Wall thickness is mildly increased. Hypertrophy is noted. Systolic function is normal. The estimated ejection fraction is 70-75%, by single plane method of disks. Wall motion is normal; there are no regional wall motion abnormalities. Left ventricular diastolic function parameters are indeterminate at present time. AORTIC VALVE: The annulus is moderately calcified. The valve is trileaflet. The leaflets are moderately calcified. Doppler: Transvalvular velocity is within the normal range. There is no stenosis. No regurgitation. The LVOT to aortic valve VTI ratio is 1. The valve area by the velocity-time integral method is 2.1cm^2. The valve areaindex by the velocity-time integral method is 1.2cm^2/m^2. The ratio of LVOTto aortic valve peak velocity is 0.84. The valve area by the peak velocity method is 1.9cm^2. The valve area index by the peak velocity method is 1.09cm^2/m^2. The mean systolic gradient is 5mm Hg. The peak systolic gradient is 9mm Hg. AORTA: Aortic root: The aortic root is normal in size. Ascending aorta: The ascending aorta is normal in size. MITRAL VALVE: The annulus is mildly calcified. Leaflet separation is normal. Doppler: Transvalvular velocity is within the normal range. There is no evidence for stenosis. Trivial regurgitation. ATRIAL SEPTUM: The septum is normal. LEFT ATRIUM: The atrium is moderately to severely dilated. RIGHT VENTRICLE: The cavity size is normal. Wall thickness is normal. Systolic function is normal. PULMONIC VALVE: The leaflets are normal thickness. Doppler: No regurgitation. TRICUSPID VALVE: The leaflets are normal thickness. Leaflet separationis normal. Doppler: Trivial regurgitation. RIGHT ATRIUM: The atrium is normal in size. PERICARDIUM: There is no pericardial effusion. SYSTEMIC VEINS: Inferior vena cava: The vessel is normal in size. The respirophasic diameter changes are in the normal range (greater than or equal to 50%). Measur ement s Left ventricle Value Ref Left atriumValue Ref DHIRAJ, LAX chord 4.0 cm 3.8 - 5.2 AP dim, ES3.5 cm 2.7 - 3.8 ESD, LAX chord 2.4 cm 2.2 - 3.5 AP dim index2.0 cm/m^2 1.5 - 2.3 DHIRAJ/bsa, LAX chord 2.4 cm/m^2 2.3 - 3.1 Area ES, A4C(H) 27 cm^2 <=20 ESD/bsa, LAX chord 1.4 cm/m^2 1.3 - 2.1 Area ES, A2C19 cm^2 --------- PW, ED, LAX 0.9 cm 0.6 - 0.9 Vol/bsa, S(H) 50 ml/m^2 16 - 34 DHIRAJ major ax, A4C 6.9 cm --------- Vol, ES, 1-p A4C(H) 85 ml 22 - 52 ESD major ax, A4C 5.9 cm --------- Vol/bsa, ES, 1-pA4C (H) 50 ml/m^2 11 - 40 FS major axis, A4C 14 % --------- Vol, ES, 1-p A2C51 ml 22 - 52 DHIRAJ/bsa major ax, A4C 4.0 cm/m^2 --------- Vol/bsa, ES, 1-pA2C 30 ml/mS 2 13 - 40 ESD/bsa major ax, A4C 3.5 cm/m^2 --------- Vol, ES, 2-p71 ml --------- FIDEL, A4C 21.7 cm^2 --------- Vol/bsa, ES, 2-p(H) 42 ml/mS 2 16 - 34 YANA, A4C 9.2 cm^2 --------- FAC, A4C 57 % --------- Aortic valveValue Ref PW, ED 0.9 cm 0.6 - 0.9 Peak v, S1.6 m/sec --------- IVS/PW, ED 1.18 --------- Mean v, S1.03 m/sec --------- EDV 66 ml 46 - 106 Mean grad, S5 mm Hg --------- ESV (L) 13 ml 14 - 42 Peak grad, S9 mm Hg --------- SV 52 ml --------- LVOT/AV, VTI ratio1 --------- EDV/bsa 38 ml/m^2 29 - 61 ALBERTA, VTI2.1 cm^2 --------- ESV/bsa 8 ml/m^2 8 - 24 ALBERTA/bsa, VTI1.2 cm^2/ m^2 --------- SV/bsa 30 ml/m^2 --------- LVOT/AV, Vpeakratio 0.84 --------- SV, 1-p A4C 44 ml --------- ALBERTA, Vmax1.9 cm^2 --------- SV/bsa, 1-p A4C 26 ml/m^2 --------- ALBERTA/bsa, Vmax1.09 cm^2/ m^2 --------- ESV, 2-p (L) 12 ml 14 - 42 ESV/bsa, 2-p (L) 7 ml/m^2 8 - 24 Mitral valveValue Ref E', lat pb, TDI 10.3 cm/sec >=10 Peak E0.69 m/sec --------- E/e', lat pb, TDI 7 --------- Peak A0.56 m/sec --------- E', med pb, TDI 7.51 cm/sec >=7 Decel [id number] ms --------- E/e', med pb, TDI 9 --------- Peak E/A ratio1.2 --------- E', avg, TDI 8.905 cm/sec --------- E/e', avg, TDI 8 <=14 Tricuspid valveValue Ref TR peak v(H) 2.9 m/sec <=2.8 LVOT Value Ref Peak RV-RA grad, S33 mm Hg --------- Diam, S 1.6 cm --------- Max TR vel2.89 m/sec --------- Area 2.0 cm^2 --------- Peak ghassan, S 1.36 m/sec --------- Pulmonary arteryValue Ref Peak grad, S 7 mm Hg --------- Pressure, S36 mm Hg --------- Ventricular septum Value Ref Systemic veinsValue Ref IVS, ED (H) 1.1 cm 0.6 - 0.9 Estimated CVP3 mm Hg --------- Right ventricle Value Ref DHIRAJ, LAX 2.5 cm --------- Pressure, S 36 mm Hg --------- Legend: (L) and (H) fransisca values outside specified reference range. Prepared and electronically signed by Simon Avendano MD 02/14/2020 06:17 ----- FINAL ----- Performing Technologists: Savannah Rutledge Transcribed By : TP 02/14/2020 6:17 am Dictated By: SIMON DELATORRE Approved By : SIMON DELATORRE 02/14/2020 6:17 am Laz Judd MD CV CARD SERVICES Performing Organization Address City/[facility]/ZIP Co de Phone Number [facility] * Troponin I Ultra Sensitive (02/13/2020 7:20 PM CDT) Only the most recent of3 resultswithin the time period is included. TROPONIN I <0.02 <0.05 ng/mL [facility] 02/13/2020 7:20 PM CDT 02/13/2020 7:37 PM CDT Laz Judd MD LAB BLOOD ORDERABLES Performing Organization Address [facility]/ZIP Co de Phone Number [facility] [address] [address] * XR ADVOCATE PROCEDURE (02/13/2020 6:56 PM CDT) Anatomical Region Laterality Modality Radiographic Sherry ging 02/13/2020 6:56 PM CDT Impressions 02/13/2020 7:13 PM CDT Electronically Reviewed and Approved By: LANEY GALLOWAY 02/13/20 7:09 pm Narrative 02/13/2020 7:13 PM CDT History: Chest Pain edema Exam: XR CHEST 1V. Comparison: 10/31/2019. Findings: Single view of the chest demonstrates a cardiomediastinal silhouette. The lungs are under aerated with mild bilateral interstitial opacities. No definite pneumothorax. The thoracic musculoskeletal structures and the upper abdomen are stable. Impression: Cardiomegaly with findings suggestive of edema. ----- F I N A L ----- Transcribed By: KALIA 02/13/20 7:09 pm Dictated By: LANEY GALLOWAY Procedure Note Laney Joseph MD - 02/13/2020 History: Chest Pain edema Exam: XR CHEST 1V. Comparison: 10/31/2019. Findings: Single view of the chest demonstrates a cardiomediastinalsilhouette. The lungs are under aerated with mild bilateral interstitial opacities. No definitepneumothorax. The thoracic musculoskeletal structures and the upper abdomen are stable. Impression: Cardiomegaly with findings suggestive of edema. ----- F I N A L ----- Transcribed By: KALIA 02/13/20 7:09 pm Dictated By: LANEY GALLOWAY IMPRESSION: Electronically Reviewed and Approved By: LANEY GALLOWAY02/13/20 7:09 pm Provider Not In System IMG XR PROCEDURES * XR ADVOCATE PROCEDURE (02/13/2020 6:56 PM CDT) Anatomical Region Laterality Modality Radiographic Sherry ging 02/13/2020 6:56 PM CDT Impressions 02/13/2020 7:13 PM CDT Electronically Reviewed and Approved By: LANEY GALLOWAY 02/13/20 7:09 pm Narrative 02/13/2020 7:13 PM CDT History: Chest Pain edema Exam: XR CHEST 1V. Comparison: 10/31/2019. Findings: Single view of the chest demonstrates a cardiomediastinal silhouette. The lungs are under aerated with mild bilateral interstitial opacities. No definite pneumothorax. The thoracic musculoskeletal structures and the upper abdomen are stable. Impression: Cardiomegaly with findings suggestive of edema. ----- F I N A L ----- Transcribed By: KALIA 02/13/20 7:09 pm Dictated By: LANEY GALLOWAY Procedure Note Laney Joseph MD - 02/13/2020 History: Chest Pain edema Exam: XR CHEST 1V. Comparison: 10/31/2019. Findings: Single view of the chest demonstrates a cardiomediastinalsilhouette. The lungs are under aerated with mild bilateral interstitial opacities. No definitepneumothorax. The thoracic musculoskeletal structures and the upper abdomen are stable. Impression: Cardiomegaly with findings suggestive of edema. ----- F I N A L ----- Transcribed By: KALIA 02/13/20 7:09 pm Dictated By: LANEY GALLOWAY IMPRESSION: Electronically Reviewed and Approved By: LANEY GALLOWAY02/13/20 7:09 pm [employer] Historical Conversion Provid er IMG XR PROCEDURES * NT proBNP (02/13/2020 6:10 PM CDT) NT proBNP 204 <451 pg/mL [facility] 02/13/2020 6:10 PM CDT 02/13/2020 6:40 PM CDT [employer]mg Certd Historical Conversion Provid er LAB BLOOD ORDERABLES [facility] [address] [address] * (ABNORMAL) Comprehensive Metabolic Panel (02/13/2020 6:10 PM CDT) Only the most recent of27 resultswithin the time period is included. Sodium 140 135 - 145 mmol/L [facility] Potassium 4.0 3.4 - 5.1 mmol/L [facility] Chloride 107 98 - 107 mmol/L [facility] Carbon Dioxide 30 21 - 32 mmol/L [facility] Anion Gap 7(L) 10 - 20 mmol/L [facility] Glucose 89 65 - 99 mg/dL [facility] BUN 21(H) 6 - 20 mg/dL [facility] Creatinine 0.79 0.51 - 0.95 mg/dL [facility] GFR Estimate, 80 [facility] GFR Estimate, eGFR 60 - 89 mL/min/1.73m 2 = Mild decrease in kidney function. [facility] GFR Estimate, Non 69 [facility] GFR Estimate, Non eGFR 60 - 89 mL/min/1.73m 2 = Mild decrease in kidney function. [facility] BUN/Creatinine Ratio 27(H) 7 - 25 [facility] CALCIUM 9.0 8.4 - 10.2 mg/dL [facility] TOTAL BILIRUBIN 0.3 0.2 - 1.0 mg/dL [facility] AST/SGOT 15 <38 Units/L [facility] ALT/SGPT 12 <64 Units/L [facility] ALK PHOSPHATASE 71 45 - 117 Units/L [facility] TOTAL PROTEIN 7.2 6.4 - 8.2 g/dL [facility] Albumin 3.3(L) 3.6 - 5.1 g/dL [facility] GLOBULIN 3.9 2.0 - 4.0 g/dL [facility] A/G Ratio, Serum 0.8(L) 1.0 - 2.4 [facility] 02/13/2020 6:10 PM CDT 02/13/2020 6:40 PM CDT [employer] Historical Conversion Provid er LAB BLOOD ORDERABLES Performing Organization Address [facility] de Phone Number [address] [address] * Magnesium Level (02/13/2020 6:10 PM CDT) Only the most recent of7 resultswithin the time period is included. MAGNESIUM 2.4 1.7 - 2.4 mg/dL [facility] 02/13/2020 6:10 PM CDT 02/13/2020 6:40 PM CDT [employer] Historical Conversion Provid er LAB BLOOD ORDERABLES Performing Organization Address [facility] de Phone Number [address] [address] * Lactate Dehydrogenase Total (01/07/2020 9:54 AM CDT) Only the most recent of17 resultswithin the time period is included. LDH 181 82 - 240 Units/L [facility] 01/07/2020 9:54 AM CDT 01/07/2020 9:58 AM CDT Javier Peck MD LAB BLOOD ORDERABLES [facility] - [facility] [address] [address] * TRANSTHORACIC ECHO (TTE) COMPLETE W/ DOPPLER & COLOR W/ STRAIN (11/04/2019 2:29 PM CDT) Impressions [facility] - 11/04/2019 3:17 PM CDT *[facility]* [address] [place] [address] Transthoracic Echocardiogram (TTE) Patient: Kirti Barr Study Date/Time: Nov 04 2019 1:00PM [facility]#: [id number] : 1935 Ht/Wt: 152.4cm 68kg Age: 84 BSA/BMI: 1.72m^2 29.3kg/m^2 Gender: F Baseline BP: 154 / 88 Referring Physician: Christin Townsend Aruna Diagnostic Physician: Alberta Garrett MD Wood Gouger: Christy Palmer BA, [facility] INDICATIONS: Dyspnea. Shortness of breath. STUDY CONCLUSIONS SUMMARY: 1. Left ventricle: The cavity size is mildly reduced. Wall thickness is mildly increased. There is concentric hypertrophy. Systolic function is hyperdynamic. The estimated ejection fraction is 70-75%, by biplane method of disks. Doppler parameters are consistent with abnormal left ventricular relaxation (grade 1 diastolic dysfunction). Increased LV filing pressures cannot be excluded. Clinical correlation advised. 2. Mitral valve: The annulus is mildly calcified. The leaflets are mildly calcified. Mild regurgitation. 3. Left atrium: The atrium is mildly to moderately dilated. 4. Right ventricle: Systolic function is normal. Systolic pressure is mildly increased. 5. Right atrium: The atrium is mildly dilated. STUDY DATA: Melanie There is no prior study available for comparison at this time. Procedure: Transthoracic echocardiography was performed. Image quality was good. M-mode, complete 2D, complete spectral Doppler, and color Doppler. Study status: Routine. Study completion: There were no complications. FINDINGS LEFT VENTRICLE: The cavity size is mildly reduced. Wall thickness is mildly increased. There is concentric hypertrophy. Systolic function is hyperdynamic. The estimated ejection fraction is 70-75%, by biplane method of disks. Wall motion is normal; there are no regional wall motion abnormalities. The global longitudinal strain value is -16%. The tissue Doppler parameters are abnormal. Doppler parameters are consistent with abnormal left ventricular relaxation (grade 1 diastolic dysfunction). AORTIC VALVE: Well visualized. The annulus is mildly calcified. The valve is trileaflet. The leaflets are mildly calcified. Lambl's excrescences can not be excluded. Cusp separation is normal. Mobility is not restricted. Doppler: There is no stenosis. No significant regurgitation. The LVOT to aortic valve VTI ratio is 1.02. The valve area by the velocity-time integral method is 3.1cm^2. The valve area index by the velocity-time integral method is 1.77cm^2/m^2. The valve area by the peak velocity method is 2.5cm^2. The valve area index by the peak velocity method is 1.47cm^2/m^2. The ratio of LVOT to aortic valve mean velocity is 0.93. The valve area by the mean velocity method is 2.8cm^2. The valve area index by the mean velocity method is 1.64cm^2/m^2. The mean systolic gradient is 4mm Hg. The peak systolic gradient is 9mm Hg. AORTA: Aortic root: The aortic root is normal in size. Ascending aorta: The ascending aorta is normal in size. Descending aorta: The descending aorta is normal in size. MITRAL VALVE: Well visualized. The annulus is mildly calcified. The leaflets are mildly calcified. Leaflet separation is at the lower limits of normal. Mobility is restricted. Systolic bowing without prolapse. Doppler: There is no evidence for stenosis. Mild regurgitation. The mean diastolic gradient is 0mm Hg. The peak diastolic gradient is 2mm Hg. ATRIAL SEPTUM: Well visualized. Color doppler shows no obvious shunt. There is redundancy of the septum, with borderline criteria for aneurysm. LEFT ATRIUM: Well visualized. The atrium is mildly to moderately dilated. RIGHT VENTRICLE: The cavity size is normal. Wall thickness is normal. Systolic function is normal. Systolic pressure is mildly increased. VENTRICULAR SEPTUM: Thickness is mildly to moderately increased. PULMONIC VALVE: Well visualized. The leaflets are normal thickness. Doppler: No significant regurgitation. TRICUSPID VALVE: Well visualized. The leaflets are mildly thickened. Leaflet separation is normal. Doppler: Transvalvular velocity is within the normal range. There is no evidence for stenosis. Mild regurgitation. RIGHT ATRIUM: Well visualized. The atrium is mildly dilated. Eustachian valve and chiari network noted. PERICARDIUM: A pericardial effusion cannot be excluded. SYSTEMIC VEINS: Inferior vena cava: The vessel is normal in size. The respirophasic diameter changes are blunted (less than 50%). BASELINE ECG: Normal sinus rhythm. Measurements Left ventricle Value Ref Left atrium continued Value Ref DHIRAJ, LAX chord (L) 3.3 cm 3.8 - 5.2 Vol/bsa, S (H) 47 ml/m^2 16 - 34 ESD, LAX chord (L) 2.1 cm 2.2 - 3.5 Vol, ES, 1-p A4C (H) 79 ml 22 - 52 DHIRAJ/bsa, LAX chord (L) 1.9 cm/m^2 2.3 - 3.1 Vol/bsa, ES, 1-p A4C (H) 46 ml/m^2 11 - 40 ESD/bsa, LAX chord (L) 1.2 cm/m^2 1.3 - 2.1 Vol, ES, 1-p A2C (H) 65 ml 22 - 52 PW, ED, LAX (H) 1.2 cm 0.6 - 0.9 Vol/bsa, ES, 1-p A2C 38 ml/m^2 13 - 40 PW, ED (H) 1.2 cm 0.6 - 0.9 AP dim, ES MM (H) 4.4 cm 2.7 - 3.8 IVS/PW, ED 1.19 --------- AP dim index, ES MM (H) 2.6 cm/m^2 1.5 - 2.3 EDV (L) 45 ml 46 - 106 ESV 14 ml 14 - 42 Right atrium Value Ref SV 31 ml --------- Area, ES, A4C (H) 20 cm^2 10 - 18 EDV/bsa (L) 26 ml/m^2 29 - 61 ESV/bsa 8 ml/m^2 8 - 24 Aortic valve Value Ref SV/bsa 18 ml/m^2 --------- Leaflet sep, MM 1.6 cm --------- ESV, 1-p A4C 15 ml 12 - 60 Peak v, S 1.5 m/sec --------- SV, 1-p A4C 29 ml --------- Mean v, S 0.98 m/sec --------- ESV/bsa, 1-p A4C 9 ml/m^2 7 - 35 Mean grad, S 4 mm Hg --------- SV/bsa, 1-p A4C 17 ml/m^2 --------- Peak grad, S 9 mm Hg --------- EDV, 2-p 46 ml 46 - 106 LVOT/AV, VTI ratio 1.02 --------- ESV, 2-p 14 ml 14 - 42 ALBERTA, VTI 3.1 cm^2 --------- EDV/bsa, 2-p (L) 27 ml/m^2 29 - 61 ALBERTA/bsa, VTI 1.77 cm^2/m^2 --------- ESV/bsa, 2-p 8 ml/m^2 8 - 24 ALBERTA, Vmax 2.5 cm^2 --------- E', lat pb, TDI (L) 6 cm/sec >=10 ALBERTA/bsa, Vmax 1.47 cm^2/m^2 --------- E/e', lat pb, TDI 9 --------- LVOT/AV, Vmean ratio 0.93 --------- E', med pb, TDI (L) 6 cm/sec >=7 ALBERTA, Vmean 2.8 cm^2 --------- E/e', med pb, TDI 9 --------- ALBERTA/bsa, Vmean 1.64 cm^2/m^2 --------- E', avg, TDI 6 cm/sec --------- E/e', avg, TDI 9 <=14 Mitral valve Value Ref Peak E 0.53 m/sec --------- LVOT Value Ref Peak A 0.72 m/sec --------- Diam, S 2.0 cm --------- Decel time 193 ms --------- Area 3.0 cm^2 --------- Mean grad, D 0 mm Hg --------- Peak ghassan, S -1.29 m/sec --------- Peak grad, D 2 mm Hg --------- Mean ghassan, S 0.91 m/sec --------- Peak E/A ratio 0.74 --------- Peak grad, S 7 mm Hg --------- MR peak v 4.92 m/sec --------- Peak LV-LA grad S 97 mm Hg --------- Ventricular septum Value Ref IVS, ED (H) 1.4 cm 0.6 - 0.9 Tricuspid valve Value Ref TR peak v -2.7 m/sec <=2.8 Right ventricle Value Ref Peak RV-RA grad, S 30 mm Hg --------- DHIRAJ, LAX 3.7 cm --------- TAPSE, 2D 1.8 cm 1.7 - 3.1 Aortic root Value Ref Pressure, S 42 mm Hg --------- Root diam, ED 2.6 cm <3.9 S' lateral (H) 14 cm/sec 6 - 13.4 Pulmonary artery Value Ref Left atrium Value Ref Pressure, S 42 mm Hg --------- AP dim, ES (H) 4.3 cm 2.7 - 3.8 AP dim index (H) 2.5 cm/m^2 1.5 - 2.3 Systemic veins Value Ref SI dim, A4C 4.4 cm --------- Estimated CVP 12 mm Hg --------- Vol, S (H) 81 ml 22 - 52 Legend: (L) and (H) fransisca values outside specified reference range. Prepared and electronically signed by Alberta Garrett MD 11/04/2019 15:17 Narrative Procedure Note Alberta Garrett MD - 11/04/2019 *[facility]* [address] [place] [address], [place] [id number] Transthoracic Echocardiogram (TTE) Patient: Kirti Barr Study Date/Time: Nov 04 2019 1:00PM : 1935 Ht/Wt: 152.4cm 68kg Age: 84 BSA/BMI: 1.72m^2 29.3kg/m^2 Gender: F Baseline BP: 154 / 88 Referring Physician: Christin Townsend Aruna Diagnostic Physician: Alberta Garrett MD Wood Gouger: Christy Palmer BA, [facility] INDICA TIONS : Dyspnea. Shortness of breath. STUDY CONCLUSIONS SUMMARY: 1. Left ventricle: The cavity size is mildly reduced. Wall thickness is mildly increased. There is concentric hypertrophy. Systolic functionis hyperdynamic. The estimated ejection fraction is 70-75%, by biplane method of disks. Doppler parameters are consistent with abnormal left ventricular relaxation (grade 1 diastolic dysfunction). Increased LV filing pressures cannot be excluded. Clinical correlation advised. 2. Mitral valve: The annulus is mildly calcified. The leaflets aremildly calcified. Mild regurgitation. 3. Left atrium: The atrium is mildly to moderately dilated. 4. Right ventricle: Systolic function is normal. Systolic pressure is mildly increased. 5. Right atrium: The atrium is mildly dilated. STUDY DATA: Melanie There is no prior study available for comparison at this time. Procedure: Transthoracic echocardiography was performed. Image quality was good. M-mode, complete 2D, complete spectral Doppler, and color Doppler. Study status: Routine. Study completion: Therewere no complications. FINDINGS LEFT VENTRICLE: The cavity size is mildly reduced. Wall thickness is mildly increased. There is concentric hypertrophy. Systolic function is hyperdynamic. The estimated ejection fraction is 70-75%, by biplanemethod of disks. Wall motion is normal; there are no regional wall motion abnormalities. The global longitudinal strain value is -16%. The tissue Doppler parameters are abnormal. Doppler parameters are consistent with abnormal left ventricular relaxation (grade 1 diastolic dysfunction). AORTIC VALVE: Well visualized. The annulus is mildly calcified. Thevalve is trileaflet. The leaflets are mildly calcified. Lambl's excrescencescan not be excluded. Cusp separation is normal. Mobility is not restricted. Doppler: There is no stenosis. No significant regurgitation. The LVOT to aortic valve VTI ratio is 1.02. The valve area by the velocity-time integral method is 3.1cm^2. The valve area index by the velocity-time integral method is 1.77cm^2/m^2. The valve area by thepeak velocity method is 2.5cm^2. The valve area index by the peak velocity method is 1.47cm^2/m^2. The ratio of LVOT to aortic valve mean velocityis 0.93. The valve area by the mean velocity method is 2.8cm^2. The valve area index by the mean velocity method is 1.64cm^2/m^2. The mean systolic gradient is 4mm Hg. The peak systolic gradient is 9mm Hg. AORTA: Aortic root: The aortic root is normal in size. Ascending aorta: The ascending aorta is normal in size. Descending aorta: The descending aorta is normal in size. MITRAL VALVE: Well visualized. The annulus is mildly calcified. The leaflets are mildly calcified. Leaflet separation is at the lower limits of normal. Mobility is restricted. Systolic bowing without prolapse. Doppler: There is no evidence for stenosis. Mild regurgitation. The mean diastolic gradient is 0mm Hg. The peak diastolic gradient is2mm Hg. ATRIAL SEPTUM: Well visualized. Color doppler shows no obvious shunt. There is redundancy of the septum, with borderline criteria foraneurysm. LEFT ATRIUM: Well visualized. The atrium is mildly to moderatelydilated. RIGHT VENTRICLE: The cavity size is normal. Wall thickness is normal. Systolic function is normal. Systolic pressure is mildly increased. VENTRICULAR SEPTUM: Thickness is mildly to moderately increased. PULMONIC VALVE: Well visualized. The leaflets are normal thickness. Doppler: No significant regurgitation. TRICUSPID VALVE: Well visualized. The leaflets are mildly thickened. Leaflet separation is normal. Doppler: Transvalvular velocity iswithin the normal range. There is no evidence for stenosis. Mildregurgitation. RIGHT ATRIUM: Well visualized. The atrium is mildly dilated. Eustachian valve and chiari network noted. PERICARDIUM: A pericardial effusion cannot be excluded. SYSTEMIC VEINS: Inferior vena cava: The vessel is normal in size. The respirophasic diameter changes are blunted (less than 50%). BASELINE ECG: Normal sinus rhythm. Measur ement s Left ventricle Value Ref Left atrium continuedValue Ref DHIRAJ, LAX chord (L) 3.3 cm 3.8 - 5.2 Vol/bsa, S(H) 47 ml/m^2 16 - 34 ESD, LAX chord (L) 2.1 cm 2.2 - 3.5 Vol, ES, 1-p A4C(H) 79 ml 22 - 52 DHIRAJ/bsa, LAX chord (L) 1.9 cm/m^2 2.3 - 3.1 Vol/bsa, ES, 1-p A4C(H) 46 ml/m^2 11 - 40 ESD/bsa, LAX chord (L) 1.2 cm/m^2 1.3 - 2.1 Vol, ES, 1-p A2C(H) 65 ml 22 - 52 PW, ED, LAX (H) 1.2 cm 0.6 - 0.9 Vol/bsa, ES, 1-p A2C38 ml/m^2 13 - 40 PW, ED (H) 1.2 cm 0.6 - 0.9 AP dim, ES MM(H) 4.4 cm 2.7 - 3.8 IVS/PW, ED 1.19 --------- AP dim index, ES MM(H) 2.6 cm/m^2 1.5 - 2.3 EDV (L) 45 ml 46 - 106 ESV 14 ml 14 - 42 Right atriumValue Ref SV 31 ml --------- Area, ES, A4C(H) 20 cm^2 10 - 18 EDV/bsa (L) 26 ml/m^2 29 - 61 ESV/bsa 8 ml/m^2 8 - 24 Aortic valveValue Ref SV/bsa 18 ml/m^2 --------- Leaflet sep, MM1.6 cm --------- ESV, 1-p A4C 15 ml 12 - 60 Peak v, S1.5 m/sec --------- SV, 1-p A4C 29 ml --------- Mean v, S0.98 m/sec --------- ESV/bsa, 1-p A4C 9 ml/m^2 7 - 35 Mean grad, S4 mm Hg --------- SV/bsa, 1-p A4C 17 ml/m^2 --------- Peak grad, S9 mm Hg --------- EDV, 2-p 46 ml 46 - 106 LVOT/AV, VTI ratio1.02 --------- ESV, 2-p 14 ml 14 - 42 ALBERTA, VTI3.1 cm^2 --------- EDV/bsa, 2-p (L) 27 ml/m^2 29 - 61 ALBERTA/bsa, VTI1.77 cm^2/m^2 --------- ESV/bsa, 2-p 8 ml/m^2 8 - 24 ALBERTA, Vmax2.5 cm^2 --------- E', lat pb, TDI (L) 6 cm/sec >=10 ALBERTA/bsa, Vmax1.47 cm^2/m^2 --------- E/e', lat pb, TDI 9 --------- LVOT/AV, Vmean ratio0.93 --------- E', med pb, TDI (L) 6 cm/sec >=7 ALBERTA, Vmean2.8 cm^2 --------- E/e', med pb, TDI 9 --------- ALBERTA/bsa, Vmean1.64 cm^2/m^2 --------- E', avg, TDI 6 cm/sec --------- E/e', avg, TDI 9 <=14 Mitral valveValue Ref Peak E0.53 m/sec --------- LVOT Value Ref Peak A0.72 m/sec --------- Diam, S 2.0 cm --------- Decel cyub432 ms --------- Area 3.0 cm^2 --------- Mean grad, D0 mm Hg --------- Peak ghassan, S -1.29 m/sec --------- Peak grad, D2 mm Hg --------- Mean ghassan, S 0.91 m/sec --------- Peak E/A ratio0.74 --------- Peak grad, S 7 mm Hg --------- MR peak v4.92 m/sec --------- Peak LV-LA grad S97 mm Hg --------- Ventricular septum Value Ref IVS, ED (H) 1.4 cm 0.6 - 0.9 Tricuspid valveValue Ref TR peak v-2.7 m/sec <=2.8 Right ventricle Value Ref Peak RV-RA grad, S30 mm Hg --------- DHIRAJ, LAX 3.7 cm --------- TAPSE, 2D 1.8 cm 1.7 - 3.1 Aortic rootValue Ref Pressure, S 42 mm Hg --------- Root diam, ED2.6 cm <3.9 S' lateral (H) 14 cm/sec 6 - 13.4 Pulmonary arteryValue Ref Left atrium Value Ref Pressure, S42 mm Hg --------- AP dim, ES (H) 4.3 cm 2.7 - 3.8 AP dim index (H) 2.5 cm/m^2 1.5 - 2.3 Systemic veinsValue Ref SI dim, A4C 4.4 cm --------- Estimated CVP12 mm Hg --------- Vol, S (H) 81 ml 22 - 52 Legend: (L) and (H) fransisca values outside specified reference range. Prepared and electronically signed by Alberta Garrett MD 11/04/2019 15:17 Christin Townsend MD CV ECHO ORDERABLES [facility] RADIOLOGY * XR ADVOCATE PROCEDURE (10/31/2019 8:30 AM CDT) Anatomical Region Laterality Modality Radiographic Sherry ging 10/31/2019 8:21 AM CDT Impressions 10/31/2019 10:46 AM CDT FINDINGS with IMPRESSION: Nothing acute. Lungs clear, no pleural effusion. Heart size and pulmonary vascular normal. Aortic atherosclerotic calcification and tortuosity. Abdominal surgical olivia. ----- F I N A L ----- 10/31/19 10:42 am Dictated By: DIANE JENNINGS MD Electronically Reviewed and Approved By: DIANE JENNINGS MD 10/31/19 10:42 am Narrative 10/31/2019 10:46 AM CDT EXAM: Chest PA lateral Indication chronic short of breath and cough No prior Procedure Note Diane Gonzalez MD - 10/31/2019 EXAM: Chest PA lateral Indication chronic short of breath and cough No prior IMPRESSION: FINDINGS with IMPRESSION: Nothing acute. Lungs clear, no pleural effusion. Heart size andpulmonary vascular normal. Aortic atherosclerotic calcification and tortuosity. Abdominal surgicalstaples. ----- F I N A L ----- 10/31/19 10:42 am Dictated By: DIANE JENNINGS MD Electronically Reviewed and Approved By: DIAEN JENNINGS MD10/31/19 10:42 am Christin Townsend MD IMG XR PROCEDURES * XR ADVOCATE PROCEDURE (10/31/2019 8:30 AM CDT) Anatomical Region Laterality Modality Radiographic Sherry ging 10/31/2019 8:21 AM CDT Impressions 10/31/2019 10:07 AM CDT FINDINGS with IMPRESSION: Osteopenia or osteoporosis. Consider DEXA. Stable L4-5 and L5-S1 grade 1 anterolisthesis. L4-5 mild disc narrowing. No vertebral collapse. Normal SI joints. Atherosclerosis. Abdominal surgical olivia both upper quadrants. Left lower quadrant ostomy. ----- F I N A L ----- 10/31/19 10:02 am Dictated By: DIANE JENNINGS MD Electronically Reviewed and Approved By: DIANE JENNINGS MD 10/31/19 10:04 am Narrative 10/31/2019 10:07 AM CDT EXAM: 3 view lumbar spine Indication back pain Comparing CT abdomen pelvis 06/14/2019. Procedure Note Diane Gonzalez MD - 10/31/2019 EXAM: 3 view lumbar spine Indication back pain Comparing CT abdomen pelvis 06/14/2019. IMPRESSION: FINDINGS with IMPRESSION: Osteopenia or osteoporosis. Consider DEXA. Stable L4-5 and L5-S1 grade 1 anterolisthesis. L4-5 mild disc narrowing. No vertebral collapse. Normal SI joints. Atherosclerosis. Abdominal surgical olivia both upper quadrants. Leftlower quadrant ostomy. ----- F I N A L ----- 10/31/19 10:02 am Dictated By: DIANE JENNINGS MD Electronically Reviewed and Approved By: DIANE JENNINGS MD10/31/19 10:04 am Christin Townsend MD IMG XR PROCEDURES * Rheumatoid Factor (10/31/2019 8:08 AM CDT) RHEUMATOID FACTOR <10 <15 Units/mL [facility] [place] Blood VENOUS BLOOD / Unknown 10/31/2019 8:08 AM CDT 10/31/2019 5:19 PM CDT Christin Townsend MD BKR LAB BLOOD ORDERA BLES Performing Organization Address [facility] Co de Phone Number [facility] [place] [address] [place] [address] * Cyclic Citrullinated Peptide Antibody IgG & IgA (10/31/2019 8:08 AM CDT) Cyclic Citrul Pep AB 8 <=[address] [facility] Comment: See Comment APPROXIMATELY 70% OF PATIENTS WITH RHEUMATOID ARTHRITIS(RA) ARE POSITIVE FOR CCP ANTIBODY, WHILE ONLY 2% OF RANDOM BLOOD DONORS ARE POSITIVE. THE DIAGNOSTIC VALUE OF CCP ANTIBODY IN JUVENILE RA PATIENTS HAS NOT BEEN DETERMINED. Blood VENOUS BLOOD / Unknown 10/31/2019 8:08 AM CDT 11/01/2019 7:25 PM CDT Christin Townsend MD BKR LAB BLOOD ORDERA BLES Performing Organization Address [facility] Co de Phone Number [facility] [address] * (ABNORMAL) CBC No Differential (10/31/2019 8:08 AM CDT) WBC 4.7 4.2 - 11.0 K/mcL [facility] [place] RBC 4.10 4.00 - 5.20 mil/mcL [facility] HGB 12.4 12.0 - 15.5 g/dL [facility] HCT 40.4 36.0 - 46.5 % [facility] [place] MCV 98.5 78.0 - 100.0 fl [facility] [place] MCH 30.2 26.0 - 34.0 pg [facility] [place] MCHC 30.7(L) 32.0 - 36.5 g/dL [facility] [place] RDW-CV 13.8 11.0 - 15.0 % [facility] [place] PLT 189 140 - 450 K/mcL [facility] [place] NRBC 0 0 /100 WBC [facility] [place] Blood VENOUS BLOOD / Unknown 10/31/2019 8:08 AM CDT 10/31/2019 5:19 PM CDT Christin Townsend MD BKR LAB BLOOD ORDERA BLES Performing Organization Address City/[facility]/ZIP Co de Phone Number [facility] [place] [address] [place] [address] * (ABNORMAL) Vitamin D -25 Hydroxy (10/31/2019 8:08 AM CDT) VITAMIND, 25 HYDROXY 15.8(L) 30.0 - 100.0 ng/mL [facility] [place] Comment: <20 ng/mL=Vitamin D deficiency 20-29 ng/mL=Vitamin D insufficiency 30-100 ng/mL=Optimal Vitamin D >150 ng/mL=Possible toxicity Blood VENOUS BLOOD / Unknown 10/31/2019 8:08 AM CDT 10/31/2019 5:19 PM CDT Christin Townsend MD BKR LAB BLOOD ORDERA BLES Performing Organization Address [facility] de Phone Number [facility] [place] [address] [place] [address] * Thyroid Stimulating Hormone Reflex (10/31/2019 8:08 AM CDT) TSH 1.379 0.350 - 5.000 mcUnits/mL [facility] [place] Comment: Findings most consistent with euthyroid state, no additional testing suggested. TSH may be normal in patients with thyroid dysfunction and pituitary disease. Clinical correlation recommended. (Reflex TSH algorithm is not recommended in hospitalized patients. A variety of drugs, as well as serious acute and chronic illnesses may alter thyroid function tests. Commonly implicated drugs include glucocorticoids, dopamine, carbamazepine, iodine, amiodarone, lithium and heparin.) Blood VENOUS BLOOD / Unknown 10/31/2019 8:08 AM CDT 10/31/2019 5:19 PM CDT Christin Townsend MD BKR LAB BLOOD ORDERA BLES Performing Organization Address [facility] de Phone Number [facility] [place] [address] [place] [address] * (ABNORMAL) Lipid Panel With Reflex (10/31/2019 8:08 AM CDT) FASTING STATUS UNKNOWN hrs [facility] [place] CHOLESTEROL 217(H) <200 mg/dL [facility] [place] Comment: Desirable <200 Borderline High 200 to 239 High >=240 CALCULATED LDL 133(H) <130 mg/dL [facility] [place] Comment: OPTIMAL <100 NEAR OPTIMAL 100-129 BORDERLINE HIGH 130-159 HIGH 160-189 VERY HIGH >=190 HDL 67 >49 mg/dL [facility] [place] Comment: Low <40 Borderline Low 40 to 49 Near Optimal 50 to 59 Optimal >=60 TRIGLYCERIDE 84 <150 mg/dL [facility] [place] Comment: Normal <150 Borderline High 150 to 199 High 200 to 499 Very High >=500 CALCULATED NON HDL 150 mg/dL [facility] [place] Comment: Therapeutic Target: CHD and risk equivalents <130 Multiple risk factors <160 0 to 1 risk factors <190 CHOL/HDL 3.2 <4.5 [facility] [place] Blood VENOUS BLOOD / Unknown 10/31/2019 8:08 AM CDT 10/31/2019 5:19 PM CDT Christin Townsend MD BKR LAB BLOOD ORDERA BLES ACL - ADVOCATE [facility] [place] [address] [place] [address] * MA ADVOCATE PROCEDURE (07/17/2019 9:14 AM BONE CHAR OPERATOR) Anatomical Region Laterality Modality Breast Mammography 07/17/2019 9:14 AM BONE CHAR OPERATOR Impressions 07/19/2019 8:05 AM BONE CHAR OPERATOR BENIGN There is no mammographic evidence of malignancy. A 1 year screening mammogram is recommended. MAMMOGRAPHY BI-RADS: 2 BENIGN Edelmira Heck D.O. cs/penrad:07/19/2019 07:58:36 copy to: RESIDENT IMELDA Burton, [facility], An affiliate of [facility], ph: [phone], fax: [phone] copy to: MD JAVIER PECK M.D., ph: [phone] Fish Straightener: RT Stephanie(R)(M), [facility] letter sent: Normal Single Exam ----- FINAL ----- Dictated By: EDELMIRA ARIAS DO Electronically Reviewed and Approved By: EDELMIRA ARIAS DO Narrative 07/19/2019 8:05 AM BONE CHAR OPERATOR #[id number] - [place] FFDM SCREEN DEBORA W WINSOME W CAD BILATERAL DIGITAL SCREENING MAMMOGRAM 3D/2D WITH CAD: 07/17/2019 CLINICAL HISTORY:Routine annual screening mammogram - tomosynthesis. COMPARISON: Comparison is made to exam dated: 12/30/2010 mammogram - [facility]. FINDINGS: There are scattered fibroglandular elements in both breasts. There are stable benign calcifications in the left breast. There also are stable benign vascular calcifications in both breasts. No significant masses, calcifications, or other findings are seen in either breast. Current study was also evaluated with a Computer Aided Detection (CAD) system. Digital Breast Tomosynthesis (DBT) images were obtained and used to assist in the interpretation of this examination. There has been no significant interval change. Procedure Note Yen Heckmatt ChunDO - 07/19/2019 #[id number] - MA FFDM SCREEN DEBORA W WINSOME W CAD BILATERAL DIGITAL SCREENING MAMMOGRAM 3D/2D WITH CAD: 07/17/2019 CLINICAL HISTORY:Routine annual screening mammogram - tomosynthesis. COMPARISON: Comparison is made to exam dated: 12/30/2010 mammogram - [facility]. FINDINGS: There are scattered fibroglandular elements in both breasts. There are stable benign calcifications in the left breast. There also arestable benign vascular calcifications in both breasts. No significant masses, calcifications, or other findings are seen ineither breast. Current study was also evaluated with a Computer Aided Detection (CAD)system. Digital Breast Tomosynthesis (DBT) images were obtained and used to assist in theinterpretation of this examination. There has been no significant interval change. IMPRESSION: BENIGN There is no mammographic evidence of malignancy. A 1 year screeningmammogram is recommended. MAMMOGRAPHY BI-RADS: 2 BENIGN Edelmira zepeda/penrad:07/19/2019 07:58:36 copy to: RESIDENT IMELDA Burton, [facility], [facility], ph: [phone], fax: [phone] copy to: MD JAVIER PECK M.D., ph: [phone] Fish Straightener: RT Stephanie(Flori)(M), [facility] letter sent: Normal Single Exam ----- FINAL ----- Dictated By: EDELMIRA ARIAS DO Electronically Reviewed and Approved By: EDELMIRA ARIAS DO Tom Mueller MD IMG BI PROCEDURES * CT ADVOCATE PROCEDURE (06/14/2019 4:20 PM CDT) Anatomical Region Laterality Modality Computed Tomogra phy 06/14/2019 4:20 PM CDT Impressions 06/16/2019 3:23 PM CDT No evidence of recurrent or metastatic disease status post subtotal gastrectomy abdominal perineal resection. 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 COMPARISON: 11/01/2018. TECHNIQUE: CT chest, abdomen and pelvis with 80 mL Omnipaque 300 IV contrast. Multiplanar reformats. Dose reduction techniques were utilized. FINDINGS: CHEST: Heart and great vessels: Normal. Pericardium: No fluid or thickening. Lymph nodes: No evidence for pathologic axillary, mediastinal, or hilar lymphadenopathy. Esophagus: Normal. Pleura and lung parenchyma: Clear. ABDOMEN: Liver: No focal lesion or intrahepatic bile duct dilatation. Portal venous system is patent. Gallbladder: No evidence for wall thickening or inflammation. Spleen: Normal size without focal findings. Pancreas: No focal lesion or pancreatic ductal dilatation. Adrenal glands: No focal nodule. Kidneys: Normal. Abdominal aorta and IVC: Abdominal aorta is normal in caliber. IVC is grossly normal. Retroperitoneum: Normal Mesentery/Peritoneum: Normal. Stomach and small bowel: Stable subtotal gastrectomy. No evidence for obstruction. PELVIS: Free fluid: No free fluid or fluid collection. Reproductive: No acute abnormality. Bladder: Normal contour and wall thickness. Lymphadenopathy: No pathologic lymphadenopathy. Colon: Status post APR and left lower quadrant colostomy. Uncomplicated diverticulosis. Appendix: Not discretely visualized. Skeletal structures and soft tissues: Age-appropriate degenerative changes. No suspicious osseous lytic or blastic process. No soft tissue abnormality. 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 COMPARISON: 11/01/2018. TECHNIQUE: CT chest, abdomen and pelvis with 80 mL Omnipaque 300 IV contrast.Multiplanar reformats. Dose reduction techniques were utilized. FINDINGS: CHEST: Heart and great vessels: Normal. Pericardium: No fluid or thickening. Lymph nodes: No evidence for pathologic axillary, mediastinal, or hilarlymphadenopathy. Esophagus: Normal. Pleura and lung parenchyma: Clear. ABDOMEN: Liver: No focal lesion or intrahepatic bile duct dilatation. Portal venoussystem is patent. Gallbladder: No evidence for wall thickening or inflammation. Spleen: Normal size without focal findings. Pancreas: No focal lesion or pancreatic ductal dilatation. Adrenal glands: No focal nodule. Kidneys: Normal. Abdominal aorta and IVC: Abdominal aorta is normal in caliber. IVC isgrossly normal. Retroperitoneum: Normal Mesentery/Peritoneum: Normal. Stomach and small bowel: Stable subtotal gastrectomy. No evidence forobstruction. PELVIS: Free fluid: No free fluid or fluid collection. Reproductive: No acute abnormality. Bladder: Normal contour and wall thickness. Lymphadenopathy: No pathologic lymphadenopathy. Colon: Status post APR and left lower quadrant colostomy. Uncomplicateddiverticulosis. Appendix: Not discretely visualized. Skeletal structures and soft tissues: Age-appropriate degenerativechanges. No suspicious osseous lytic or blastic process. No soft tissue abnormality. IMPRESSION: No evidence of recurrent or metastatic disease status post subtotalgastrectomy abdominal perineal resection. ----- F I N A L ----- Transcribed By: KALIA 06/16/19 3:12 pm Dictated By: SHERIE MARTIN MD Electronically Reviewed and Approved By: SHERIE MARTIN MD06/16/19 3:20 pm Andree Hansen TEAM LEADER IMG CT PROCEDURES * Lab (05/28/2019) Outside Provider SCANS * CT ADVOCATE PROCEDURE (11/01/2018 11:45 AM CDT) Anatomical Region Laterality Modality Computed Tomogra phy 11/01/2018 11:4 5 AM CDT Impressions 11/01/2018 2:16 PM CDT Postsurgical changes with soft tissue thickening/scarring in the rectal bed. Small amount of gas density in this region has decreased in comparison to prior imaging. Stable postsurgical changes of the stomach and colostomy. No specific evidence of metastatic disease. Diverticulosis without diverticulitis. Other important findings as detailed. ----- F I N A L ----- Transcribed By: KALIA 11/01/18 1:52 pm Dictated By: CHIDI SUMMERS MD Electronically Reviewed and Approved By: CHIDI SUMMERS MD 11/01/18 2:12 pm Narrative 11/01/2018 2:16 PM CDT EXAM: CT CHEST, ABDOMEN AND PELVIS W CON CLINICAL INDICATION: Provided clinical history rectal cancer, gastric cancer 83 years Female TECHNIQUE: Contiguous axial images through the chest, abdomen and pelvis were performed with intravenous contrast. Multiplanar reconstructions were generated and reviewed. Oral contrast was given. 80 cc of Omnipaque 300 was infused intravenously. COMPARISON: CT from 06/08/2018, 03/19/2018 and additional prior exams FINDINGS: CT CHEST: No axillary lymphadenopathy. Atherosclerotic disease and coronary artery disease. The heart is stable without pericardial effusion. Main pulmonary artery and aorta are stable without evidence of aneurysm. Grossly patent main pulmonary artery. No mediastinal or hilar lymphadenopathy. Degenerative type changes of the spine. A few pleural-based opacities are favored to represent scarring and atelectasis. No pleural effusion or pneumothorax. CT ABDOMEN AND PELVIS: The liver enhances homogeneously. Some hypoattenuation is present raising the possibility of hepatic steatosis. Patent hepatic and portal veins. Gallbladder, spleen and adrenal glands are within normal limits. There appears to be mild fatty atrophy of the pancreas. Stable mild prominence of the pancreatic duct. Stable nondilated common bile duct. Stable hypodense approximately 1 cm renal lesion in the right kidney statistically favored represent a cyst. Kidneys enhance symmetrically. No hydronephrosis. Postsurgical changes of the stomach are demonstrated. The stomach is not well distended evaluation. Configuration is stable. No gastrohepatic or retroperitoneal lymphadenopathy. No mesenteric lymphadenopathy is evident. Oral contrast has migrated to the transverse colon. No evidence of obstruction. No secondary signs of appendicitis. Diverticulosis of the distal colon is redemonstrated. No specific evidence of diverticulitis. No free fluid or free air. Stable bladder. Stable uterus. Adnexa are difficult to separate from adjacent structures but do not appear pathologically enlarged. Postsurgical changes of the pelvis compatible with removal of rectum with soft tissue thickening/scarring and some gas density in this region. The amount of gas density has slightly decreased. No lymphadenopathy. Degenerative type changes of the spine. No acute or aggressive osseous lesion. Possible mild sclerosis of the SI joints. Moderate atherosclerotic disease. No evidence of aneurysm. Procedure Note Chidi Colon MD - 11/01/2018 EXAM: CT CHEST, ABDOMEN AND PELVIS W CON CLINICAL INDICATION: Provided clinical history rectal cancer, gastriccancer 83 years Female TECHNIQUE: Contiguous axial images through the chest, abdomen and pelvis wereperformed with intravenous contrast. Multiplanar reconstructions were generated and reviewed. Oral contrast was given. 80 cc of Omnipaque 300 was infused intravenously. COMPARISON: CT from 06/08/2018, 03/19/2018 and additional prior exams FINDINGS: CT CHEST: No axillary lymphadenopathy. Atherosclerotic disease andcoronary artery disease. The heart is stable without pericardial effusion. Main pulmonary arteryand aorta are stable without evidence of aneurysm. Grossly patent main pulmonary artery. Nomediastinal or hilar lymphadenopathy. Degenerative type changes of the spine. A few pleural-based opacities are favored to represent scarring andatelectasis. No pleural effusion or pneumothorax. CT ABDOMEN AND PELVIS: The liver enhances homogeneously. Somehypoattenuation is present raising the possibility of hepatic steatosis. Patent hepatic and portalveins. Gallbladder, spleen and adrenal glands are within normal limits. There appears to bemild fatty atrophy of the pancreas. Stable mild prominence of the pancreatic duct. Stablenondilated common bile duct. Stable hypodense approximately 1 cm renal lesion in the rightkidney statistically favored represent a cyst. Kidneys enhance symmetrically. Nohydronephrosis. Postsurgical changes of the stomach are demonstrated. The stomach is notwell distended evaluation. Configuration is stable. No gastrohepatic orretroperitoneal lymphadenopathy. No mesenteric lymphadenopathy is evident. Oral contrast has migrated to the transverse colon. No evidence ofobstruction. No secondary signs of appendicitis. Diverticulosis of the distal colon isredemonstrated. No specific evidence of diverticulitis. No free fluid or free air. Stable bladder. Stable uterus. Adnexa are difficult to separate fromadjacent structures but do not appear pathologically enlarged. Postsurgical changes of the pelvis compatible with removal of rectum withsoft tissue thickening/scarring and some gas density in this region. The amount ofgas density has slightly decreased. No lymphadenopathy. Degenerative type changes of the spine. No acute or aggressive osseouslesion. Possible mild sclerosis of the SI joints. Moderate atherosclerotic disease. Noevidence of aneurysm. IMPRESSION: Postsurgical changes with soft tissue thickening/scarring in the rectalbed. Small amount of gas density in this region has decreased in comparison to prior imaging.Stable postsurgical changes of the stomach and colostomy. No specific evidence of metastatic disease. Diverticulosis without diverticulitis. Other important findings as detailed. ----- F I N A L ----- Transcribed By: KALIA 11/01/18 1:52 pm Dictated By: CHIDI SUMMERS MD Electronically Reviewed and Approved By: CHIDI SUMMERS MD11/01/18 2:12 pm Javier Peck MD IMG CT PROCEDURES * CT ADVOCATE PROCEDURE (07/09/2018 9:45 AM BONE CHAR OPERATOR) Anatomical Region Laterality Modality Computed Tomogra phy 07/09/2018 9:45 AM BONE CHAR OPERATOR Narrative 07/09/2018 10:25 AM BONE CHAR OPERATOR EXAMINATION: Computed tomography (CT) of the chest, abdomen and pelvis with contrast HISTORY: Rectal and gastric cancer. TECHNIQUE: CT of the chest, abdomen and pelvis was performed following the uneventful administration of Omnipaque 300, 80 mL intravenous contrast according to standard protocol. FINDINGS: Comparison is made with the prior CT body study from 03/19/2018. Correlation is also made with a PET/CT study from 11/09/2017. CHEST: The lungs are clear. No suspicious pulmonary nodule, mass or consolidation is identified. There is no pleural effusion or pneumothorax. There is mild cardiomegaly. There is no pericardial effusion. There is atherosclerotic calcification in the thoracic aorta and coronary arteries. No mediastinal, hilar or axillary lympha dopa thy is identified. ABDOMEN AND PELVIS: The liver and gallbladder appear normal without evidence of biliary ductal dilatation. The spleen, pancreas and adrenal glands appear normal. Other than a right renal cyst, the kidneys appear normal. There are postsurgical changes from antral gastrectomy, gastrojejunostomy, and jejunojejunostomy. There has been interval creation of a colostomy in the left lower abdominal quadrant. The sigmoid colon and rectum have likely been resected. There is a small amount of extraluminal gas and fluid in the rectal surgical bed extending from the lower presacral space to the perineum which is likely postoperative, though superimposed infection is difficult to exclude. There are diverticula in the descending colon. The urinary bladder and uterus appear normal. No lymphadenopathy is identified. There is atherosclerotic disease in the abdominal aorta and iliofemoral arteries. No acute osseous abnormality seen. No lytic or blastic lesions are identified. IMPRESSION: 1. There has been interval resection of the rectum / rectal cancer and creation of a colostomy in the left lower abdominal quadrant. There is a small amount of extraluminal gas and fluid along the posterior aspect of the rectal surgical bed extending from the lower presacral space to the perineum which may simply be postoperative, though superimposed infection is difficult to exclude. 2. There are stable postsurgical changes from antral gastrectomy, gastrojejunostomy, and jejunojejunostomy related to gastric cancer resection. There are no findings to suggest significant tumor recurrence. 3. There is no evidence of metastatic disease in the chest. F I N A L Transcribed By: KALIA 07/09/18 9:50 am Dictated By: AREN KRAMER MD Electronically Reviewed and Approved By: AREN KRAMER MD 07/09/18 10:21 am Procedure Note Aren Ch MD - 07/20/2018 EXAMINATION: Computed tomography (CT) of the chest, abdomen and pelviswith contrast HISTORY: Rectal and gastric cancer. TECHNIQUE: CT of the chest, abdomen and pelvis was performed following theuneventful administration of Omnipaque 300, 80 mL intravenous contrast according tostandard protocol. FINDINGS: Comparison is made with the prior CT body study from 03/19/2018.Correlation is also made with a PET/CT study from 11/09/2017. CHEST: The lungs are clear. No suspicious pulmonary nodule, mass or consolidationis identified. There is no pleural effusion or pneumothorax. There is mild cardiomegaly. Thereis no pericardial effusion. There is atherosclerotic calcification in the thoracic aortaand coronary arteries. No mediastinal, hilar or axillary lympha dopa thy is identified. ABDOMEN AND PELVIS: The liver and gallbladder appear normal without evidence of biliary ductaldilatation. The spleen, pancreas and adrenal glands appear normal. Other than a rightrenal cyst, the kidneys appear normal. There are postsurgical changes from antral gastrectomy,gastrojejunostomy, and jejunojejunostomy. There has been interval creation of a colostomy in theleft lower abdominal quadrant. The sigmoid colon and rectum have likely been resected. Thereis a small amount of extraluminal gas and fluid in the rectal surgical bed extending from thelower presacral space to the perineum which is likely postoperative, though superimposedinfection is difficult to exclude. There are diverticula in the descending colon. The urinarybladder and uterus appear normal. No lymphadenopathy is identified. There is atheroscleroticdisease in the abdominal aorta and iliofemoral arteries. No acute osseous abnormality seen. No lytic or blastic lesions areidentified. IMPRESSION: 1. There has been interval resection of the rectum / rectal cancer andcreation of a colostomy in the left lower abdominal quadrant. There is a small amount ofextraluminal gas and fluid along the posterior aspect of the rectal surgical bed extending from the lowerpresacral space to the perineum which may simply be postoperative, though superimposedinfection is difficult to exclude. 2. There are stable postsurgical changes from antral gastrectomy,gastrojejunostomy, and jejunojejunostomy related to gastric cancer resection. There are nofindings to suggest significant tumor recurrence. 3. There is no evidence of metastatic disease in the chest. F I N A L Transcribed By: KALIA 07/09/18 9:50 am Dictated By: AREN KRAMER MD Electronically Reviewed and Approved By: AREN KRAMER MD07/09/18 10:21 am Javier Peck MD IMG CT PROCEDURES * CT HISTORICAL PROCEDURE (07/09/2018 9:45 AM BONE CHAR OPERATOR) Anatomical Region Laterality Modality Computed Tomogra phy 07/09/2018 9:45 AM BONE CHAR OPERATOR 07/09/2018 9:45 AM BONE CHAR OPERATOR Impressions 07/09/2018 9:45 AM BONE CHAR OPERATOR 1. There has been interval resection of the rectum / rectal cancer and creation of a colostomy in the left lower abdominal quadrant. There is a small amount of extraluminal gas and fluid along the posterior aspect of the rectal surgical bed extending from the lower presacral space to the perineum which may simply be postoperative, though superimposed infection is difficult to exclude. 2. There are stable postsurgical changes from antral gastrectomy, gastrojejunostomy, and jejunojejunostomy related to gastric cancer resection. There are no findings to suggest significant tumor recurrence. 3. There is no evidence of metastatic disease in the chest. F I N A L Transcribed By: KALIA 07/09/18 9:50 am Dictated By: AREN KRAMER MD Electronically Reviewed and Approved By: AREN KRAMER MD 07/09/18 10:21 am Narrative 07/09/2018 9:45 AM BONE CHAR OPERATOR EXAMINATION: Computed tomography (CT) of the chest, abdomen and pelvis with contrast HISTORY: Rectal and gastric cancer. TECHNIQUE: CT of the chest, abdomen and pelvis was performed following the uneventful administration of Omnipaque 300, 80 mL intravenous contrast according to standard protocol. FINDINGS: Comparison is made with the prior CT body study from 03/19/2018. Correlation is also made with a PET/CT study from 11/09/2017. CHEST: The lungs are clear. No suspicious pulmonary nodule, mass or consolidation is identified. There is no pleural effusion or pneumothorax. There is mild cardiomegaly. There is no pericardial effusion. There is atherosclerotic calcification in the thoracic aorta and coronary arteries. No mediastinal, hilar or axillary lympha dopa thy is identified. ABDOMEN AND PELVIS: The liver and gallbladder appear normal without evidence of biliary ductal dilatation. The spleen, pancreas and adrenal glands appear normal. Other than a right renal cyst, the kidneys appear normal. There are postsurgical changes from antral gastrectomy, gastrojejunostomy, and jejunojejunostomy. There has been interval creation of a colostomy in the left lower abdominal quadrant. The sigmoid colon and rectum have likely been resected. There is a small amount of extraluminal gas and fluid in the rectal surgical bed extending from the lower presacral space to the perineum which is likely postoperative, though superimposed infection is difficult to exclude. There are diverticula in the descending colon. The urinary bladder and uterus appear normal. No lymphadenopathy is identified. There is atherosclerotic disease in the abdominal aorta and iliofemoral arteries. No acute osseous abnormality seen. No lytic or blastic lesions are identified. Procedure Note Provider, Deepak Mcdonald Historical Conversion - 05/18/2019 EXAMINATION: Computed tomography (CT) of the chest, abdomen and pelviswith contrast HISTORY: Rectal and gastric cancer. TECHNIQUE: CT of the chest, abdomen and pelvis was performed following theuneventful administration of Omnipaque 300, 80 mL intravenous contrastaccording to standard protocol. FINDINGS: Comparison is made with the prior CT body study from 03/19/2018.Correlation is also made with a PET/CT study from 11/09/2017. CHEST: The lungs are clear. No suspicious pulmonary nodule, mass or consolidationis identified. There is no pleural effusion or pneumothorax. There is mildcardiomegaly. There is no pericardial effusion. There is atheroscleroticcalcification in the thoracic aorta and coronary arteries. No mediastinal,hilar or axillary lympha dopa thy is identified. ABDOMEN AND PELVIS: The liver and gallbladder appear normal without evidence of biliary ductaldilatation. The spleen, pancreas and adrenal glands appear normal. Otherthan a right renal cyst, the kidneys appear normal. There are postsurgicalchanges from antral gastrectomy, gastrojejunostomy, and jejunojejunostomy.There has been interval creation of a colostomy in the left lowerabdominal quadrant. The sigmoid colon and rectum have likely beenresected. There is a small amount of extraluminal gas and fluid in therectal surgical bed extending from the lower presacral space to theperineum which is likely postoperative, though superimposed infection isdifficult to exclude. There are diverticula in the descending colon. Theurinary bladder and uterus appear normal. No lymphadenopathy isidentified. There is atherosclerotic disease in the abdominal aorta andiliofemoral arteries. No acute osseous abnormality seen. No lytic or blastic lesions areidentified. IMPRESSION: 1. There has been interval resection of the rectum / rectal cancer andcreation of a colostomy in the left lower abdominal quadrant. There is asmall amount of extraluminal gas and fluid along the posterior aspect ofthe rectal surgical bed extending from the lower presacral space to theperineum which may simply be postoperative, though superimposed infectionis difficult to exclude. 2. There are stable postsurgical changes from antral gastrectomy,gastrojejunostomy, and jejunojejunostomy related to gastric cancerresection. There are no findings to suggest significant tumorrecurrence. 3. There is no evidence of metastatic disease in the chest. F I N A L Transcribed By: KALIA 07/09/18 9:50 am Dictated By: AREN KRAMER MD Electronically Reviewed and Approved By: AREN KRAMER MD07/09/18 10:21 am [employer] Historical Conversion Provid er IMG CT PROCEDURES * (ABNORMAL) CBC No Differential (05/04/2018 6:20 AM CDT) Only the most recent of3 resultswithin the time period is included. WBC 6.1 4.2 - 11.0 THOUSAND/ mcL HISTORICAL DATA MIGRATION Comment: [facility] [address] [place] [address], [id number] RBC 3.26(L) 4.00 - 5.20 MILLION/m cL HISTORICAL DATA MIGRATION Comment: [facility] [address] [place] [address], [id number] HGB 9.9(L) 12.0 - 15.5 gm/dL HISTORICAL DATA MIGRATION Comment: [facility] [address] [place] [address], [id number] Hematocrit 32.0(L) 36.0 - 46.5 % HISTORICAL DATA MIGRATION Comment: [facility] [address] [place] [address], [address] MCV 98.2 78.0 - 100.0 fL HISTORICAL DATA MIGRATION Comment: [facility] [address] [place] [address], [address] MCH 30.4 26.0 - 34.0 pg HISTORICAL DATA MIGRATION Comment: [facility] [address] [place] [address], [address]1595 MCHC 30.9(L) 32.0 - 36.5 gm/dL HISTORICAL DATA MIGRATION Comment: [facility] [address] [place] [address], [address] RDW-CV 13.2 11.0 - 15.0 % HISTORICAL DATA MIGRATION Comment: [facility] [address] [place] [address], 10898 PLT 162 140 - 450 THOUSAND/ mcL HISTORICAL DATA MIGRATION Comment: [facility] [address], [id number] Analyzer ANC NOT APPLICABLE HI STORICAL DATA MIGRATION Comment: [facility] [address], [id number] NRBC 0 0 /100 WBC HISTORICAL DATA MIGRATION Comment: [facility] [address] [place] [address], [id number] 05/04/2018 6:20 AM CDT 05/04/2018 6:20 AM CDT [employer] Historical Conversion Provid er LAB BLOOD ORDERABLES Performing Organization Address [facility] de Phone Number HISTORICAL DATA MIGRATION * Phosphorus Level (05/02/2018 6:50 AM CDT) Only the most recent of4 resultswithin the time period is included. PHOSPHORUS 4.7 2.4 - 4.7 mg/dL HISTORICAL DATA MIGRATION Comment: [facility] [address] [place] [address], [id number] 05/02/2018 6:50 AM CDT 05/02/2018 6:50 AM CDT [employer] Historical Conversion Provid er LAB BLOOD ORDERABLES Performing Organization Address [facility] Co de Phone Number HISTORICAL DATA MIGRATION * HB ECG TRACING ONLY (04/04/2018 12:36 PM CDT) Only the most recent of3 resultswithin the time period is included. 04/04/2018 12:3 6 PM CDT 04/04/2018 12:36 PM CDT Narrative HISTORICAL DATA MIGRATION - 04/04/2018 12:36 PM CDT 552 Ventricular Rate-73 553 Atrial Rate-73 554 P-R Interval-128 555 QRS Duration-96 556 Q-T Interval-390 557 QTC Calculation(Bezet)-429 558 P [place]-48 559 R [place]--37 560 T [place]-16 208.0 Diagnosis-Normal sinus rhythm Left axis deviation Abnormal ECG When compared with ECG of 13-DEC-2017 18:58, No significant change was found Confirmed by Sayda MCCOY MASOOD ([id number]) on 04/04/2018 12:46:48 PM FINAL Performing Technologists: Akanksha Lopez Transcribed By : KALIA 04/04/2018 12:46 pm Dictated By: MELISSA GONZALEZ Approved By : MELISSA GONZALEZ 04/04/2018 12:46 pm Procedure Note Provider, Deepak Mcdonald Historical Conversion - 05/18/2019 552 Ventricular Rate-73 553 Atrial Rate-73 554 P-R Interval-128 555 QRS Duration-96 556 Q-T Interval-390 557 QTC Calculation(Bezet)-429 558 P [place]-48 559 R [place]--37 560 T [place]-16 208.0 Diagnosis-Normal sinus rhythm Left axis deviation Abnormal ECG When compared with ECG of 13-DEC-2017 18:58, No significant change was found Confirmed by Sayda MCCOY MASOOD ([id number]) on 04/04/2018 12:46:48 PM FINAL Performing Technologists: Akanksha Lopez Transcribed By : KALIA 04/04/2018 12:46 pm Dictated By: MELISSA GONZALEZ Approved By : MELISSA GONZALEZ 04/04/2018 12:46 pm [employer] Historical Conversion Provid er HB CHARGEABLES HISTORICAL DATA MIGRATION * CT HISTORICAL PROCEDURE (03/19/2018 4:26 PM CDT) Anatomical Region Laterality Modality Computed Tomogra phy 03/19/2018 4:26 PM CDT 03/19/2018 4:26 PM CDT Impressions 03/19/2018 4:26 PM CDT 1. No evidence of metastatic disease in the chest abdomen or pelvis. 2. Postoperative changes consistent with antral gastrectomy with subsequent gastrojejunostomy and jejunojejunostomy. 3. Mild diffuse low rectal thickening likely corresponding to patient's known rectal carcinoma. 4. Diverticulosis of the sigmoid colon. 5. Near-complete interval resolution of the previously described fluid collection anterior abdominal wall. 6. Moderate coronary and aortic iliac atherosclerosis. F I N A L Transcribed By: KALIA 03/20/18 11:53 am Dictated By: JAROD FOWLER MD Electronically Reviewed and Approved By: JAROD FOWLER MD 03/20/18 12:39 pm Narrative 03/19/2018 4:26 PM CDT DICTATING PHYSICIAN: Jarod Osborn M.D. EXAM DATE: 03/19/2018 4:03 PM EXAM: CT CHEST, ABDOMEN AND PELVIS W CON COMPARISON: 12/13/2017, 10/27/2017 INDICATION: 82-year-old with history of rectal carcinoma. PROCEDURE: 102 mL of Omnipaque 300 was injected IV. Enteric contrast given. Dose reduction technique(s) utilized. DLP= [id number] FINDINGS: CHEST: Mediastinum and Radha: No mediastinal or hilar mass or adenopathy. No thyroid nodule or masses. Heart: Normal size. No pericardial effusion. Moderate coronary artery atherosclerosis. Vessels: Common origin of the innominate left common carotid artery. Atherosclerotic calcification of the aortic arch. Lung and Airways: Central airways are patent. No focal consolidation. No suspicious pulmonary nodules. Pleura: No effusion or thickening. Chest Wall and Axilla: Normal. ABDOMEN: Liver: Normal size and homogeneous parenchyma. No suspicious focal lesions. A few tiny round punctate hypodensities likely represent cysts, but are too small to be accurately characterized. Gallbladder: No calcified gallstones. No bile duct dilatation. Spleen: Normal. Adrenals: Normal. Pancreas: Small fat density focus at the anterior margin of the pancreatic body may represent small lipoma or fat within a parenchymal cleft. No ductal dilatation. Kidneys: No calculus, mass or hydronephrosis. 1.3 renal cyst at the anterior interpolar right kidney. Aorta: Normal caliber. Mild to moderate aortoiliac atherosclerosis. IVC: Normal. Retroperitoneum: No adenopathy. Stomach: Postoperative changes consistent with prior antral gastrectomy and subsequent gastrojejunostomy. PELVIS: Reproductive Organs: No pelvic mass. Bladder: No nodule or calculus. Colon: No focal wall thickening or paracolic fat stranding. Diverticula throughout the distal descending and sigmoid colon. Mild diffuse low rectal thickening. Small Bowel: No dilatation or wall thickening. Jejunojejunal anastomosis left upper abdomen. Appendix: Not definitively visualized. Mesentery: No adenopathy. Normal splanchnic veins. Peritoneum: No free fluid or free air. Body wall: Previous described fluid collection in the anterior abdominal wall has resolved. Bones: No destructive lesion. Degenerative changes of the spine, pubic symphysis and sacroiliac joints. . Procedure Note Provider, Deepak Mcdonald Historical Conversion - 05/18/2019 DICTATING PHYSICIAN: Jarod Osborn M.D. EXAM DATE: 03/19/2018 4:03 PM EXAM: CT CHEST, ABDOMEN AND PELVIS W CON COMPARISON: 12/13/2017, 10/27/2017 INDICATION: 82-year-old with history of rectal carcinoma. PROCEDURE: 102 mL of Omnipaque 300 was injected IV. Enteric contrastgiven. Dose reduction technique(s) utilized. DLP= [id number] FINDINGS: CHEST: Mediastinum and Radha: No mediastinal or hilar mass or adenopathy. Nothyroid nodule or masses. Heart: Normal size. No pericardial effusion. Moderate coronary arteryatherosclerosis. Vessels: Common origin of the innominate left common carotid artery.Atherosclerotic calcification of the aortic arch. Lung and Airways: Central airways are patent. No focal consolidation. Nosuspicious pulmonary nodules. Pleura: No effusion or thickening. Chest Wall and Axilla: Normal. ABDOMEN: Liver: Normal size and homogeneous parenchyma. No suspicious focallesions. A few tiny round punctate hypodensities likely represent cysts,but are too small to be accurately characterized. Gallbladder: No calcified gallstones. No bile duct dilatation. Spleen: Normal. Adrenals: Normal. Pancreas: Small fat density focus at the anterior margin of the pancreaticbody may represent small lipoma or fat within a parenchymal cleft. Noductal dilatation. Kidneys: No calculus, mass or hydronephrosis. 1.3 renal cyst at theanterior interpolar right kidney. Aorta: Normal caliber. Mild to moderate aortoiliac atherosclerosis. IVC: Normal. Retroperitoneum: No adenopathy. Stomach: Postoperative changes consistent with prior antral gastrectomyand subsequent gastrojejunostomy. PELVIS: Reproductive Organs: No pelvic mass. Bladder: No nodule or calculus. Colon: No focal wall thickening or paracolic fat stranding. Diverticulathroughout the distal descending and sigmoid colon. Mild diffuse lowrectal thickening. Small Bowel: No dilatation or wall thickening. Jejunojejunal anastomosisleft upper abdomen. Appendix: Not definitively visualized. Mesentery: No adenopathy. Normal splanchnic veins. Peritoneum: No free fluid or free air. Body wall: Previous described fluid collection in the anterior abdominalwall has resolved. Bones: No destructive lesion. Degenerative changes of the spine, pubicsymphysis and sacroiliac joints. . IMPRESSION: 1. No evidence of metastatic disease in the chest abdomen or pelvis. 2. Postoperative changes consistent with antral gastrectomy withsubsequent gastrojejunostomy and jejunojejunostomy. 3. Mild diffuse low rectal thickening likely corresponding to patient'sknown rectal carcinoma. 4. Diverticulosis of the sigmoid colon. 5. Near-complete interval resolution of the previously described fluidcollection anterior abdominal wall. 6. Moderate coronary and aortic iliac atherosclerosis. F I N A L Transcribed By: KALIA 03/20/18 11:53 am Dictated By: JAROD FOWLER MD Electronically Reviewed and Approved By: JAROD FOWLER 03/20/18 12:39 pm [employer] Historical Conversion Provid er IMG CT PROCEDURES * XR HISTORICAL PROCEDURE (12/14/2017 10:55 AM CDT) Anatomical Region Laterality Modality N/A Radiographic Sherry ging 12/14/2017 10:5 5 AM CDT 12/14/2017 10:55 AM CDT Impressions 12/14/2017 10:55 AM CDT S/P distal gastrectomy. Anastomotic site between gastric remnant and proximal small bowel patent. No extravasation. Normal small bowel series. (1.5 minutes of fluoroscopy time was provided.) F I N A L Transcribed By: KALIA 12/14/17 1:09 pm Dictated By: GREGORY COLE MD Electronically Reviewed and Approved By: GREGORY COLE MD 12/14/17 1:21 pm Narrative 12/14/2017 10:55 AM CDT EXAM: XR STOMACH W SMALL BOWEL Omnipaque 350 300 ml CLINICAL INDICATION: S/P distal gastrectomy. (Hx gastric and rectal CA.) COMPARISON: CT abdomen and pelvis 12/13/2017 FINDINGS: Supervisory Aide radiograph shows surgical clips in the upper abdomen. Retained barium noted in uncomplicated diverticula, mostly in the distal descending colon and sigmoid. Bowel gas pattern unremarkable. Swallowing mechanism unremarkable. No hiatal hernia or reflux. Distal gastrectomy. Anastomotic site is patent. No evidence of any extravasation of contrast. Serial radiographs obtained at 15 ,30, 45 minutes , 1 hour and 1 1/2 hours. Unremarkable small bowel. Procedure Note Provider, Deepak Mcdonald Historical Conversion - 05/18/2019 EXAM: XR STOMACH W SMALL BOWEL Omnipaque 350 300 ml CLINICAL INDICATION: S/P distal gastrectomy. (Hx gastric and rectalCA.) COMPARISON: CT abdomen and pelvis 12/13/2017 FINDINGS: Supervisory Aide radiograph shows surgical clips in the upper abdomen.Retained barium noted in uncomplicated diverticula, mostly in the distaldescending colon and sigmoid. Bowel gas pattern unremarkable. Swallowing mechanism unremarkable. No hiatal hernia or reflux. Distalgastrectomy. Anastomotic site is patent. No evidence of anyextravasation of contrast. Serial radiographs obtained at 15 ,30, 45minutes , 1 hour and 1 1/2 hours. Unremarkable small bowel. IMPRESSION: S/P distal gastrectomy. Anastomotic site between gastric remnant andproximal small bowel patent. No extravasation. Normal small bowelseries. (1.5 minutes of fluoroscopy time was provided.) F I N A L Transcribed By: KALIA 12/14/17 1:09 pm Dictated By: GREGORY COLE MD Electronically Reviewed and Approved By: GREGORY COLE MD12/14/17 1:21 pm [employer] Historical Conversion Provid er IMG XR PROCEDURES * XR HISTORICAL PROCEDURE (12/14/2017 10:55 AM CDT) Anatomical Region Laterality Modality N/A Radiographic Sherry ging 12/14/2017 10:5 5 AM CDT 12/14/2017 10:55 AM CDT Narrative 12/14/2017 1:25 PM CDT EXAM: XR STOMACH W SMALL BOWEL Omnipaque 350 300 ml CLINICAL INDICATION: S/P distal gastrectomy. (Hx gastric and rectal CA.) COMPARISON: CT abdomen and pelvis 12/13/2017 FINDINGS: Supervisory Aide radiograph shows surgical clips in the upper abdomen. Retained barium noted in uncomplicated diverticula, mostly in the distal descending colon and sigmoid. Bowel gas pattern unremarkable. Swallowing mechanism unremarkable. No hiatal hernia or reflux. Distal gastrectomy. Anastomotic site is patent. No evidence of any extravasation of contrast. Serial radiographs obtained at 15 ,30, 45 minutes , 1 hour and 1 1/2 hours. Unremarkable small bowel. IMPRESSION: S/P distal gastrectomy. Anastomotic site between gastric remnant and proximal small bowel patent. No extravasation. Normal small bowel series. (1.5 minutes of fluoroscopy time was provided.) F I N A L Transcribed By: KALIA 12/14/17 1:09 pm Dictated By: GREGORY COLE MD Electronically Reviewed and Approved By: GREGORY COLE MD 12/14/17 1:21 pm Procedure Note Provider, [facility] Historical Conversion - 06/28/2018 EXAM: XR STOMACH W SMALL BOWEL Omnipaque 350 300 ml CLINICAL INDICATION: S/P distal gastrectomy. (Hx gastric and rectalCA.) COMPARISON: CT abdomen and pelvis 12/13/2017 FINDINGS: Supervisory Aide radiograph shows surgical clips in the upper abdomen.Retained barium noted in uncomplicated diverticula, mostly in the distal descending colon andsigmoid. Bowel gas pattern unremarkable. Swallowing mechanism unremarkable. No hiatal hernia or reflux. Distalgastrectomy. Anastomotic site is patent. No evidence of any extravasation of contrast. Serialradiographs obtained at 15 ,30, 45 minutes , 1 hour and 1 1/2 hours. Unremarkable smallbowel. IMPRESSION: S/P distal gastrectomy. Anastomotic site between gastric remnant andproximal small bowel patent. No extravasation. Normal small bowel series. (1.5 minutes of fluoroscopy time was provided.) F I N A L Transcribed By: KALIA 12/14/17 1:09 pm Dictated By: GREGORY COLE MD Electronically Reviewed and Approved By: GREGORY COLE MD12/14/17 1:21 pm [facility] Historical Conversion Pro vider IMG XR PROCEDURES * CT HISTORICAL PROCEDURE (12/13/2017 7:52 PM CDT) Anatomical Region Laterality Modality Computed Tomogra phy 12/13/2017 7:52 PM CDT 12/13/2017 7:52 PM CDT Impressions 12/13/2017 7:52 PM CDT 1. Interval resection of the stomach antrum for the previously described gastric mass, with reanastomosis of the gastric fundus to the proximal small bowel. There is peritoneal fat stranding in the epigastric region likely postsurgical in nature. 2. Fat stranding the subcutaneous soft tissues of the abdominal wall along the surgical incision. There is a 2 cm fluid collection on the subcutaneous soft tissues adjacent to the most inferior aspect of the midline incision. This finding may represent a postsurgical seroma or hematoma, but an abscess cannot be totally excluded without IV contrast. Clinical inspection for signs of surgical wound infection recommended. 3. Sigmoid diverticulosis. F I N A L Transcribed By: KALIA 12/13/17 8:34 pm Dictated By: BERTHA MARIO MD Electronically Reviewed and Approved By: BERTHA MARIO MD 12/13/17 9:02 pm Narrative 12/13/2017 7:52 PM CDT EXAM: CT ABDOMEN AND PELVIS WO CON CLINICAL INDICATION: Vomiting. COMPARISON: CT abdomen and pelvis 10/27/2017. TECHNIQUE: Axial images were obtained through the chest abdomen and pelvis without contrast. Sagittal and coronal reconstructions were generated a computer monitor. FINDINGS: The lung bases are clear. There has been interval resection of the stomach antrum for the previously described gastric mass, with reanastomosis of the gastric fundus to the proximal small bowel. There is peritoneal fat stranding in the epigastric region likely postsurgical in nature. Fat stranding is noted on the subcutaneous soft tissues of the abdominal wall along the surgical incision. There is a 2 cm fluid collection on the subcutaneous soft tissues adjacent to the most inferior aspect of the midline incision. This finding may represent a postsurgical seroma or hematoma or an abscess cannot be excluded without IV contrast. There is air and stool scattered throughout bowel loops. The appendix is not visualized but no acute inflammatory changes are noted on the right lower quadrant. There are sigmoid diverticuli without acute inflammatory changes. The liver, gallbladder, pancreas, spleen and adrenal glands have a normal noncontrast appearance. The kidneys demonstrate no evidence of hydronephrosis nephrolithiasis or focal lesions. The ureters and urinary bladder have a normal noncontrast appearance. The uterus have a normal sinus noncontrast appearance. The ovaries are not visualized. There regional bones are intact. Procedure Note Provider, Deepak Mcdonald Historical Conversion - 05/18/2019 EXAM: CT ABDOMEN AND PELVIS WO CON CLINICAL INDICATION: Vomiting. COMPARISON: CT abdomen and pelvis 10/27/2017. TECHNIQUE: Axial images were obtained through the chest abdomen and pelviswithout contrast. Sagittal and coronal reconstructions were generated acomputer monitor. FINDINGS: The lung bases are clear. There has been interval resection of the stomach antrum for the previouslydescribed gastric mass, with reanastomosis of the gastric fundus to theproximal small bowel. There is peritoneal fat stranding in the epigastricregion likely postsurgical in nature. Fat stranding is noted on the subcutaneous soft tissues of the abdominalwall along the surgical incision. There is a 2 cm fluid collection on thesubcutaneous soft tissues adjacent to the most inferior aspect of themidline incision. This finding may represent a postsurgical seroma orhematoma or an abscess cannot be excluded without IV contrast. There is air and stool scattered throughout bowel loops. The appendix isnot visualized but no acute inflammatory changes are noted on the rightlower quadrant. There are sigmoid diverticuli without acute inflammatorychanges. The liver, gallbladder, pancreas, spleen and adrenal glands have a normalnoncontrast appearance. The kidneys demonstrate no evidence of hydronephrosis nephrolithiasis orfocal lesions. The ureters and urinary bladder have a normal noncontrastappearance. The uterus have a normal sinus noncontrast appearance. Theovaries are not visualized. There regional bones are intact. IMPRESSION: 1. Interval resection of the stomach antrum for the previouslydescribed gastric mass, with reanastomosis of the gastric fundus to theproximal small bowel. There is peritoneal fat stranding in the epigastricregion likely postsurgical in nature. 2. Fat stranding the subcutaneous soft tissues of the abdominal wallalong the surgical incision. There is a 2 cm fluid collection on thesubcutaneous soft tissues adjacent to the most inferior aspect of themidline incision. This finding may represent a postsurgical seroma orhematoma, but an abscess cannot be totally excluded without IV contrast.Clinical inspection for signs of surgical wound infection recommended. 3. Sigmoid diverticulosis. F I N A L Transcribed By: KALIA 12/13/17 8:34 pm Dictated By: FABIANO, BERTHA Villarreal MD Electronically Reviewed and Approved By: BERTHA MARIO PMD 12/13/17 9:02 pm [facility] Historical Conversion Provid er IMG CT PROCEDURES * Lipase Level (12/13/2017 5:35 PM CDT) Only the most recent of2 resultswithin the time period is included. Lipase 159 73 - 393 unit/L HISTORICAL DATA MIGRATION Comment: [facility] [address] [place] [address], [id number] 12/13/2017 5:35 PM CDT 12/13/2017 5:35 PM CDT Narrative HISTORICAL DATA MIGRATION - 12/13/2017 5:35 PM CDT FOR ED USE ONLY. Soy Flynn DO LAB BLOOD ORDERABLES HISTORICAL DATA MIGRATION * XR HISTORICAL PROCEDURE (11/25/2017 11:33 AM CDT) Anatomical Region Laterality Modality N/A Radiographic Sherry ging 11/25/2017 11:3 3 AM CDT 11/25/2017 11:33 AM CDT Impressions 11/25/2017 11:33 AM CDT 1. Distal gastrectomy. No contrast extravasation. Patent anastomosis with delayed progression of contrast likely due to anastomotic edema. F I N A L Transcribed By: KALIA 11/25/17 12:33 pm Dictated By: CESAR MÑUOZ MD Electronically Reviewed and Approved By: CESAR MUÑOZ MD 11/25/17 12:34 pm Narrative 11/25/2017 11:33 AM CDT EXAM DATE: 11/25/2017 10:56 AM PROCEDURE: XR STOMACH (UGI) W GASTROGRAFIN CLINICAL INDICATION: Age: 82 years . Gender: Female. Stated history: GASTRIC CANCER Additional history: None., s/p distal gastrectomy COMPARISON: None. TECHNIQUE: Multiple fluoroscopic spot views were obtained of the stomach during and after the administration of 150 mL Omnipaque contrast. FINDINGS: Distal gastrectomy changes are noted. Contrast does extend into the small bowel although there is delayed contrast passage, likely due to anastomotic edema. No contrast extravasation. No hiatal hernia identified. Procedure Note Provider, Deepak Pardo Conversion - 05/19/2019 EXAM DATE: 11/25/2017 10:56 AM PROCEDURE: XR STOMACH (UGI) W GASTROGRAFIN CLINICAL INDICATION: Age: 82 years . Gender: Female. Stated history: GASTRIC CANCER Additional history: None., s/p distalgastrectomy COMPARISON: None. TECHNIQUE: Multiple fluoroscopic spot views were obtained of the stomach during andafter the administration of 150 mL Omnipaque contrast. FINDINGS: Distal gastrectomy changes are noted. Contrast does extend into thesmall bowel although there is delayed contrast passage, likely due toanastomotic edema. No contrast extravasation. No hiatal herniaidentified. IMPRESSION: 1. Distal gastrectomy. No contrast extravasation. Patent anastomosiswith delayed progression of contrast likely due to anastomotic edema. F I N A L Transcribed By: KALIA 11/25/17 12:33 pm Dictated By: CESAR MUÑOZ MD Electronically Reviewed and Approved By: CESAR MUÑOZ MD11/25/17 12:34 pm [facility] Historical Conversion Provid er IMG XR PROCEDURES * XR HISTORICAL PROCEDURE (11/25/2017 11:33 AM CDT) Anatomical Region Laterality Modality N/A Radiographic Sherry ging 11/25/2017 11:3 3 AM CDT 11/25/2017 11:33 AM CDT Narrative 11/25/2017 12:38 PM CDT EXAM DATE: 11/25/2017 10:56 AM PROCEDURE: XR STOMACH (UGI) W GASTROGRAFIN CLINICAL INDICATION: Age: 82 years . Gender: Female. Stated history: GASTRIC CANCER Additional history: None., s/p distal gastrectomy COMPARISON: None. TECHNIQUE: Multiple fluoroscopic spot views were obtained of the stomach during and after the administration of 150 mL Omnipaque contrast. FINDINGS: Distal gastrectomy changes are noted. Contrast does extend into the small bowel although there is delayed contrast passage, likely due to anastomotic edema. No contrast extravasation. No hiatal hernia identified. IMPRESSION: 1. Distal gastrectomy. No contrast extravasation. Patent anastomosis with delayed progression of contrast likely due to anastomotic edema. F I N A L Transcribed By: KALIA 11/25/17 12:33 pm Dictated By: CESAR MUÑOZ MD Electronically Reviewed and Approved By: CESAR MUÑOZ MD 11/25/17 12:34 pm Procedure Note Provider, [facility] Historical Conversion - 06/28/2018 EXAM DATE: 11/25/2017 10:56 AM PROCEDURE: XR STOMACH (UGI) W GASTROGRAFIN CLINICAL INDICATION: Age: 82 years . Gender: Female. Stated history: GASTRIC CANCER Additional history: None., s/p distalgastrectomy COMPARISON: None. TECHNIQUE: Multiple fluoroscopic spot views were obtained of the stomach during andafter the administration of 150 mL Omnipaque contrast. FINDINGS: Distal gastrectomy changes are noted. Contrast does extend into thesmall bowel although there is delayed contrast passage, likely due to anastomotic edema. Nocontrast extravasation. No hiatal hernia identified. IMPRESSION: 1. Distal gastrectomy. No contrast extravasation. Patent anastomosiswith delayed progression of contrast likely due to anastomotic edema. F I N A L Transcribed By: AKLIA 11/25/17 12:33 pm Dictated By: CESAR MUÑOZ MD Electronically Reviewed and Approved By: CESAR MUÑOZ MD11/25/17 12:34 pm [facility] Historical Conversion Pro vider IMG XR PROCEDURES * Platelet Count (11/23/2017 6:58 PM CDT) PLT 183 140 - 450 THOUSAND/m cL HISTORICAL DATA MIGRATION Comment: [facility] [address] [place] [address], [id number] 11/23/2017 6:58 PM CDT 11/23/2017 6:58 PM CDT [facility] Historical Conversion Provid er LAB BLOOD ORDERABLES HISTORICAL DATA MIGRATION * PET HISTORICAL PROCEDURE (11/09/2017 1:35 PM CDT) Anatomical Region Laterality Modality Computed Tomogra phy 11/09/2017 1:35 PM CDT 11/09/2017 1:35 PM CDT Impressions 11/09/2017 1:35 PM CDT Abnormal FDG PET/CT scan. 1. There is an intense FDG focus in the mid-body of the stomach, with a maximum SUV of 6.20; this finding is less specific and may be due to gastritis or the other possibility is a mid-body gastric carcinoma. 2. There is a larger, extremely hypermetabolic FDG focus in the gastric antrum, with a maximum SUV of 20.5, consistent with gastric antral carcinoma. 3. There is an approximate 5.2 cm segment of extremely intense FDG uptake within the rectum with a maximum SUV of 18.5, consistent with a rectal carcinoma 4. There is a slightly curvilinear and somewhat elongated 2.3 cm FDG focus in the right axilla/right sub-pectoral muscle region, with a maximum SUV of 4.12, this finding is also non-specific; recommend reevaluation on a follow-up scan. F I N A L Transcribed By: KALIA 11/09/17 4:42 pm Dictated By: KELVIN RAMOS MD Electronically Reviewed and Approved By: KELVIN RAMOS MD 11/09/17 5:34 pm Narrative 11/09/2017 1:35 PM CDT FDG PET/CT SCAN CLINICAL HISTORY: Gastric and rectal carcinoma; staging COMPARISON: No previous FDG PET/CT scans are available. The patient had a CT of the chest, abdomen, and pelvis on 10/27/2017 and the colon no chemotherapy or radiation therapy as yet; past surgical history includes left ovarian cystectomy, bunionectomy, and abdominal surgery. TECHNIQUE: Josephine alston intense This is an FDG PET/CT scan from the base of the skull through the mid-thighs obtained in the coronal, sagittal, and transverse planes. The patient received 15.99 mCi of F-18 FDG injected into a right forearm vein. The patient was imaged at 60 minutes after the intravenous injection of radiotracer and the patient's fasting blood glucose level at the time of injection was 79 mg/dl. A low dose, non-contrast CT study was performed for the purpose of attenuation correction and anatomic localization. FINDINGS: Head and Neck: There is no significant hypermetabolic FDG activity present within the visualized portions of the brain/skull/base of the skull/soft tissues of the bilateral neck. There is mild to at most moderate symmetric bilateral parotid glands FDG uptake, more likely normal physiologic FDG uptake. There is typical mild to at most moderate physiologic FDG uptake within the nasopharynx/anterior oral cavity/posterior oropharynx/bilateral tonsils or tonsillar beds/bilateral submandibular and salivary regions. There is no significant hypermetabolic FDG activity present along lymph node chains within the anterior or posterior bilateral neck. The thyroid/thyroid bed, larynx, and cervical trachea are unremarkable on PET. Chest: There is a slightly curvilinear and somewhat elongated 2.3 cm FDG focus in the right axilla/right sub-pectoral muscle region, with a maximum SUV of 4.12. There is no significant hypermetabolic FDG activity present within the bilateral lung parenchyma, mediastinum, both pulmonary radha, both breasts, and left axilla. There are no pulmonary masses, mediastinal masses, or pulmonary nodules on the accompanying CT. The heart is enlarged, vascular calcifications are present within the coronary arteries, and vascular calcifications are present within the thoracic aorta. There are no pericardial or pleural effusions. Abdomen and Pelvis: There is an intense FDG focus in the mid body of the stomach, with a maximum SUV of 6.20. There is a larger, extremely hypermetabolic FDG focus in the gastric antrum, with a maximum SUV of 20.5. There is an approximate 5.2 cm segment of extremely intense FDG uptake within the rectum with a maximum SUV of 18.5. The liver and spleen are normal in size, with typical hepatic and splenic FDG heterogeneity. There is no evidence of FDG-avid tumor or metastatic disease within either the liver or spleen on this study. There is typical small bowel FDG uptake. There is bilateral renal excretion, no hypermetabolic renal masses, and an unremarkable urinary bladder. The pelvis itself is unremarkable on PET. Skeletal: Arthritic changes are present within the shoulders, elbows, wrists, spine, and hips. There is no significant hypermetabolic FDG activity present within the axial or visualized appendicular skeletal system. Procedure Note Provider, Deepak Mcdonald Historical Conversion - 05/19/2019 FDG PET/CT SCAN CLINICAL HISTORY: Gastric and rectal carcinoma; staging COMPARISON: No previous FDG PET/CT scans are available. The patient had aCT of the chest, abdomen, and pelvis on 10/27/2017 and the colon nochemotherapy or radiation therapy as yet; past surgical history includesleft ovarian cystectomy, bunionectomy, and abdominal surgery. TECHNIQUE: Josephine alston intense This is an FDG PET/CT scan from the base of the skull through themid-thighs obtained in the coronal, sagittal, and transverse planes. Thepatient received 15.99 mCi of F-18 FDG injected into a right forearm vein.The patient was imaged at 60 minutes after the intravenous injection ofradiotracer and the patient's fasting blood glucose level at the time ofinjection was 79 mg/dl. A low dose, non-contrast CT study was performedfor the purpose of attenuation correction and anatomic localization. FINDINGS: Head and Neck: There is no significant hypermetabolic FDG activity present within thevisualized portions of the brain/skull/base of the skull/soft tissues ofthe bilateral neck. There is mild to at most moderate symmetric bilateralparotid glands FDG uptake, more likely normal physiologic FDG uptake.There is typical mild to at most moderate physiologic FDG uptake withinthe nasopharynx/anterior oral cavity/posterior oropharynx/bilateraltonsils or tonsillar beds/bilateral submandibular and salivary regions.There is no significant hypermetabolic FDG activity present along lymphnode chains within the anterior or posterior bilateral neck. Thethyroid/thyroid bed, larynx, and cervical trachea are unremarkable onPET. Chest: There is a slightly curvilinear and somewhat elongated 2.3 cm FDG focusin the right axilla/right sub-pectoral muscle region, with a maximum SUVof 4.12. There is no significant hypermetabolic FDG activity presentwithin the bilateral lung parenchyma, mediastinum, both pulmonary radha,both breasts, and left axilla. There are no pulmonary masses, mediastinalmasses, or pulmonary nodules on the accompanying CT. The heart isenlarged, vascular calcifications are present within the coronaryarteries, and vascular calcifications are present within the thoracicaorta. There are no pericardial or pleural effusions. Abdomen and Pelvis: There is an intense FDG focus in the mid body of the stomach, with amaximum SUV of 6.20. There is a larger, extremely hypermetabolic FDGfocus in the gastric antrum, with a maximum SUV of 20.5. There is anapproximate 5.2 cm segment of extremely intense FDG uptake within therectum with a maximum SUV of 18.5. The liver and spleen are normal insize, with typical hepatic and splenic FDG heterogeneity. There is noevidence of FDG-avid tumor or metastatic disease within either the liveror spleen on this study. There is typical small bowel FDG uptake. Thereis bilateral renal excretion, no hypermetabolic renal masses, and anunremarkable urinary bladder. The pelvis itself is unremarkable on PET. Skeletal: Arthritic changes are present within the shoulders, elbows, wrists, spine,and hips. There is no significant hypermetabolic FDG activity presentwithin the axial or visualized appendicular skeletal system. IMPRESSION: Abnormal FDG PET/CT scan. 1. There is an intense FDG focus in the mid-body of the stomach, witha maximum SUV of 6.20; this finding is less specific and may be due togastritis or the other possibility is a mid-body gastric carcinoma. 2. There is a larger, extremely hypermetabolic FDG focus in thegastric antrum, with a maximum SUV of 20.5, consistent with gastric antralcarcinoma. 3. There is an approximate 5.2 cm segment of extremely intense FDGuptake within the rectum with a maximum SUV of 18.5, consistent with arectal carcinoma 4. There is a slightly curvilinear and somewhat elongated 2.3 cm FDGfocus in the right axilla/right sub-pectoral muscle region, with amaximum SUV of 4.12, this finding is also non-specific; recommendreevaluation on a follow-up scan. F I N A L Transcribed By: KALIA 11/09/17 4:42 pm Dictated By: KELVIN RAMOS MD Electronically Reviewed and Approved By: KELVIN RAMOS MD11/09/17 5:34 pm [facility] Historical Conversion Provid er IMG CT PROCEDURES * Metered blood glucose (11/09/2017 11:47 AM CDT) Pathologist [facility] Glucose Bedside POC 79 65 - 99 mg/dL HISTORICAL DATA MIGRATION 11/09/2017 11:4 7 AM CDT 11/09/2017 11:47 AM CDT Javier Peck MD POCT DO NOT ENTER/ED IT RESULT HISTORICAL DATA MIGRATION * (ABNORMAL) Chem Cmp, CBC, Lipids, TSH (11/06/2017 1:20 PM CDT) WHITE BLOOD COUNT 6.1 4.2 - 11.0 K/mcL [facility] RED CELL COUNT 3.87(L) 4.00 - 5.20 mil/mcL [facility] HEMOGLOBIN 11.0(L) 12.0 - 15.5 g/dl [facility] HEMATOCRIT 35.6(L) 36.0 - 46.5 % [facility] MEAN CORPUSCULAR VOLUME 92.0 78.0 - 100.0 fL [facility] MEAN CORPUSCULAR HEMOGLOBIN 28.4 26.0 - 34.0 pg [facility] MEAN CORPUSCULAR HGB CONC 30.9(L) 32.0 - 36.5 g/dl [facility] RDW-CV 13.8 11.0 - 15.0 % [facility] PLATELET COUNT 264 140 - 450 K/[facility] Neutrophil 64 % [facility] LYMPH 26 % [facility] MONO 9 % [facility] EOSIN 1 % [facility] BASO 0 % [facility] Absolute Neutrophil 3.9 1.8 - 7.7 K/[facility] Absolute Lymph 1.6 1.0 - 4.0 K/[facility] Absolute [place] 0.6 0.3 - 0.9 K/[facility] Absolute Eos 0(L) 0.1 - 0.5 K/[facility] Absolute Baso 0 0.0 - 0.3 K/[facility] Sodium 143 135 - 145 mmol/L [facility] Potassium 4.4 3.4 - 5.1 mmol/L [facility] Chloride 107 98 - 107 mmol/L [facility] Carbon Dioxide 30 21 - 32 mmol/L [facility] Anion Gap 10 10 - 20 mmol/L [facility] Glucose 95 65 - 99 mg/dl [facility] BUN 15 6 - 20 mg/dl [facility] Creatinine 0.94 0.51 - 0.95 mg/dl [facility] GFR Estimate, 66 [facility] Comment:eGFR 60 - 89 mL/min/ 1.73m2 = Mild decrease in kidney function. GFR Estimate, Non 57 [facility] Comment:eGFR 30-59 mL/min/1. 73m2 = Moderate decrease in kidney function. Stage 3 CKD (chronic kidney disease) or moderate kidney disease. BUN/Creatinine Ratio 16 7 - 25 [facility] TOTAL BILIRUBIN 0.2 0.2 - 1.0 mg/dl [facility] AST/SGOT 21 <38 Units/L [facility] ALK PHOSPHATASE 41(L) 45 - 117 Units/L [facility] Comment:Low Alkaline Phospha tase results may indicate hypophosphatasia, malnutrition, hypothyroidism, or other disease states. Correlate with clinical symptoms. Albumin 2.8(L) 3.6 - 5.1 g/dl [facility] TOTAL PROTEIN 6.2(L) 6.4 - 8.2 g/dl [facility] GLOBULIN 3.4 2.0 - 4.0 g/dl [facility] A/G Ratio, Serum 0.8(L) 1.0 - 2.4 [facility] CALCIUM 8.8 8.4 - 10.2 mg/dl [facility] ALT/SGPT 18 <79 Units/L [facility] FASTING STATUS UNKNOWN hrs [facility] CHOLESTEROL 183 <200 mg/dl [facility] Comment: Desirable <200 Borderline High 200 to 239 High >=240 HDL 45(L) >49 mg/dl [facility] Comment: Low <40 Borderline Low 40 to 49 Near Optimal 50 to 59 Optimal >=60 TRIGLYCERIDE 106 <150 mg/dl [facility] Comment: Normal <150 Borderline High 150 to 199 High 200 to 499 Very High >=500 CALCULATED LDL 117 <130 mg/dl [facility] Comment: OPTIMAL <100 NEAR OPTIMAL 100-129 BORDERLINE HIGH 130-159 HIGH 160-189 VERY HIGH >=190 CALCULATED NON HDL 138 mg/dl [facility] Comment: Therapeutic Target: CHD and risk equivalents <130 Multiple risk factors <160 0 to 1 risk factors <190 CHOL/HDL 4.1 <4.5 [facility] TSH 0.814 0.350 - 5.000 mcUnits/ mL [facility] DIFF TYPE AUTOMATED DIFFERENTIAL [facility] Fasting Status UNKNOWN hrs [facility] 11/06/2017 1:20 PM CDT 11/06/2017 3:06 PM CDT Narrative [facility] - 11/08/2017 10:19 AM CDT Performed At: [facility] Donald Sevilla MD LAB BLOOD ORDERABLES Performing Organization Address City/State/[facility] de Phone Number [facility] [address] [address] * CT HISTORICAL PROCEDURE (10/27/2017 2:52 PM BONE CHAR OPERATOR) Anatomical Region Laterality Modality Computed Tomogra phy 10/27/2017 2:52 PM BONE CHAR OPERATOR 10/27/2017 2:52 PM BONE CHAR OPERATOR Impressions 10/27/2017 2:52 PM BONE CHAR OPERATOR 1. A lobulated enhancing mass in the body and antrum of the stomach is suspicious for a primary gastric malignancy. There is no significant differential diagnosis. No evidence of upper abdominal adenopathy. The chest is negative. 2. Eccentric thickening of the posterior and left posterior rectal wall is also suspicious for primary rectal neoplasm. No evidence of perirectal extension or adenopathy on CT study. F I N A L Transcribed By: KALIA 10/30/17 12:53 pm Dictated By: SHERIE MARTIN MD Electronically Reviewed and Approved By: SHERIE MARTIN MD 10/30/17 1:01 pm Narrative 10/27/2017 2:[address] CHEST, ABDOMEN AND PELVIS W CON: 10/27/2017 2:29 PM HISTORY: GASTRIC AND RECTAL MASS. COMPARISON: None. TECHNIQUE: Multiple helical axial images were obtained through the chest, abdomen and pelvis with contrast. Multiplanar reformats were performed. Image acquisition performed utilizing automated exposure control (AEC) and iterative reconstruction software in order to lower patient dose. IV CONTRAST TYPE AND VOLUME: 90 milliliters Omnipaque 300. FINDINGS: CHEST: Heart and great vessels: The heart and great vessels are grossly within normal limits. Pericardium: No fluid or thickening. Lymph nodes: No evidence for pathologic axillary, mediastinal, or hilar lymphadenopathy. Esophagus: Normal. Pleura: No pleural effusion or thickening. Lung parenchyma: The lungs are clear bilaterally with no suspicious nodule or airspace consolidation seen. Skeletal structures and soft tissues: Age-appropriate degenerative changes. No suspicious osseous lytic or blastic process. No soft tissue abnormality. ABDOMEN: Liver: No focal lesion or intrahepatic bile duct dilatation. Portal venous system is patent. Gallbladder: No evidence for wall thickening or inflammation. Spleen: Within normal limits. No evidence for splenomegaly or focal lesion. Pancreas: No focal lesion or pancreatic ductal dilatation. Adrenal glands: No focal nodule. Kidneys: No focal suspicious lesion or obstructive uropathy evident. Abdominal aorta and IVC: Abdominal aorta is normal in caliber. IVC is grossly normal. Retroperitoneum: Normal Mesentery/Peritoneum: Normal. Stomach and small bowel: There is a lobulated enhancing intraluminal/mucosal mass in the gastric body and antrum. There is no CT evidence of extragastric extension.. No evidence for obstruction. PELVIS: Free fluid: No free fluid or fluid collection. Reproductive: No acute abnormality. Bladder: Normal contour and wall thickness. Lymphadenopathy: No pathologic lymphadenopathy. Colon: Uncomplicated left colon diverticulosis. There is eccentric thickening and enhancement of the posterior and left posterior rectal wall (2/101 and 602/54). Appendix: No acute abnormality. Skeletal structures and soft tissues: There is subtle anterolisthesis of L4 on L5 and of L5 on S1 in the setting of bilateral facet arthropathy at both levels. No suspicious osseous lytic or blastic process. Small fat-containing umbilical hernia. Procedure Note Provider, Deepak Tamara Historical Conversion - 05/19/2019 CT CHEST, ABDOMEN AND PELVIS W CON: 10/27/2017 2:29 PM HISTORY: GASTRIC AND RECTAL MASS. COMPARISON: None. TECHNIQUE: Multiple helical axial images were obtained through the chest, abdomen andpelvis with contrast. Multiplanar reformats were performed. Imageacquisition performed utilizing automated exposure control (AEC) anditerative reconstruction software in order to lower patient dose. IV CONTRAST TYPE AND VOLUME: 90 milliliters Omnipaque 300. FINDINGS: CHEST: Heart and great vessels: The heart and great vessels are grossly withinnormal limits. Pericardium: No fluid or thickening. Lymph nodes: No evidence for pathologic axillary, mediastinal, or hilarlymphadenopathy. Esophagus: Normal. Pleura: No pleural effusion or thickening. Lung parenchyma: The lungs are clear bilaterally with no suspicious noduleor airspace consolidation seen. Skeletal structures and soft tissues: Age-appropriate degenerativechanges. No suspicious osseous lytic or blastic process. No soft tissueabnormality. ABDOMEN: Liver: No focal lesion or intrahepatic bile duct dilatation. Portal venoussystem is patent. Gallbladder: No evidence for wall thickening or inflammation. Spleen: Within normal limits. No evidence for splenomegaly or focallesion. Pancreas: No focal lesion or pancreatic ductal dilatation. Adrenal glands: No focal nodule. Kidneys: No focal suspicious lesion or obstructive uropathy evident. Abdominal aorta and IVC: Abdominal aorta is normal in caliber. IVC isgrossly normal. Retroperitoneum: Normal Mesentery/Peritoneum: Normal. Stomach and small bowel: There is a lobulated enhancingintraluminal/mucosal mass in the gastric body and antrum. There is no CTevidence of extragastric extension.. No evidence for obstruction. PELVIS: Free fluid: No free fluid or fluid collection. Reproductive: No acute abnormality. Bladder: Normal contour and wall thickness. Lymphadenopathy: No pathologic lymphadenopathy. Colon: Uncomplicated left colon diverticulosis. There is eccentricthickening and enhancement of the posterior and left posterior rectal wall(2/101 and 602/54). Appendix: No acute abnormality. Skeletal structures and soft tissues: There is subtle anterolisthesis ofL4 on L5 and of L5 on S1 in the setting of bilateral facet arthropathy atboth levels. No suspicious osseous lytic or blastic process. Smallfat-containing umbilical hernia. IMPRESSION: 1. A lobulated enhancing mass in the body and antrum of the stomach issuspicious for a primary gastric malignancy. There is no significantdifferential diagnosis. No evidence of upper abdominal adenopathy. Thechest is negative. 2. Eccentric thickening of the posterior and left posterior rectal barbara also suspicious for primary rectal neoplasm. No evidence of perirectalextension or adenopathy on CT study. F I N A L Transcribed By: KALIA 10/30/17 12:53 pm Dictated By: SHERIE MARTIN MD Electronically Reviewed and Approved By: SHERIE MARTIN MD10/30/17 1:01 pm [employer] Historical Conversion Provid er IMG CT PROCEDURES * CT HISTORICAL PROCEDURE (10/27/2017 2:52 PM BONE CHAR OPERATOR) Anatomical Region Laterality Modality Computed Tomogra phy 10/27/2017 2:52 PM BONE CHAR OPERATOR 10/27/2017 2:52 PM BONE CHAR OPERATOR Narrative 10/30/2017 2:[address] CHEST, ABDOMEN AND PELVIS W CON: 10/27/2017 2:29 PM HISTORY: GASTRIC AND RECTAL MASS. COMPARISON: None. TECHNIQUE: Multiple helical axial images were obtained through the chest, abdomen and pelvis with contrast. Multiplanar reformats were performed. Image acquisition performed utilizing automated exposure control (AEC) and iterative reconstruction software in order to lower patient dose. IV CONTRAST TYPE AND VOLUME: 90 milliliters Omnipaque 300. FINDINGS: CHEST: Heart and great vessels: The heart and great vessels are grossly within normal limits. Pericardium: No fluid or thickening. Lymph nodes: No evidence for pathologic axillary, mediastinal, or hilar lymphadenopathy. Esophagus: Normal. Pleura: No pleural effusion or thickening. Lung parenchyma: The lungs are clear bilaterally with no suspicious nodule or airspace consolidation seen. Skeletal structures and soft tissues: Age-appropriate degenerative changes. No suspicious osseous lytic or blastic process. No soft tissue abnormality. ABDOMEN: Liver: No focal lesion or intrahepatic bile duct dilatation. Portal venous system is patent. Gallbladder: No evidence for wall thickening or inflammation. Spleen: Within normal limits. No evidence for splenomegaly or focal lesion. Pancreas: No focal lesion or pancreatic ductal dilatation. Adrenal glands: No focal nodule. Kidneys: No focal suspicious lesion or obstructive uropathy evident. Abdominal aorta and IVC: Abdominal aorta is normal in caliber. IVC is grossly normal. Retroperitoneum: Normal Mesentery/Peritoneum: Normal. Stomach and small bowel: There is a lobulated enhancing intraluminal/mucosal mass in the gastric body and antrum. There is no CT evidence of extragastric extension.. No evidence for obstruction. PELVIS: Free fluid: No free fluid or fluid collection. Reproductive: No acute abnormality. Bladder: Normal contour and wall thickness. Lymphadenopathy: No pathologic lymphadenopathy. Colon: Uncomplicated left colon diverticulosis. There is eccentric thickening and enhancement of the posterior and left posterior rectal wall (2/101 and 602/54). Appendix: No acute abnormality. Skeletal structures and soft tissues: There is subtle anterolisthesis of L4 on L5 and of L5 on S1 in the setting of bilateral facet arthropathy at both levels. No suspicious osseous lytic or blastic process. Small fat-containing umbilical hernia. IMPRESSION: 1. A lobulated enhancing mass in the body and antrum of the stomach is suspicious for a primary gastric malignancy. There is no significant differential diagnosis. No evidence of upper abdominal adenopathy. The chest is negative. 2. Eccentric thickening of the posterior and left posterior rectal wall is also suspicious for primary rectal neoplasm. No evidence of perirectal extension or adenopathy on CT study. F I N A L Transcribed By: KALIA 10/30/17 12:53 pm Dictated By: SHERIE MARTIN MD Electronically Reviewed and Approved By: SHERIE MARTIN MD 10/30/17 1:01 pm Procedure Note [facility] - 06/29/2018 CT CHEST, ABDOMEN AND PELVIS W CON: 10/27/2017 2:29 PM HISTORY: GASTRIC AND RECTAL MASS. COMPARISON: None. TECHNIQUE: Multiple helical axial images were obtained through the chest, abdomen andpelvis with contrast. Multiplanar reformats were performed. Image acquisition performedutilizing automated exposure control (AEC) and iterative reconstruction software in order to lowerpatient dose. IV CONTRAST TYPE AND VOLUME: 90 milliliters Omnipaque 300. FINDINGS: CHEST: Heart and great vessels: The heart and great vessels are grossly withinnormal limits. Pericardium: No fluid or thickening. Lymph nodes: No evidence for pathologic axillary, mediastinal, or hilarlymphadenopathy. Esophagus: Normal. Pleura: No pleural effusion or thickening. Lung parenchyma: The lungs are clear bilaterally with no suspicious noduleor airspace consolidation seen. Skeletal structures and soft tissues: Age-appropriate degenerativechanges. No suspicious osseous lytic or blastic process. No soft tissue abnormality. ABDOMEN: Liver: No focal lesion or intrahepatic bile duct dilatation. Portal venoussystem is patent. Gallbladder: No evidence for wall thickening or inflammation. Spleen: Within normal limits. No evidence for splenomegaly or focallesion. Pancreas: No focal lesion or pancreatic ductal dilatation. Adrenal glands: No focal nodule. Kidneys: No focal suspicious lesion or obstructive uropathy evident. Abdominal aorta and IVC: Abdominal aorta is normal in caliber. IVC isgrossly normal. Retroperitoneum: Normal Mesentery/Peritoneum: Normal. Stomach and small bowel: There is a lobulated enhancingintraluminal/mucosal mass in the gastric body and antrum. There is no CT evidence of extragastricextension.. No evidence for obstruction. PELVIS: Free fluid: No free fluid or fluid collection. Reproductive: No acute abnormality. Bladder: Normal contour and wall thickness. Lymphadenopathy: No pathologic lymphadenopathy. Colon: Uncomplicated left colon diverticulosis. There is eccentricthickening and enhancement of the posterior and left posterior rectal wall (2/101 and 602/54). Appendix: No acute abnormality. Skeletal structures and soft tissues: There is subtle anterolisthesis ofL4 on L5 and of L5 on S1 in the setting of bilateral facet arthropathy at both levels. Nosuspicious osseous lytic or blastic process. Small fat-containing umbilical hernia. IMPRESSION: 1. A lobulated enhancing mass in the body and antrum of the stomach issuspicious for a primary gastric malignancy. There is no significant differential diagnosis. Noevidence of upper abdominal adenopathy. The chest is negative. 2. Eccentric thickening of the posterior and left posterior rectal barbara also suspicious for primary rectal neoplasm. No evidence of perirectal extension oradenopathy on CT study. F I N A L Transcribed By: KALIA 10/30/17 12:53 pm Dictated By: SHERIE MARTIN MD Electronically Reviewed and Approved By: SHERIE MARTIN MD10/30/17 1:01 pm Donald Sevilla MD IMG CT PROCEDURES * PTINR & PTT Combination (10/17/2017 12:54 PM BONE CHAR OPERATOR) PROTIME-PT 10.3 9.7 - 11.8 sec [facility] INR 1 [facility] [place] Comment:INR Therapeutic Rang e: 2.0 to 3.0 (2.5 to 3.5 recommended for recurrent thrombotic episodes and mechanical prosthetic heart valves.) PTT 25 22 - 30 sec [facility] Comment:PTT Therapeutic Rang e: 47-67 seconds. 10/17/2017 12:5 4 PM BONE CHAR OPERATOR 10/18/2017 6:31 AM BONE CHAR OPERATOR Narrative [facility] - 10/18/2017 1:50 PM BONE CHAR OPERATOR Performed At: [facility] Donald Sevilla MD LAB BLOOD ORDERABLES Performing Organization Address City/[facility]/ZIP Co de Phone Number [facility] [address] [place] [address] * [id number] Cancer Antigen (10/17/2017 12:54 PM BONE CHAR OPERATOR) CANCER ANTIGEN GI 19-9 <2 0 - 35 UNITS/ML [place] Comment:[employer] [facility] Chemiluminescence Immunoassay 10/17/2017 12:5 4 PM BONE CHAR OPERATOR 10/18/2017 3:19 AM BONE CHAR OPERATOR Narrative [place] - 10/18/2017 1:50 PM BONE CHAR OPERATOR Performed At: [facility] Donald Sevilla MD LAB BLOOD ORDERABLES [place], [place] [address] [place] [address] * Rhythm Strip (10/05/2017 12:00 AM BONE CHAR OPERATOR) Narrative HISTORICAL DATA MIGRATION - 10/05/2017 12:00 AM BONE CHAR OPERATOR CHECK ONBASE FOR SCAN Procedure Note Provider, Deepak Mcdonald Historical Conversion - 05/19/2019 CHECK ONBASE FOR SCAN Deepak Mcdonald Historical Conversion Provid er ECG ORDERABLES HISTORICAL DATA MIGRATION Visit Diagnoses Diagnosis Start Date Hypertension, unspecified type 08/17/2018 Essential hypertension Unspecified essential hypertension 11/22/2018 Rheumatoid arthritis, involving unspecified site, unspecified rheumatoid factor presence 11/22/2018 History of gastric cancer Personal history of malignant neoplasm of stomach 11/22/2018 History of rectal cancer Personal history of malignant neoplasm of rectum, rectosigmoid junction, and anus 11/22/2018 Acute right-sided low back pain without sciatica 03/07/2019 Back strain, initial encounter 03/07/2019 Breast screening Breast screening, unspecified 05/27/2019 Essential hypertension Unspecified essential hypertension 05/27/2019 Rheumatoid arthritis, involving unspecified site, unspecified rheumatoid factor presence 05/27/2019 History of rectal cancer Personal history of malignant neoplasm of rectum, rectosigmoid junction, and anus 05/27/2019 History of gastric cancer Personal history of malignant neoplasm of stomach 05/27/2019 Chronic left shoulder pain Pain in joint, shoulder region 05/27/2019 Need for immunization against influenza Need for prophylactic vaccination and inoculation against influenza 05/27/2019 Shortness of breath 10/28/2019 Gastric adenocarcinoma (CMD) Malignant neoplasm of stomach, unspecified site 10/28/2019 Rheumatoid arthritis involving ankle, unspecified laterality, unspecified rheumatoid factor presence 10/28/2019 Rectal adenocarcinoma (CMD) Malignant neoplasm of rectum 10/28/2019 Osteoporosis with current pathological fracture, unspecified osteoporosis type, initial encounter 10/28/2019 Hypertension, unspecified type 10/28/2019 Shortness of breath 10/31/2019 Hypertension due to endocrine disorder 10/31/2019 Gastroesophageal reflux disease without esophagitis Esophageal reflux 10/31/2019 Osteoporosis with current pathological fracture, unspecified osteoporosis type, initial encounter 10/31/2019 Rheumatoid arthritis involving ankle, unspecified laterality, unspecified rheumatoid factor presence 10/31/2019 Gastric adenocarcinoma (CMD) Malignant neoplasm of stomach, unspecified site 10/31/2019 Rectal adenocarcinoma (CMD) Malignant neoplasm of rectum 10/31/2019 Rheumatoid arthritis involving ankle, unspecified laterality, unspecified rheumatoid factor presence 10/31/2019 Shortness of breath 10/31/2019 Gastric adenocarcinoma (CMD) Malignant neoplasm of stomach, unspecified site 10/31/2019 Shortness of breath 10/31/2019 Rheumatoid arthritis involving ankle, unspecified laterality, unspecified rheumatoid factor presence 10/31/2019 Shortness of breath 11/04/2019 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) 11/08/2019 Osteoporosis with current pathological fracture, unspecified osteoporosis type, initial encounter 11/08/2019 Hypertension, unspecified type 11/08/2019 Rectal adenocarcinoma (CMD) Malignant neoplasm of rectum 11/08/2019 Gastric adenocarcinoma (CMD) Malignant neoplasm of stomach, unspecified site 11/08/2019 Shortness of breath 11/08/2019 PAH (pulmonary artery hypertension) (CMD) Other chronic pulmonary heart diseases 11/08/2019 Hypertension, unspecified type 11/25/2019 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) 11/29/2019 PAH (pulmonary artery hypertension) (CMD) Other chronic pulmonary heart diseases 11/29/2019 Hypertension secondary to other renal disorders 11/29/2019 Rectal adenocarcinoma (CMD) Malignant neoplasm of rectum 11/29/2019 Gastric adenocarcinoma (CMD) Malignant neoplasm of stomach, unspecified site 11/29/2019 Arthritis of left shoulder region Unspecified arthropathy, shoulder region 01/22/2020 Essential hypertension Unspecified essential hypertension 01/22/2020 Heart failure, unspecified HF chronicity, unspecified heart failure type (CMD) 03/02/2020 Essential hypertension Unspecified essential hypertension 03/04/2020 Shortness of breath 03/04/2020 Chronic diastolic (congestive) heart failure (CMD) 03/04/2020 Pulmonary hypertension, mild (CMD) Other chronic pulmonary heart diseases 03/04/2020 Need for vaccination Need for prophylactic vaccination and inoculation against unspecified single disease 03/17/2020 Postmenopausal status (age-related) (natural) Asymptomatic postmenopausal status (age-related) (natural) 03/17/2020 Essential hypertension Unspecified essential hypertension 03/17/2020 Pulmonary hypertension, mild (CMD) Other chronic pulmonary heart diseases 03/17/2020 Chronic diastolic (congestive) heart failure (CMD) 03/17/2020 Gastroesophageal reflux disease without esophagitis Esophageal reflux 03/17/2020 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) 03/17/2020 Sensorineural hearing loss (SNHL) of both ears 04/17/2020 Tinnitus of both ears Unspecified tinnitus 04/17/2020 Bilateral impacted cerumen Impacted cerumen 04/17/2020 Sensorineural hearing loss (SNHL) of both ears 04/17/2020 Chronic diastolic (congestive) heart failure (CMD) 04/28/2020 Need for influenza vaccination Need for prophylactic vaccination and inoculation against influenza 04/28/2020 Abnormal gait Abnormality of gait 04/28/2020 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) 04/28/2020 Essential hypertension Unspecified essential hypertension 04/28/2020 Pulmonary hypertension, mild (CMD) Other chronic pulmonary heart diseases 04/28/2020 Right upper quadrant abdominal tenderness without rebound tenderness 06/03/2020 Rectal adenocarcinoma (CMD) Malignant neoplasm of rectum 06/04/2020 Gastric adenocarcinoma (CMD) Malignant neoplasm of stomach, unspecified site 06/04/2020 Local skin infection Unspecified local infection of skin and subcutaneous tissue 06/04/2020 Rectal cancer (CMD) Malignant neoplasm of rectum 06/10/2020 Gastric cancer (CMD) Malignant neoplasm of stomach, unspecified site 06/10/2020 Rectal cancer (CMD) Malignant neoplasm of rectum 06/10/2020 Gastric cancer (CMD) Malignant neoplasm of stomach, unspecified site 06/10/2020 Gastric adenocarcinoma (CMD) Malignant neoplasm of stomach, unspecified site 06/16/2020 Sebaceous cyst 06/17/2020 Encounter for preprocedure screening laboratory testing for COVID-19 06/28/2020 Sebaceous cyst 06/30/2020 Sebaceous cyst 06/30/2020 Chronic diastolic (congestive) heart failure (CMD) 07/06/2020 Pulmonary hypertension, mild (CMD) Other chronic pulmonary heart diseases 07/06/2020 Essential hypertension Unspecified essential hypertension 07/06/2020 Sebaceous cyst 07/14/2020 Postop check Follow-up examination, following unspecified surgery 07/14/2020 Chronic diastolic (congestive) heart failure (CMD) 08/07/2020 Essential hypertension Unspecified essential hypertension 08/07/2020 Sensorineural hearing loss (SNHL) of both ears 08/07/2020 Pulmonary hypertension, mild (CMD) Other chronic pulmonary heart diseases 08/07/2020 Gastroesophageal reflux disease without esophagitis Esophageal reflux 08/07/2020 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) 08/07/2020 Gastric adenocarcinoma (CMD) Malignant neoplasm of stomach, unspecified site 08/07/2020 Postmenopausal status (age-related) (natural) Asymptomatic postmenopausal status (age-related) (natural) 08/15/2020 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) 08/15/2020 Pre-procedural laboratory examination 09/12/2020 Personal history of malignant neoplasm Personal history of unspecified malignant neoplasm 09/14/2020 Rectal cancer (CMD) Malignant neoplasm of rectum 10/07/2020 Screening mammogram, encounter for 10/10/2020 Need for vaccination Need for prophylactic vaccination and inoculation against unspecified single disease 10/29/2020 Dizziness Dizziness and giddiness 12/07/2020 Essential hypertension Unspecified essential hypertension 12/07/2020 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) 12/07/2020 Impacted cerumen of right ear Impacted cerumen 12/07/2020 Problem of both ears 12/14/2020 Gastroesophageal reflux disease, unspecified whether esophagitis present 12/16/2020 Disorder of right eustachian tube Unspecified Eustachian tube disorder 12/16/2020 Chronic diastolic (congestive) heart failure (CMD) 12/16/2020 Rectal cancer (CMD) Malignant neoplasm of rectum 12/25/2020 Rectal adenocarcinoma (CMD) Malignant neoplasm of rectum 12/26/2020 Gastric adenocarcinoma (CMD) Malignant neoplasm of stomach, unspecified site 12/26/2020 Essential hypertension Unspecified essential hypertension 01/04/2021 Pulmonary hypertension, mild (CMD) Other chronic pulmonary heart diseases 01/04/2021 Chronic diastolic (congestive) heart failure (CMD) 01/04/2021 Sensorineural hearing loss (SNHL) of both ears 01/12/2021 Pre-procedure lab exam Pre-procedural laboratory examination 02/03/2021 Vomiting without nausea, intractability of vomiting not specified, unspecified vomiting type 02/05/2021 Gastroesophageal reflux disease without esophagitis Esophageal reflux 02/05/2021 Malignant neoplasm of stomach, unspecified location (CMD) 02/05/2021 Rectal adenocarcinoma (CMD) Malignant neoplasm of rectum 03/06/2021 Rectal cancer (CMD) Malignant neoplasm of rectum 03/06/2021 Rectal cancer (CMD) Malignant neoplasm of rectum 03/30/2021 Sensorineural hearing loss (SNHL) of both ears 04/19/2021 Tinnitus of both ears Unspecified tinnitus 04/19/2021 Sensorineural hearing loss (SNHL) of both ears 04/19/2021 Rectal cancer (CMD) Malignant neoplasm of rectum 04/21/2021 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 04/21/[address] scan Other nonspecific (abnormal) findings on radiological and other examinations of body structure 04/27/2021 Chronic diastolic (congestive) heart failure (CMD) 04/30/2021 Essential hypertension Unspecified essential hypertension 04/30/2021 Right upper quadrant abdominal tenderness, rebound tenderness presence not specified 04/30/2021 Gastroesophageal reflux disease without esophagitis Esophageal reflux 04/30/2021 Gastric adenocarcinoma (CMD) Malignant neoplasm of stomach, unspecified site 04/30/2021 Vertigo Dizziness and giddiness 04/30/2021 Chronic diastolic (congestive) heart failure (CMD) 05/07/2021 Gastric adenocarcinoma (CMD) Malignant neoplasm of stomach, unspecified site 05/10/2021 Chronic diastolic (congestive) heart failure (CMD) 05/14/2021 Rectal cancer (CMD) Malignant neoplasm of rectum 05/31/2021 Anemia, unspecified type 05/31/2021 Malignant neoplasm of stomach, unspecified location (CMD) 05/31/2021 Rectal cancer (CMD) Malignant neoplasm of rectum 05/31/2021 Anemia, unspecified type 05/31/2021 Malignant neoplasm of stomach, unspecified location (CMD) 05/31/2021 Need for vaccination Need for prophylactic vaccination and inoculation against unspecified single disease 06/01/2021 Essential hypertension Unspecified essential hypertension 06/22/2021 Need for vaccination Need for prophylactic vaccination and inoculation against unspecified single disease 06/22/2021 Chronic diastolic (congestive) heart failure (CMD) 06/24/2021 Essential hypertension Unspecified essential hypertension 06/24/2021 Gastroesophageal reflux disease without esophagitis Esophageal reflux 06/24/2021 Gastric adenocarcinoma (CMD) Malignant neoplasm of stomach, unspecified site 06/24/2021 Dizziness Dizziness and giddiness 07/07/2021 Vertigo Dizziness and giddiness 07/07/2021 Rectal adenocarcinoma (CMD) Malignant neoplasm of rectum 07/10/2021 Anemia, unspecified type 07/10/2021 Pancreatic cyst (CMD) Cyst and pseudocyst of pancreas 07/10/2021 Essential hypertension Unspecified essential hypertension 08/02/2021 Hospital discharge follow-up Other follow-up examination 08/11/2021 Chronic diastolic (congestive) heart failure (CMD) 08/11/2021 Essential hypertension Unspecified essential hypertension 08/11/2021 Pulmonary hypertension, mild (CMD) Other chronic pulmonary heart diseases 08/11/2021 Obesity (BMI 30-39.9) Obesity, unspecified 08/11/2021 Sinus tachycardia Other specified cardiac dysrhythmias 08/11/2021 Hypoxia Hypoxemia 08/11/2021 Anemia of chronic disease Anemia of other chronic disease 08/11/2021 Primary hypertension Unspecified essential hypertension 08/11/2021 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) Unspecified hypertensive heart disease with heart failure 08/11/2021 Pre-procedural laboratory examination 09/09/2021 SOB (shortness of breath) Shortness of breath 09/11/2021 Hypoxia Hypoxemia 09/11/2021 Pre-procedural laboratory examination 09/25/2021 Personal history of colonic polyps 09/27/2021 Chronic diastolic (congestive) heart failure (CMD) 09/28/2021 Nonrheumatic aortic valve stenosis Aortic valve disorders 09/28/2021 Chronic hypoxemic respiratory failure (CMD) Chronic respiratory failure 09/28/2021 Labile blood pressure Elevated blood pressure reading without diagnosis of hypertension 09/28/2021 Pulmonary hypertension, mild (CMD) Other chronic pulmonary heart diseases 09/28/2021 Rectal cancer (CMD) Malignant neoplasm of rectum 11/01/2021 Pancreas cyst (CMD) Cyst and pseudocyst of pancreas 11/01/2021 Gastric cancer (CMD) Malignant neoplasm of stomach, unspecified site 11/01/2021 Need for vaccination Need for prophylactic vaccination and inoculation against unspecified single disease 12/22/2021 Hypoxia Hypoxemia 08/11/2021 Rheumatoid arthritis with positive rheumatoid factor (CMD) 08/11/2021 Primary hypertension Unspecified essential hypertension 08/11/2021 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
--- OUTSIDE RECORDS SUMMARY | 2024-09-30 09:42 | XMS_ITS | Encounter Summary ---
Author Organization [facility] Address [address] [place] [id number] Care Team Providers Care Scientific Illustrator Name Role Phone Smitha Harrison MD Primary Care Provider + Smitha Harrison MD Primary Care Provider + Smitha Harrison MD Unavailable [phone] Luis Tsai PHARMD Unavailable [phone] Zainab Moses MD Unavailable [phone] [facility], Unknown Primary Care Provider U navailable Encounter Details Date Type Department Care Team (Late st Contact Info) Description 09/15/2020 Telephone Formerly [facility] [address] [facility] [address] [place] [address] Group, [facility] [address] [place] [address] Social History Tobacco Use Types Packs/Day Years Used Date Smoking Tobacco: Never Smokeless Tobacco: Never Alcohol Use Standard Drinks/Week Comments Not Currently 0 (1 standard drink = 0.6 oz pur e alcohol) PHQ-2 Answer Date Recorded PHQ-2 Score 0 08/07/2020 Inadequate Housing Answer Date Recorded Social Determinants: [...] or suspected to have Coronavirus / COVID-19? Yes 09/14/2020 9:23 AM THERMAL CUTTER HELPER documented as of this encounter Functional Status [...] encounter Miscellaneous Notes * Telephone Encounter - Gaurav Guidry - 09/15/2020 9:47 AM CST -- DO NOT REPLY / DO NOT REPLY ALL -- -- Message is from the [facility]-- COVID-19 [place] Screening: N/A - Not about scheduling General Patient Message Reason for Call: Patients calling to inform provider she had a colonoscopy yesterday at [facility] sep 14 results should be available in about 4 days. Additionally patient called in to update her insurance. Caller Information Type Contact Phone 09/15/2020 09:47 AM THERMAL CUTTER HELPER Phone (Incoming) Kirti Barr (Self) [phone] (H) Alternative phone number: none Turnaround time given to caller: This message will be sent to [state Provider's name]. The clinical team will fulfill your request as soon as they review your message. MAL CUTTER HELPER documented in this encounter Plan of Treatment Not on file documented as of this encounter Visit Diagnoses Not on filedocumented in this encounter Additional Health Concerns Infection Onset Date Last Indicated Resolved Time COVID/Flu/RSV (rule out) 08/11/2021 08/11/2021 12:31 PM THERMAL CUTTER HELPER documented as of this encounter Care Teams Scientific Illustrator Relationship Specialty Start Date End Date Smitha Harrison MD [address] [place] [address] PCP - General Family Practice 03/04/20 08/10/21 Smitha Harrison MD [address] [place] [address] PCP - General Family Practice 08/11/21 05/17/[address] [facility], Unknown NO KNOWN ADDRESS ON FILE PCP - General 05/18/22 Smitha Harrison MD [address] [place] [address] Family Practice 08/11/21 05/17/22 Luis Tsai, ANETTED [address] [place] [address] CDM Heart Failure Cardiology 04/28/20 Zainab Moses MD [address] [place] [address] Senior Planner Gastroenterology 12/16/20 documented as of this encounter
[2024-09-30 10:27] LABS: Alanine Aminotransferase 36 U/L (6-35); Albumin Level 3.6 g/dL (3.5-5.1); Alkaline Phosphatase 419 U/L (38-126); Anion Gap 7 mmol/L (4-12); Aspartate Amino Transferase 48 U/L (14-36); Bilirubin,Total 0.6 mg/dL (0.2-1.3); Blood Urea Nitrogen 22 mg/dL (7-17); Calcium 9.2 mg/dL (8.4-10.2); Carbon Dioxide 31 mmol/L (22-30); Chloride 105 mmol/L (98-107); Estimated Glomerular Filt Rate > 60; Glucose 96 mg/dL (65-110); Potassium 4.3 mmol/L (3.4-5.0); Sodium 143 mmol/L (137-145)
== END 2024-09-30 09:15 | disposition home or self-care (01) ==
LOC: ANHLAB 09:16
PROVIDERS: PCP Internal Medicine; Visit Provider Internal Medicine Hematology & Oncology
DX: C78.7 Secondary malignant neoplasm of liver and intrahepatic bile duct (principal)
CPT/HCPCS: 36415; 80047; 80053; 85025

== ENCOUNTER 2024-10-28 10:02 | Outpatient (CLI) | payer MEDICARE, SELFPAY ==
[2024-10-28 10:14] LABS: Basophils Percent Auto 0.6 % (0.2-1.2); Eosinophils Absolute Auto 0.1 K/mm3 (0-0.3); Eosinophils Percent Auto 0.9 % (0-4.4); Hematocrit 36.1 % (37.0-47.0); Hemoglobin 11.2 g/dL (12.0-15.0); Immature Granulocyte Absolute 0.02 K/mm3 (0.00-0.031); Immature Granulocyte Percent A 0.4 % (0-0.5); Lymphocytes Absolute Auto 1.43 K/mm3 (0.9-3.2); Lymphocytes Percent Auto 26.9 % (18.3-44.2); Mean Corpuscular Volume 96.8 fl (80-100); Mean Platelet Volume 9.9 fl (7.4-10.4); Monocytes Absolute Auto 0.5 K/mm3 (0.1-0.6); Monocytes Percent Auto 10.2 % (2.6-8.5); Neutrophils Absolute Auto 3.2 K/mm3 (1.3-6.7); Platelet Count Result 156 k/mm3 (150-375); Red Blood Count 3.73 M/mm3 (4.2-5.4); Red Cell Distribution Width 13.8 % (11.5-14.5); White Blood Count 5.3 K/mm3 (4.5-10.0)
[2024-10-28 11:03] LABS: Alanine Aminotransferase 32 U/L (6-35); Albumin Level 3.8 g/dL (3.5-5.1); Alkaline Phosphatase 451 U/L (38-126); Anion Gap 6 mmol/L (4-12); Aspartate Amino Transferase 39 U/L (14-36); Bilirubin,Total 0.5 mg/dL (0.2-1.3); Blood Urea Nitrogen 20 mg/dL (7-17); Calcium 9.4 mg/dL (8.4-10.2); Carbon Dioxide 33 mmol/L (22-30); Chloride 100 mmol/L (98-107); Estimated Glomerular Filt Rate 48; Glucose 100 mg/dL (65-110); Potassium 4.1 mmol/L (3.4-5.0); Sodium 139 mmol/L (137-145)
--- OUTSIDE RECORDS SUMMARY | 2024-10-28 11:43 | XMS_ITS | CCD ---
Author Name Interface, [id number] lity Address [address] [facility] [address] [place] [address] Organization [facility] Address [address] [facility] [address] [place] [address] Care Team Providers Care It Telecom Technician Name Role Phone Javier Peck Unavailable Unavailable Care Plan Reason for Visit Encounters Functional Status Diagnostic Results Medications Problems Procedures Social History Vital Signs
--- OUTSIDE RECORDS SUMMARY | 2024-10-28 11:43 | XMS_ITS | Clinical Summary ---
Author Organization [facility] Address [facility] [place] [address] Care Team Providers Care Mainspring Fabrication Supervisor Name Role Phone Cindy Nguyen MD Primary Care Provider [phone] Allergies Active Allergy Reactions Criticality Noted Date [...] mouth daily. Indications: Anemia Activ e Multiple Vitamins-Hogeland als (CENTRUM SILVER 50+WOMEN OR)Indications :Nutritional Support [...] Date Pneumonia 09/04/2023 Chronic hypoxemic respiratory failure ([facility]) 09/28/2021 Overview (09/05/2023): Last Assessment & Plan: On Home O2 Nonrheumatic aortic valve stenosis 09/28/2021 Overview (09/05/2023): Last Assessment & Plan: Has mild aortic stenosis with mean gradient of 10 mmHg on 2D echo done July 2021 Diastolic heart failure seco ndary to hypertension ([facility]) 08/11/2021 Hypoxia 08/11/2021 Rheumatoid arthritis with po sitive rheumatoid factor ([facility]) 08/11/2021 Vertigo 12/07/2020 Sebaceous cyst 07/13/2020 Sensorineural hearing loss (SNHL) of both ears 0 04/17/2020 Chronic diastolic (congestiv e) heart failure ([facility]) 03/04/2020 Overview (09/05/2023): Last Assessment & Plan: Congestive heart failure compensated. There is no volume overload. 2D echo showed preserved ejection fraction with diastolic dysfunction Pulmonary hypertension, mild ([facility]) 0 11/17/2019 Overview (09/05/2023): Last Assessment & Plan: WHO group 2 and 3 Rheumatoid arthritis involving ankle ([facility]) 10/29/2019 Gastroesophageal reflux disease without esophagi tis 10/28/2019 Osteoporosis 10/28/2019 Gastric adenocarcinoma ([facility]) 018 Rectal adenocarcinoma ([facility]) 10/16/19 18 Labile blood pressure 01/30/2015 Overview [...] materials from doctor or pharmacy Rarely 10/11/2023 [facility] Utilities Answer Date Recorded In the past 12 months has th e [employer], gas, oil, or water [employer] threatened to shut off services in your [...] place to sleep or slept in a fci (including now)? No 09/04/2023 Comments No Sex and Gender Information Value Date Recorded Sex Assigned at Not on file Legal Sex Female 12:54 PM NAVAL AIRCREWMAN Gender Identity Not on file Sexual Orientation [...] patient's age to complete this topic Insurance [facility] Advance Directives * Full Code (Latest Code Status on File) Date Activated Date Inactivated Comments 09/15/2023 9:53 PM 12/08/2023 5:25 PM * Full Code Date Activated Date Inactivated Comments 09/04/2023 4:48 PM 09/07/2023 3:05 PM Care Teams Mainspring Fabrication Supervisor Relationship Specialty Start Date End Date Cindy Nguyen MD [address] [place] [address] PCP - General INTERNAL MEDICINE 09/06/23
--- OUTSIDE RECORDS SUMMARY | 2024-10-28 11:43 | XMS_ITS | Clinical Summary ---
Author Organization [facility] Address [address] [place] [address] Care Team Providers Care Block Cuber Name Role Phone Cindy Nguyen MD Primary Care Provider [phone] Allergies Active Allergy Reactions Criticality Noted Date [...] Encounters Date Type Department Care Team Description 10/08/2024 External Device Data STL ABSTRACTION Provider, Abstract 09/30/2024 9:00 AM POWER PLANT OPERATORS SUPERVISOR Office Visit [facility] - [place] [address] [place] [address] Catrachito Macias MD Cancer, metastatic to liver (CMS/HCC) (Primary Dx) 09/30/2024 Orders Only [facility] - [place] [address] [place] [address] Catrachito Macias MD 09/17/2024 External Device Data STL ABSTRACTION Provider, Abstract 09/11/2024 External Device Data STL ABSTRACTION Provider, Abstract 09/11/2024 External Device Data STL ABSTRACTION Provider, Abstract 09/05/2024 Abstract [facility] - [place] [address] [place] [address] Catrachito Macias MD 09/02/2024 Orders Only [facility] - [place] [address] [facility] [place] [address] Catrachito Macias MD 08/30/2024 Orders Only [facility] - [place] [address] [place] [address] Catrachito Macias MD 08/29/2024 2:00 PM POWER PLANT OPERATORS SUPERVISOR Office Visit [facility]ology - [place] [address] [place] [phone] Catrachito Macias MD Cancer, metastatic to liver (CMS/HCC) (Primary Dx) 08/27/2024 Orders Only [facility] - [place] [address] [place] [address] Catrachito Macias MD Cancer, metastatic to liver (CMS/HCC) (Primary Dx) 08/15/[address] [facility] [address] [place] [phone] Pennie Correa, PHARMACIST 08/15/[address] [facility] [address] [place] [phone] Pennie Correa, PHARMACIST 08/15/2024 Refill [facility] - [place] [address] [place] [id number] Kaveh Vargas MD 08/15/2024 Telephone [facility] - [place] [address] [place] [address] Kaveh Vargas MD Medication Problem 08/12/2024 Refill [facility] - [place] [address] [place] [address] Catrachito Macias MD 08/08/[address] [facility] [address] [place] [phone] Pennie Correa PHARMACIST Specialty Pharmacy Prior Auth Coordination 08/06/[address] [facility] [address] [place] [phone] Coby Patricio PHARMACIST 08/02/2024 Telephone [facility] - [place] [address] [place] [address] Catrachito Macias MD Appointment follow up 08/01/2024 4:30 PM POWER PLANT OPERATORS SUPERVISOR Telephone Check Up [facility] [address] [place] [address] Catrachito Macias MD 07/30/2024 Telephone [facility] - [place] [address] [place] [address] Catrachito Macias MD Medication Review from Last 3 Months Social History Tobacco [...] Comments Blood Pressure 122/74 09/30/2024 9:33 AM POWER PLANT OPERATORS SUPERVISOR Pulse 91 09/30/2024 9:33 AM POWER PLANT OPERATORS SUPERVISOR Temperature 37.3 C (99.2 F) 09/30/2024 9:33 AM POWER PLANT OPERATORS SUPERVISOR Respiratory Rate 15 09/30/2024 9:33 AM POWER PLANT OPERATORS SUPERVISOR Oxygen Saturation 96% 09/30/2024 9:33 AM POWER PLANT OPERATORS SUPERVISOR Inhaled Oxygen Concentration - - Weight 58.3 kg (128 lb 9.6 oz) 09/30/2024 9:33 A M POWER PLANT OPERATORS SUPERVISOR Height 154.9 cm (5' 1 ) 07/15/2024 9:17 AM POWER PLANT OPERATORS SUPERVISOR Body Mass Index 24.3 07/15/2024 9:17 AM POWER PLANT OPERATORS SUPERVISOR Plan of Treatment Upcoming Encounters Date Type Department Care Team (Late st Contact Info) Description 11/05/2024 10:00 AM CDT Office Visit [facility] - [place] [address] [place] [address] Catrachito Macias MD [address] [place] [address] Health Maintenance Due Date Last Done Comments DTAP/TDAP/TD VACCINES (1 - Tdap) 1954 PNEUMOCOCCAL VACCINE 50+ YEA RS (1 of 2 - PCV) 1955 ZOSTER VACCINE (1 of 2) 1955 RSV VACCINE (60+ or ) (1 - 1-dose 75+ series) 2011 INFLUENZA VACCINE (#1) 2024 04/28/2020, 2018 COVID-19 Vaccine ( season) 2024 12/22/2021, 06/22/2021, 06/01/2021 [place] Prev entative Visit/Annual Wellness Visit 08/21/2024 OSTEOPOROSIS SCREENING Completed 08/15/2020 Procedures Procedure Name Priority Date/Time Associated Diagnosis Comments COMPREHENSIVE METABOLIC PANEL Routine 09/30/2024 1:08 PM POWER PLANT OPERATORS SUPERVISOR COMPREHENSIVE METABOLIC PANEL Routine 08/29/2024 3:50 PM POWER PLANT OPERATORS SUPERVISOR CBC WITH DIFFERENTIAL Routine 08/29/2024 9:51 AM POWER PLANT OPERATORS SUPERVISOR from Last 3 Months Results * COMPREHENSIVE METABOLIC PANEL (09/30/2024 1:08 PM POWER PLANT OPERATORS SUPERVISOR) Only the most recent of2 resultswithin the time period is included. Blood Catrachito Macias MD CHEMISTRY ORDERABLES Final Resu lt * CBC WITH DIFFERENTIAL (08/29/2024 9:51 AM POWER PLANT OPERATORS SUPERVISOR) Blood Catrachito Macias MD HEMATOLOGY ORDERABLES Final Res ult from Last 3 Months Insurance [facility] [id number] RX [employer] Member Subscriber Plan / Payer (Ef fective 2023-Present) Name:Kirti Barr Relation to Subscriber:Self Name:Kirti Barr Payer ID:Not on file Group ID:[id number] Type:RX Medicare Part D Address: [place] Care Teams Block Cuber Relationship Specialty Start Date End Date Cindy Nguyen MD [address] [place] [phone] PCP - General Internal Medicine 06/01/22
--- OUTSIDE RECORDS SUMMARY | 2024-10-28 11:43 | XMS_ITS ---
Author Name Interface, [id number] lity Address [address] [facility] [address] [place] [address] Organization [facility] [employer] [employer] Address [address] [facility] [address] [place] [address] Care Team Providers Care Jewelry Repairer Name Role Phone Javier Peck Unavailable Unavailable [...] L 4.0 11.0 5.3 FINAL Javier Peck [facility], [address] [place] [address] 05/17 RBC X106/U L 3.7 5.4 3.88 FINAL Javier Peck [facility], [address] [place] [address] 05/17 HGB G/DL 11.4 15.4 11.6 FINAL Javier Peck [facility], [address] [place] [address] 05/17 HCT % 35.0 47.0 36.9 FINAL Javier Peck [facility], [address] [place] [address] 05/17 MCV FL 81.0 100.0 95 FINAL [facility], [address] [place] [address] 05/17 MCH PG 27.0 34.0 29.9 FINAL [facility], [address] [place] [address] 05/17 MCHC G/DL 30.0 36.0 31.4 FINAL [facility], [address] [place] [address] 05/17 Sybil % % 37.0 77.0 54 FINAL [facility], [address] [place] [address] 05/17 LY % % 23.0 44.0 35 FINAL [facility], [address] [place] [address] 05/17 MO % % 4.0 13.0 9 FINAL [facility], [address] [place] [address] 05/17 EO % % 1.0 6.0 2 FINAL [facility], [address] [place] [address] 05/17 BA % % 0.0 1.0 0 FINAL [facility], [address] [place] [address] 05/17 PLT X103/U L 150.0 450.0 154 FINAL [facility], [address] [place] [address] 05/17 RDW % 12.2 15.2 14 FINAL [facility], [address] [place] [address] 05/17 Sybil # (ANC) X103/U L 1.67 8.47 2.86 FINAL [facility], [address] [place] [address] 05/17 LY # X103/U L 1.03 4.84 1.85 FINAL [facility], [address] [place] [address] 05/17 MO # X103/U L 0.27 0.98 0.48 FINAL [facility], [address] [place] [address] 05/17 EO # X103/U L 0.11 0.55 0.08 Low FINAL [facility], [address] [place] [address] 05/17 BA # X103/U L 0.02 0.1 0.02 FINAL [facility], [address] [place] [address] 05/17 MPV FL 9.4 12.4 10 FINAL [facility], [address] [place] [address] 05/17 IG % % 0.0 0.4 0.2 FINAL [facility], [address] [place] [address] 05/17 IG # X103/U L 0.0 0.04 0.01 FINAL [facility], [address] [place] [address] 05/17 CARCI NOEMB RYONI C ANTIG EN (CEA) - FINAL [facility], [address] [place] [address] 05/17 CEA, mg/dL MG/DL 0.0 5.0 2.56 FINAL [facility], [address] [place] [address] 05/17 LACTI C ACID DEHYD ROGEN ASE (LDH) - FINAL [facility], [address] [place] [address] 05/17 LDH IU/L 100.0 250.0 183.7 FINAL [facility], [address] [place] [address] 05/17 GLUCO SE, PLASM A OR SERUM - FINAL [facility], [address] [place] [address] 05/17 BLOOD UREA NITRO GEN (BUN) - FINAL [facility], [address] [place] [address] 05/17 CREAT ININE , SERUM - FINAL [facility], [address] [place] [address] 05/17 BUN/C reati nine ratio 20 FINAL [facility], [address] [place] [address] 05/17 SODIU M, SERUM - FINAL [facility], [address] [place] [address] 05/17 POTAS SIUM, SERUM - FINAL [facility], [address] [place] [address] 05/17 CHLOR ILENE - FINAL [facility], [address] [place] [address] 05/17 CARBO N DIOXI DE - FINAL [facility], [address] [place] [address] 05/17 CALCI UM, TOTAL - FINAL [facility], [address] [place] [address] 05/17 TOTAL PROTE IN - FINAL [facility], [address] [place] [address] 05/17 ALBUM IN, SERUM - FINAL [facility], [address] [place] [address] 05/17 Globu jo ann G/DL 1.9 3.7 2.6 FINAL [facility], [address] [place] [address] 05/17 A/G ratio 1.4 FINAL [facility], [address] [place] [address] 05/17 BILIR UBIN, TOTAL - FINAL [facility], [address] [place] [address] 05/17 ALKAL INE PHOSP HATAS E - FINAL [facility], [address] [place] [address] 05/17 ASPAR BUSTILLOS AMINO TRANS FERAS E, SERUM - FINAL [facility], [address] [place] [address] 05/17 BRANDON NE AMINO TRANS FERAS E, SERUM - FINAL [facility], [address] [place] [address] 05/17 GFR estim ate 50 Low FINAL [facility], [address] [place] [address] 05/17 GFR Afric an Ameri can, estim ated 61 FINAL [facility], [address] [place] [address] 05/17 Anion gap - FINAL [facility], [address] [place] [address] 05/17 BUN MG/DL 0.0 23.0 21.5 FINAL [facility], [address] [place] [address] 05/17 Creat inine MG/DL 0.6 1.1 1.09 FINAL [facility], [address] [place] [address] 05/17 Sodiu m MMOL/L 134.0 145.0 144 FINAL [facility], [address] [place] [address] 05/17 Potas sium MMOL/L 3.6 5.2 4.2 FINAL [facility], [address] [place] [address] 05/17 Chlor ilene MMOL/L 96.0 108.0 108 FINAL [facility], [address] [place] [address] 05/17 CO2 MMOL/L 21.0 29.0 31 High FINAL [facility], [address] [place] [address] 05/17 Total prote in G/DL 6.2 8.1 6.1 Low FINAL [facility], [address] [facility] [address] 05/17 Album in G/DL 3.5 5.2 3.6 FINAL [facility], [address] [facility] [address] 05/17 Bilir ubin, total MG/DL 0.0 1.0 0.5 FINAL [facility], [address] [facility] [address] 05/17 Alkal ine phosp hatas e IU/L 33.0 130.0 70 FINAL [facility], [address] [facility] [address] 05/17 AST/S GOT IU/L 14.0 36.0 23 FINAL [facility], [address] [facility] [address] 05/17 ALT/S GPT IU/L 9.0 52.0 11 FINAL [facility], [address] [facility] [address] 05/17 Anion gap, mmol/ L MMOL/L 8.0 16.0 9.24 FINAL [facility], [address] [facility] [address] 05/17 Gluco se MG/DL 70.0 105.0 163 High FINAL [facility], [address] [facility] [address] 05/17 Calci um MG/DL 8.2 10.4 9.4 FINAL [facility], [address] [facility] [address] Medications Date Name Route Dose Frequency Instructions Start Date End Date Status Folic Acid Oral daily a ctive Losartan Oral 2 in am, 1 in pm = 75mg daily active Hydrocodone-Enio taminophen Oral 5 mg-325 mg daily active Lidocaine Topical Cream 4 % prn active Vitamin R22-[id number] Acid Oral 500 mcg-400 mcg daily active [...]
--- OUTSIDE RECORDS SUMMARY | 2024-10-28 11:43 | XMS_ITS | CCD ---
Author Name Interface, [id number] lity Address [address] [facility] [address] [place] [address] Organization [facility] Address [address] [facility] [address] [place] [address] Care Team Providers Care Treasurer Name Role Phone Javier Peck Unavailable Unavailable [...] ALT/S GPT IU/L 9.0 52.0 11 FINAL [facility], [address] [place] [address] 05/17 A/G ratio 1.4 FINAL [facility], [address] [place] [address] 05/17 ASPAR APOLLO AMINO TRANS FERAS E, SERUM - FINAL [facility], [address] [facility] [address] 05/17 Gluco se MG/DL 70.0 105.0 163 High FINAL [facility], [address] [facility] [address] 05/17 Globu jo ann G/DL 1.9 3.7 2.6 FINAL [facility], [address] [facility] [address] 05/17 Anion gap, mmol/ L MMOL/L 8.0 16.0 9.24 FINAL [facility], [address] [facility] [address] 05/17 Total prote in G/DL 6.2 8.1 6.1 Low FINAL [facility], [address] [facility] [address] 05/17 CREAT ININE , SERUM - FINAL [facility], [address] [facility] [address] 05/17 AST/S GOT IU/L 14.0 36.0 23 FINAL [facility], [address] [place] [address] 05/17 GLUCO SE, PLASM A OR SERUM - FINAL [facility], [address] [facility] [address] 05/17 BRANDON ZARATE AMINO TRANS FERAS E, SERUM - FINAL [facility], [address] [place] [address] 05/17 GFR Afric an Ameri can, estim ated 61 FINAL [facility], [address] [place] [address] 05/17 Bilir ubin, total MG/DL 0.0 1.0 0.5 FINAL [facility], [address] [place] [address] 05/17 TOTAL PROTE IN - FINAL [facility], [address] [place] [address] 05/17 Sodiu m MMOL/L 134.0 145.0 144 FINAL [facility], [address] [place] [address] 05/17 ALBUM IN, SERUM - FINAL [facility], [address] [place] [address] 05/17 BLOOD UREA NITRO GEN (BUN) - FINAL [facility], [address] [place] [address] 05/17 CALCI UM, TOTAL - FINAL [facility], [address] [place] [address] 05/17 Alkal ine phosp hatas e IU/L 33.0 130.0 70 FINAL [facility], [address] [place] [address] 05/17 GFR estim ate 50 Low FINAL [facility], [address] [place] [address] 05/17 Calci um MG/DL 8.2 10.4 9.4 FINAL [facility], [address] [place] [address] 05/17 Anion gap - FINAL [facility], [address] [place] [address] 05/17 CO2 MMOL/L 21.0 29.0 31 High FINAL [facility], [address] [place] [address] 05/17 BILIR UBIN, TOTAL - FINAL [facility], [address] [place] [address] 05/17 ALKAL INE PHOSP HATAS E - FINAL [facility], [address] [place] [address] 05/17 Chlor ilene MMOL/L 96.0 108.0 108 FINAL [facility], [address] [place] [address] 05/17 BUN MG/DL 0.0 23.0 21.5 FINAL [facility], [address] [place] [address] 05/17 CHELSY Chun, SERUM - FINAL [facility], [address] [place] [address] 05/17 Creat inine MG/DL 0.6 1.1 1.09 FINAL [facility], [address] [place] [address] 05/17 Album in G/DL 3.5 5.2 3.6 FINAL [facility], [address] [place] [address] 05/17 POTAS SIUM, SERUM - FINAL [facility], [address] [place] [address] 05/17 BUN/C reati nine ratio 20 FINAL [facility], [address] [place] [address] 05/17 CARBO N DIOXI DE - FINAL [facility], [address] [place] [address] 05/17 Potas sium MMOL/L 3.6 5.2 4.2 FINAL [facility], [address] [place] [address] 05/17 CHLOR ILENE - FINAL [facility], [address] [place] [address] 05/17 Sybil # (ANC) X103/U L 1.67 8.47 2.86 FINAL [facility], [address] [place] [address] 05/17 MCV FL 81.0 100.0 95 FINAL [facility], [address] [place] [address] 05/17 MO # X103/U L 0.27 0.98 0.48 FINAL [facility] Zal[facility], [address] [place] [address] 05/17 IG % % 0.0 0.4 0.2 FINAL [facility], [address] [place] [address] 05/17 MO % % 4.0 13.0 9 FINAL [facility], [address] [place] [address] 05/17 IG # X103/U L 0.0 0.04 0.01 FINAL [facility], [address] [place] [address] 05/17 EO # X103/U L 0.11 0.55 0.08 Low FINAL [facility], [address] [place] [address] 05/17 EO % % 1.0 6.0 2 FINAL [facility], [address] [place] [address] 05/17 RBC X106/U L 3.7 5.4 3.88 FINAL [facility], [address] [place] [address] 05/17 MPV FL 9.4 12.4 10 FINAL [facility], [address] [place] [address] 05/17 BA % % 0.0 1.0 0 FINAL [facility], [address] [place] [address] 05/17 BA # X103/U L 0.02 0.1 0.02 FINAL [facility], [address] [place] [address] 05/17 HGB G/DL 11.4 15.4 11.6 FINAL [facility], [address] [place] [address] 05/17 MCHC G/DL 30.0 36.0 31.4 FINAL [facility], [address] [place] [address] 05/17 HCT % 35.0 47.0 36.9 FINAL [facility], [address] [place] [address] 05/17 WBC X103/U L 4.0 11.0 5.3 FINAL [facility], [address] [place] [address] 05/17 PLT X103/U L 150.0 450.0 154 FINAL [facility], [address] [place] [address] 05/17 RDW % 12.2 15.2 14 FINAL [facility], [address] [place] [address] 05/17 LY % % 23.0 44.0 35 FINAL [facility], [address] [place] [address] 05/17 MCH PG 27.0 34.0 29.9 FINAL [facility], [address] [place] [address] 05/17 LY # X103/U L 1.03 4.84 1.85 FINAL [facility], [address] [place] [address] 05/17 Sybil % % 37.0 77.0 54 FINAL [facility], [address] [place] [address] 05/17 CARCI NOEMB RYONI C ANTIG EN (CEA) - FINAL [facility], [address] [place] [address] 05/17 CEA, mg/dL MG/DL 0.0 5.0 2.56 FINAL [facility], [address] [place] [address] 05/17 LDH IU/L 100.0 250.0 183.7 FINAL [facility], [address] [place] [address] 05/17 LACTI C ACID DEHYD ROGEN ASE (LDH) - FINAL [facility], [address] [facility] [address] Medications Date Name Route Dose Frequency Instructions Start Date End Date Status Methotrexate Oral 6.0 weekly, on stopped Pantoprazole (Sodium ) Oral Delayed Release daily inactive Vitamin [id number]-[id number] Ac id Oral 500 mcg-400 mcg daily [...]
--- OUTSIDE RECORDS SUMMARY | 2024-10-28 11:43 | XMS_ITS ---
Author Name Interface, [id number] lity Address [address] [facility] [address] [place] [address] Organization [facility] Address [address] [facility] [address] [place] [address] Care Team Providers Care Ambulatory Technologist Name Role Phone Javier Peck Unavailable Unavailable [...] WBC X103/U L 4.0 11.0 5.3 FINAL Javire Peck [facility], [address] [place] [address] 05/17 RBC X106/U L 3.7 5.4 3.88 FINAL Javier Peck [facility], [address] [place] [address] [place] [address] 05/17 HGB G/DL 11.4 15.4 11.6 FINAL Javier Peck [facility], [address] [place] [address] 05/17 HCT % 35.0 47.0 36.9 FINAL Javier Peck [facility], [address] [place] [address] 05/17 MCV FL 81.0 100.0 95 FINAL [facility], [address] [place] [address] 05/17 MCH PG 27.0 34.0 29.9 FINAL [facility], [address] [place] [address] 05/17 MCHC G/DL 30.0 36.0 31.4 FINAL [facility], [address] [place] [address] 05/17 Sybil % % 37.0 77.0 54 FINAL [facility], [address] [place] [address] 05/17 LY % % 23.0 44.0 35 FINAL [facility], [address] [place] [address] 05/17 MO % % 4.0 13.0 9 FINAL [facility], [address] [place] [address] [place] [address] 05/17 EO % % 1.0 6.0 2 FINAL [facility], [address] [place] [address] 05/17 BA % % 0.0 1.[address] [facility], [address] [place] [address] 05/17 PLT X103/U L 150.0 450.0 154 FINAL [facility], [address] [place] [address] 05/17 RDW % 12.2 15.2 14 FINAL [facility], [address] [place] [address] [place] [address] 05/17 Sybil # (ANC) X103/U L 1.67 8.[address] [facility], [address] [place] [address] 05/17 LY # X103/U L 1.03 4.84 1.85 FINAL [facility], [address] [place] [address] [place] [address] 05/17 MO # X103/U L 0.27 0.98 0.48 FINAL [facility], [address] [place] [address] [place] [address] 05/17 EO # X103/U L 0.11 0.55 0.[address] [facility], [address] [place] [address] [place] [address] 05/17 BA # X103/U L 0.02 0.1 0.02 FINAL [facility], [address] [place] [address] [place] [address] 05/17 MPV FL 9.4 12.[address] [facility], [address] [place] [address] [place] [address] 05/17 IG % % 0.0 0.4 0.2 FINAL [facility], [address] [place] [address] 05/17 IG # X103/U L 0.0 0.04 0.01 FINAL [facility], [address] [place] [address] 05/17 CARCI NOEMB RYONI C ANTIG EN (CEA) - FINAL [facility], [address] [place] [address] [place] [address] 05/17 CEA, mg/dL MG/DL 0.0 5.0 2.56 FINAL [facility], [address] [place] [address] [place] [address] 05/17 LACTI C ACID DEHYD ROGEN ASE (LDH) - FINAL [facility], [address] [place] [address] 05/17 LDH IU/L 100.0 250.[address] [facility], [address] [place] [address] [place] [address] 05/17 GLUCO SE, PLASM A OR SERUM - FINAL [facility], [address] [place] [address] [place] [address] 05/17 BLOOD UREA NITRO GEN (BUN) - FINAL [facility], [address] [place] [address] [address] 05/17 CREAT ININE , SERUM - FINAL [facility], [address] [place] [address] [place] [address] 05/17 BUN/C reati nine ratio 20 FINAL [facility], [address] [place] [address] [place] [address] 05/17 SODIU M, SERUM - FINAL [facility], [address] [place] [address] [place] [address] 05/17 POTAS SIUM, SERUM - FINAL [facility], [address] [place] [address] [place] [address] 05/17 CHLOR ILENE - FINAL [facility], [address] [place] [address] [place] [address] 05/17 CARBO N DIOXI DE - FINAL [facility], [address] [place] [address] [place] [address] 05/17 CALCI UM, TOTAL - FINAL [facility], [address] [place] [address] [place] [address] 05/17 TOTAL PROTE IN - FINAL [facility], [address] [place] [address] [place] [address] 05/17 ALBUM IN, SERUM - FINAL [facility], [address] [place] [address] [place] [address] 05/17 Globu jo ann G/DL 1.9 3.7 2.6 FINAL [facility], [address] [place] [address] [place] [address] 05/17 A/G ratio 1.[address] [facility], [address] [place] [address] [place] [address] 05/17 BILIR UBIN, TOTAL - FINAL [facility], [address] [place] [address] [place] [address] 05/17 ALKAL INE PHOSP HATAS E - FINAL [facility], [address] [place] [address] [place] [address] 05/17 ASPAR BUSTILLOS AMINO TRANS FERAS E, SERUM - FINAL [facility], [address] [place] [address] [place] [address] 05/17 BRANDON NE AMINO TRANS FERAS E, SERUM - FINAL [facility], [address] [place] [address] [place] [address] 05/17 GFR estim ate 50 Low FINAL [facility], [address] [place] [address] [place] [address] 05/17 GFR Afric an Ameri can, estim ated 61 FINAL [facility], [address] [place] [address] [address] 05/17 Anion gap - FINAL [facility], [address] [place] [address] [place] [address] 05/17 BUN MG/DL 0.0 23.0 21.5 FINAL [facility], [address] [place] [address] [place] [address] 05/17 Creat inine MG/DL 0.6 1.1 1.09 FINAL [facility], [address] [place] [address] [place] [address] 05/17 Sodiu m MMOL/L 134.0 145.0 144 FINAL [facility], [address] [place] [address] [place] [address] 05/17 Potas sium MMOL/L 3.6 5.2 4.2 FINAL [facility], [address] [place] [address] [place] [address] 05/17 Chlor ilene MMOL/L 96.0 108.0 108 FINAL [facility], [address] [place] [address] [place] [address] 05/17 CO2 MMOL/L 21.0 29.0 31 High FINAL [facility], [address] [place] [address] [place] [address] 05/17 Total prote in G/DL 6.2 8.1 6.1 Low FINAL [facility], [address] [facility] [address] 05/17 Album in G/DL 3.5 5.2 3.6 FINAL [facility], [address] [facility] [address] 05/17 Bilir ubin, total MG/DL 0.0 1.0 0.5 FINAL [facility], [address] [facility] [address] 05/17 Alkal ine phosp hatas e IU/L 33.0 130.0 70 FINAL [facility], [address] [facility] [address] 05/17 AST/S GOT IU/L 14.0 36.0 23 FINAL [facility], [address] [facility] [address] 05/17 ALT/S GPT IU/L 9.0 52.0 11 FINAL [facility], [address] [facility] [address] 05/17 Anion gap, mmol/ L MMOL/L 8.0 16.[address] [facility], [address] [facility] [address] 05/17 Gluco se MG/DL 70.0 105.0 [address] [facility], [address] [facility] [address] 05/17 Calci um MG/DL 8.2 10.4 [address] [facility], [address] [facility] [address] Medications Date Name Route Dose Frequency Instructions Start Date End Date Status Folic Acid Oral daily a ctive Losartan Oral 2 in am, 1 in pm = 75mg daily active Hydrocodone-Enio taminophen Oral 5 mg-325 mg daily active Lidocaine Topical Cream 4 % prn active Vitamin [id number]-[id number] Acid Oral 500 mcg-400 mcg daily active [...]
== END 2024-10-28 10:03 | disposition home or self-care (01) ==
LOC: ANHLAB 10:03
PROVIDERS: PCP Internal Medicine; Visit Provider Internal Medicine Hematology & Oncology
DX: C78.7 Secondary malignant neoplasm of liver and intrahepatic bile duct (principal)
CPT/HCPCS: 36415; 80053; 85025

== ENCOUNTER 2024-10-29 08:44 | Outpatient (CLI) | payer MEDICARE, SELFPAY ==
--- NOTE | ~2024-10-29 | CT_ITS ---
EXAMINATION: CT chest abdomen pelvis w con DATE: 10/29/2024 09:20 INDICATION: Cancer of liver. TECHNIQUE: Computed tomography (CT) of the chest, abdomen, and pelvis was performed with 100 mL Omnip aque 350 intravenous contrast. Automated exposure control and iterative reconstruction technique were employed. The dose-length product was 360.33 mGy-cm. COMPARISON: CT 11/15/2022, PET/CT 07/04/24 FINDINGS: CHEST CT: The lungs demonstrate mild atelectasis. No pleural effusion. There is a 9 mm nodule in the thyroid, l ikely not clinically significant. Cardiomegaly is noted. No pericardial effusion. There is a small sl iding hiatal hernia. There is moderate thoracic spondylosis. ABDOMEN/PELVIS CT: There are approximately 8 masses in the liver measuring up to 2.3 cm. There is portal vein thrombosis in posterior segment right hepatic lobe. There are gallstones in the gallbladder, which is normal in size. The spleen is normal. There is a 2.8 cm hypodense mass in the tail of the pancreas. There is a 7 mm cystic lesion in the head of the pancreas, likely benign. The adrenal glands are normal. There are cysts in the kidneys measuring up to 2.4 cm on the right. There is an end colostomy on the left. There is diverticulosis of the colon without evidence of diverticulitis. There are no dilated loops o f bowel. There are surgical changes of the stomach. There are no pathologically enlarged lymph nodes. There is no free intraperitoneal fluid. There is mild lumbar spondylosis. IMPRESSION: 1. Liver masses, stable from 07/04/2024, consistent with metastatic disease. 2. Pancreatic tail mass, consistent with primary adenocarcinoma. Reviewed, dictated and finalized at location B.
--- OUTSIDE RECORDS SUMMARY | 2024-10-29 09:11 | XMS_ITS | Clinical Summary ---
Author Organization [facility] Address Formerly [facility] [place] [address] Care Team Providers Care Imagery Intelligence Name Role Phone Cindy Nguyen MD Primary Care Provider [phone] Allergies Active Allergy Reactions Criticality Noted Date [...] mouth daily. Indications: Anemia Activ e Multiple Vitamins-Paac [place] als (CENTRUM SILVER 50+WOMEN OR)Indications :Nutritional Support [...] Date Pneumonia 09/04/2023 Chronic hypoxemic respiratory failure ([facility]) 09/28/2021 Overview (09/05/2023): Last Assessment & Plan: On Home O2 Nonrheumatic aortic valve stenosis 09/28/2021 Overview (09/05/2023): Last Assessment & Plan: Has mild aortic stenosis with mean gradient of 10 mmHg on 2D echo done July 2021 Diastolic heart failure seco ndary to hypertension ([facility]) 08/11/2021 Hypoxia 08/11/2021 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 There is no volume overload. 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
--- OUTSIDE RECORDS SUMMARY | 2024-10-29 09:12 | XMS_ITS | Encounter Summary ---
Author Organization [facility] [employer] [facility] Address [address] [place] [address] Care Team Providers Care Sample Sawyer Name Role Phone Cindy Nguyen MD Primary Care Provider [phone] Encounter Details Date Type Department Care Team (Late Contact Info) Description 10/28/2024 Orders Only [facility] Oncology and Hematology Michael Alfonso St[address] [place] [address] Catrachito Macias MD [address] [place] [address] [employer] [address] [address] Social History Tobacco Use Types Packs/Day Years Used Date Smoking Tobacco: Former Cigarettes Comments Unknown Sex and Gender Information Value Date Recorded Sex Assigned at Not on file Legal Sex Female 4:09 PM CDT Gender Identity Not on file Sexual Orientation Not on file documented as of this encounter Plan of Treatment Upcoming Encounters Date Type Department Care Team (Late st Contact Info) Description 11/05/2024 10:00 AM CDT Office Visit [facility] Oncology and Hematology Michael Cl Stinson [address] [place] [address] Catrachito Macias MD [facility] [employer] [address] [place] [address] documented as of this encounter Procedures Procedure Name Priority Date/Time Associated Diagnosis Comments CBC WITH AUTODIFFERENTIAL Routine 2024 3:50 PM CDT documented in this encounter Results * CBC WITH AUTODIFFERENTIAL (10/28/2024 3:50 PM CDT) Blood Catrachito Macias MD HEMATOLOGY ORDERABLES Final Res ult documented in this encounter Visit Diagnoses Not on filedocumented in this encounter Care Teams Sample Sawyer Relationship Specialty Start Date End Date Cindy Nguyen MD [address] [place] [address] PCP - General Internal Medicine 06/01/22 documented as of this encounter
--- OUTSIDE RECORDS SUMMARY | 2024-10-29 09:12 | XMS_ITS ---
Author Name Interface, [id number] lity Address [address] [facility] [address] [place] [address] Organization [facility] Address [address] [facility] [address] [place] [address] Care Team Providers Care Crimping Press Operator Name Role Phone Javier Peck Unavailable Unavailable [...] L 4.0 11.0 5.3 FINAL Javier Peck [facility], [address] [place] [address] 05/17 RBC X106/U L 3.7 5.4 3.88 FINAL Javier Peck [facility], [address] [place] [address] 05/17 HGB G/DL 11.4 15.4 11.6 FINAL Javier Peck [facility], [address] [place] [address] 05/17 HCT % 35.0 47.0 36.9 FINAL Javier Peck [facility], [address] [place] [address] 05/17 MCV FL 81.0 100.0 95 FINAL [facility], [address] [place] [address] 05/17 MCH PG 27.0 34.0 29.9 FINAL [facility], [address] [place] [address] 05/17 MCHC G/DL 30.0 36.0 31.4 FINAL [facility], [address] [place] [address] 05/17 Sybil % % 37.0 77.0 54 FINAL [facility], [address] [place] [address] 05/17 LY % % 23.0 44.0 35 FINAL [facility], [address] [place] [address] 05/17 MO % % 4.0 13.0 9 FINAL [facility], [address] [place] [address] 05/17 EO % % 1.0 6.0 2 FINAL [facility], [address] [place] [address] 05/17 BA % % 0.0 1.0 0 FINAL [facility], [address] [place] [address] 05/17 PLT X103/U L 150.0 450.0 154 FINAL [facility], [address] [place] [address] 05/17 RDW % 12.2 15.2 14 FINAL [facility], [address] [place] [address] 05/17 Sybil # (ANC) X103/U L 1.67 8.47 2.86 FINAL [facility], [address] [place] [address] 05/17 LY # X103/U L 1.03 4.84 1.85 FINAL [facility], [address] [place] [address] 05/17 MO # X103/U L 0.27 0.98 0.48 FINAL [facility], [address] [place] [address] 05/17 EO # X103/U L 0.11 0.55 0.08 Low FINAL [facility], [address] [place] [address] 05/17 BA # X103/U L 0.02 0.1 0.02 FINAL [facility], [address] [place] [address] 05/17 MPV FL 9.4 12.4 10 FINAL [facility], [address] [place] [address] 05/17 IG % % 0.0 0.4 0.2 FINAL [facility], [address] [place] [address] 05/17 IG # X103/U L 0.0 0.04 0.01 FINAL [facility], [address] [place] [address] 05/17 CARCI NOEMB RYONI C ANTIG EN (CEA) - FINAL [facility], [address] [place] [address] 05/17 CEA, mg/dL MG/DL 0.0 5.0 2.56 FINAL [facility], [address] [place] [address] 05/17 LACTI C ACID DEHYD ROGEN ASE (LDH) - FINAL [facility], [address] [place] [address] 05/17 LDH IU/L 100.0 250.0 183.7 FINAL [facility], [address] [place] [address] 05/17 GLUCO SE, PLASM A OR SERUM - FINAL [facility], [address] [place] [address] 05/17 BLOOD UREA NITRO GEN (BUN) - FINAL [facility], [address] [place] [address] 05/17 CREAT ININE , SERUM - FINAL [facility], [address] [place] [address] 05/17 BUN/C reati nine ratio 20 FINAL [facility], [address] [place] [address] 05/17 SODIU M, SERUM - FINAL [facility], [address] [place] [address] 05/17 POTAS SIUM, SERUM - FINAL [facility], [address] [place] [address] 05/17 CHLOR ILENE - FINAL [facility], [address] [place] [address] 05/17 CARBO N DIOXI DE - FINAL [facility], [address] [place] [address] 05/17 CALCI UM, TOTAL - FINAL [facility], [address] [place] [address] 05/17 TOTAL PROTE IN - FINAL [facility], [address] [place] [address] 05/17 ALBUM IN, SERUM - FINAL [facility], [address] [place] [address] 05/17 Globu jo ann G/DL 1.9 3.7 2.6 FINAL [facility], [address] [place] [address] 05/17 A/G ratio 1.4 FINAL [facility], [address] [place] [address] 05/17 BILIR UBIN, TOTAL - FINAL [facility], [address] [place] [address] 05/17 ALKAL INE PHOSP HATAS E - FINAL [facility], [address] [place] [address] 05/17 ASPAR BUSTILLOS AMINO TRANS FERAS E, SERUM - FINAL [facility], [address] [place] [address] 05/17 BRANDON NE AMINO TRANS FERAS E, SERUM - FINAL [facility], [address] [place] [address] 05/17 GFR estim ate 50 Low FINAL [facility], [address] [place] [address] 05/17 GFR Afric an Ameri can, estim ated 61 FINAL [facility], [address] [place] [address] 05/17 Anion gap - FINAL [facility], [address] [place] [address] 05/17 BUN MG/DL 0.0 23.0 21.5 FINAL [facility], [address] [place] [address] 05/17 Creat inine MG/DL 0.6 1.1 1.09 FINAL [facility], [address] [place] [address] 05/17 Sodiu m MMOL/L 134.0 145.0 144 FINAL [facility], [address] [place] [address] 05/17 Potas sium MMOL/L 3.6 5.2 4.2 FINAL [facility], [address] [place] [address] 05/17 Chlor ilene MMOL/L 96.0 108.0 108 FINAL [facility], [address] [place] [address] 05/17 CO2 MMOL/L 21.0 29.0 31 High FINAL [facility], [address] [place] [address] 05/17 Total prote in G/DL 6.2 8.1 6.1 Low FINAL [facility], [address] [facility] [address] 05/17 Album in G/DL 3.5 5.2 3.6 FINAL [facility], [address] [facility] [address] 05/17 Bilir ubin, total MG/DL 0.0 1.0 0.5 FINAL [facility], [address] [facility] [address] 05/17 Alkal ine phosp hatas e IU/L 33.0 130.0 70 FINAL [facility], [address] [facility] [address] 05/17 AST/S GOT IU/L 14.0 36.0 23 FINAL [facility], [address] [facility] [address] 05/17 ALT/S GPT IU/L 9.0 52.0 11 FINAL [facility], [address] [facility] [address] 05/17 Anion gap, mmol/ L MMOL/L 8.0 16.0 9.24 FINAL [facility], [address] [facility] [address] 05/17 Gluco se MG/DL 70.0 105.0 163 High FINAL [facility], [address] [facility] [address] 05/17 Calci um MG/DL 8.2 10.4 9.4 FINAL [facility], [address] [facility] [address] Medications Date Name Route Dose Frequency Instructions Start Date End Date Status Folic Acid Oral daily a ctive Losartan Oral 2 in am, 1 in pm = 75mg daily active Hydrocodone-Enio taminophen Oral 5 mg-325 mg daily active Lidocaine Topical Cream 4 % prn active Vitamin E18-[id number] Acid Oral 500 mcg-400 mcg daily active [...]
--- OUTSIDE RECORDS SUMMARY | 2024-10-29 09:12 | XMS_ITS | CCD ---
Author Name Interface, [id number] lity Address [address] [facility] [address] [place] [address] Organization [facility] Address [address] [facility] [address] [place] [address] Care Team Providers Care Solid State Tester Name Role Phone Javier Peck Unavailable Unavailable Care Plan Date Type Value APPOINTMENT Lab APPOINTMENT RTC MD APPOINTMENT Lab APPOINTMENT RTC MD APPOINTMENT Lab APPOINTMENT RTC MD APPOINTMENT RTC MD APPOINTMENT Lab APPOINTMENT CT abdomen/pelvi s w/ contrast APPOINTMENT RTC MD APPOINTMENT RTC MD APPOINTMENT CT chest/abdomen /pelvis w/ contrast APPOINTMENT RTC MD APPOINTMENT Lab APPOINTMENT RTC MD APPOINTMENT Lab APPOINTMENT RTC MD APPOINTMENT RTC MD APPOINTMENT CT chest/abdomen /pelvis w/ contrast APPOINTMENT Lab APPOINTMENT CT chest/abdomen /pelvis w/ contrast APPOINTMENT RTC MD APPOINTMENT PET/CT scan, sku ll base/mid thigh APPOINTMENT RTC MD APPOINTMENT CT chest/abdomen /pelvis w/ contrast APPOINTMENT CT chest/abdomen /pelvis w/ contrast APPOINTMENT RTC MD APPOINTMENT RTC MD APPOINTMENT CT chest/abdomen /pelvis w/ contrast APPOINTMENT CT neck/chest/ab domen/pelvis w/ contrast to all areas APPOINTMENT Lab APPOINTMENT Lab APPOINTMENT Lab APPOINTMENT Lab APPOINTMENT RTC MD APPOINTMENT Lab APPOINTMENT Lab APPOINTMENT Lab APPOINTMENT RTC MD APPOINTMENT Lab APPOINTMENT RTC MD APPOINTMENT RTC MD APPOINTMENT Esophagogastrodu odenoscopy (procedure) APPOINTMENT Colonoscopy (pro cedure) APPOINTMENT RTC MD APPOINTMENT Lab 05/16/2024 APPOINTMENT Follow Up 11/06/2017 LABORDER PET/CT scan, sku ll base/mid thigh 03/08/[address] chest/abdomen /pelvis w/ contrast 06/07/[address] chest/abdomen /pelvis w/ contrast 08/30/2018 LABORDER Folate, serum 08/30/2018 LABORDER Vitamin B12 10/04/[address] chest/abdomen /pelvis w/ contrast 12/24/2018 LABORDER CMP 12/24/2018 LABORDER CBC w/ auto diff 03/04/2019 LABORDER Ferritin 03/04/2019 LABORDER Folate, serum 03/04/2019 LABORDER Iron profile 03/04/2019 LABORDER CMP 03/04/2019 LABORDER Vitamin B12 03/04/2019 LABORDER CBC w/ auto diff 06/03/[address] neck/chest/ab domen/pelvis w/ contrast to all areas 06/14/[address] chest/abdomen /pelvis w/ contrast 09/16/2019 LABORDER CMP 09/16/2019 LABORDER Vitamin B12 09/16/2019 LABORDER Ferritin 09/16/2019 LABORDER CBC w/ auto diff 09/16/2019 LABORDER Iron profile 09/16/2019 LABORDER Folate, serum 09/30/2019 LABORDER CBC w/ auto diff 09/30/2019 LABORDER CMP 09/30/2019 LABORDER LDH 01/17/2020 LABORDER CEA 01/17/2020 LABORDER CMP 01/17/2020 LABORDER Vitamin B12 01/17/2020 LABORDER Folate, serum 01/17/2020 LABORDER CBC w/ auto diff 01/17/2020 LABORDER Iron profile 01/17/2020 LABORDER Ferritin 01/17/2020 LABORDER LDH 04/02/2020 LABORDER Vitamin B12 04/02/2020 LABORDER Ferritin 04/02/2020 LABORDER CBC w/ auto diff 04/02/2020 LABORDER CBC w/ man diff 04/02/2020 LABORDER Folate, serum 04/02/2020 LABORDER Iron profile 04/02/2020 LABORDER CEA 04/16/2020 LABORDER Ferritin 04/16/2020 LABORDER LDH 04/16/2020 LABORDER Vitamin B12 04/16/2020 LABORDER CEA 04/16/2020 LABORDER Folate, serum 04/16/2020 LABORDER CBC w/ auto diff 04/16/2020 LABORDER Iron profile 04/16/2020 LABORDER CMP 07/13/2020 LABORDER CEA 07/13/2020 LABORDER Ferritin 07/13/2020 [...] ALT/S GPT IU/L 9.0 52.0 11 FINAL [facility], [address] [place] [address] 05/17 A/G ratio 1.4 FINAL [facility], [address] [place] [address] 05/17 ASPAR APOLLO AMINO TRANS FERAS E, SERUM - FINAL [facility], [address] [facility] [address] 05/17 Gluco se MG/DL 70.0 105.0 163 High FINAL [facility], [address] [facility] [address] 05/17 Globu jo ann G/DL 1.9 3.7 2.6 FINAL [facility], [address] [facility] [address] 05/17 Anion gap, mmol/ L MMOL/L 8.0 16.0 9.24 FINAL [facility], [address] [facility] [address] 05/17 Total prote in G/DL 6.2 8.1 6.1 Low FINAL [facility], [address] [facility] [address] 05/17 CREAT ININE , SERUM - FINAL [facility], [address] [facility] [address] 05/17 AST/S GOT IU/L 14.0 36.0 23 FINAL [facility], [address] [place] [address] 05/17 GLUCO SE, PLASM A OR SERUM - FINAL [facility], [address] [facility] [address] 05/17 BRANDON ZARATE AMINO TRANS FERAS E, SERUM - FINAL [facility], [address] [place] [address] 05/17 GFR Afric an Ameri can, estim ated 61 FINAL [facility], [address] [place] [address] 05/17 Bilir ubin, total MG/DL 0.0 1.0 0.5 FINAL [facility], [address] [place] [address] 05/17 TOTAL PROTE IN - FINAL [facility], [address] [place] [address] 05/17 Sodiu m MMOL/L 134.0 145.0 144 FINAL [facility], [address] [place] [address] 05/17 ALBUM IN, SERUM - FINAL [facility], [address] [place] [address] 05/17 BLOOD UREA NITRO GEN (BUN) - FINAL [facility], [address] [place] [address] 05/17 CALCI UM, TOTAL - FINAL [facility], [address] [place] [address] 05/17 Alkal ine phosp hatas e IU/L 33.0 130.0 70 FINAL [facility], [address] [place] [address] 05/17 GFR estim ate 50 Low FINAL [facility], [address] [place] [address] 05/17 Calci um MG/DL 8.2 10.4 9.4 FINAL [facility], [address] [place] [address] 05/17 Anion gap - FINAL [facility], [address] [place] [address] 05/17 CO2 MMOL/L 21.0 29.0 31 High FINAL [facility], [address] [place] [address] 05/17 BILIR UBIN, TOTAL - FINAL [facility], [address] [place] [address] 05/17 ALKAL INE PHOSP HATAS E - FINAL [facility], [address] [place] [address] 05/17 Chlor ilene MMOL/L 96.0 108.0 108 FINAL [facility], [address] [place] [address] 05/17 BUN MG/DL 0.0 23.0 21.5 FINAL [facility], [address] [place] [address] 05/17 CHELSY Chun, SERUM - FINAL [facility], [address] [place] [address] 05/17 Creat inine MG/DL 0.6 1.1 1.09 FINAL [facility], [address] [place] [address] 05/17 Album in G/DL 3.5 5.2 3.6 FINAL [facility], [address] [place] [address] 05/17 POTAS SIUM, SERUM - FINAL [facility], [address] [place] [address] 05/17 BUN/C reati nine ratio 20 FINAL [facility], [address] [place] [address] 05/17 CARBO N DIOXI DE - FINAL [facility], [address] [place] [address] 05/17 Potas sium MMOL/L 3.6 5.2 4.2 FINAL [facility], [address] [place] [address] 05/17 CHLOR ILENE - FINAL [facility], [address] [place] [address] 05/17 Sybil # (ANC) X103/U L 1.67 8.47 2.86 FINAL [facility], [address] [place] [address] 05/17 MCV FL 81.0 100.0 95 FINAL [facility], [address] [place] [address] 05/17 MO # X103/U L 0.27 0.98 0.48 FINAL [facility] [place] [place] [facility], [address] [place] [address] 05/17 IG % % 0.0 0.4 0.2 FINAL [facility], [address] [place] [address] 05/17 MO % % 4.0 13.0 9 FINAL [facility], [address] [place] [address] 05/17 IG # X103/U L 0.0 0.04 0.01 FINAL [facility], [address] [place] [address] 05/17 EO # X103/U L 0.11 0.55 0.08 Low FINAL [facility], [address] [place] [address] 05/17 EO % % 1.0 6.0 2 FINAL [facility], [address] [place] [address] 05/17 RBC X106/U L 3.7 5.4 3.88 FINAL [facility], [address] [place] [address] 05/17 MPV FL 9.4 12.4 10 FINAL [facility], [address] [place] [address] 05/17 BA % % 0.0 1.0 0 FINAL [facility], [address] [place] [address] 05/17 BA # X103/U L 0.02 0.1 0.02 FINAL [facility], [address] [place] [address] 05/17 HGB G/DL 11.4 15.4 11.6 FINAL [facility], [address] [place] [address] 05/17 MCHC G/DL 30.0 36.0 31.4 FINAL [facility], [address] [place] [address] 05/17 HCT % 35.0 47.0 36.9 FINAL [facility], [address] [place] [address] 05/17 WBC X103/U L 4.0 11.0 5.3 FINAL [facility], [address] [place] [address] 05/17 PLT X103/U L 150.0 450.0 154 FINAL [facility], [address] [place] [address] 05/17 RDW % 12.2 15.2 14 FINAL [facility], [address] [place] [address] 05/17 LY % % 23.0 44.0 35 FINAL [facility], [address] [place] [address] 05/17 MCH PG 27.0 34.0 29.9 FINAL [facility], [address] [place] [address] 05/17 LY # X103/U L 1.03 4.84 1.85 FINAL [facility], [address] [place] [address] 05/17 Sybil % % 37.0 77.0 54 FINAL [facility], [address] [place] [address] 05/17 CARCI NOEMB RYONI C ANTIG EN (CEA) - FINAL [facility], [address] [place] [address] 05/17 CEA, mg/dL MG/DL 0.0 5.0 2.56 FINAL [facility], [address] [place] [address] 05/17 LDH IU/L 100.0 250.0 183.7 FINAL [facility], [address] [place] [address] 05/17 LACTI C ACID DEHYD ROGEN ASE (LDH) - [facility] [place] [facility], [address] [facility] [address] Medications Date Name Route Dose Frequency Instructions Start Date End Date Status Vitamin T65-Vsmqk Ac id Oral 500 mcg-400 mcg daily active Pantoprazole (Sodium ) Oral Delayed Release daily inactive Pantoprazole (Sodium ) Oral Delayed Release prn stopped Methotrexate Oral daily inactive Alendronate Oral (Weekly) 75.0 weekly inactive Calcium-Cholecalcife ro l Oral 600 mg-10 mcg (400 unit) daily stopped Ferrous Sulfate Oral daily stopped Hydrocodone-Acetamin op hen Oral 5 mg-325 mg prn inactive Hydrochlorothiazide Oral daily inactive Lidocaine Topical Cream 4 % prn active Naproxen Oral prn sto pped Acetaminophen Oral prn inactive Alendronate Oral (Weekly) weekly stopped Folic Acid Oral daily a ctive Ferrous Sulfate Oral tid stopped Losartan Oral 2 in am, 1 in pm = 75mg daily active Methotrexate Oral active Amlodipine Oral daily i nactive Hydrocodone-Acetamin op hen Oral 5 mg-325 mg daily active Folic Acid Oral daily s topped Methotrexate Oral 6.0 weekly, on stopped Problems Diagnosis Status Date of Diagnosi [...]
--- OUTSIDE RECORDS SUMMARY | 2024-10-29 09:12 | XMS_ITS | CCD ---
Author Name Interface, [id number] lity Address [address] [facility] [place][note 2] [address] [place] [address] Organization [facility] [employer] Address [address] [facility] [place][note 2] [address] [place] [address] Care Team Providers Care Residence Hall Director Name Role Phone Javier Peck Unavailable Unavailable Care Plan Reason for Visit Encounters Functional Status Diagnostic Results Medications Problems Procedures Social History Vital Signs
--- OUTSIDE RECORDS SUMMARY | 2024-10-29 09:12 | XMS_ITS | Clinical Summary ---
Author Organization [facility] Address [address] [place] [address] Care Team Providers Care School Operations Manager Name Role Phone Cindy Nguyen MD Primary Care Provider [phone]- [phone] Allergies Active Allergy Reactions Criticality Noted Date [...] Encounters Date Type Department Care Team Description 10/28/2024 Orders Only [facility] Oncology and Hematology - Michael [address] [place] [address] Catrachito Macias MD 10/08/2024 External Device Data STL ABSTRACTION Provider, Abstract 09/30/2024 9:00 AM TRAFFIC ASSISTANT Office Visit [facility] Oncology and Hematology - Michael [address] [place] [address] Catrachito Macias MD Cancer, metastatic to liver (CMS/HCC) (Primary Dx) 09/30/2024 Orders Only [facility] Oncology and Hematology - Michael [address] [place] [address] Catrachito Macias MD 09/17/2024 External Device Data STL ABSTRACTION Provider, Abstract 09/11/2024 External Device Data STL ABSTRACTION Provider, Abstract 09/11/2024 External Device Data STL ABSTRACTION Provider, Abstract 09/05/2024 Abstract [facility] Oncology and Hematology - Michael [address] [place] [address] Catrachito Macias MD 09/02/2024 Orders Only [facility] Oncology and Hematology - Michael [address] [place] [address] Catrachito Macias MD 08/30/2024 Orders Only [facility] Oncology and Hematology - Michael [address] [place] [address] Catrachito Macias MD 08/29/2024 2:00 PM TRAFFIC ASSISTANT Office Visit [facility] Oncology and Hematology - Michael [address] [place] [address] Catrachito Macias MD Cancer, metastatic to liver (CMS/HCC) (Primary Dx) 08/27/2024 Orders Only [facility] Oncology and Hematology - Michael [address] [place] [address] Catrachito Macias MD Cancer, metastatic to liver (CMS/HCC) (Primary Dx) 08/15/2024 Specialty Pharmacy [facility] [address] [place] [phone] Pennie Correa PHARMACIST 08/15/2024 Specialty Pharmacy [facility] [address] [place] [phone] Pennie Correa PHARMACIST 08/15/2024 Refill [facility] Oncology and Hematology - Michael [address] [place] [address] [phone] Kaveh Vargas MD 08/15/2024 Telephone [facility] Oncology and Hematology - Michael [address] [place] [address] Kaveh Vargas MD Medication Problem 08/12/2024 Refill [facility] Oncology and Hematology - Michael [address] [place] [address] [phone] Catrachito Macias MD 08/08/2024 Specialty Pharmacy [facility] [address] [place] [phone] Pennie Correa PHARMACIST Specialty Pharmacy Prior Auth Coordination 08/06/2024 Specialty Pharmacy [facility] [address] [place] [phone] Coby Patricio PHARMACIST 08/02/2024 Telephone [facility] Oncology and Hematology [facility] [address] [place] [address] Catrachito Macias MD Appointment follow up 08/01/2024 4:30 PM TRAFFIC ASSISTANT Telephone Check Up [facility] Oncology and Hematology [facility] [address] [place] [address] Catrachito Macias MD from Last 3 Months [...] Comments Blood Pressure 122/74 09/30/2024 9:33 AM TRAFFIC ASSISTANT Pulse 91 09/30/2024 9:33 AM TRAFFIC ASSISTANT Temperature 37.3 C (99.2 F) 09/30/2024 9:33 AM TRAFFIC ASSISTANT Respiratory Rate 15 09/30/2024 9:33 AM TRAFFIC ASSISTANT Oxygen Saturation 96% 09/30/2024 9:33 AM TRAFFIC ASSISTANT Inhaled Oxygen Concentration - - Weight 58.3 kg (128 lb 9.6 oz) 09/30/2024 9:33 A M TRAFFIC ASSISTANT Height 154.9 cm (5' 1 ) 07/15/2024 9:17 AM TRAFFIC ASSISTANT Body Mass Index 24.3 07/15/2024 9:17 AM TRAFFIC ASSISTANT Plan of Treatment Upcoming Encounters Date Type Department Care Team (Late st Contact Info) Description 11/05/2024 10:00 AM CDT Office Visit [facility] Oncology and Hematology - Michael [address] [place] [address] Catrachito Macias MD [address] [place] [address] Health Maintenance Due Date Last [...] WITH AUTODIFFERENTIAL Routine 2024 3:50 PM CDT COMPREHENSIVE METABOLIC PANEL Routine 09/30/2024 1:08 PM TRAFFIC ASSISTANT COMPREHENSIVE METABOLIC PANEL Routine 08/29/2024 3:50 PM TRAFFIC ASSISTANT CBC WITH DIFFERENTIAL Routine 08/29/2024 9:51 AM TRAFFIC ASSISTANT from Last 3 Months Results * CBC WITH AUTODIFFERENTIAL (10/28/2024 3:50 PM CDT) Blood us Catrachito Macias MD HEMATOLOGY ORDERABLES Final Res ult * COMPREHENSIVE METABOLIC PANEL (09/30/2024 1:08 PM TRAFFIC ASSISTANT) Only the most recent of2 resultswithin the time period is included. Blood us Catrachito Macias MD CHEMISTRY ORDERABLES Final Resu lt * CBC WITH DIFFERENTIAL (08/29/2024 9:51 AM TRAFFIC ASSISTANT) Blood us Catrachito Macias MD HEMATOLOGY ORDERABLES Final Res ult from Last 3 Months Insurance [facility] [id number] RX [employer] RX Member Subscriber Plan / Payer (Ef fective 2023-Present) Name:Kirti Barr Relation to Subscriber:Self Name:MomoKirti Payer ID:Not on file Group ID:[id number] Type:RX Medicare Part D Address: [address] [place] Care Teams School Operations Manager Relationship Specialty Start Date End Date Cindy Nguyen MD [address] [place] [phone] PCP - General Internal Medicine 06/01/22
--- OUTSIDE RECORDS SUMMARY | 2024-10-29 09:12 | XMS_ITS ---
Author Name Interface, [id number] lity Address [address] [facility] [address] [place] [address] Organization [facility] [employer] [facility] Address [address] [facility] [address] [place] [address] Care Team Providers Care Sheep Farm Worker Name Role Phone Javier Peck Unavailable Unavailable [...] L 4.0 11.0 5.3 FINAL Javier Peck [facility], [address] [place] [address] 05/17 RBC X106/U L 3.7 5.4 3.88 FINAL Javier Peck [facility], [address] [place] [address] 05/17 HGB G/DL 11.4 15.4 11.6 FINAL Javier Peck [facility], [address] [place] [address] 05/17 HCT % 35.0 47.0 36.9 FINAL Javier Peck [facility], [address] [place] [address] 05/17 MCV FL 81.0 100.0 95 FINAL [facility], [address] [place] [address] 05/17 MCH PG 27.0 34.0 29.9 FINAL [facility], [address] [place] [address] 05/17 MCHC G/DL 30.0 36.0 31.4 FINAL [facility], [address] [place] [address] 05/17 Sybil % % 37.0 77.0 54 FINAL [facility], [address] [place] [address] 05/17 LY % % 23.0 44.0 35 FINAL [facility], [address] [place] [address] 05/17 MO % % 4.0 13.0 9 FINAL [facility], [address] [place] [address] 05/17 EO % % 1.0 6.0 2 FINAL [facility], [address] [place] [address] 05/17 BA % % 0.0 1.0 0 FINAL [facility], [address] [place] [address] 05/17 PLT X103/U L 150.0 450.0 154 FINAL [facility], [address] [place] [address] 05/17 RDW % 12.2 15.2 14 FINAL [facility], [address] [place] [address] 05/17 Sybil # (ANC) X103/U L 1.67 8.47 2.86 FINAL [facility], [address] [place] [address] 05/17 LY # X103/U L 1.03 4.84 1.85 FINAL [facility], [address] [place] [address] 05/17 MO # X103/U L 0.27 0.98 0.48 FINAL [facility], [address] [place] [address] 05/17 EO # X103/U L 0.11 0.55 0.08 Low FINAL [facility], [address] [place] [address] 05/17 BA # X103/U L 0.02 0.1 0.02 FINAL [facility], [address] [place] [address] 05/17 MPV FL 9.4 12.4 10 FINAL [facility], [address] [place] [address] 05/17 IG % % 0.0 0.4 0.2 FINAL [facility], [address] [place] [address] 05/17 IG # X103/U L 0.0 0.04 0.01 FINAL [facility], [address] [place] [address] 05/17 CARCI NOEMB RYONI C ANTIG EN (CEA) - FINAL [facility], [address] [place] [address] 05/17 CEA, mg/dL MG/DL 0.0 5.0 2.56 FINAL [facility], [address] [place] [address] 05/17 LACTI C ACID DEHYD ROGEN ASE (LDH) - FINAL [facility], [address] [place] [address] 05/17 LDH IU/L 100.0 250.0 183.7 FINAL [facility], [address] [place] [address] 05/17 GLUCO SE, PLASM A OR SERUM - FINAL [facility], [address] [place] [address] 05/17 BLOOD UREA NITRO GEN (BUN) - FINAL [facility], [address] [place] [address] 05/17 CREAT ININE , SERUM - FINAL [facility], [address] [place] [address] 05/17 BUN/C reati nine ratio 20 FINAL [facility], [address] [place] [address] 05/17 SODIU M, SERUM - FINAL [facility], [address] [place] [address] 05/17 POTAS SIUM, SERUM - FINAL [facility], [address] [place] [address] 05/17 CHLOR ILENE - FINAL [facility], [address] [place] [address] 05/17 CARBO N DIOXI DE - FINAL [facility], [address] [place] [address] 05/17 CALCI UM, TOTAL - FINAL [facility], [address] [place] [address] 05/17 TOTAL PROTE IN - FINAL [facility], [address] [place] [address] 05/17 ALBUM IN, SERUM - FINAL [facility], [address] [place] [address] 05/17 Globu jo ann G/DL 1.9 3.7 2.6 FINAL [facility], [address] [place] [address] 05/17 A/G ratio 1.4 FINAL [facility], [address] [place] [address] 05/17 BILIR UBIN, TOTAL - FINAL [facility], [address] [place] [address] 05/17 ALKAL INE PHOSP HATAS E - FINAL [facility], [address] [place] [address] 05/17 ASPAR BUSTILLOS AMINO TRANS FERAS E, SERUM - FINAL [facility], [address] [place] [address] 05/17 BRANDON NE AMINO TRANS FERAS E, SERUM - FINAL [facility], [address] [place] [address] 05/17 GFR estim ate 50 Low FINAL [facility], [address] [place] [address] 05/17 GFR Afric an Ameri can, estim ated 61 FINAL [facility], [address] [place] [address] 05/17 Anion gap - FINAL [facility], [address] [place] [address] 05/17 BUN MG/DL 0.0 23.0 21.5 FINAL [facility], [address] [place] [address] 05/17 Creat inine MG/DL 0.6 1.1 1.09 FINAL [facility], [address] [place] [address] 05/17 Sodiu m MMOL/L 134.0 145.0 144 FINAL [facility], [address] [place] [address] 05/17 Potas sium MMOL/L 3.6 5.2 4.2 FINAL [facility], [address] [place] [address] 05/17 Chlor ilene MMOL/L 96.0 108.0 108 FINAL [facility], [address] [place] [address] 05/17 CO2 MMOL/L 21.0 29.0 31 High FINAL [facility], [address] [place] [address] 05/17 Total prote in G/DL 6.2 8.1 6.1 Low FINAL [facility], [address] [facility] [address] 05/17 Album in G/DL 3.5 5.2 3.6 FINAL [facility], [address] [facility] [address] 05/17 Bilir ubin, total MG/DL 0.0 1.0 0.5 FINAL [facility], [address] [facility] [address] 05/17 Alkal ine phosp hatas e IU/L 33.0 130.0 70 FINAL [facility], [address] [facility] [address] 05/17 AST/S GOT IU/L 14.0 36.0 23 FINAL [facility], [address] [facility] [address] 05/17 ALT/S GPT IU/L 9.0 52.0 11 FINAL [facility], [address] [facility] [address] 05/17 Anion gap, mmol/ L MMOL/L 8.0 16.0 9.24 FINAL [facility], [address] [facility] [address] 05/17 Gluco se MG/DL 70.0 105.0 163 High FINAL [facility], [address] [facility] [address] 05/17 Calci um MG/DL 8.2 10.4 9.4 FINAL [facility], [address] [facility] [address] Medications Date Name Route Dose Frequency Instructions Start Date End Date Status Folic Acid Oral daily a ctive Losartan Oral 2 in am, 1 in pm = 75mg daily active Hydrocodone-Enio taminophen Oral 5 mg-325 mg daily active Lidocaine Topical Cream 4 % prn active Vitamin [id number] Acid Oral 500 mcg-400 mcg daily active [...]
== END 2024-10-29 08:45 | disposition home or self-care (01) ==
PROVIDERS: PCP Internal Medicine; Visit Provider Internal Medicine Hematology & Oncology
DX: C78.7 Secondary malignant neoplasm of liver and intrahepatic bile duct (principal)
CPT/HCPCS: 71260; 74177; Q9967

== ENCOUNTER 2024-12-16 09:42 | Outpatient (CLI) | payer MEDICARE, SELFPAY ==
[2024-12-16 10:02] LABS: Basophils Percent Auto 0.5 % (0.2-1.2); Eosinophils Absolute Auto 0.1 K/mm3 (0-0.3); Eosinophils Percent Auto 1.8 % (0-4.4); Hematocrit 37.9 % (37.0-47.0); Hemoglobin 11.8 g/dL (12.0-15.0); Immature Granulocyte Absolute 0.02 K/mm3 (0.00-0.031); Immature Granulocyte Percent A 0.4 % (0-0.5); Lymphocytes Absolute Auto 1.45 K/mm3 (0.9-3.2); Lymphocytes Percent Auto 26.2 % (18.3-44.2); Mean Corpuscular HGB Conc 31.1 g/dl (32-36); Mean Corpuscular Hemoglobin 29.4 pg (26-34); Mean Corpuscular Volume 94.5 fl (80-100); Mean Platelet Volume 9.9 fl (7.4-10.4); Monocytes Absolute Auto 0.5 K/mm3 (0.1-0.6); Monocytes Percent Auto 8.8 % (2.6-8.5); Neutrophils Absolute Auto 3.5 K/mm3 (1.3-6.7); Neutrophils Percent Auto 62.3 % (45.5-73.1); Platelet Count Result 163 k/mm3 (150-375); Red Blood Count 4.01 M/mm3 (4.2-5.4); Red Cell Distribution Width 14.4 % (11.5-14.5); White Blood Count 5.5 K/mm3 (4.5-10.0)
[2024-12-16 10:38] LABS: Alanine Aminotransferase 76 U/L (6-35); Albumin Level 4.2 g/dL (3.5-5.1); Alkaline Phosphatase 806 U/L (38-126); Anion Gap 8 mmol/L (4-12); Aspartate Amino Transferase 80 U/L (14-36); Bilirubin,Total 0.8 mg/dL (0.2-1.3); Blood Urea Nitrogen 17 mg/dL (7-17); Calcium 9.6 mg/dL (8.4-10.2); Carbon Dioxide 31 mmol/L (22-30); Chloride 105 mmol/L (98-107); Estimated Glomerular Filt Rate > 60; Glucose 95 mg/dL (65-110); Potassium 3.5 mmol/L (3.4-5.0); Sodium 144 mmol/L (137-145)
--- OUTSIDE RECORDS SUMMARY | 2024-12-16 10:40 | XMS_ITS | Clinical Summary ---
Author Organization [facility] Fadumo Haskinsruddy Address [address] [place] [address] Care Team Providers Care Director Emergency Name Role Phone Cindy Nguyen MD Primary Care Provider [phone]- [phone] Allergies Active Allergy Reactions Criticality Noted Date [...] TABLET BY MOUTH ON MONDAYS, WEDNESDAYS, AND Fridays 3 Active cholecalcifero l, vitamin D3, 1,000 unit Take 25 mcg by mouth daily. Active hydroxychloroq uine (PLAQUENIL) 200 mg tablet Take 200 mg by mouth daily. 3 Active pantoprazole (PROTONIX) 20 mg Tablet, Delayed Release (E.C.) Take 1 Tablet by mouth daily. Active cyanocobalamin 1,000 mcg Tablet Take 1,000 mcg by mouth daily. Active megestroL (MEGACE) 400 mg/10 mL (40 mg/mL) suspension Take 5 mL (200 mg) by mouth daily. 150 mL 1 4 Active sotorasib (LUMAKRAS) 320 mg Tablet Take 3 Tablets (960 mg) by mouth daily. 90 Tablet 3 4 Active capecitabine (Xeloda) 500 mg tablet Take 2 Tablets (1,000 mg) by mouth 2 times daily with meals for 14 days on, 7 days off. Take along with 4-150mg tablets to equal 1,600mg twice daily. Repeat every 21 days. 56 Tablet 6 4 Active capecitabine (XELODA) 150 mg tablet Take 4 Tablets (600 mg) by mouth 2 times daily with meals for 14 days on, 7 days off. Take along with 2-500mg tablets to equal 1,600mg twice daily. Repeat every 21 days. 112 Tablet 6 4 Active famotidine (PEPCID) 20 mg tablet TAKE 1 TABLET BY MOUTH TWICE A DAY 180 Tablet 1 5 Active famotidine (PEPCID) 20 mg tablet Take 1 Tablet (20 mg) by mouth 2 times daily. 30 Tablet 1 5 12/04/19 25 Discontinued Active Problems No known active problems Encounters Date Type Department Care Team Description 12/03/2024 Refill [facility] Oncology and Hematology - Michael [address] [place] [address] Catrachito Macias MD 11/21/2024 Telephone [facility] Oncology and Hematology - Michael [address] [place] [address] Catrachito Macias MD Medication Review 11/20/2024 Refill [facility] Oncology and Hematology - Michael [address] [place] [address] Catrachito Macias MD 11/18/2024 Abstract [facility] Oncology and Hematology - Michael [address] [facility] [place] [address] Catrachito Macias MD 11/05/2024 10:00 AM CDT Office Visit [facility] Oncology and Hematology - Michael [address] [place] [address] Catrachito Macias MD Cancer, metastatic to liver (CMS/HCC) (Primary Dx) 10/30/2024 Orders Only [facility] Oncology and Hematology - Michael [address] [place] [address] Catrachito Macias MD 10/29/2024 Orders Only [facility] Oncology and Hematology - Michael [address] [place] [address] Catrachito Macias MD 10/28/2024 Orders Only [facility] Oncology and Hematology - Michael [address] [place] [address] Catrachito Macias MD 10/08/2024 External Device Data STL ABSTRACTION Provider, Abstract 09/30/2024 9:00 AM BATTERY ASSEMBLER DRY CELL Office Visit [facility] Oncology and Hematology - Michael [address] [place] [address] Catrachito Macias MD Cancer, metastatic to liver (CMS/HCC) (Primary Dx) 09/30/2024 Orders Only [facility] Oncology and Hematology - Michael [address] [place] [address] Catrachito Macias MD 09/17/2024 External Device Data STL ABSTRACTION Provider, Abstract from Last 3 Months Social History Tobacco [...] Sign Reading Time Taken Comments Blood Pressure 132/80 11/05/2024 10:21 AM CDT Pulse 81 11/05/2024 10:17 AM CDT Temperature 35.6 C (96.1 F) 11/05/2024 10:17 AM CDT Respiratory Rate 15 11/05/2024 10:1 7 AM CDT Oxygen Saturation 90% 11/05/2024 10: 17 AM CDT Inhaled Oxygen Concentration - - Weight 58.4 kg (128 lb 12.8 oz) 025 10:17 AM CDT Height 154.9 cm (5' 1 ) 07/15/2024 9:17 AM BATTERY ASSEMBLER DRY CELL Body Mass Index 24.34 07/15/2024 9:17 AM BATTERY ASSEMBLER DRY CELL Plan of Treatment Upcoming Encounters Date Type Department Care Team (Late st Contact Info) Description 12/23/2024 10:00 AM CDT Office Visit [facility] Oncology and Hematology - Michael [address] [facility] [address] [place] [address] Catrachito Macias MD [address] [facility] [address] [place] [address] Health Maintenance Due Date Last Done Comments DTAP/TDAP/TD VACCINES (1 - Tdap) 1954 PNEUMOCOCCAL VACCINE 50+ YEA RS (1 of 2 - PCV) 1954 ZOSTER VACCINE (1 of 2) 1955 RSV VACCINE (60+ or ) (1 - 1-dose 75+ series) 2011 INFLUENZA VACCINE (#1) 2024 04/28/2020, 2018 COVID-19 Vaccine ( season) 2024 12/22/2021, 06/22/2021, 06/01/2021 Medicare Advantage ([place]) Prev entative Visit/Annual Wellness Visit 08/21/2024 OSTEOPOROSIS SCREENING 08/15/2025 08/15/2020 Procedures Procedure Name Priority Date/Time Associated Diagnosis Comments CT CHEST ABDOMEN PELVIS W CONT Routine 10/29/2024 8:56 AM CDT CBC WITH AUTODIFFERENTIAL Routine 2024 3:50 PM CDT COMPREHENSIVE METABOLIC PANEL Routine 10/28/2024 10:57 AM CDT COMPREHENSIVE METABOLIC PANEL Routine 09/30/2024 1:08 PM BATTERY ASSEMBLER DRY CELL from Last 3 Months Results * CT CHEST ABDOMEN PELVIS W CONT (10/29/2024 8:56 AM CDT) Anatomical Region Laterality Modality Chest Computed Tomogra phy Catrachito Macias MD CT ORDERABLES Final Result * CBC WITH AUTODIFFERENTIAL (10/28/2024 3:50 PM CDT) Blood Catrachito Macias MD HEMATOLOGY ORDERABLES Final Res ult * COMPREHENSIVE METABOLIC PANEL (10/28/2024 10:57 AM CDT) Only the most recent of2 resultswithin the time period is included. Blood Catrachito Macias MD CHEMISTRY ORDERABLES Final Resu lt from Last 3 Months Insurance [facility] [id number] RX [employer] RX Member Subscriber Plan / Payer (Ef fective 2023-Present) Name:Kirti Barr Relation to Subscriber:Self Name:Kirti Barr Payer ID:Not on file Group ID:[id number] Type:RX Medicare Part D Address: [place] Care Teams Director Emergency Relationship Specialty Start Date End Date Cindy Nguyen MD [address] [place] [id number] PCP - General Internal Medicine 06/01/22
--- OUTSIDE RECORDS SUMMARY | 2024-12-16 10:40 | XMS_ITS | Clinical Summary ---
Author Organization [facility] Address Pending sale to [facility] [place] [address] Care Team Providers Care Rn Production Name Role Phone Cindy Nguyen MD Primary Care Provider [phone] Allergies Active Allergy Reactions Criticality Noted Date [...] mouth daily. Indications: Anemia Activ e Multiple Vitamins-[place] als (CENTRUM SILVER 50+WOMEN OR)Indications :Nutritional Support [...] Date Pneumonia 09/04/2023 Chronic hypoxemic respiratory failure ([facility]) 09/28/2021 Overview (09/05/2023): Last Assessment & Plan: On Home O2 Nonrheumatic aortic valve stenosis 09/28/2021 Overview (09/05/2023): Last Assessment & Plan: Has mild aortic stenosis with mean gradient of 10 mmHg on 2D echo done July 2021 Diastolic heart failure seco ndary to hypertension ([facility]) 08/11/2021 Hypoxia 08/11/2021 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 There is no volume overload. 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 No 09/04/2023 Comments No Sex and Gender Information Value Date Recorded Sex Assigned at Not on file Legal Sex Female 12:54 PM [employer] Gender Identity Not on file Sexual Orientation [...] Health Maintenance Due Date Last Done Comments DTaP, Tdap and Td Vaccines (1 - Tdap) 1954 Pneumococcal Vaccine: 50+ Years (1 of 2 - PCV) 1955 Zoster Vaccines (1 of 2) 1986 Annual Medicare Wellness Visit 2001 RSV Immunization or 60+ Years (1 - 1-dose 75+ series) 2011 COVID-19 Vaccine ( season) 2024 08/30/2023, 06/25/2022, 12/22/2021, Additional history exists Meningococcal B Vaccine Aged Out No l onger eligible based on patient's age to complete this topic Meningococcal Vaccine Aged Out No han valeria eligible based on patient's age to complete this topic RSV Immunizations Under 20 Months Aged Out No longer eligible based on patient's age to complete this topic Insurance [facility] Advance Directives * Full Code (Latest Code Status on File) Date Activated Date Inactivated Comments 09/15/2023 9:53 PM 12/08/2023 5:25 PM * Full Code Date Activated Date Inactivated Comments 09/04/2023 4:48 PM 09/07/2023 3:05 PM Care Teams Rn Production Relationship Specialty Start Date End Date Cindy Nguyen MD [address] [place] [address] PCP - General INTERNAL MEDICINE 09/06/23
--- OUTSIDE RECORDS SUMMARY | 2024-12-16 10:40 | XMS_ITS ---
Author Name Interface, [id number] lity Address [address] [facility] [address] [place] [address] Organization [facility] Address [address] [facility] [address] [place] [address] Care Team Providers Care Coiled Coil Inspector Name Role Phone Javier Peck Unavailable Unavailable Allergies and Adverse Reactions Medication/Group Name Reaction Severity Date Penicillins 05/16/2024 Plan Date Type Value 05/16/2024 APPOINTMENT Follow Up 05/16/2024 LABORDER CEA 05/16/2024 LABORDER CBC w/ auto diff 05/16/2024 LABORDER LDH 05/16/2024 LABORDER CMP Reason for Visit Follow Up Encounters Date Name 05/16/2024 Pancreatic cyst 05/16/2024 Pulmonary hypertensi on 05/16/2024 Rectal cancer Diagnostic Results Date Type Test Units Lower Limit Upper Limit Result Flag Comments Status Ordered By Specimen Source Lab Address 05/17 WBC X103/U L 4.0 11.0 5.3 FINAL Javier Peck [facility], [address] [place] [address] 05/17 RBC X106/U L 3.7 5.4 3.88 FINAL Javier Peck [facility], [address] [place] [address] 05/17 HGB G/DL 11.4 15.4 11.6 FINAL Javier Peck [facility], [address] [place] [address] 05/17 HCT % 35.0 47.0 36.9 FINAL Javier Peck [facility], [address] [place] [address] 05/17 MCV FL 81.0 100.0 95 FINAL [facility], [address] [place] [address] 05/17 MCH PG 27.0 34.0 29.9 FINAL [facility], [address] [place] [address] 05/17 MCHC G/DL 30.0 36.0 31.4 FINAL [facility], [address] [place] [address] 05/17 Sybil % % 37.0 77.0 54 FINAL [facility], [address] [place] [address] 05/17 LY % % 23.0 44.0 35 FINAL [facility], [address] [place] [address] 05/17 MO % % 4.0 13.0 9 FINAL [facility], [address] [place] [address] 05/17 EO % % 1.0 6.0 2 FINAL [facility], [address] [place] [address] 05/17 BA % % 0.0 1.0 0 FINAL [facility], [address] [place] [address] 05/17 PLT X103/U L 150.0 450.0 154 FINAL [facility], [address] [place] [address] 05/17 RDW % 12.2 15.2 14 FINAL [facility], [address] [place] [address] 05/17 Sybil # (ANC) X103/U L 1.67 8.47 2.86 FINAL [facility], [address] [place] [address] 05/17 LY # X103/U L 1.03 4.84 1.85 FINAL [facility], [address] [place] [address] 05/17 MO # X103/U L 0.27 0.98 0.48 FINAL [facility], [address] [place] [address] 05/17 EO # X103/U L 0.11 0.55 0.08 Low FINAL [facility], [address] [place] [address] 05/17 BA # X103/U L 0.02 0.1 0.02 FINAL [facility], [address] [place] [address] 05/17 MPV FL 9.4 12.4 10 FINAL [facility], [address] [place] [address] 05/17 IG % % 0.0 0.4 0.2 FINAL [facility], [address] [place] [address] 05/17 IG # X103/U L 0.0 0.04 0.01 FINAL [facility], [address] [place] [address] 05/17 CARCI NOEMB RYONI C ANTIG EN (CEA) - FINAL [facility], [address] [place] [address] 05/17 CEA, mg/dL MG/DL 0.0 5.0 2.56 FINAL [facility], [address] [place] [address] 05/17 LACTI C ACID DEHYD ROGEN ASE (LDH) - FINAL [facility], [address] [place] [address] 05/17 LDH IU/L 100.0 250.0 183.7 FINAL [facility], [address] [place] [address] 05/17 GLUCO SE, PLASM A OR SERUM - FINAL [facility], [address] [place] [address] 05/17 BLOOD UREA NITRO GEN (BUN) - FINAL [facility], [address] [place] [address] 05/17 CREAT ININE , SERUM - FINAL [facility], [address] [place] [address] 05/17 BUN/C reati nine ratio 20 FINAL [facility], [address] [place] [address] 05/17 SODIU M, SERUM - FINAL [facility], [address] [place] [address] 05/17 POTAS SIUM, SERUM - FINAL [facility], [address] [place] [address] 05/17 CHLOR ILENE - FINAL [facility], [address] [place] [address] 05/17 CARBO N DIOXI DE - FINAL [facility], [address] [place] [address] 05/17 CALCI UM, TOTAL - FINAL [facility], [address] [place] [address] 05/17 TOTAL PROTE IN - FINAL [facility], [address] [place] [address] 05/17 ALBUM IN, SERUM - FINAL [facility], [address] [place] [address] 05/17 Globu jo ann G/DL 1.9 3.7 2.6 FINAL [facility], [address] [place] [address] 05/17 A/G ratio 1.4 FINAL [facility], [address] [place] [address] 05/17 BILIR UBIN, TOTAL - FINAL [facility], [address] [place] [address] 05/17 ALKAL INE PHOSP HATAS E - FINAL [facility], [address] [place] [address] 05/17 ASPAR BUSTILLOS AMINO TRANS FERAS E, SERUM - FINAL [facility], [address] [place] [address] 05/17 BRANDON NE AMINO TRANS FERAS E, SERUM - FINAL [facility], [address] [place] [address] 05/17 GFR estim ate 50 Low FINAL [facility], [address] [place] [address] 05/17 GFR Afric an Ameri can, estim ated 61 FINAL [facility], [address] [place] [address] 05/17 Anion gap - FINAL [facility], [address] [place] [address] 05/17 BUN MG/DL 0.0 23.0 21.5 FINAL [facility], [address] [place] [address] 05/17 Creat inine MG/DL 0.6 1.1 1.09 FINAL [facility], [address] [place] [address] 05/17 Sodiu m MMOL/L 134.0 145.0 144 FINAL [facility], [address] [place] [address] 05/17 Potas sium MMOL/L 3.6 5.2 4.2 FINAL [facility], [address] [place] [address] 05/17 Chlor ilene MMOL/L 96.0 108.0 108 FINAL [facility], [address] [place] [address] 05/17 CO2 MMOL/L 21.0 29.0 31 High FINAL [facility], [address] [place] [address] 05/17 Total prote in G/DL 6.2 8.1 6.1 Low FINAL [facility], [address] [facility] [address] 05/17 Album in G/DL 3.5 5.2 3.6 FINAL [facility], [address] [facility] [address] 05/17 Bilir ubin, total MG/DL 0.0 1.0 0.5 FINAL [facility], [address] [facility] [address] 05/17 Alkal ine phosp hatas e IU/L 33.0 130.0 70 FINAL [facility], [address] [facility] [address] 05/17 AST/S GOT IU/L 14.0 36.0 23 FINAL [facility], [address] [facility] [address] 05/17 ALT/S GPT IU/L 9.0 52.0 11 FINAL [facility], [address] [facility] [address] 05/17 Anion gap, mmol/ L MMOL/L 8.0 16.0 9.24 FINAL [facility], [address] [facility] [address] 05/17 Gluco se MG/DL 70.0 105.0 163 High FINAL [facility], [address] [facility] [address] 05/17 Calci um MG/DL 8.2 10.4 9.4 FINAL [facility], [address] [facility] [address] Medications Date Name Route Dose Frequency Instructions Start Date End Date Status Folic Acid Oral daily a ctive Losartan Oral 2 in am, 1 in pm = 75mg daily active Hydrocodone-Enio taminophen Oral 5 mg-325 mg daily active Lidocaine Topical Cream 4 % prn active Vitamin [id number] Acid Oral 500 mcg-400 mcg daily active [...]
--- OUTSIDE RECORDS SUMMARY | 2024-12-16 10:40 | XMS_ITS ---
Author Name Interface, [id number] lity Address [address] [facility] [address] [place] [address] Organization [facility] Address [address] [facility] [address] [place] [address] Care Team Providers Care Vocational Coordinator Name Role Phone Javier Peck Unavailable Unavailable [...] L 4.0 11.0 5.3 FINAL Javier Peck [facility], [address] [place] [address] 05/17 RBC X106/U L 3.7 5.4 3.88 FINAL Javier Peck [facility], [address] [place] [address] 05/17 HGB G/DL 11.4 15.4 11.6 FINAL Javier Peck [facility], [address] [place] [address] 05/17 HCT % 35.0 47.0 36.9 FINAL Javier Peck [facility], [address] [place] [address] 05/17 MCV FL 81.0 100.0 95 FINAL [facility], [address] [place] [address] 05/17 MCH PG 27.0 34.0 29.9 FINAL [facility], [address] [place] [address] 05/17 MCHC G/DL 30.0 36.0 31.4 FINAL [facility], [address] [place] [address] 05/17 Sybil % % 37.0 77.0 54 FINAL [facility], [address] [place] [address] 05/17 LY % % 23.0 44.0 35 FINAL [facility], [address] [place] [address] 05/17 MO % % 4.0 13.0 9 FINAL [facility], [address] [place] [address] 05/17 EO % % 1.0 6.0 2 FINAL [facility], [address] [place] [address] 05/17 BA % % 0.0 1.[address] [facility], [address] [place] [address] 05/17 PLT X103/U L 150.0 450.0 154 FINAL [facility], [address] [place] [address] 05/17 RDW % 12.2 15.2 14 FINAL [facility], [address] [place] [address] 05/17 Sybil # (ANC) X103/U L 1.[address] [facility], [address] [place] [address] 05/17 LY # X103/U L 1.03 4.84 1.85 FINAL [facility], [address] [place] [address] 05/17 MO # X103/U L 0.27 0.98 0.48 FINAL [facility], [address] [place] [address] 05/17 EO # X103/U L 0.[address] 0[address] [facility], [address] [place] [address] 05/17 BA # X103/U L 0.02 0.1 0.02 FINAL [facility], [address] [place] [address] 05/17 MPV FL 9.[address] 12.[address] [facility], [address] [place] [address] 05/17 IG % % 0.0 0.4 0.2 FINAL [facility], [address] [place] [address] 05/17 IG # X103/U L 0.0 0.04 0.01 FINAL [facility], [address] [place] [address] 05/17 CARCI NOEMB RYONI C ANTIG EN (CEA) - FINAL [facility], [address] [place] [address] 05/17 CEA, mg/dL MG/DL 0.0 5.0 2.56 FINAL [facility], [address] [place] [address] 05/17 LACTI C ACID DEHYD ROGEN ASE (LDH) - FINAL [facility], [address] [place] [address] 05/17 LDH IU/L 100.[address] [facility], [address] [place] [address] 05/17 GLUCO SE, PLASM A OR SERUM - FINAL [facility], [address] [place] [address] 05/17 BLOOD UREA NITRO GEN (BUN) - FINAL [facility], [address] [place] [address] 05/17 CREAT ININE , SERUM - FINAL [facility], [address] [place] [address] 05/17 BUN/C reati nine ratio 20 FINAL [facility], [address] [place] [address] 05/17 SODIU M, SERUM - FINAL [facility], [address] [place] [address] 05/17 POTAS SIUM, SERUM - FINAL [facility], [address] [place] [address] 05/17 CHLOR ILENE - FINAL [facility], [address] [place] [address] 05/17 CARBO N DIOXI DE - FINAL [facility], [address] [place] [address] 05/17 CALCI UM, TOTAL - FINAL [facility], [address] [place] [address] 05/17 TOTAL PROTE IN - FINAL [facility], [address] [place] [address] 05/17 ALBUM IN, SERUM - FINAL [facility], [address] [place] [address] 05/17 Globu jo ann G/DL 1.9 3.7 2.6 FINAL [facility], [address] [place] [address] 05/17 A/G ratio 1.[address] [facility], [address] [place] [address] 05/17 BILIR UBIN, TOTAL - FINAL [facility], [address] [place] [address] 05/17 ALKAL INE PHOSP HATAS E - FINAL [facility], [address] [place] [address] 05/17 ASPAR BUSTILLOS AMINO TRANS FERAS E, SERUM - FINAL [facility], [address] [place] [address] 05/17 BRANDON NE AMINO TRANS FERAS E, SERUM - FINAL [facility], [address] [place] [address] 05/17 GFR estim ate 50 Low FINAL [facility], [address] [place] [address] 05/17 GFR Afric an Ameri can, estim ated 61 FINAL [facility], [address] [place] [address] 05/17 Anion gap - FINAL [facility], [address] [place] [address] 05/17 BUN MG/DL 0.0 23.0 21.5 FINAL [facility], [address] [place] [address] 05/17 Creat inine MG/DL 0.6 1.1 1.09 FINAL [facility], [address] [place] [address] 05/17 Sodiu m MMOL/L 134.0 145.0 144 FINAL [facility], [address] [place] [address] 05/17 Potas sium MMOL/L 3.6 5.2 4.2 FINAL [facility], [address] [place] [address] 05/17 Chlor ilene MMOL/L 96.0 108.0 108 FINAL [facility], [address] [place] [address] 05/17 CO2 MMOL/L 21.0 29.0 31 High FINAL [facility], [address] [place] [address] 05/17 Total prote in G/DL 6.2 8.1 6.1 Low FINAL [facility], [address] [facility] [address] 05/17 Album in G/DL 3.5 5.2 3.6 FINAL [facility], [address] [facility] [address] 05/17 Bilir ubin, total MG/DL 0.0 1.0 0.5 FINAL [facility], [address] [facility] [address] 05/17 Alkal ine phosp hatas e IU/L 33.0 130.0 70 FINAL [facility], [address] [facility] [address] 05/17 AST/S GOT IU/L 14.0 36.0 23 FINAL [facility], [address] [facility] [address] 05/17 ALT/S GPT IU/L 9.0 52.0 11 FINAL [facility], [address] [facility] [address] 05/17 Anion gap, mmol/ L MMOL/L 8.[address] [facility], [address] [facility] [address] 05/17 Gluco se MG/DL 70.0 105.[address] [facility], [address] [facility] [address] 05/17 Calci um MG/DL 8.[address] [facility], [address] [facility] [address] Medications Date Name Route Dose Frequency Instructions Start Date End Date Status Folic Acid Oral daily a ctive Losartan Oral 2 in am, 1 in pm = 75mg daily active Hydrocodone-Enio taminophen Oral 5 mg-325 mg daily active Lidocaine Topical Cream 4 % prn active Vitamin [id number] Acid Oral 500 mcg-400 mcg daily active [...]
--- OUTSIDE RECORDS SUMMARY | 2024-12-16 10:41 | XMS_ITS | CCD ---
Author Name Interface, [id number] lity Address [address] [facility] [address] [place] [address] Organization [facility] [email or web address] Address [address] [facility] [address] [place] [address] Care Team Providers Care Manager Msw Name Role Phone Javier Peck Unavailable Unavailable Care Plan Reason for Visit Encounters Functional Status Diagnostic Results Medications Problems Procedures Social History Vital Signs
--- OUTSIDE RECORDS SUMMARY | 2024-12-16 10:41 | XMS_ITS | CCD ---
Author Name Interface, [id number] lity Address [address] [address] [facility] [address] [place] [address] Organization [facility] [employer] Address [address] [facility] [address] [place] [address] Care Team Providers Care Executive Sous Chef Name Role Phone Javier Peck Unavailable Unavailable Care Plan Reason for Visit Encounters Functional Status Diagnostic Results Medications Problems Procedures Social History Vital Signs
[2024-12-17 09:57] LABS: CA 19-9 <3 U/mL (<34)
== END 2024-12-16 09:43 | disposition home or self-care (01) ==
LOC: ANHLAB 09:43
PROVIDERS: PCP Internal Medicine; Visit Provider Internal Medicine Hematology & Oncology
DX: C78.7 Secondary malignant neoplasm of liver and intrahepatic bile duct (principal)
CPT/HCPCS: 36415; 80053; 85025; 86301

== ENCOUNTER 2025-01-29 07:57 | Outpatient (CLI) | payer MEDICARE, SELFPAY ==
--- NOTE | ~2025-01-29 | CT_ITS ---
Clinical Indication: Cancer metastatic to liver CT Scan of the Chest, Abdomen, and Pelvis with Contrast: Technique: Contiguous sections were acquired throughout the chest, abdomen, and pelvis after intraven ous administration of 100 cc of Omnipaque 350. Dose reduction technique was used on this scan by uti lizing automated exposure control and iterative reconstruction technique. The dose-length product (DL P) was 271.44 mGy-cm. Comparison: 10/29/2024 Findings: There is no evidence of any significant mediastinal, hilar or axillary lymphadenopathy. The mediastin al soft tissues appear normal. No aortic aneurysm or dissection. No pulmonary embolus seen. There is no evidence of pleural or pericardial effusion. The lungs are clear, aside from right lower lobe atelectasis or scarring. Numerous hepatic hypodense metastatic lesions are present, increased in size and number from prior ex am. Largest lesion is probably towards the dome of the liver measuring 3.5 cm in diameter. Hypodense mass the pancreatic tail measuring 3 cm in diameter is present, suspicious for pancreatic adenocarcin hedy, probably mildly increased. Cholelithiasis noted. The spleen, adrenals and kidneys are within normal limits. No evidence of aortic aneurysm. No lymph adenopathy. No bowel obstruction or bowel wall thickening. Left lower quadrant ostomy present. Urinary bladder is unremarkable. Stable suspected enhancing mass in the presacral soft tissues. Small amount of abdominopelvic ascites present. Impression: Significant interval progression of hepatic metastatic disease, with significant interval increase in size and number of metastatic lesions. 3 cm pancreatic tail mass, suspicious for pancreatic adenocarcinoma, probably mildly increased from p rior exam. Stable suspected enhancing mass in the presacral soft tissues, suspicious for metastatic/neoplastic l esion to prove otherwise. Small amount of abdominopelvic ascites. Cholelithiasis. Reviewed, dictated and finalized at location M. Impression: Significant interval progression of hepatic metastatic disease, with significan t interval increase in size and number of metastatic lesions. 3 cm pancreatic tail mass, suspicious for pancreatic adenocarcinoma, probably m ildly increased from prior exam. Stable suspected enhancing mass in the presacral soft tissues, suspicious for m etastatic/neoplastic lesion to prove otherwise. Small amount of abdominopelvic ascites. Cholelithiasis.
--- OUTSIDE RECORDS SUMMARY | 2025-01-29 08:07 | XMS_ITS ---
Author Name Interface, [id number] lity Address [address] [facility] [address] [place] [address] Organization [facility] Address [address] [facility] [address] [place] [address] Care Team Providers Care Gaming Manager Name Role Phone Javier Peck Unavailable Unavailable [...] L 4.0 11.0 5.3 FINAL Javier Peck [facility], [address] [place] [address] 05/17 RBC X106/U L 3.7 5.4 3.88 FINAL Javier Peck [facility], [address] [place] [address] 05/17 HGB G/DL 11.4 15.4 11.6 FINAL Javier Peck [facility], [address] [place] [address] 05/17 HCT % 35.0 47.0 36.9 FINAL Javier Peck [facility], [address] [place] [address] 05/17 MCV FL 81.0 100.0 95 FINAL [facility], [address] [place] [address] 05/17 MCH PG 27.0 34.0 29.9 FINAL [facility], [address] [place] [address] 05/17 MCHC G/DL 30.0 36.0 31.4 FINAL [facility], [address] [place] [address] 05/17 Sybil % % 37.0 77.0 54 FINAL [facility], [address] [place] [address] 05/17 LY % % 23.0 44.0 35 FINAL [facility], [address] [place] [address] 05/17 MO % % 4.0 13.0 9 FINAL [facility], [address] [place] [address] 05/17 EO % % 1.0 6.0 2 FINAL [facility], [address] [place] [address] 05/17 BA % % 0.0 1.0 0 FINAL [facility], [address] [place] [address] 05/17 PLT X103/U L 150.0 450.0 154 FINAL [facility], [address] [place] [address] 05/17 RDW % 12.2 15.2 14 FINAL [facility], [address] [place] [address] 05/17 Sybil # (ANC) X103/U L 1.67 8.47 2.86 FINAL [facility], [address] [place] [address] 05/17 LY # X103/U L 1.03 4.84 1.85 FINAL [facility], [address] [place] [address] 05/17 MO # X103/U L 0.27 0.98 0.48 FINAL [facility], [address] [place] [address] 05/17 EO # X103/U L 0.11 0.55 0.08 Low FINAL [facility], [address] [place] [address] 05/17 BA # X103/U L 0.02 0.1 0.02 FINAL [facility], [address] [place] [address] 05/17 MPV FL 9.4 12.4 10 FINAL [facility], [address] [place] [address] 05/17 IG % % 0.0 0.4 0.2 FINAL [facility], [address] [place] [address] 05/17 IG # X103/U L 0.0 0.04 0.01 FINAL [facility], [address] [place] [address] 05/17 CARCI NOEMB RYONI C ANTIG EN (CEA) - FINAL [facility], [address] [place] [address] 05/17 CEA, mg/dL MG/DL 0.0 5.0 2.56 FINAL [facility], [address] [place] [address] 05/17 LACTI C ACID DEHYD ROGEN ASE (LDH) - FINAL [facility], [address] [place] [address] 05/17 LDH IU/L 100.0 250.0 183.7 FINAL [facility], [address] [place] [address] 05/17 GLUCO SE, PLASM A OR SERUM - FINAL [facility], [address] [place] [address] 05/17 BLOOD UREA NITRO GEN (BUN) - FINAL [facility], [address] [place] [address] 05/17 CREAT ININE , SERUM - FINAL [facility], [address] [place] [address] 05/17 BUN/C reati nine ratio 20 FINAL [facility], [address] [place] [address] 05/17 SODIU M, SERUM - FINAL [facility], [address] [place] [address] 05/17 POTAS SIUM, SERUM - FINAL [facility], [address] [place] [address] 05/17 CHLOR ILENE - FINAL [facility], [address] [place] [address] 05/17 CARBO N DIOXI DE - FINAL [facility], [address] [place] [address] 05/17 CALCI UM, TOTAL - FINAL [facility], [address] [place] [address] 05/17 TOTAL PROTE IN - FINAL [facility], [address] [place] [address] 05/17 ALBUM IN, SERUM - FINAL [facility], [address] [place] [address] 05/17 Globu jo ann G/DL 1.9 3.7 2.6 FINAL [facility], [address] [place] [address] 05/17 A/G ratio 1.4 FINAL [facility], [address] [place] [address] 05/17 BILIR UBIN, TOTAL - FINAL [facility], [address] [place] [address] 05/17 ALKAL INE PHOSP HATAS E - FINAL [facility], [address] [place] [address] 05/17 ASPAR BUSTILLOS AMINO TRANS FERAS E, SERUM - FINAL [facility], [address] [place] [address] 05/17 BRANDON NE AMINO TRANS FERAS E, SERUM - FINAL [facility], [address] [place] [address] 05/17 GFR estim ate 50 Low FINAL [facility], [address] [place] [address] 05/17 GFR Afric an Ameri can, estim ated 61 FINAL [facility], [address] [place] [address] 05/17 Anion gap - FINAL [facility], [address] [place] [address] 05/17 BUN MG/DL 0.0 23.0 21.5 FINAL [facility], [address] [place] [address] 05/17 Creat inine MG/DL 0.6 1.1 1.09 FINAL [facility], [address] [place] [address] 05/17 Sodiu m MMOL/L 134.0 145.0 144 FINAL [facility], [address] [place] [address] 05/17 Potas sium MMOL/L 3.6 5.2 4.2 FINAL [facility], [address] [place] [address] 05/17 Chlor ilene MMOL/L 96.0 108.0 108 FINAL [facility], [address] [place] [address] 05/17 CO2 MMOL/L 21.0 29.0 31 High FINAL [facility], [address] [place] [address] 05/17 Total prote in G/DL 6.2 8.1 6.1 Low FINAL [facility], [address] [facility] [address] 05/17 Album in G/DL 3.5 5.2 3.6 FINAL [facility], [address] [facility] [address] 05/17 Bilir ubin, total MG/DL 0.0 1.0 0.5 FINAL [facility], [address] [facility] [address] 05/17 Alkal ine phosp hatas e IU/L 33.0 130.0 70 FINAL [facility], [address] [facility] [address] 05/17 AST/S GOT IU/L 14.0 36.0 23 FINAL [facility], [address] [facility] [address] 05/17 ALT/S GPT IU/L 9.0 52.0 11 FINAL [facility], [address] [facility] [address] 05/17 Anion gap, mmol/ L MMOL/L 8.0 16.0 9.24 FINAL [facility], [address] [facility] [address] 05/17 Gluco se MG/DL 70.0 105.0 163 High FINAL [facility], [address] [facility] [address] 05/17 Calci um MG/DL 8.2 10.4 9.4 FINAL [facility], [address] [facility] [address] Medications Date Name Route Dose Frequency Instructions Start Date End Date Status Folic Acid Oral daily a ctive Losartan Oral 2 in am, 1 in pm = 75mg daily active Hydrocodone-Enio taminophen Oral 5 mg-325 mg daily active Lidocaine Topical Cream 4 % prn active Vitamin [id number] Acid Oral 500 mcg-400 mcg daily active [...]
--- OUTSIDE RECORDS SUMMARY | 2025-01-29 08:07 | XMS_ITS | Clinical Summary ---
Author Organization [facility] Address [address] [place] [address] Care Team Providers Care Data Deliverables Manager Name Role Phone Cindy Nguyen MD Primary Care Provider [phone]- [phone] Allergies Active Allergy Reactions Criticality Noted Date [...] 21 days. 112 Tablet 6 08/15/2024 Active famotidine (PEPCID) 20 mg tablet TAKE 1 TABLET BY MOUTH TWICE A DAY 180 Tablet 1 12/03/2024 Active Active Problems No known active problems Encounters Date Type Department Care Team Description 01/09/2025 External Device Data STL ABSTRACTION Provider, Abstract 01/08/2025 External Device Data ST[facility] ABSTRACTION Provider, Abstract 01/07/2025 External Device Data ST[facility] ABSTRACTION Provider, Abstract 12/23/2024 10:00 AM CDT Office Visit [facility] - [address] [place] [address] Catrachito Macias MD Cancer, metastatic to liver (CMS/HCC) (Primary Dx) 12/17/2024 Orders Only [facility] - [address] [place] [address] Catrachito Macias MD 12/03/2024 Refill [facility] - [address] [place] [address] Catrachito Macias MD 11/21/2024 Telephone [facility] - [address] [place] [address] Catrachito Macias MD Medication Review 11/20/2024 Refill [facility] - [place] [address] [place] [address] Catrachito Macias MD 11/18/2024 Abstract [facility] - [address] [place] [address] Catrachito Macias MD 11/05/2024 10:00 AM CDT Office Visit [facility] - [address] [place] [address] Catrachito Macias MD Cancer, metastatic to liver (CMS/HCC) (Primary Dx) 10/30/2024 Orders Only [facility] - [address] [place] [address] Catrachito Macias MD 10/29/2024 Orders Only [facility] - [place] [address] [place] [address] Catrachito Macias MD from Last 3 Months [...] Sign Reading Time Taken Comments Blood Pressure 127/77 12/23/2024 10:11 AM CDT Pulse 82 12/23/2024 10:11 AM CDT Temperature 36.5 C (97.7 F) 12/23/2024 10:11 AM CDT Respiratory Rate 15 12/23/2024 10:11 AM CDT Oxygen Saturation 95% 12/23/2024 10:11 AM CDT Inhaled Oxygen Concentration - - Weight 58.2 kg (128 lb 3.2 oz) 12/23/2024 10:11 AM CDT Height 154.9 cm (5' 1) 07/15/2024 9:17 AM CORRECTIONAL OFFICER CAPTAIN Body Mass Index 24.22 07/15/2024 9:17 AM CORRECTIONAL OFFICER CAPTAIN Plan of Treatment Upcoming Encounters Date Type Department Care Team (Late st Contact Info) Description 02/05/2025 9:30 AM CDT Office Visit [facility] - [place] [address] [place] [address] Catrachito Macias MD [address] [facility] [address] [place] [address] Health Maintenance Due Date Last Done Comments DTAP/TDAP/TD VACCINES (1 - Tdap) 1954 PNEUMOCOCCAL VACCINE 50+ YEA RS (1 of 2 - PCV) 1955 ZOSTER VACCINE (1 of 2) 1955 RSV VACCINE (60+ or ) (1 - 1-dose 75+ series) 2011 INFLUENZA VACCINE (#1) 2024 04/28/2020, 2018 COVID-19 Vaccine ( season) 2024 12/22/2021, 06/22/2021, 06/01/2021 OSTEOPOROSIS SCREENING 08/15/2025 08/15/2020 Procedures Procedure Name Priority Date/Time Associated Diagnosis Comments CANCER ANTIGEN 19-9 Routine 12/16/2024 1 2:45 PM CDT COMPREHENSIVE METABOLIC PANEL Routine 12/16/2024 11:[address] CHEST ABDOMEN PELVIS W CONT Routine 10/29/2024 8:56 AM CDT from Last 3 Months Results * CANCER ANTIGEN 19-9 (12/16/2024 12:45 PM CDT) Blood Catrachito Macias MD CHEMISTRY ORDERABLES Final Resu lt * COMPREHENSIVE METABOLIC PANEL (12/16/2024 11:42 AM CDT) Blood us Catrachito Macias MD CHEMISTRY ORDERABLES Final Resu lt * CT CHEST ABDOMEN PELVIS W CONT (10/29/2024 8:56 AM CDT) Anatomical Region Laterality Modality Chest Computed Tomogra phy us Catrachito Macias MD CT ORDERABLES Final Result from Last 3 Months Insurance [facility] [id number] RX [employer] RX Member Subscriber Plan / Payer (Ef fective 2023-Present) Name:Kirti Barr Relation to Subscriber:Self Name:Kirti Barr Payer ID:Not on file Group ID:[id number] Type:RX Medicare Part D Address: [place] Care Teams Data Deliverables Manager Relationship Specialty Start Date End Date Cindy Nguyen MD PCP - General Internal Medicine 06/01/22
--- OUTSIDE RECORDS SUMMARY | 2025-01-29 08:07 | XMS_ITS | CCD ---
Author Name Interface, [id number] lity Address [address] [facility] [address] [place] [address] Organization [facility] Address [address] [facility] [address] [place] [address] Care Team Providers Care Food Critic Name Role Phone Javier Peck Unavailable Unavailable [...] [facility], [address] [place] [address] 05/17 A/G ratio 1.4 FINAL [facility], [address] [place] [address] 05/17 ASPAR APOLLO AMINO TRANS FERAS E, SERUM - FINAL [facility], [address] [facility] [address] 05/17 Gluco se MG/DL 70.0 105.0 163 High FINAL [facility], [address] [facility] [address] 05/17 Globu jo ann G/DL 1.9 3.7 2.6 FINAL [facility], [address] [facility] [address] 05/17 Anion gap, mmol/ L MMOL/L 8.0 16.0 9.24 FINAL [facility], [address] [facility] [address] 05/17 Total prote in G/DL 6.2 8.1 6.1 Low FINAL [facility], [address] [facility] [address] 05/17 CREAT ININE , SERUM - FINAL [facility], [address] [facility] [address] 05/17 AST/S GOT IU/L 14.0 36.0 23 FINAL [facility], [address] [place] [address] 05/17 GLUCO SE, PLASM A OR SERUM - FINAL [facility], [address] [facility] [address] 05/17 BRANDON ZARATE AMINO TRANS FERAS E, SERUM - FINAL [facility], [address] [place] [address] 05/17 GFR Afric an Ameri can, estim ated 61 FINAL [facility], [address] [place] [address] [place] [address] 05/17 Bilir ubin, total MG/DL 0.0 1.0 0.5 FINAL [facility], [address] [place] [address] [place] [address] 05/17 TOTAL PROTE IN - FINAL [facility], [address] [place] [address] 05/17 Sodiu m MMOL/L 134.0 145.0 144 FINAL [facility], [address] [place] [address] 05/17 ALBUM IN, SERUM - FINAL [facility], [address] [place] [address] [place] [address] 05/17 BLOOD UREA NITRO GEN (BUN) - FINAL [facility], [address] [place] [address] 05/17 CALCI UM, TOTAL - FINAL [facility], [address] [place] [address] 05/17 Alkal ine phosp hatas e IU/L 33.0 130.0 70 FINAL [facility], [address] [place] [address] 05/17 GFR estim ate 50 Low FINAL [facility], [address] [place] [address] 05/17 Calci um MG/DL 8.2 10.4 9.4 FINAL [facility], [address] [place] [address] [place] [address] 05/17 Anion gap - FINAL [facility], [address] [place] [address] [place] [address] 05/17 CO2 MMOL/L 21.0 29.0 31 High FINAL [facility], [address] [place] [address] [place] [address] 05/17 BILIR UBIN, TOTAL - FINAL [facility], [address] [place] [address] [place] [address] 05/17 ALKAL INE PHOSP HATAS E - FINAL [facility], [address] [place] [address] 05/17 Chlor ilene MMOL/L 96.0 108.0 108 FINAL [facility], [address] [place] [address] 05/17 BUN MG/DL 0.0 23.0 21.5 FINAL [facility], [address] [place] [address] 05/17 CHELSY Chun, SERUM - FINAL [facility], [address] [place] [address] 05/17 Creat inine MG/DL 0.6 1.1 1.09 FINAL [facility], [address] [place] [address] 05/17 Album in G/DL 3.5 5.2 3.6 FINAL [facility], [address] [address] 05/17 POTAS SIUM, SERUM - FINAL [facility], [address] [place] [address] 05/17 BUN/C reati nine ratio 20 FINAL [facility], [address] [place] [address] 05/17 CARBO N DIOXI DE - FINAL [facility], [address] [place] [address] 05/17 Potas sium MMOL/L 3.6 5.2 4.2 FINAL [facility], [address] [place] [address] 05/17 CHLOR ILENE - FINAL [facility], [address] [place] [address] 05/17 Sybil # (ANC) X103/U L 1.67 8.47 2.86 FINAL [facility], [address] [place] [address] 05/17 MCV FL 81.0 100.0 95 FINAL [facility], [address] [place] [address] 05/17 MO # X103/U L 0.27 0.98 0.48 FINAL Javier Zalzaleh [facility], [address] [place] [address] 05/17 IG % % 0.0 0.4 0.2 FINAL [facility], [address] [place] [address] 05/17 MO % % 4.0 13.0 9 FINAL [facility], [address] [place] [address] [place] [address] 05/17 IG # X103/U L 0.0 0.04 0.01 FINAL [facility], [address] [place] [address] 05/17 EO # X103/U L 0.11 0.55 0.08 Low FINAL [facility], [address] [place] [address] [place] [address] 05/17 EO % % 1.0 6.0 2 FINAL [facility], [address] [place] [address] 05/17 RBC X106/U L 3.7 5.4 3.88 FINAL [facility], [address] [place] [address] [place] [address] 05/17 MPV FL 9.4 12.4 10 FINAL [facility], [address] [place] [address] 05/17 BA % % 0.0 1.0 0 FINAL [facility], [address] [place] [address] [place] [address] 05/17 BA # X103/U L 0.02 0.1 0.02 FINAL [facility], [address] [place] [address] [place] [address] 05/17 HGB G/DL 11.4 15.4 11.6 FINAL [facility], [address] [place] [address] [place] [address] 05/17 MCHC G/DL 30.0 36.0 31.4 FINAL [facility], [address] [place] [address] [place] [address] 05/17 HCT % 35.0 47.0 36.9 FINAL [facility], [address] [place] [address] [place] [address] 05/17 WBC X103/U L 4.0 11.0 5.3 FINAL [facility], [address] [place] [address] [place] [address] 05/17 PLT X103/U L 150.0 450.0 154 FINAL [facility], [address] [place] [address] [place] [address] 05/17 RDW % 12.2 15.2 14 FINAL [facility], [address] [place] [address] 05/17 LY % % 23.0 44.0 35 FINAL [facility], [address] [place] [address] 05/17 MCH PG 27.0 34.0 29.9 FINAL [facility], [address] [place] [address] 05/17 LY # X103/U L 1.03 4.84 1.85 FINAL [facility], [address] [place] [address] [place] [address] 05/17 Sybil % % 37.0 77.0 54 FINAL [facility], [address] [place] [address] 05/17 CARCI NOEMB RYONI C ANTIG EN (CEA) - FINAL [facility], [address] [place] [address] 05/17 CEA, mg/dL MG/DL 0.0 5.0 2.56 FINAL [facility], [address] [place] [address] 05/17 LDH IU/L 100.0 250.0 183.7 FINAL [facility], [address] [place] [address] 05/17 LACTI C ACID DEHYD ROGEN ASE (LDH) - FINAL [facility], [address] [facility] [address] Medications Date Name Route Dose Frequency Instructions Start Date End Date Status Methotrexate Oral 6.0 weekly, on stopped Pantoprazole (Sodium ) Oral Delayed Release daily inactive Vitamin Q69-Hxnng Ac id Oral 500 mcg-400 mcg daily [...]
--- OUTSIDE RECORDS SUMMARY | 2025-01-29 08:07 | XMS_ITS ---
Author Name Interface, [id number] lity Address [address] [facility] [address] [place] [address] Organization [facility] Address [address] [facility] [address] [place] [address] Care Team Providers Care Pension Fund Manager Name Role Phone Javier Peck Unavailable [...] L 4.0 11.0 5.3 FINAL Javier Peck [facility], [address] [place] [address] 05/17 RBC X106/U L 3.7 5.4 3.88 FINAL Javier Peck [facility], [address] [place] [address] 05/17 HGB G/DL 11.4 15.4 11.6 FINAL Javier Peck [facility], [address] [place] [address] 05/17 HCT % 35.0 47.0 36.9 FINAL Javier Peck [facility], [address] [place] [address] 05/17 MCV FL 81.0 100.0 95 FINAL [facility], [address] [place] [address] 05/17 MCH PG 27.0 34.0 29.9 FINAL [facility], [address] [place] [address] 05/17 MCHC G/DL 30.0 36.0 31.4 FINAL [facility], [address] [place] [address] 05/17 Sybil % % 37.0 77.0 54 FINAL [facility], [address] [place] [address] 05/17 LY % % 23.0 44.0 35 FINAL [facility], [address] [place] [address] 05/17 MO % % 4.0 13.0 9 FINAL [facility], [address] [place] [address] 05/17 EO % % 1.0 6.0 2 FINAL [facility], [address] [place] [address] 05/17 BA % % 0.0 1.0 0 FINAL [facility], [address] [place] [address] 05/17 PLT X103/U L 150.0 450.0 154 FINAL [facility], [address] [place] [address] 05/17 RDW % 12.2 15.2 14 FINAL [facility], [address] [place] [address] 05/17 Sybil # (ANC) X103/U L 1.67 8.47 2.86 FINAL [facility], [address] [place] [address] 05/17 LY # X103/U L 1.03 4.84 1.85 FINAL [facility], [address] [place] [address] 05/17 MO # X103/U L 0.27 0.98 0.48 FINAL [facility], [address] [place] [address] 05/17 EO # X103/U L 0.11 0.55 0.08 Low FINAL [facility], [address] [place] [address] 05/17 BA # X103/U L 0.02 0.1 0.02 FINAL [facility], [address] [place] [address] 05/17 MPV FL 9.4 12.4 10 FINAL [facility], [address] [place] [address] 05/17 IG % % 0.0 0.4 0.2 FINAL [facility], [address] [place] [address] 05/17 IG # X103/U L 0.0 0.04 0.01 FINAL [facility], [address] [place] [address] 05/17 CARCI NOEMB RYONI C ANTIG EN (CEA) - FINAL [facility], [address] [place] [address] 05/17 CEA, mg/dL MG/DL 0.0 5.0 2.56 FINAL [facility], [address] [place] [address] 05/17 LACTI C ACID DEHYD ROGEN ASE (LDH) - FINAL [facility], [address] [place] [address] 05/17 LDH IU/L 100.0 250.0 183.7 FINAL [facility], [address] [place] [address] 05/17 GLUCO SE, PLASM A OR SERUM - FINAL [facility], [address] [place] [address] 05/17 BLOOD UREA NITRO GEN (BUN) - FINAL [facility], [address] [place] [address] 05/17 CREAT ININE , SERUM - FINAL [facility], [address] [place] [address] 05/17 BUN/C reati nine ratio 20 FINAL [facility], [address] [place] [address] 05/17 SODIU M, SERUM - FINAL [facility], [address] [place] [address] 05/17 POTAS SIUM, SERUM - FINAL [facility], [address] [place] [address] 05/17 CHLOR ILENE - FINAL [facility], [address] [place] [address] 05/17 CARBO N DIOXI DE - FINAL [facility], [address] [place] [address] 05/17 CALCI UM, TOTAL - FINAL [facility], [address] [place] [address] 05/17 TOTAL PROTE IN - FINAL [facility], [address] [place] [address] 05/17 ALBUM IN, SERUM - FINAL [facility], [address] [place] [address] 05/17 Globu jo ann G/DL 1.9 3.7 2.6 FINAL [facility], [address] [place] [address] 05/17 A/G ratio 1.4 FINAL [facility], [address] [place] [address] 05/17 BILIR UBIN, TOTAL - FINAL [facility], [address] [place] [address] 05/17 ALKAL INE PHOSP HATAS E - FINAL [facility], [address] [place] [address] 05/17 ASPAR BUSTILLOS AMINO TRANS FERAS E, SERUM - FINAL [facility], [address] [place] [address] 05/17 BRANDON NE AMINO TRANS FERAS E, SERUM - FINAL [facility], [address] [place] [address] 05/17 GFR estim ate 50 Low FINAL [facility], [address] [place] [address] 05/17 GFR Afric an Ameri can, estim ated 61 FINAL [facility], [address] [place] [address] 05/17 Anion gap - FINAL [facility], [address] [place] [address] 05/17 BUN MG/DL 0.0 23.0 21.5 FINAL [facility], [address] [place] [address] 05/17 Creat inine MG/DL 0.6 1.1 1.09 FINAL [facility], [address] [place] [address] 05/17 Sodiu m MMOL/L 134.0 145.0 144 FINAL [facility], [address] [place] [address] 05/17 Potas sium MMOL/L 3.6 5.2 4.2 FINAL [facility], [address] [place] [address] 05/17 Chlor ilene MMOL/L 96.0 108.0 108 FINAL [facility], [address] [place] [address] 05/17 CO2 MMOL/L 21.0 29.0 31 High FINAL [facility], [address] [place] [address] 05/17 Total prote in G/DL 6.2 8.1 6.1 Low FINAL [facility], [address] [facility] [address] 05/17 Album in G/DL 3.5 5.2 3.6 FINAL [facility], [address] [facility] [address] 05/17 Bilir ubin, total MG/DL 0.0 1.0 0.5 FINAL [facility], [address] [facility] [address] 05/17 Alkal ine phosp hatas e IU/L 33.0 130.0 70 FINAL [facility], [address] [facility] [address] 05/17 AST/S GOT IU/L 14.0 36.0 23 FINAL [facility], [address] [facility] [address] 05/17 ALT/S GPT IU/L 9.0 52.0 11 FINAL [facility], [address] [facility] [address] 05/17 Anion gap, mmol/ L MMOL/L 8.0 16.0 9.24 FINAL [facility], [address] [facility] [address] 05/17 Gluco se MG/DL 70.0 105.0 163 High FINAL [facility], [address] [facility] [address] 05/17 Calci um MG/DL 8.2 10.4 9.4 FINAL [facility], [address] [facility] [address] Medications Date Name Route Dose Frequency Instructions Start Date End Date Status Folic Acid Oral daily a ctive Losartan Oral 2 in am, 1 in pm = 75mg daily active Hydrocodone-Enio taminophen Oral 5 mg-325 mg daily active Lidocaine Topical Cream 4 % prn active Vitamin U47-Gusxa Acid Oral 500 mcg-400 mcg daily active [...]
--- OUTSIDE RECORDS SUMMARY | 2025-01-29 08:07 | XMS_ITS | CCD ---
Author Name Interface, [id number] lity Address [address] [facility] [address] [place] [address] Organization [facility] Address [address] [facility] [address] [place] [address] Care Team Providers Care Field Marketing Representative Name Role Phone Javier Peck Unavailable Unavailable [...] GPT IU/L 9.0 52.0 11 FINAL [facility], [address] [place] [address] 05/17 A/G ratio 1.4 FINAL [facility], [address] [place] [address] 05/17 ASPAR APOLLO AMINO TRANS FERAS E, SERUM - FINAL [facility], [address] [facility] [address] 05/17 Gluco se MG/DL 70.0 105.0 [address] [facility], [address] [facility] [address] 05/17 Globu jo ann G/DL 1.9 3.7 2.6 FINAL [facility], [address] [facility] [address] 05/17 Anion gap, mmol/ L MMOL/L 8.0 16.0 [address] [facility], [address] [facility] [address] 05/17 Total prote in G/DL 6.2 8.1 6.[address] [facility], [address] [facility] [address] 05/17 CREAT ININE , SERUM - FINAL [facility], [address] [facility] [address] 05/17 AST/S GOT IU/L 14.0 36.[address] [facility], [address] [place] [address] 05/17 GLUCO SE, PLASM A OR SERUM - FINAL [facility], [address] [facility] [address] 05/17 BRANDON ZARATE AMINO TRANS FERAS E, SERUM - FINAL [facility], [address] [place] [address] 05/17 GFR Afric an Ameri can, estim ated [address] [facility], [address] [place] [address] 05/17 Bilir ubin, total MG/DL 0.0 1.0 [address] [facility], [address] [place] [address] 05/17 TOTAL PROTE IN - FINAL [facility], [address] [place] [address] 05/17 Sodiu m MMOL/L 134.0 145.0 144 FINAL [facility], [address] [place] [address] 05/17 ALBUM IN, SERUM - FINAL [facility], [address] [place] [address] 05/17 BLOOD UREA NITRO GEN (BUN) - FINAL [facility], [address] [place] [address] 05/17 CALCI UM, TOTAL - FINAL [facility], [address] [place] [address] 05/17 Alkal ine phosp hatas e IU/L 33.0 130.0 70 FINAL [facility], [address] [place] [address] 05/17 GFR estim ate 50 Low FINAL [facility], [address] [place] [address] 05/17 Calci um MG/DL 8.2 10.4 9.4 FINAL [facility], [address] [place] [address] 05/17 Anion gap - FINAL [facility], [address] [place] [address] 05/17 CO2 MMOL/L 21.0 29.0 31 High FINAL [facility], [address] [place] [address] 05/17 BILIR UBIN, TOTAL - FINAL [facility], [address] [place] [address] 05/17 ALKAL INE PHOSP HATAS E - FINAL [facility], [address] [place] [address] 05/17 Chlor ilene MMOL/L 96.0 108.0 108 FINAL [facility], [address] [place] [address] 05/17 BUN MG/DL 0.0 23.0 21.5 FINAL [facility], [address] [place] [address] 05/17 CHELSY Chun, SERUM - FINAL [facility], [address] [place] [address] 05/17 Creat inine MG/DL 0.6 1.1 1.09 FINAL [facility], [address] [place] [address] 05/17 Album in G/DL 3.5 5.2 [address] [facility], [address] [place] [address] 05/17 POTAS SIUM, SERUM - FINAL [facility], [address] [place] [address] 05/17 BUN/C reati nine ratio 20 FINAL [facility], [address] [place] [address] 05/17 CARBO N DIOXI DE - FINAL [facility], [address] [place] [address] 05/17 Potas sium MMOL/L 3.6 5.2 4.2 FINAL [facility], [address] [place] [address] 05/17 CHLOR ILENE - FINAL [facility], [address] [place] [address] 05/17 Sybil # (ANC) X103/U L 1.67 8.[address] [facility], [address] [place] [address] 05/17 MCV FL 81.0 100.[address] [facility], [address] [place] [address] 05/17 MO # X103/U L 0.27 0.98 0.48 FINAL [facility], [address] [place] [address] 05/17 IG % % 0.0 0.4 0.2 FINAL [facility], [address] [place] [address] 05/17 MO % % 4.0 13.0 9 FINAL [facility], [address] [place] [address] 05/17 IG # X103/U L 0.0 0.04 0.01 FINAL [facility], [address] [place] [address] 05/17 EO # X103/U L 0.11 0.55 0.08 Low FINAL [facility], [address] [place] [address] 05/17 EO % % 1.0 6.0 2 FINAL [facility], [address] [place] [address] 05/17 RBC X106/U L 3.7 5.4 3.88 FINAL [facility], [address] [place] [address] 05/17 MPV FL 9.4 12.4 10 FINAL [facility], [address] [place] [address] 05/17 BA % % 0.0 1.0 0 FINAL [facility], [address] [place] [address] 05/17 BA # X103/U L 0.02 0.1 0.02 FINAL [facility], [address] [place] [address] 05/17 HGB G/DL 11.4 15.4 11.6 FINAL [facility], [address] [place] [address] 05/17 MCHC G/DL 30.0 36.0 31.4 FINAL [facility], [address] [place] [address] 05/17 HCT % 35.0 47.0 36.9 FINAL [facility], [address] [place] [address] 05/17 WBC X103/U L 4.0 11.0 5.3 FINAL [facility], [address] [place] [address] 05/17 PLT X103/U L 150.0 450.0 154 FINAL [facility], [address] [place] [address] 05/17 RDW % 12.2 15.[address] [facility], [address] [place] [address] 05/17 LY % % 23.0 44.[address] [facility], [address] [place] [address] 05/17 MCH PG 27.0 34.0 29.9 FINAL [facility], [address] [place] [address] 05/17 LY # X103/U L 1.03 4.[address] [facility], [address] [place] [address] 05/17 Sybil % % 37.0 77.[address] [facility], [address] [place] [address] 05/17 CARCI NOEMB RYONI C ANTIG EN (CEA) - FINAL [facility], [address] [place] [address] 05/17 CEA, mg/dL MG/DL 0.0 5.[address] [facility], [address] [place] [address] 05/17 LDH IU/L 100.0 250.[address] [facility], [address] [place] [address] 05/17 LACTI C ACID DEHYD ROGEN ASE (LDH) - FINAL [facility], [address] [facility] [address] Medications Date Name Route Dose Frequency Instructions Start Date End Date Status Methotrexate Oral 6.0 weekly, on stopped Pantoprazole (Sodium ) Oral Delayed Release daily inactive Vitamin Q85-Qsmoj Ac id Oral 500 mcg-400 mcg daily [...]
[2025-01-29 08:24] LABS: Estimated Glomerular Filt Rate 39
[2025-01-29 09:00] LABS: Basophils Percent Auto 0.4 % (0.2-1.2); Eosinophils Percent Auto 0.3 % (0-4.4); Hemoglobin 10.2 g/dL (12.0-15.0); Immature Granulocyte Absolute 0.05 K/mm3 (0.00-0.031); Immature Granulocyte Percent A 0.7 % (0-0.5); Lymphocytes Absolute Auto 1.19 K/mm3 (0.9-3.2); Lymphocytes Percent Auto 16.9 % (18.3-44.2); Mean Corpuscular Hemoglobin 28.7 pg (26-34); Mean Corpuscular Volume 95.8 fl (80-100); Mean Platelet Volume 10.4 fl (7.4-10.4); Monocytes Percent Auto 14.2 % (2.6-8.5); Neutrophils Absolute Auto 4.8 K/mm3 (1.3-6.7); Neutrophils Percent Auto 67.5 % (45.5-73.1); Platelet Count Result 151 k/mm3 (150-375); Red Blood Count 3.55 M/mm3 (4.2-5.4); Red Cell Distribution Width 16.7 % (11.5-14.5); White Blood Count 7.1 K/mm3 (4.5-10.0)
[2025-01-29 09:16] LABS: Alanine Aminotransferase 64 U/L (6-35); Albumin Level 3.2 g/dL (3.5-5.1); Alkaline Phosphatase 1113 U/L (38-126); Anion Gap 6 mmol/L (4-12); Aspartate Amino Transferase 105 U/L (14-36); Bilirubin,Total 2.1 mg/dL (0.2-1.3); Blood Urea Nitrogen 26 mg/dL (7-17); Carbon Dioxide 26 mmol/L (22-30); Chloride 106 mmol/L (98-107); Estimated Glomerular Filt Rate 44; Glucose 90 mg/dL (65-110); Potassium 4.3 mmol/L (3.4-5.0); Sodium 138 mmol/L (137-145); Total Protein 6.5 g/dL (6.3-8.2)
== END 2025-01-29 07:58 | disposition home or self-care (01) ==
PROVIDERS: PCP Internal Medicine; Visit Provider Internal Medicine Hematology & Oncology
DX: C78.7 Secondary malignant neoplasm of liver and intrahepatic bile duct (principal); R91.8 Other nonspecific abnormal finding of lung field; R18.8 Other ascites; K80.20 Calculus of gallbladder without cholecystitis without obstruction
CPT/HCPCS: 36415; 71260; 74177; 80053; 85025; Q9967

== ENCOUNTER 2025-02-12 12:44 | Outpatient (CLI) | payer MEDICARE, SELFPAY ==
[2025-02-12 13:19] LABS: Basophils Percent Auto 0.1 % (0.2-1.2); Eosinophils Percent Auto 0.1 % (0-4.4); Hematocrit 32.7 % (37.0-47.0); Hemoglobin 10.9 g/dL (12.0-15.0); Immature Granulocyte Absolute 0.07 K/mm3 (0.00-0.031); Immature Granulocyte Percent A 0.7 % (0-0.5); Immature Platelet Fraction Pct 4.8 % (0.9-11.2); Lymphocytes Absolute Auto 0.59 K/mm3 (0.9-3.2); Mean Corpuscular HGB Conc 33.3 g/dl (32-36); Mean Corpuscular Hemoglobin 29.5 pg (26-34); Mean Corpuscular Volume 88.6 fl (80-100); Mean Platelet Volume 10.2 fl (7.4-10.4); Monocytes Absolute Auto 0.5 K/mm3 (0.1-0.6); Monocytes Percent Auto 4.9 % (2.6-8.5); Neutrophils Absolute Auto 8.7 K/mm3 (1.3-6.7); Neutrophils Percent Auto 88.2 % (45.5-73.1); Platelet Count Result 134 k/mm3 (150-375); Red Blood Count 3.69 M/mm3 (4.2-5.4); Red Cell Distribution Width 18.5 % (11.5-14.5); White Blood Count 9.9 K/mm3 (4.5-10.0)
[2025-02-12 14:25] LABS: Alanine Aminotransferase 78 U/L (6-35); Albumin Level 3.2 g/dL (3.5-5.1); Alkaline Phosphatase 1015 U/L (38-126); Anion Gap 11 mmol/L (4-12); Aspartate Amino Transferase 119 U/L (14-36); Blood Urea Nitrogen 58 mg/dL (7-17); Calcium 9.3 mg/dL (8.4-10.2); Carbon Dioxide 24 mmol/L (22-30); Chloride 95 mmol/L (98-107); Estimated Glomerular Filt Rate 26; Glucose 147 mg/dL (65-110); Potassium 5.1 mmol/L (3.4-5.0); Sodium 130 mmol/L (137-145); Total Protein 6.9 g/dL (6.3-8.2)
== END 2025-02-12 12:45 | disposition home or self-care (01) ==
LOC: ANHLAB 12:47
PROVIDERS: Visit Provider Internal Medicine Hematology & Oncology
DX: C78.7 Secondary malignant neoplasm of liver and intrahepatic bile duct (principal)
CPT/HCPCS: 36415; 80053; 85025; 85055